=== PATIENT | female | born 1935 | race Caucasian/White ===

== ENCOUNTER 2017-03-25 10:44 | Inpatient (IN) | payer OTHER, MEDICARE ==
[2017-03-25] MEDS ORDERED: AZITHROMYCIN IVPB 500 MG in DEXTROSE 5%-WATER - 250 ML IVPB ONE (10:51)
--- NOTE | 2017-03-25 10:54 | PDOC ---
History of Present Illness - General Chief Complaint: Respiratory Stated Complaint: COUGH Time Seen by Provider: 03/25/17 10:49 History Source: Patient Exam Limitations: No Limitations - History of Present Illness Initial Comments: 03/25/17 10:53 89 y/o female with cough since Friday. Denies SOB or chest pain. No N/V/D/C. Cough is productive and getting worse. No traveling or sick contacts. No fever or chills. Feeling weak as well. Severity: reports: mild Past History - Past Medical History Allergies/Adverse Reactions: Allergies Allergy/AdvReac Type Severity Reaction Status Date / Time Sulfa (Sulfonamide Allergy Unknown Verified 07/18/15 15:40 Antibiotics) [Sulfa(Sulfonamide Antibiotics)] ciprofloxacin [From Cipro] Allergy Verified 07/18/15 15:40 ciprofloxacin HCl Allergy Verified 07/18/15 15:40 [From Cipro] levofloxacin [From Levaquin] AdvReac Unknown Verified 07/18/15 15:40 Home Medications: Ambulatory Orders Alpha Lipoic Acid 300 mg PO DAILY 02/16/12 Aspirin [Aspirin EC] 81 mg PO DAILY 02/16/12 Digoxin [Lanoxin -] 0.125 mg PO DAILY 02/16/12 Diltiazem Cd [Cardizem Cd -] 120 mg PO DAILY 02/16/12 Fluoxetine HCl [Prozac -] 20 mg PO DAILY 02/16/12 Furosemide [Lasix] 20 mg PO DAILY 02/16/12 Gzwcjrhx-[id number]-Ydrn 149-Hyal [Glucosamine Chondroitin Tablet] 1 each PO DAILY 02/16/12 Metformin HCl [Metformin HCl ER] 500 mg PO DAILY 02/16/12 Multivitamin with Minerals [Multiple Vitamin] 1 each PO DAILY 02/16/12 [place]-3/Dha/Epa/Fish Oil [Fish Oil 1,000 mg Softgel] 2 each PO DAILY 02/16/12 Warfarin Na [Coumadin -] 2.5 mg PO DAILY@1800 02/16/12 Doxazosin Mesylate 2 mg PO HS 03/25/17 Warfarin Sodium [Coumadin] 5 mg PO DAILY 03/25/17 Cardiac Disorders: Yes (A-FIB) Diabetes: Yes HTN: Yes Kidney Stones: Yes Psychiatric Problems: Yes (DEPRESSION) - Surgical History Cardiac Surgery: Yes (AVR) - Psycho/Social/Smoking Cessation Hx Anxiety: Yes Suicidal Ideation: No Smoking Status: Yes Smoking History: Never smoked Number of Cigarettes Smoked Daily: 0 Cigars Per Day: 0 Hx Alcohol Use: No Drug/Substance Use Hx: No Substance Use Type: None Review of Systems - Review of Systems Able to Perform ROS?: Yes Is the patient limited [place]uran proficient: No Constitutional: Yes: Malaise. No: Chills, Fever HEENTM: No: Eye Pain Respiratory: Yes: Cough, Productive cough. No: Shortness of Breath Cardiac (ROS): No: Chest Pain, Edema : No: Burning, Dysuria Integumentary: No: Bruising Neurological: No: Headache, Numbness, Paresthesia All Other Systems: Reviewed and Negative *Physical Exam - Physical Exam General Appearance: Yes: Nourished, Appropriately Dressed. No: Apparent Distress HEENT: positive: EOMI, EDMOND (mild discharge from the eyes), Normal ENT Inspection Neck: positive: Trachea midline, Normal Thyroid, Supple Respiratory/Chest: negative: Chest Tender, Lungs Clear (coarse breath sounds b/l , no wheezing b/l), Normal Breath Sounds, Respiratory Distress Cardiovascular: positive: Regular Rhythm, Regular Rate, S1, S2, Murmur (3/6 PEDRO) Gastrointestinal/Abdominal: positive: Normal Bowel Sounds, Flat, Soft. negative : Tender, Organomegaly, Pulsatile Mass Musculoskeletal: positive: Normal Inspection. negative: CVA Tenderness Extremity: positive: Normal Capillary Refill, Normal Inspection, Normal Range of Motion, Cyanosis. 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 Lorenzana covering for Dr. Aguirre, will admit to Dr. Parson's service Family in agreement with plan. *DC/Admit/Observation/Transfer Diagnosis at time of Disposition: Shortness of breath, Weakness - Discharge Dispostion Condition at time of disposition: Stable Admit: Yes
[2017-03-25] MEDS ORDERED: ALBUTEROL SO4 0.083% IH SOL 2.5 MG/3 ML VIAL.NEB. NEB ONE ×2 (10:56→11:18)
[2017-03-25 11:16] VITALS: BMI 21.7
[2017-03-25] MEDS ORDERED: AZITHROMYCIN 500 MG VIAL IVPB ONE (11:18)
[2017-03-25] MEDS ORDERED: cefTRIAXone SODIUM 1 GM VIAL ONE (11:18)
[2017-03-25 11:59] LABS: EOSINOPHIL 0.4 % (0-4.5); MCH 29.4 pg (25.7-33.7); MCHC 33.8 g/dl (32.0-36.0); MEAN PLT VOLUME 9.2 fl (7.5-11.1); NEUTROPHILS 73.8 % (42.8-82.8); PLATELET COUNT 256 K/MM3 (134-434); RDW 13.4 % (11.6-15.6); WHITE BLOOD COUNT 16.1 K/mm3 (4.0-10.8)
[2017-03-25 12:15] LABS: ALBUMIN 3.5 g/dl (3.5-5.0); ALK PHOS 69 U/L (32-92); ANION GAP 8 (8-16); BILIRUBIN,TOTAL 0.8 mg/dl (0.2-1.0); CALCIUM 9.2 mg/dl (8.4-10.2); CO2 28 mmol/L (22-28); CREATININE 0.9 mg/dl (0.6-1.3); GLUCOSE,RANDOM 103 mg/dl (74-106); SGOT/AST 16 U/L (10-42); SGPT/ALT 16 U/L (10-40); TOT PROT 7.3 g/dl (6.4-8.3)
[2017-03-25] MEDS: SODIUM CHLORIDE 1,000 ML IV SCH (12:25)
[2017-03-25 12:32] LABS: TROPONIN I (DFP) 0.03 ng/ml (0.03-0.50)
--- NOTE | 2017-03-25 15:18 | HP ---
Admitting History and Physical - Admission Chief Complaint: cough, congestion History of Present Illness: 81 yo female, h/o DM, heart valve replacement, presents to hospital with 4 days of increasing coughing and congestion. Notes prior to that was feeling OK. Began to get congested nasally and slight cough, so thought that it was just allergies, but then as the last few days went on became increasingly congested, coughing up phlegm occasionally. Received abx and albuterol breathing treatment in ED here and feels a little better, however still with cough. Eyes have been crusting as well. History Source: Patient, Family Member, Medical Record Limitations to Obtaining History: No Limitations - Past Medical History SOCK LINER: Yes: Peripheral Neuropathy Cardiovascular: Yes: AFIB, Aortic Stenosis, CAD, CHF, HTN, Hyperlipdemia, Other (peripheral vascular disease) Psych: Yes: Depression Musculoskeletal: Yes: Other (scoliosis) Rheumatology: Yes: Other (osteoporosis) Endocrine: Yes: Diabetes Mellitus, Other (vit d def) - Past Surgical History Past Surgical History: Yes: Appendectomy, CABG, Cataract Removal, Tonsillectomy , Valve Replacement (Aortic -Porcine) Additional Past Surgical History: bladder surgery - Smoking History Smoking history: Former smoker Have you smoked in the past 12 months: No Aproximately how many cigarettes per day: 0 - Alcohol/Substance Use Hx Alcohol Use: Yes (occasional beer) - Social History Usual Living Arrangement: Yes: With Spouse 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[employer]) Other Social History: , 1 dtr Home Medications - Allergies Allergies/Adverse Reactions: Allergies Allergy/AdvReac Type Severity Reaction Status Date / Time Sulfa (Sulfonamide Allergy Unknown Verified 07/18/15 15:40 Antibiotics) [Sulfa(Sulfonamide Antibiotics)] ciprofloxacin [From Cipro] Allergy Verified 07/18/15 15:40 ciprofloxacin HCl Allergy Verified 07/18/15 15:40 [From Cipro] levofloxacin [From Levaquin] AdvReac Unknown Verified 07/18/15 15:40 - Home Medications Home Medications: Ambulatory Orders Alpha Lipoic Acid 300 mg PO DAILY 02/16/12 Aspirin [Aspirin EC] 81 mg PO DAILY 02/16/12 Digoxin [Lanoxin -] 0.125 mg PO DAILY 02/16/12 Diltiazem Cd [Cardizem Cd -] 120 mg PO DAILY 02/16/12 Fluoxetine HCl [Prozac -] 20 mg PO DAILY 02/16/12 Furosemide [Lasix] 20 mg PO DAILY 02/16/12 [place]-Dceozjg-Nact 149-Hyal [Glucosamine Chondroitin Tablet] 1 each PO DAILY 02/16/12 Metformin HCl [Metformin HCl ER] 500 mg PO DAILY 02/16/12 Multivitamin with Minerals [Multiple Vitamin] 1 each PO DAILY 02/16/12 [place]-3/Dha/Epa/Fish Oil [Fish Oil 1,000 mg Softgel] 2 each PO DAILY 02/16/12 Warfarin Na [Coumadin -] 2.5 mg PO DAILY@1800 02/16/12 Doxazosin Mesylate 2 mg PO HS 03/25/17 Warfarin Sodium [Coumadin] 5 mg PO DAILY 03/25/17 Family Disease History - Family Disease History Family Disease History: CA: Mother (Lung CA), Other: Father (AAA, COPD) Review of Systems - Review of Systems Constitutional: denies: Chills, Fever, Loss of Appetite Eyes: reports: Other (bilateral eye crusting) HENT: reports: Nasal Congestion. denies: Ear Discharge, Ear Pain Neck: denies: Lumps, Pain on Movement, Tenderness Cardiovascular: denies: Chest Pain, Palpitations Respiratory: reports: Cough. denies: Hemoptysis, SOB Gastrointestinal: denies: Abdominal Pain, Diarrhea, Nausea, Rectal Bleeding, Vomiting Genitourinary: denies: Burning, Discharge, Dysuria Neurological: denies: Change in LOC, Confusion Physical Examination Vital Signs: Vital Signs Temperature 99.3 F 03/25/17 12:51 Pulse Rate 98 H 03/25/17 12:51 Respiratory Rate 20 03/25/17 12:51 Blood Pressure 128/59 03/25/17 14:02 O2 Sat by Pulse Oximetry (%) 96 03/25/17 12:51 Constitutional: Yes: No Distress, Calm Eyes: No: Conjunctiva Clear (erythematou with crusting in medil canthus of eyes) Cardiovascular: Yes: Regular Rate and Rhythm, Murmur, S1, S2 Respiratory: Yes: Regular, Rhonchi, Wheezes (bilaterally) Gastrointestinal: Yes: Normal Bowel Sounds, Soft. No: Distention, Tenderness Edema: No Neurological: Yes: Alert, Oriented Labs: CBC, BMP 03/25/17 11:43 03/25/17 11:43 Imaging - Results Chest X-ray: Report Reviewed (no acute pathology) Problem List - Problems (1) Bronchopneumonia Assessment/Plan: -start abx (Rocephin, zithromax), anti-tussive Code(s): J18.0 - BRONCHOPNEUMONIA, UNSPECIFIED ORGANISM (2) Reactive airway disease Assessment/Plan: -as h/o diabetes, will avoid systemic steroids for now -start albuterol neb, asmanex for inhaled corticosteroid Code(s): J45.909 - UNSPECIFIED ASTHMA, UNCOMPLICATED (3) Conjunctivitis Assessment/Plan: -start tobra eye drops Code(s): H10.9 - UNSPECIFIED CONJUNCTIVITIS (4) Diabetes mellitus Assessment/Plan: -with acute illness will start sliding scale insulin -cont metformin Code(s): E11.9 - TYPE 2 DIABETES MELLITUS WITHOUT COMPLICATIONS (5) Afib Assessment/Plan: -on coumadin (will need to follow INR on abx) Code(s): I48.91 - UNSPECIFIED ATRIAL FIBRILLATION (6) Aortic valve replaced Assessment/Plan: -porcine valve (on AC for afib) Code(s): Z95.2 - PRESENCE OF PROSTHETIC HEART VALVE (7) Depression Assessment/Plan: -on SSRI Code(s): F32.9 - MAJOR DEPRESSIVE DISORDER, SINGLE EPISODE, UNSPECIFIED
[2017-03-25] MEDS ORDERED: guaiFENesin/D-M SUGAR-FREE/ACLHOL-FREE 118 ML BOTTLE PO PRN (15:33)
[2017-03-25] MEDS: INSULIN SLIDING SCALE (NOVOLOG) 1 VIAL SQ SCH ×2 (16:30→21:55)
[2017-03-25] MEDS ORDERED: ALBUTEROL SO4 0.083% IH SOL 2.5 MG/3 ML VIAL.NEB. NEB SCH (18:00)
[2017-03-25] MEDS: WARFARIN NA 2.5 MG TABLET (FP) PO SCH (18:14)
[2017-03-25] MEDS: ALBUTEROL SO4 0.083% IH SOL 2.5 MG/3 ML VIAL.NEB. NEB SCH (18:27)
[2017-03-25] MEDS ORDERED: methylPREDNISolone NA SUCC 125 MG/2 ML VIAL ONE (18:51)
[2017-03-25 18:55] LABS: INR 2.16 (0.82-1.09); PROTHROMBIN TIME (PATIENT) 23.8 SEC (10.2-13.0)
[2017-03-25] MEDS ORDERED: methylPREDNISolone NA SUCC 125 MG/2 ML VIAL IVPB ONE (18:57)
[2017-03-25] MEDS ORDERED: ACETAMINOPHEN 1000 MG/100 ML VIAL (NON FORMULARY) IVPB ONE (19:03)
[2017-03-25] MEDS: methylPREDNISolone NA SUCC 40 MG/1 ML VIAL IVPB SCH (21:49)
[2017-03-25] MEDS: TOBRAMYCIN 0.3% OPHTH SOLN 5 ML BOTTLE OU SCH (21:49)
[2017-03-25] MEDS: DOXAZOSIN MESYLATE 2 MG TABLET (FP) PO SCH (21:49)
[2017-03-25] MEDS ORDERED: INSULIN (NOVOLOG) ASPART 100 UNITS/ML 10ML VIAL ONE (21:55)
[2017-03-25] MEDS: MOMETASONE FUROATE 220 MCG/IH INHALER IH SCH (21:56)
[2017-03-26] MEDS: ALBUTEROL SO4 0.083% IH SOL 2.5 MG/3 ML VIAL.NEB. NEB SCH ×5 (00:10→23:32)
[2017-03-26] MEDS: TOBRAMYCIN 0.3% OPHTH SOLN 5 ML BOTTLE OU SCH ×6 (02:10→21:41)
[2017-03-26] MEDS: INSULIN SLIDING SCALE (NOVOLOG) 1 VIAL SQ SCH ×4 (06:16→21:55)
[2017-03-26] MEDS ORDERED: PT OWN MED DRAWER 7, Y5N ONE ×5 (06:22→21:36)
[2017-03-26 08:37] LABS: BASOPHIL 0.6 % (0-2.0); MCH 28.9 pg (25.7-33.7); MCHC 32.7 g/dl (32.0-36.0); MEAN CELL VOLUME 88.4 fl (80-96); MEAN PLT VOLUME 9.4 fl (7.5-11.1); NEUTROPHILS 91.5 % (42.8-82.8); PLATELET COUNT 251 K/MM3 (134-434); RDW 13.3 % (11.6-15.6); WHITE BLOOD COUNT 15.2 K/mm3 (4.0-10.8)
[2017-03-26 08:52] LABS: INR 2.51 (0.82-1.09); PROTHROMBIN TIME (PATIENT) 27.6 SEC (10.2-13.0)
--- NOTE | 2017-03-26 09:47 | PN ---
Progress Note, Physician Chief Complaint: Ms Nevarez says she feels "like a new woman". Says her breathing and wheezing are much improved. No cp or n/v. - Current Medication List Current Medications: Active Medications Acetaminophen (Tylenol -) 650 mg PO Q4H PRN PRN Reason: FEVER OR PAIN Albuterol Sulfate (Ventolin 0.083% Nebulizer Soln -) 1 amp NEB Q6HPO [facility] Last Admin: 03/26/17 05:43 Dose: 1 amp Aspirin (Ecotrin -) 81 mg PO DAILY [facility] Digoxin (Lanoxin -) 0.125 mg PO DAILY [facility] Diltiazem HCl (Cardizem Cd -) 120 mg PO DAILY [facility] Doxazosin Mesylate (Cardura -) 2 mg PO HS [facility] Last Admin: 03/25/17 21:49 Dose: 2 mg Fluoxetine HCl (Prozac -) 20 mg PO DAILY [facility] Furosemide (Lasix -) 20 mg PO DAILY [facility] Guaifenesin (Diabetic Tussin Dm -) 5 ml PO Q6H PRN PRN Reason: COUGH Sodium Chloride (Normal Saline -) 1,000 mls @ 150 mls/hr IV ASDIR [facility] Last Admin: 03/25/17 12:25 Dose: 150 mls/hr Azithromycin (Zithromax 500mg Ivpb (Pre-Docked)) 250 mls @ 250 mls/hr IVPB DAILY [facility] Ceftriaxone Sodium (Rocephin 1gm Ivpb (Pre-Docked)) 50 mls @ 100 mls/hr IVPB DAILY [facility] Insulin Aspart (Novolog Vial Sliding Scale -) 0 vial SQ ACHS [facility] PRN Reason: Protocol Last Admin: 03/26/17 06:16 Dose: Not Given Metformin HCl (Glucophage Xr -) 500 mg PO DAILY [facility] Methylprednisolone Sodium Succinate (Solu-Medrol -) 80 mg IVPB BID [facility] Last Admin: 03/25/17 21:49 Dose: 80 mg Mometasone Furoate (Asmanex 220mcg -) 2 puff IH HS [facility] Last Admin: 03/25/17 21:56 Dose: 2 puff Multivitamins/Minerals (Theragran-M) 1 each PO DAILY [facility] Non-Formulary Medication ([place]-3/Dha/Epa/Fish Oil [Fish Oil 1,000 Mg Softgel]) 2 each PO DAILY [facility] Tobramycin Sulfate (Tobrex Ophthalmic Solution -) 1 drop OU Q4HPO [facility] Last Admin: 03/26/17 05:43 Dose: 1 drop Warfarin Sodium (Coumadin -) 2.5 mg PO DAILY@1800 [facility] Last Admin: 03/25/17 18:14 Dose: 2.5 mg - Objective Vital Signs: Vital Signs Temperature 98.6 F 03/26/17 06:00 Pulse Rate 67 03/26/17 06:00 Respiratory Rate 20 03/26/17 06:00 Blood Pressure 128/52 03/26/17 06:00 O2 Sat by Pulse Oximetry (%) 95 03/26/17 08:32 Constitutional: Yes: Well Nourished, No Distress, Calm Cardiovascular: Yes: Pulse Irregular. No: Tachycardia, Gallop, Murmur, Rub Respiratory: Yes: Regular, On Nasal O2, Wheezes. No: CTA Bilaterally, Rales, Rhonchi Gastrointestinal: Yes: Normal Bowel Sounds, Soft. No: Distention, Tenderness Extremities: Yes: WNL Edema: No Labs: CBC, BMP 03/26/17 08:00 INR, PTT INR 2.51 (0.82-1.09) H 03/26/17 08:00 Problem List - Problems (1) Bronchopneumonia Assessment/Plan: -admitted for pneumonia with sepsis -sepsis demonstrated by leukocytosis, fevers, tachycardia, and hypoxia -continue zithromax and rocephin day 2 -patient says she is feeling better -last fever 10 hours ago, still with leukocytosis Code(s): J18.0 - BRONCHOPNEUMONIA, UNSPECIFIED ORGANISM (2) Afib Assessment/Plan: -rate controlled -INR therapeutic -continue diltiazem, digoxin, and coumadin Code(s): I48.91 - UNSPECIFIED ATRIAL FIBRILLATION Qualifiers: Atrial fibrillation type: chronic Qualified Code(s): I48.2 - Chronic atrial fibrillation (3) Diabetes mellitus Assessment/Plan: -continue metformin -expect elevation since on steroids Code(s): E11.9 - TYPE 2 DIABETES MELLITUS WITHOUT COMPLICATIONS (4) Conjunctivitis Assessment/Plan: -continue tobramycin eye drops -improving Code(s): H10.9 - UNSPECIFIED CONJUNCTIVITIS Qualifiers: Conjunctivitis type: acute Acute conjunctivitis type: bacterial Laterality: bilateral Qualified Code(s): H10.33 - Unspecified acute conjunctivitis, bilateral (5) Reactive airway disease Assessment/Plan: -still with significant wheezing -continue bronchodilators and systemic steroids -monitor for improvement Code(s): J45.909 - UNSPECIFIED ASTHMA, UNCOMPLICATED (6) Aortic valve replaced Assessment/Plan: -porcine valve Code(s): Z95.2 - PRESENCE OF PROSTHETIC HEART VALVE
[2017-03-26] MEDS ORDERED: PATIENT'S OWN MEDICATION (NON-FORMULARY) (Omega-3/Dha/Epa/Fish Oil [Fish Oil 1,000 Mg Soft PO SCH (10:00)
[2017-03-26] MEDS ORDERED: FLUoxetine HCL 10 MG CAPSULE (FP) PO SCH (10:00)
[2017-03-26] MEDS: MULTIVITAMINS THER W-MINERALS COMBO TABLET (FP) PO SCH (10:12)
[2017-03-26] MEDS: FUROSEMIDE 20 MG TABLET (FP) PO SCH (10:12)
[2017-03-26] MEDS: DIGOXIN 0.125 MG TABLET (FP) PO SCH (10:13)
[2017-03-26] MEDS: ASPIRIN COATED 81 MG TABLET.EC PO SCH (10:13)
[2017-03-26] MEDS: methylPREDNISolone NA SUCC 40 MG/1 ML VIAL IVPB SCH ×2 (10:14→21:35)
[2017-03-26] MEDS: FLUoxetine HCL 20 MG CAPSULE (FP) PO SCH (10:14)
[2017-03-26] MEDS: CEFTRIAXONE 50 ML IVPB SCH (10:15)
[2017-03-26] MEDS: AZITHROMYCIN IVPB 250 ML IVPB SCH (10:16)
[2017-03-26] MEDS: SODIUM CHLORIDE 1,000 ML IV SCH (14:01)
[2017-03-26 14:09] LABS: ALBUMIN 3.2 g/dl (3.5-5.0); ALK PHOS 75 U/L (32-92); ANION GAP 10 (8-16); BILIRUBIN,TOTAL 0.3 mg/dl (0.2-1.0); CO2 24 mmol/L (22-28); CREATININE 0.9 mg/dl (0.6-1.3); GLUCOSE,RANDOM 199 mg/dl (74-106); SGOT/AST 32 U/L (10-42); SGPT/ALT 21 U/L (10-40)
--- NOTE | 2017-03-26 17:24 | EKG ---
Test Reason : Blood Pressure : / mmHG Vent. Rate : 078 BPM Atrial Rate : 214 BPM P-R Int : 000 ms QRS Dur : 110 ms QT Int : 372 ms P-R-T Axes : 000 -31 092 degrees QTc Int : 424 ms ATRIAL FIBRILLATION LEFT AXIS DEVIATION NONSPECIFIC ST AND T WAVE ABNORMALITY NO PREVIOUS ECGS AVAILABLE Confirmed by MD ALISA, SHINE ([id number]) on 03/26/2017 5:23:57 PM Referred By: SHARRON RUIZ Confirmed By:SHINE CUELLAR MD
[2017-03-26] MEDS: WARFARIN NA 2.5 MG TABLET (FP) PO SCH (17:47)
[2017-03-26] MEDS: MOMETASONE FUROATE 220 MCG/IH INHALER IH SCH (21:34)
[2017-03-26] MEDS: DOXAZOSIN MESYLATE 2 MG TABLET (FP) PO SCH (21:34)
[2017-03-26] MEDS ORDERED: INSULIN (NOVOLOG) ASPART 100 UNITS/ML 10ML VIAL ONE (21:43)
[2017-03-26] MEDS: ACETAMINOPHEN 325 MG TABLET (FP) PO PRN (23:32)
[2017-03-27] MEDS: TOBRAMYCIN 0.3% OPHTH SOLN 5 ML BOTTLE OU SCH ×5 (01:06→21:29)
[2017-03-27] MEDS: ALBUTEROL SO4 0.083% IH SOL 2.5 MG/3 ML VIAL.NEB. NEB SCH ×3 (06:22→21:27)
[2017-03-27] MEDS: INSULIN SLIDING SCALE (NOVOLOG) 1 VIAL SQ SCH ×4 (06:54→22:15)
[2017-03-27] MEDS ORDERED: INSULIN (NOVOLOG) ASPART 100 UNITS/ML 10ML VIAL ONE (06:54)
[2017-03-27 08:12] LABS: MCH 29.5 pg (25.7-33.7); MCHC 33.4 g/dl (32.0-36.0); MEAN CELL VOLUME 88.3 fl (80-96); MEAN PLT VOLUME 9.4 fl (7.5-11.1); PLATELET COUNT 253 K/MM3 (134-434); WHITE BLOOD COUNT 23.7 K/mm3 (4.0-10.8)
[2017-03-27 08:28] LABS: ANION GAP 9 (8-16); CO2 23 mmol/L (22-28); GLUCOSE,RANDOM 240 mg/dl (74-106); MAGNESIUM 2.1 mg/dL (1.8-2.4)
[2017-03-27] MEDS: ASPIRIN COATED 81 MG TABLET.EC PO SCH (09:02)
[2017-03-27] MEDS: DIGOXIN 0.125 MG TABLET (FP) PO SCH (09:02)
[2017-03-27] MEDS: FUROSEMIDE 20 MG TABLET (FP) PO SCH (09:02)
[2017-03-27] MEDS: methylPREDNISolone NA SUCC 40 MG/1 ML VIAL IVPB SCH (09:03)
[2017-03-27] MEDS: MULTIVITAMINS THER W-MINERALS COMBO TABLET (FP) PO SCH (09:03)
[2017-03-27] MEDS: FLUoxetine HCL 20 MG CAPSULE (FP) PO SCH (09:03)
[2017-03-27] MEDS: CEFTRIAXONE 50 ML IVPB SCH (09:03)
[2017-03-27] MEDS: AZITHROMYCIN IVPB 250 ML IVPB SCH (09:04)
[2017-03-27 09:25] LABS: INR 2.83 (0.82-1.09)
[2017-03-27] MEDS ORDERED: methylPREDNISolone NA SUCC 40 MG/1 ML VIAL IVPB SCH (09:56)
--- NOTE | 2017-03-27 09:57 | PN ---
Progress Note, Physician Chief Complaint: Ms Nevarez says she is feeling well. Says her breathing is much better. No cp or n /v. - Current Medication List Current Medications: Active Medications Acetaminophen (Tylenol -) 650 mg PO Q4H PRN PRN Reason: FEVER OR PAIN Last Admin: 03/26/17 23:32 Dose: 650 mg Albuterol Sulfate (Ventolin 0.083% Nebulizer Soln -) 1 amp NEB Q6HPO [facility] Last Admin: 03/27/17 06:22 Dose: 1 amp Aspirin (Ecotrin -) 81 mg PO DAILY [facility] Last Admin: 03/27/17 09:02 Dose: 81 mg Digoxin (Lanoxin -) 0.125 mg PO DAILY [facility] Last Admin: 03/27/17 09:02 Dose: 0.125 mg Diltiazem HCl (Cardizem Cd -) 120 mg PO DAILY [facility] Last Admin: 03/27/17 09:01 Dose: 120 mg Doxazosin Mesylate (Cardura -) 2 mg PO HS [facility] Last Admin: 03/26/17 21:34 Dose: 2 mg Fluoxetine HCl (Prozac -) 20 mg PO DAILY [facility] Last Admin: 03/27/17 09:03 Dose: 20 mg Furosemide (Lasix -) 20 mg PO DAILY [facility] Last Admin: 03/27/17 09:02 Dose: 20 mg Guaifenesin (Diabetic Tussin Dm -) 5 ml PO Q6H PRN PRN Reason: COUGH Last Admin: 03/26/17 23:33 Dose: 5 ml Sodium Chloride (Normal Saline -) 1,000 mls @ 150 mls/hr IV ASDIR [facility] Last Admin: 03/26/17 14:01 Dose: 150 mls/hr Azithromycin (Zithromax 500mg Ivpb (Pre-Docked)) 250 mls @ 250 mls/hr IVPB DAILY [facility] Last Admin: 03/27/17 09:04 Dose: 250 mls/hr Ceftriaxone Sodium (Rocephin 1gm Ivpb (Pre-Docked)) 50 mls @ 100 mls/hr IVPB DAILY [facility] Last Admin: 03/27/17 09:03 Dose: 100 mls/hr Insulin Aspart (Novolog Vial Sliding Scale -) 0 vial SQ ACHS [facility] PRN Reason: Protocol Last Admin: 03/27/17 06:54 Dose: 2 unit Metformin HCl (Glucophage Xr -) 500 mg PO DAILY [facility] Last Admin: 03/27/17 09:02 Dose: 500 mg Mometasone Furoate (Asmanex 220mcg -) 2 puff IH HS [facility] Last Admin: 03/26/17 21:34 Dose: 2 puff Multivitamins/Minerals (Theragran-M) 1 each PO DAILY [facility] Last Admin: 03/27/17 09:03 Dose: 1 each Potassium Chloride (K-Dur -) 40 meq PO ONCE ONE Stop: 03/27/17 09:56 Tobramycin Sulfate (Tobrex Ophthalmic Solution -) 1 drop OU Q4HPO [facility] Last Admin: 03/27/17 06:23 Dose: 1 drop Warfarin Sodium (Coumadin -) 2.5 mg PO DAILY@1800 [facility] Last Admin: 03/26/17 17:47 Dose: 2.5 mg - Objective Vital Signs: Vital Signs Temperature 97.7 F 03/27/17 05:00 Pulse Rate 101 H 03/27/17 09:02 Respiratory Rate 20 03/27/17 05:00 Blood Pressure 130/51 03/27/17 05:00 O2 Sat by Pulse Oximetry (%) 99 03/27/17 01:28 Constitutional: Yes: Well Nourished, No Distress, Calm Cardiovascular: Yes: Pulse Irregular. No: Tachycardia, Gallop, Murmur, Rub Respiratory: Yes: Regular, Rhonchi, Wheezes Gastrointestinal: Yes: Normal Bowel Sounds, Soft. No: Distention, Tenderness Extremities: Yes: WNL Edema: No Labs: CBC, BMP 03/27/17 07:31 03/27/17 07:31 INR, PTT INR 2.83 (0.82-1.09) H 03/27/17 07:31 Problem List - Problems (1) Bronchopneumonia Code(s): J18.0 - BRONCHOPNEUMONIA, UNSPECIFIED ORGANISM (2) Afib Code(s): I48.91 - UNSPECIFIED ATRIAL FIBRILLATION Qualifiers: Atrial fibrillation type: chronic Qualified Code(s): I48.2 - Chronic atrial fibrillation (3) Diabetes mellitus Code(s): E11.9 - TYPE 2 DIABETES MELLITUS WITHOUT COMPLICATIONS (4) Conjunctivitis Code(s): H10.9 - UNSPECIFIED CONJUNCTIVITIS Qualifiers: Conjunctivitis type: acute Acute conjunctivitis type: bacterial Laterality: bilateral Qualified Code(s): H10.33 - Unspecified acute conjunctivitis, bilateral (5) Reactive airway disease Code(s): J45.909 - UNSPECIFIED ASTHMA, UNCOMPLICATED (6) Aortic valve replaced Code(s): Z95.2 - PRESENCE OF PROSTHETIC HEART VALVE Assessment/Plan (1) Bronchopneumonia Assessment/Plan: -continue rocephin and zithromax day 3 -patient feels improved -with significant leukocytosis, but secondary to steroids Code(s): J18.0 - BRONCHOPNEUMONIA, UNSPECIFIED ORGANISM (2) Afib Assessment/Plan: -rate controlled -INR therapeutic -continue diltiazem, digoxin, and coumadin -however having episodes of tachycardia at night -stated ER physician was call to evaluate -consult cardiology Code(s): I48.91 - UNSPECIFIED ATRIAL FIBRILLATION Qualifiers: Atrial fibrillation type: chronic Qualified Code(s): I48.2 - Chronic atrial fibrillation (3) Diabetes mellitus Assessment/Plan: -continue metformin -expect elevation since on steroids Code(s): E11.9 - TYPE 2 DIABETES MELLITUS WITHOUT COMPLICATIONS (4) Conjunctivitis Assessment/Plan: -continue tobramycin eye drops -improving Code(s): H10.9 - UNSPECIFIED CONJUNCTIVITIS Qualifiers: Conjunctivitis type: acute Acute conjunctivitis type: bacterial Laterality: bilateral Qualified Code(s): H10.33 - Unspecified acute conjunctivitis, bilateral (5) Reactive airway disease Assessment/Plan: -still with significant wheezing, patient says she normally does not wheeze -since feeling better, will decrease solumedrol -continue to monitor for improvement of wheezing Code(s): J45.909 - UNSPECIFIED ASTHMA, UNCOMPLICATED (6) Aortic valve replaced Assessment/Plan: -porcine valve Code(s): Z95.2 - PRESENCE OF PROSTHETIC HEART VALVE
[2017-03-27] MEDS ORDERED: POTASSIUM CHLORIDE TABS 20 MEQ TABLET.ER (FP) PO ONE (10:30)
[2017-03-27 10:52] LABS: PLATELET ESTIMATE ADEQUATE (NORMAL)
[2017-03-27] MEDS ORDERED: PT OWN MED DRAWER 7, Y5N ONE ×2 (15:40→21:09)
--- NOTE | 2017-03-27 17:14 | CON.CARD ---
Cardiology Consult (text) - Consultation Consultation Note: CC: afib 81 yo female, h/o cad s/p cabg ? (pt denies), afib, bio AVR, diastolic HF on lasix, HTN, HL, DM, ureteral stents, recurrent uti's, possible early dementia p/ w bronchopneumonia. 4 days of increasing weakness, sob, coughing and congestion. Overnight had HR's in the 130's-140's, patient states she was asx. Per nursing notes, patient was having coughing episode at the time. Has been on stable rate control regimen as outpatient. no orthopnea, pnd, le edema, palps, cp, dizziness, bleeding, transient neurologic sx's. no f/c/s, n/v/d, headache, rashes, visual disturbances. Cards: Dr. 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[employer]) Family Disease History: CA: Mother (Lung CA), Other: Father (AAA, COPD) Ambulatory Orders Alpha Lipoic Acid 300 mg PO DAILY 02/16/12 Aspirin [Aspirin EC] 81 mg PO DAILY 02/16/12 Digoxin [Lanoxin -] 0.125 mg PO DAILY 02/16/12 Diltiazem Cd [Cardizem Cd -] 120 mg PO DAILY 02/16/12 Fluoxetine HCl [Prozac -] 20 mg PO DAILY 02/16/12 Furosemide [Lasix] 20 mg PO DAILY 02/16/12 Pjpmhino-Kahxvgs-Xspo 149-Hyal [Glucosamine Chondroitin Tablet] 1 each PO DAILY 02/16/12 Metformin HCl [Metformin HCl ER] 500 mg PO DAILY 02/16/12 Multivitamin with Minerals [Multiple Vitamin] 1 each PO DAILY 02/16/12 Elizabeth-3/Dha/Epa/Fish Oil [Fish Oil 1,000 mg Softgel] 2 each PO DAILY 02/16/12 Warfarin Na [Coumadin -] 2.5 mg PO DAILY@1800 02/16/12 Doxazosin Mesylate 2 mg PO HS 03/25/17 Warfarin Sodium [Coumadin] 5 mg PO DAILY 03/25/17 Current Medications Acetaminophen (Tylenol -) 650 mg PO Q4H PRN PRN Reason: FEVER OR PAIN Last Admin: 03/26/17 23:32 Dose: 650 mg Albuterol Sulfate (Ventolin 0.083% Nebulizer Soln -) 1 amp NEB Q6HPO [facility] Last Admin: 03/27/17 11:00 Dose: 1 amp Aspirin (Ecotrin -) 81 mg PO DAILY [facility] Last Admin: 03/27/17 09:02 Dose: 81 mg Digoxin (Lanoxin -) 0.125 mg PO DAILY [facility] Last Admin: 03/27/17 09:02 Dose: 0.125 mg Diltiazem HCl (Cardizem Cd -) 120 mg PO DAILY [facility] Last Admin: 03/27/17 09:01 Dose: 120 mg Doxazosin Mesylate (Cardura -) 2 mg PO HS [facility] Last Admin: 03/26/17 21:34 Dose: 2 mg Fluoxetine HCl (Prozac -) 20 mg PO DAILY [facility] Last Admin: 03/27/17 09:03 Dose: 20 mg Furosemide (Lasix -) 20 mg PO DAILY [facility] Last Admin: 03/27/17 09:02 Dose: 20 mg Guaifenesin (Diabetic Tussin Dm -) 5 ml PO Q6H PRN PRN Reason: COUGH Last Admin: 03/26/17 23:33 Dose: 5 ml Sodium Chloride (Normal Saline -) 1,000 mls @ 150 mls/hr IV ASDIR [facility] Last Admin: 03/26/17 14:01 Dose: 150 mls/hr Azithromycin (Zithromax 500mg Ivpb (Pre-Docked)) 250 mls @ 250 mls/hr IVPB DAILY [facility] Last Admin: 03/27/17 09:04 Dose: 250 mls/hr Ceftriaxone Sodium (Rocephin 1gm Ivpb (Pre-Docked)) 50 mls @ 100 mls/hr IVPB DAILY [facility] Last Admin: 03/27/17 09:03 Dose: 100 mls/hr Insulin Aspart (Novolog Vial Sliding Scale -) 0 vial SQ ACHS VIDA PRN Reason: Protocol Last Admin: 03/27/17 16:41 Dose: Not Given Metformin HCl (Glucophage Xr -) 500 mg PO DAILY [facility] Last Admin: 03/27/17 09:02 Dose: 500 mg Methylprednisolone Sodium Succinate (Solu-Medrol -) 60 mg IVPB BID [facility] Mometasone Furoate (Asmanex 220mcg -) 2 puff IH HS [facility] Last Admin: 03/26/17 21:34 Dose: 2 puff Multivitamins/Minerals (Theragran-M) 1 each PO DAILY [facility] Last Admin: 03/27/17 09:03 Dose: 1 each Tobramycin Sulfate (Tobrex Ophthalmic Solution -) 1 drop OU Q4HPO [facility] Last Admin: 03/27/17 14:44 Dose: 1 drop Warfarin Sodium (Coumadin -) 2.5 mg PO DAILY@1800 [facility] Last Admin: 03/26/17 17:47 Dose: 2.5 mg Vital Signs - 24 hr 03/26/17 03/26/17 03/27/17 21:01 22:29 01:28 Temperature 97.7 F 97.6 F Pulse Rate 86 75 105 H Respiratory 18 20 20 Rate Blood Pressure 146/52 148/58 164/52 O2 Sat by Pulse 96 99 Oximetry (%) 03/27/17 03/27/17 03/27/17 05:00 09:00 09:02 Temperature 97.7 F Pulse Rate 71 101 H Respiratory 20 Rate Blood Pressure 130/51 O2 Sat by Pulse 96 Oximetry (%) 03/27/17 14:39 Temperature 97.7 F Pulse Rate 77 Respiratory 20 Rate Blood Pressure 139/43 O2 Sat by Pulse 94 L Oximetry (%) Intake & Output 03/25/17 03/26/17 03/27/17 03/28/17 07:59 07:59 07:59 07:59 Intake Total 1050 4030 850 Balance 1050 4030 850 Weight 139 lb nad, calm jvd flat, neck supple wheezes at right base, nl effort irregular rate and rhythm. nl s1, s2 2/6 sys murmur at lsb + bs soft nt nd ext without e/c/c no carotid bruits no jaundice, diaphoresis aaox3 CBC, BMP 03/27/17 07:31 03/27/17 07:31 Laboratory Tests 03/25/17 03/25/17 03/26/17 11:43 11:43 08:00 Band Neutrophils INR Lactic Acid 1.2 Magnesium Total Bilirubin 0.3 D AST 32 D ALT 21 D Alkaline Phosphatase 75 Troponin I 0.03 Digoxin 03/26/17 03/27/17 03/27/17 08:00 07:31 07:31 Band Neutrophils 1.0 INR 2.83 H Lactic Acid Magnesium Total Bilirubin AST ALT Alkaline Phosphatase Troponin I Digoxin 0.6803 L 03/27/17 07:31 Band Neutrophils INR Lactic Acid Magnesium 2.1 Total Bilirubin AST ALT Alkaline Phosphatase Troponin I Digoxin EKG: afib, lad. ivcd. non-spec ST/twave ab. tele: overall rate controlled afib, VR 70's. brief intermittent rises up to 130' s. cards office echo 2011: mild lvh. EF 50-55%. nl rv. 1+ mr. bioAVR with nl gradients. mild-mod AR. cxr: no acute pathology 81 yo female, h/o cad s/p cabg ? (pt denies), afib, bio AVR, HTN, HL, diastolic HR on lasix, DM, ureteral stents, recurrent uti's, possible early dementia p/w bronchopneumonia. afib - patient with very brief asx episode of rvr during episode of coughing. Otherwise rate controlled. Has been on long-standing rate control regimen, so would not changed. Con't dilt, dig - lyte repletion - mgm't of underlying pulmonary issues per pmd - AC with coumadin. dosing per inr. - Echo CAD - patient denies cabg, but listed in hx on outpatient cardiology notes - denies anginal symptoms. - On fish oil, but not statin as outpatient. Will defer to her outpatient chief merchandising officer. - no need for ASA, on AC. bioAVR - repeat echo. no signs of valvular decompensation. routine follow up with outpatient chief merchandising officer - no need for ASA, on AC for afib htn - overall controlled on current regimen diastolic heart failure - appears euvolemic. con't outpatient lasix dose. - repeat echo
[2017-03-27] MEDS: MOMETASONE FUROATE 220 MCG/IH INHALER IH SCH (21:29)
[2017-03-27] MEDS: methylPREDNISolone NA SUCC 125 MG/2 ML VIAL IVPB SCH (21:30)
[2017-03-27] MEDS: DOXAZOSIN MESYLATE 2 MG TABLET (FP) PO SCH (21:30)
[2017-03-27] MEDS: ACETAMINOPHEN 325 MG TABLET (FP) PO PRN (21:33)
[2017-03-28] MEDS: ALBUTEROL SO4 0.083% IH SOL 2.5 MG/3 ML VIAL.NEB. NEB SCH ×4 (00:22→17:47)
[2017-03-28] MEDS: TOBRAMYCIN 0.3% OPHTH SOLN 5 ML BOTTLE OU SCH ×6 (03:08→22:16)
[2017-03-28] MEDS: INSULIN SLIDING SCALE (NOVOLOG) 1 VIAL SQ SCH ×4 (06:40→22:28)
[2017-03-28 08:43] LABS: BASOPHIL 0.2 % (0-2.0); MCH 29.3 pg (25.7-33.7); MCHC 33.5 g/dl (32.0-36.0); MEAN CELL VOLUME 87.3 fl (80-96); MEAN PLT VOLUME 9.1 fl (7.5-11.1); NEUTROPHILS 93.1 % (42.8-82.8); PLATELET COUNT 302 K/MM3 (134-434); RDW 13.4 % (11.6-15.6); WHITE BLOOD COUNT 23.1 K/mm3 (4.0-10.8)
[2017-03-28 08:51] LABS: ANION GAP 9 (8-16); CALCIUM 9.7 mg/dl (8.4-10.2); CO2 22 mmol/L (22-28); CREATININE 1.1 mg/dl (0.6-1.3); GLUCOSE,RANDOM 150 mg/dl (74-106); MAGNESIUM 2.2 mg/dL (1.8-2.4); PHOSPHOROUS 3.7 mg/dl (2.5-4.6)
[2017-03-28] MEDS ORDERED: PT OWN MED DRAWER 7, Y5N ONE ×5 (09:07→22:16)
[2017-03-28 09:22] LABS: INR 3.65 (0.82-1.09); PROTHROMBIN TIME (PATIENT) 39.9 SEC (10.2-13.0)
[2017-03-28] MEDS: CEFTRIAXONE 50 ML IVPB SCH (09:24)
[2017-03-28] MEDS: AZITHROMYCIN IVPB 250 ML IVPB SCH (09:24)
[2017-03-28] MEDS: methylPREDNISolone NA SUCC 125 MG/2 ML VIAL IVPB SCH ×2 (09:25→22:06)
[2017-03-28] MEDS: DIGOXIN 0.125 MG TABLET (FP) PO SCH (09:26)
[2017-03-28] MEDS: FUROSEMIDE 20 MG TABLET (FP) PO SCH (09:26)
[2017-03-28] MEDS: FLUoxetine HCL 20 MG CAPSULE (FP) PO SCH (09:26)
[2017-03-28] MEDS: ASPIRIN COATED 81 MG TABLET.EC PO SCH (09:26)
[2017-03-28] MEDS: MULTIVITAMINS THER W-MINERALS COMBO TABLET (FP) PO SCH (09:27)
--- NOTE | 2017-03-28 09:43 | PN ---
Progress Note, Physician Chief Complaint: Ms Nevarez says she is feeling well but can hear wheezing today. No cp, sob, n/v. - Current Medication List Current Medications: Active Medications Acetaminophen (Tylenol -) 650 mg PO Q4H PRN PRN Reason: FEVER OR PAIN Last Admin: 03/27/17 21:33 Dose: 650 mg Albuterol Sulfate (Ventolin 0.083% Nebulizer Soln -) 1 amp NEB Q6HPO [facility] Last Admin: 03/28/17 06:39 Dose: 1 amp Aspirin (Ecotrin -) 81 mg PO DAILY [facility] Last Admin: 03/28/17 09:26 Dose: 81 mg Digoxin (Lanoxin -) 0.125 mg PO DAILY [facility] Last Admin: 03/28/17 09:26 Dose: 0.125 mg Diltiazem HCl (Cardizem Cd -) 120 mg PO DAILY [facility] Last Admin: 03/28/17 09:25 Dose: 120 mg Doxazosin Mesylate (Cardura -) 2 mg PO HS [facility] Last Admin: 03/27/17 21:30 Dose: 2 mg Fluoxetine HCl (Prozac -) 20 mg PO DAILY [facility] Last Admin: 03/28/17 09:26 Dose: 20 mg Furosemide (Lasix -) 20 mg PO DAILY [facility] Last Admin: 03/28/17 09:26 Dose: 20 mg Guaifenesin (Diabetic Tussin Dm -) 5 ml PO Q6H PRN PRN Reason: COUGH Last Admin: 03/26/17 23:33 Dose: 5 ml Sodium Chloride (Normal Saline -) 1,000 mls @ 150 mls/hr IV ASDIR [facility] Last Admin: 03/26/17 14:01 Dose: 150 mls/hr Azithromycin (Zithromax 500mg Ivpb (Pre-Docked)) 250 mls @ 250 mls/hr IVPB DAILY [facility] Last Admin: 03/28/17 09:24 Dose: 250 mls/hr Ceftriaxone Sodium (Rocephin 1gm Ivpb (Pre-Docked)) 50 mls @ 100 mls/hr IVPB DAILY [facility] Last Admin: 03/28/17 09:24 Dose: 100 mls/hr Insulin Aspart (Novolog Vial Sliding Scale -) 0 vial SQ ACHS VIDA PRN Reason: Protocol Last Admin: 03/28/17 06:40 Dose: Not Given Metformin HCl (Glucophage Xr -) 500 mg PO DAILY [facility] Last Admin: 03/28/17 09:26 Dose: 500 mg Methylprednisolone Sodium Succinate (Solu-Medrol -) 60 mg IVPB BID [facility] Last Admin: 03/28/17 09:25 Dose: 60 mg Mometasone Furoate (Asmanex 220mcg -) 2 puff IH HS [facility] Last Admin: 03/27/17 21:29 Dose: 2 puff Multivitamins/Minerals (Theragran-M) 1 each PO DAILY [facility] Last Admin: 03/28/17 09:27 Dose: 1 each Tobramycin Sulfate (Tobrex Ophthalmic Solution -) 1 drop OU Q4HPO [facility] Last Admin: 03/28/17 09:23 Dose: 1 drop Warfarin Sodium (Coumadin -) 2.5 mg PO DAILY@1800 [facility] Last Admin: 03/26/17 17:47 Dose: 2.5 mg - Objective Vital Signs: Vital Signs Temperature 97.6 F 03/28/17 06:00 Pulse Rate 86 03/28/17 09:26 Respiratory Rate 20 03/28/17 09:22 Blood Pressure 159/49 03/28/17 09:22 O2 Sat by Pulse Oximetry (%) 96 03/28/17 08:11 Constitutional: Yes: Well Nourished, No Distress, Calm Cardiovascular: Yes: Pulse Irregular. No: Tachycardia, Gallop, Murmur, Rub Respiratory: Yes: Regular, On Nasal O2, Wheezes (significant, slightly improved) . No: CTA Bilaterally, Rales, Rhonchi Gastrointestinal: Yes: Normal Bowel Sounds, Soft. No: Distention, Tenderness Extremities: Yes: WNL Edema: No Labs: CBC, BMP 03/28/17 07:00 03/28/17 07:00 INR, PTT INR 3.65 (0.82-1.09) H 03/28/17 07:00 Problem List - Problems (1) Bronchopneumonia Code(s): J18.0 - BRONCHOPNEUMONIA, UNSPECIFIED ORGANISM (2) Afib Code(s): I48.91 - UNSPECIFIED ATRIAL FIBRILLATION Qualifiers: Atrial fibrillation type: chronic Qualified Code(s): I48.2 - Chronic atrial fibrillation (3) Diabetes mellitus Code(s): E11.9 - TYPE 2 DIABETES MELLITUS WITHOUT COMPLICATIONS (4) Conjunctivitis Code(s): H10.9 - UNSPECIFIED CONJUNCTIVITIS Qualifiers: Conjunctivitis type: acute Acute conjunctivitis type: bacterial Laterality: bilateral Qualified Code(s): H10.33 - Unspecified acute conjunctivitis, bilateral (5) Reactive airway disease Code(s): J45.909 - UNSPECIFIED ASTHMA, UNCOMPLICATED (6) Aortic valve replaced Code(s): Z95.2 - PRESENCE OF PROSTHETIC HEART VALVE Assessment/Plan (1) Bronchopneumonia Assessment/Plan: -continue rocephin and zithromax day 4 -patient feels improved -with significant leukocytosis, but secondary to steroids Code(s): J18.0 - BRONCHOPNEUMONIA, UNSPECIFIED ORGANISM (2) Afib Assessment/Plan: -rate controlled -INR supratherapeutic, hold coumadin today -continue diltiazem, digoxin -appreciate cardiology consult Code(s): I48.91 - UNSPECIFIED ATRIAL FIBRILLATION Qualifiers: Atrial fibrillation type: chronic Qualified Code(s): I48.2 - Chronic atrial fibrillation (3) Diabetes mellitus Assessment/Plan: -continue metformin -expect elevation since on steroids Code(s): E11.9 - TYPE 2 DIABETES MELLITUS WITHOUT COMPLICATIONS (4) Conjunctivitis Assessment/Plan: -continue tobramycin eye drops -improving Code(s): H10.9 - UNSPECIFIED CONJUNCTIVITIS Qualifiers: Conjunctivitis type: acute Acute conjunctivitis type: bacterial Laterality: bilateral Qualified Code(s): H10.33 - Unspecified acute conjunctivitis, bilateral (5) Reactive airway disease Assessment/Plan: -still with significant wheezing on exam -continue solumedrol, decreased dose yesterday -continue albuterol -add atrovent Code(s): J45.909 - UNSPECIFIED ASTHMA, UNCOMPLICATED (6) Aortic valve replaced Assessment/Plan: -porcine valve Code(s): Z95.2 - PRESENCE OF PROSTHETIC HEART VALVE
[2017-03-28] MEDS: IPRATROPIUM BR 0.02% 0.5 MG/2.5 ML VIAL.NEB. NEB SCH ×2 (11:35→17:47)
[2017-03-28] MEDS: SODIUM CHLORIDE 1,000 ML IV SCH (12:20)
[2017-03-28] MEDS: MOMETASONE FUROATE 220 MCG/IH INHALER IH SCH (22:05)
[2017-03-28] MEDS: DOXAZOSIN MESYLATE 2 MG TABLET (FP) PO SCH (22:05)
[2017-03-29] MEDS: ALBUTEROL SO4 0.083% IH SOL 2.5 MG/3 ML VIAL.NEB. NEB SCH ×5 (00:13→18:23)
[2017-03-29] MEDS: TOBRAMYCIN 0.3% OPHTH SOLN 5 ML BOTTLE OU SCH ×6 (04:36→21:43)
[2017-03-29] MEDS ORDERED: PT OWN MED DRAWER 7, Y5N ONE ×5 (06:22→21:39)
[2017-03-29] MEDS: IPRATROPIUM BR 0.02% 0.5 MG/2.5 ML VIAL.NEB. NEB SCH ×4 (06:25→18:21)
[2017-03-29] MEDS: INSULIN SLIDING SCALE (NOVOLOG) 1 VIAL SQ SCH ×4 (06:33→21:44)
[2017-03-29 08:01] LABS: MCH 28.2 pg (25.7-33.7); MCHC 32.4 g/dl (32.0-36.0); MEAN CELL VOLUME 86.8 fl (80-96); MEAN PLT VOLUME 9.4 fl (7.5-11.1); PLATELET COUNT 300 K/MM3 (134-434); RDW 13.4 % (11.6-15.6); WHITE BLOOD COUNT 19.2 K/mm3 (4.0-10.8)
[2017-03-29 08:24] LABS: INR 3.82 (0.82-1.09); PROTHROMBIN TIME (PATIENT) 41.7 SEC (10.2-13.0)
[2017-03-29 08:30] LABS: ANION GAP 8 (8-16); CALCIUM 9.5 mg/dl (8.4-10.2); CO2 23 mmol/L (22-28); CREATININE 0.9 mg/dl (0.6-1.3); GLUCOSE,RANDOM 156 mg/dl (74-106); MAGNESIUM 2.4 mg/dL (1.8-2.4); PHOSPHOROUS 4.2 mg/dl (2.5-4.6)
[2017-03-29 09:04] LABS: PLATELET ESTIMATE NORMAL (NORMAL)
[2017-03-29] MEDS: CEFTRIAXONE 50 ML IVPB SCH (09:22)
[2017-03-29] MEDS: AZITHROMYCIN IVPB 250 ML IVPB SCH (09:22)
[2017-03-29] MEDS: methylPREDNISolone NA SUCC 125 MG/2 ML VIAL IVPB SCH ×2 (09:22→21:44)
[2017-03-29] MEDS: DIGOXIN 0.125 MG TABLET (FP) PO SCH (09:23)
[2017-03-29] MEDS: ASPIRIN COATED 81 MG TABLET.EC PO SCH (09:24)
[2017-03-29] MEDS: FLUoxetine HCL 20 MG CAPSULE (FP) PO SCH (09:24)
[2017-03-29] MEDS: MULTIVITAMINS THER W-MINERALS COMBO TABLET (FP) PO SCH (09:24)
[2017-03-29] MEDS: FUROSEMIDE 40 MG TABLET (FP) PO SCH (09:24)
--- NOTE | 2017-03-29 11:05 | PN ---
Progress Note, Physician History of Present Illness: Patient notes feeling better, still with cough. - Current Medication List Current Medications: Active Medications Acetaminophen (Tylenol -) 650 mg PO Q4H PRN PRN Reason: FEVER OR PAIN Last Admin: 03/27/17 21:33 Dose: 650 mg Albuterol Sulfate (Ventolin 0.083% Nebulizer Soln -) 1 amp NEB Q6HPO [facility] Last Admin: 03/29/17 06:26 Dose: 1 amp Aspirin (Ecotrin -) 81 mg PO DAILY [facility] Last Admin: 03/29/17 09:24 Dose: 81 mg Digoxin (Lanoxin -) 0.125 mg PO DAILY [facility] Last Admin: 03/29/17 09:23 Dose: 0.125 mg Diltiazem HCl (Cardizem Cd -) 120 mg PO DAILY [facility] Last Admin: 03/29/17 09:24 Dose: 120 mg Doxazosin Mesylate (Cardura -) 2 mg PO HS [facility] Last Admin: 03/28/17 22:05 Dose: 2 mg Fluoxetine HCl (Prozac -) 20 mg PO DAILY [facility] Last Admin: 03/29/17 09:24 Dose: 20 mg Furosemide (Lasix -) 40 mg PO DAILY [facility] Last Admin: 03/29/17 09:24 Dose: 40 mg Guaifenesin (Diabetic Tussin Dm -) 5 ml PO Q6H PRN PRN Reason: COUGH Last Admin: 03/26/17 23:33 Dose: 5 ml Sodium Chloride (Normal Saline -) 1,000 mls @ 150 mls/hr IV ASDIR [facility] Last Admin: 03/28/17 12:20 Dose: Not Given Azithromycin (Zithromax 500mg Ivpb (Pre-Docked)) 250 mls @ 250 mls/hr IVPB DAILY [facility] Last Admin: 03/29/17 09:22 Dose: 250 mls/hr Ceftriaxone Sodium (Rocephin 1gm Ivpb (Pre-Docked)) 50 mls @ 100 mls/hr IVPB DAILY [facility] Last Admin: 03/29/17 09:22 Dose: 100 mls/hr Insulin Aspart (Novolog Vial Sliding Scale -) 0 vial SQ ACHS VIDA PRN Reason: Protocol Last Admin: 03/29/17 06:33 Dose: Not Given Ipratropium [place] (Atrovent 0.02% Nebulizer -) 1 amp NEB Q6HPO [facility] Last Admin: 03/29/17 06:25 Dose: 1 amp Metformin HCl (Glucophage Xr -) 500 mg PO DAILY [facility] Last Admin: 03/29/17 09:23 Dose: 500 mg Methylprednisolone Sodium Succinate (Solu-Medrol -) 60 mg IVPB BID [facility] Last Admin: 03/29/17 09:22 Dose: 60 mg Mometasone Furoate (Asmanex 220mcg -) 2 puff IH HS [facility] Last Admin: 03/28/17 22:05 Dose: 2 puff Multivitamins/Minerals (Theragran-M) 1 each PO DAILY [facility] Last Admin: 03/29/17 09:24 Dose: 1 each Tobramycin Sulfate (Tobrex Ophthalmic Solution -) 1 drop OU Q4HPO [facility] Last Admin: 03/29/17 09:26 Dose: 1 drop Warfarin Sodium (Coumadin -) 2.5 mg PO DAILY@1800 [facility] Last Admin: 03/26/17 17:47 Dose: 2.5 mg - Objective Vital Signs: Vital Signs Temperature 97.7 F 03/29/17 06:00 Pulse Rate 85 03/29/17 09:23 Respiratory Rate 16 03/29/17 06:00 Blood Pressure 153/73 03/29/17 06:00 O2 Sat by Pulse Oximetry (%) 99 03/29/17 08:08 Constitutional: Yes: No Distress, Calm Neck: Yes: Supple, Trachea Midline Cardiovascular: Yes: Regular Rate and Rhythm, Murmur, S1, S2 Respiratory: Yes: Regular, Rhonchi (bilaterally) Gastrointestinal: Yes: Normal Bowel Sounds, Soft. No: Distention, Tenderness Edema: No Neurological: Yes: Alert, Oriented Labs: CBC, BMP 03/29/17 07:48 03/29/17 07:48 INR, PTT INR 3.82 (0.82-1.09) H 03/29/17 07:48 Problem List - Problems (1) Bronchopneumonia Code(s): J18.0 - BRONCHOPNEUMONIA, UNSPECIFIED ORGANISM (2) Reactive airway disease Code(s): J45.909 - UNSPECIFIED ASTHMA, UNCOMPLICATED (3) Conjunctivitis Code(s): H10.9 - UNSPECIFIED CONJUNCTIVITIS Qualifiers: Conjunctivitis type: acute Acute conjunctivitis type: bacterial Laterality: bilateral Qualified Code(s): H10.33 - Unspecified acute conjunctivitis, bilateral (4) Diabetes mellitus Code(s): E11.9 - TYPE 2 DIABETES MELLITUS WITHOUT COMPLICATIONS (5) Afib Code(s): I48.91 - UNSPECIFIED ATRIAL FIBRILLATION Qualifiers: Atrial fibrillation type: chronic Qualified Code(s): I48.2 - Chronic atrial fibrillation (6) Aortic valve replaced Code(s): Z95.2 - PRESENCE OF PROSTHETIC HEART VALVE (7) Depression Code(s): F32.9 - MAJOR DEPRESSIVE DISORDER, SINGLE EPISODE, UNSPECIFIED Assessment/Plan Current Active Problems Afib (Acute) Aortic valve replaced (Acute) Bronchopneumonia (Acute) Conjunctivitis (Acute) Depression (Acute) Diabetes mellitus (Acute) Reactive airway disease (Acute) Shortness of breath (Acute) Weakness (Acute) -cont abx, breathing tx, solumedrol -increase lasix dosing
[2017-03-29] MEDS: SODIUM CHLORIDE 1,000 ML IV SCH (12:42)
[2017-03-29] MEDS: WARFARIN NA 2.5 MG TABLET (FP) PO SCH (18:20)
[2017-03-29] MEDS: MOMETASONE FUROATE 220 MCG/IH INHALER IH SCH (21:43)
[2017-03-29] MEDS: DOXAZOSIN MESYLATE 2 MG TABLET (FP) PO SCH (21:43)
[2017-03-30] MEDS: TOBRAMYCIN 0.3% OPHTH SOLN 5 ML BOTTLE OU SCH ×6 (02:00→21:59)
[2017-03-30] MEDS ORDERED: PT OWN MED DRAWER 7, Y5N ONE ×3 (06:34→21:54)
[2017-03-30] MEDS: ALBUTEROL SO4 0.083% IH SOL 2.5 MG/3 ML VIAL.NEB. NEB SCH ×5 (06:37→23:53)
[2017-03-30] MEDS: IPRATROPIUM BR 0.02% 0.5 MG/2.5 ML VIAL.NEB. NEB SCH ×5 (06:37→23:53)
[2017-03-30] MEDS: INSULIN SLIDING SCALE (NOVOLOG) 1 VIAL SQ SCH ×4 (07:12→23:52)
[2017-03-30 08:03] LABS: BASOPHIL 0.1 % (0-2.0); MCH 29.4 pg (25.7-33.7); MCHC 33.8 g/dl (32.0-36.0); MEAN CELL VOLUME 87.1 fl (80-96); MEAN PLT VOLUME 9.3 fl (7.5-11.1); NEUTROPHILS 90.5 % (42.8-82.8); PLATELET COUNT 302 K/MM3 (134-434); RDW 13.5 % (11.6-15.6); WHITE BLOOD COUNT 16.2 K/mm3 (4.0-10.8)
[2017-03-30 08:17] LABS: INR 3.4 (0.82-1.09); PROTHROMBIN TIME (PATIENT) 37.2 SEC (10.2-13.0)
[2017-03-30 08:21] LABS: ALBUMIN 3.2 g/dl (3.5-5.0); ALK PHOS 61 U/L (32-92); ANION GAP 6 (8-16); BILIRUBIN,TOTAL 0.9 mg/dl (0.2-1.0); CALCIUM 9.1 mg/dl (8.4-10.2); CO2 27 mmol/L (22-28); CREATININE 0.8 mg/dl (0.6-1.3); GLUCOSE,RANDOM 159 mg/dl (74-106); SGOT/AST 18 U/L (10-42); SGPT/ALT 38 U/L (10-40); TOT PROT 6.2 g/dl (6.4-8.3)
[2017-03-30] MEDS: methylPREDNISolone NA SUCC 125 MG/2 ML VIAL IVPB SCH (09:27)
[2017-03-30] MEDS: ASPIRIN COATED 81 MG TABLET.EC PO SCH (09:27)
[2017-03-30] MEDS: CEFTRIAXONE 50 ML IVPB SCH (09:27)
[2017-03-30] MEDS: MULTIVITAMINS THER W-MINERALS COMBO TABLET (FP) PO SCH (09:27)
[2017-03-30] MEDS: FUROSEMIDE 40 MG TABLET (FP) PO SCH (09:27)
[2017-03-30] MEDS: FLUoxetine HCL 20 MG CAPSULE (FP) PO SCH (09:28)
[2017-03-30] MEDS: DIGOXIN 0.125 MG TABLET (FP) PO SCH (09:28)
[2017-03-30] MEDS: methylPREDNISolone NA SUCC 40 MG/1 ML VIAL IVPB SCH ×2 (09:42→21:59)
[2017-03-30] MEDS: AZITHROMYCIN IVPB 250 ML IVPB SCH (10:17)
--- NOTE | 2017-03-30 11:17 | PN ---
Progress Note, Physician History of Present Illness: Feelign OK, states that "today is my best day yet". Still with coughing, but decreased. - Current Medication List Current Medications: Active Medications Acetaminophen (Tylenol -) 650 mg PO Q4H PRN PRN Reason: FEVER OR PAIN Last Admin: 03/27/17 21:33 Dose: 650 mg Albuterol Sulfate (Ventolin 0.083% Nebulizer Soln -) 1 amp NEB Q6HPO [facility] Last Admin: 03/30/17 06:37 Dose: 1 amp Aspirin (Ecotrin -) 81 mg PO DAILY [facility] Last Admin: 03/30/17 09:27 Dose: 81 mg Digoxin (Lanoxin -) 0.125 mg PO DAILY [facility] Last Admin: 03/30/17 09:28 Dose: 0.125 mg Diltiazem HCl (Cardizem Cd -) 120 mg PO DAILY [facility] Last Admin: 03/30/17 09:27 Dose: 120 mg Doxazosin Mesylate (Cardura -) 2 mg PO HS [facility] Last Admin: 03/29/17 21:43 Dose: 2 mg Fluoxetine HCl (Prozac -) 20 mg PO DAILY [facility] Last Admin: 03/30/17 09:28 Dose: 20 mg Furosemide (Lasix -) 40 mg PO DAILY [facility] Last Admin: 03/30/17 09:27 Dose: 40 mg Guaifenesin (Diabetic Tussin Dm -) 5 ml PO Q6H PRN PRN Reason: COUGH Last Admin: 03/26/17 23:33 Dose: 5 ml Azithromycin (Zithromax 500mg Ivpb (Pre-Docked)) 250 mls @ 250 mls/hr IVPB DAILY [facility] Last Admin: 03/30/17 10:17 Dose: 250 mls/hr Ceftriaxone Sodium (Rocephin 1gm Ivpb (Pre-Docked)) 50 mls @ 100 mls/hr IVPB DAILY [facility] Last Admin: 03/30/17 09:27 Dose: 100 mls/hr Insulin Aspart (Novolog Vial Sliding Scale -) 0 vial SQ ACHS V[facility] PRN Reason: Protocol Last Admin: 03/30/17 07:12 Dose: Not Given Ipratropium [place] (Atrovent 0.02% Nebulizer -) 1 amp NEB Q6HPO [facility] Last Admin: 03/30/17 06:37 Dose: 1 amp Metformin HCl (Glucophage Xr -) 500 mg PO DAILY [facility] Last Admin: 03/30/17 09:27 Dose: 500 mg Methylprednisolone Sodium Succinate (Solu-Medrol -) 40 mg IVPB BID [facility] Last Admin: 03/30/17 09:42 Dose: Not Given Mometasone Furoate (Asmanex 220mcg -) 2 puff IH HS [facility] Last Admin: 03/29/17 21:43 Dose: 2 puff Multivitamins/Minerals (Theragran-M) 1 each PO DAILY [facility] Last Admin: 03/30/17 09:27 Dose: 1 each Tobramycin Sulfate (Tobrex Ophthalmic Solution -) 1 drop OU Q4HPO [facility] Last Admin: 03/30/17 09:57 Dose: 1 drop Warfarin Sodium (Coumadin -) 2.5 mg PO DAILY@1800 [facility] Last Admin: 03/29/17 18:20 Dose: Not Given - Objective Vital Signs: Vital Signs Temperature 97.6 F 03/30/17 06:00 Pulse Rate 89 03/30/17 09:28 Respiratory Rate 20 03/30/17 09:56 Blood Pressure 179/76 03/30/17 06:00 O2 Sat by Pulse Oximetry (%) 98 03/30/17 09:56 Constitutional: Yes: No Distress, Calm Cardiovascular: Yes: Regular Rate and Rhythm, S1, S2. No: Murmur Respiratory: Yes: Regular, Rhonchi (bilaterally) Gastrointestinal: Yes: Normal Bowel Sounds, Soft. No: Distention, Tenderness Edema: No Labs: CBC, BMP 03/30/17 06:00 03/30/17 06:00 INR, PTT INR 3.40 (0.82-1.09) H 03/30/17 06:00 Problem List - Problems (1) Bronchopneumonia Code(s): J18.0 - BRONCHOPNEUMONIA, UNSPECIFIED ORGANISM (2) Reactive airway disease Code(s): J45.909 - UNSPECIFIED ASTHMA, UNCOMPLICATED (3) Conjunctivitis Code(s): H10.9 - UNSPECIFIED CONJUNCTIVITIS Qualifiers: Conjunctivitis type: acute Acute conjunctivitis type: bacterial Laterality: bilateral Qualified Code(s): H10.33 - Unspecified acute conjunctivitis, bilateral (4) Diabetes mellitus Code(s): E11.9 - TYPE 2 DIABETES MELLITUS WITHOUT COMPLICATIONS (5) Afib Code(s): I48.91 - UNSPECIFIED ATRIAL FIBRILLATION Qualifiers: Atrial fibrillation type: chronic Qualified Code(s): I48.2 - Chronic atrial fibrillation (6) Aortic valve replaced Code(s): Z95.2 - PRESENCE OF PROSTHETIC HEART VALVE (7) Depression Code(s): F32.9 - MAJOR DEPRESSIVE DISORDER, SINGLE EPISODE, UNSPECIFIED Assessment/Plan Current Active Problems Afib (Acute) Aortic valve replaced (Acute) Bronchopneumonia (Acute) Conjunctivitis (Acute) Depression (Acute) Diabetes mellitus (Acute) Reactive airway disease (Acute) Shortness of breath (Acute) Weakness (Acute) -cont abx, breathing tx, solumedrol taper -hold coumadin for elevated INR
--- NOTE | 2017-03-30 17:17 | PN ---
Progress Note (short form) - Note Progress Note: CC: afib S: breathing continues to improve. no cp, palps, dizziness. Cards: Dr. Alberto Current Medications Acetaminophen (Tylenol -) 650 mg PO Q4H PRN PRN Reason: FEVER OR PAIN Last Admin: 03/27/17 21:33 Dose: 650 mg Albuterol Sulfate (Ventolin 0.083% Nebulizer Soln -) 1 amp NEB Q6HPO COUNTS INCLUDE 234 BEDS AT THE [facility] Last Admin: 03/30/17 13:00 Dose: 1 amp Digoxin (Lanoxin -) 0.125 mg PO DAILY COUNTS INCLUDE 234 BEDS AT THE [facility] Last Admin: 03/30/17 09:28 Dose: 0.125 mg Diltiazem HCl (Cardizem Cd -) 120 mg PO DAILY COUNTS INCLUDE 234 BEDS AT THE [facility] Last Admin: 03/30/17 09:27 Dose: 120 mg Doxazosin Mesylate (Cardura -) 2 mg PO HS COUNTS INCLUDE 234 BEDS AT THE [facility] Last Admin: 03/29/17 21:43 Dose: 2 mg Fluoxetine HCl (Prozac -) 20 mg PO DAILY COUNTS INCLUDE 234 BEDS AT THE [facility] Last Admin: 03/30/17 09:28 Dose: 20 mg Furosemide (Lasix -) 40 mg PO DAILY COUNTS INCLUDE 234 BEDS AT THE [facility] Last Admin: 03/30/17 09:27 Dose: 40 mg Guaifenesin (Diabetic Tussin Dm -) 5 ml PO Q6H PRN PRN Reason: COUGH Last Admin: 03/26/17 23:33 Dose: 5 ml Azithromycin (Zithromax 500mg Ivpb (Pre-Docked)) 250 mls @ 250 mls/hr IVPB DAILY COUNTS INCLUDE 234 BEDS AT THE [facility] Last Admin: 03/30/17 10:17 Dose: 250 mls/hr Ceftriaxone Sodium (Rocephin 1gm Ivpb (Pre-Docked)) 50 mls @ 100 mls/hr IVPB DAILY COUNTS INCLUDE 234 BEDS AT THE [facility] Last Admin: 03/30/17 09:27 Dose: 100 mls/hr Insulin Aspart (Novolog Vial Sliding Scale -) 0 vial SQ ACHS VIDA PRN Reason: Protocol Last Admin: 03/30/17 16:24 Dose: Not Given Ipratropium [place] (Atrovent 0.02% Nebulizer -) 1 amp NEB Q6HPO VIDA Last Admin: 03/30/17 13:00 Dose: 1 amp Metformin HCl (Glucophage Xr -) 500 mg PO DAILY COUNTS INCLUDE 234 BEDS AT THE [facility] Last Admin: 03/30/17 09:27 Dose: 500 mg Methylprednisolone Sodium Succinate (Solu-Medrol -) 40 mg IVPB BID COUNTS INCLUDE 234 BEDS AT THE [facility] Last Admin: 03/30/17 09:42 Dose: Not Given Mometasone Furoate (Asmanex 220mcg -) 2 puff IH HS COUNTS INCLUDE 234 BEDS AT THE [facility] Last Admin: 03/29/17 21:43 Dose: 2 puff Multivitamins/Minerals (Theragran-M) 1 each PO DAILY COUNTS INCLUDE 234 BEDS AT THE [facility] Last Admin: 03/30/17 09:27 Dose: 1 each Tobramycin Sulfate (Tobrex Ophthalmic Solution -) 1 drop OU Q4HPO COUNTS INCLUDE 234 BEDS AT THE [facility] Last Admin: 03/30/17 13:28 Dose: 1 drop Warfarin Sodium (Coumadin -) 2.5 mg PO DAILY@1800 COUNTS INCLUDE 234 BEDS AT THE [facility] Last Admin: 03/29/17 18:20 Dose: Not Given Vital Signs - 24 hr 03/29/17 03/29/17 03/30/17 20:27 22:00 06:00 Temperature 97.5 F L 97.6 F Pulse Rate 78 79 Respiratory 19 20 Rate Blood Pressure 171/64 179/76 O2 Sat by Pulse 98 98 98 Oximetry (%) 03/30/17 03/30/17 03/30/17 09:28 09:56 14:00 Temperature 97.7 F Pulse Rate 89 79 Respiratory 20 19 Rate Blood Pressure 161/70 O2 Sat by Pulse 98 100 Oximetry (%) Intake & Output 03/28/17 03/29/17 03/30/17 03/31/17 07:59 07:59 07:59 07:59 Intake Total 2265 1325 300 350 Balance 2265 1325 300 350 Weight 143 lb 144 lb 7 oz nad, calm jvd flat, neck supple exp wheezes, nl effort irregular rate and rhythm. nl s1, s2 2/6 sys murmur at lsb + bs soft nt nd trace LE edema. no c/c no carotid bruits no jaundice, diaphoresis aaox3 CBC, BMP 03/30/17 06:00 03/30/17 06:00 Laboratory Tests 03/30/17 06:00 INR 3.40 H EKG: afib, lad. ivcd. non-spec ST/twave ab. tele: overall rate controlled afib, VR 70's. brief intermittent rises up to 130' s. Echo SJR 03/2017: nl lv/rv. mod boaz, mod mac, mild-mod mr (suboptimal assessment) , bioAVR (gradients 31/16). no AR. RVSP 64 cards office echo 2011: mild lvh. EF 50-55%. nl rv. 1+ mr. bioAVR with nl gradients. mild-mod AR. cxr: no acute pathology 81 yo female, h/o cad s/p cabg ? (pt denies), afib, bio AVR, HTN, HL, diastolic HR on lasix, DM, ureteral stents, recurrent uti's, possible early dementia p/w bronchopneumonia. afib - patient with very brief asx episode of rvr during episode of coughing. Otherwise rate controlled. Has been on long-standing rate control regimen, so would otherwise change but now ( 03/30) with suboptimal bp control on steroids. Increase dilt to 180 mg/day. Can resume prior outpatient dosing on discharge. Con't dig - prm yte repletion - mgm't of underlying pulmonary issues per pmd - AC with coumadin. dosing per inr. CAD - patient denies cabg, but listed in hx on outpatient cardiology notes - denies anginal symptoms. - On fish oil, but not statin as outpatient. Will defer to her outpatient authorization representative. - no need for ASA, on AC. bioAVR - repeat echo without significant increase in gradients. no signs of valvular decompensation. routine follow up with outpatient authorization representative - no need for ASA, on AC for afib htn - as above diastolic heart failure - appears euvolemic. con't po lasix dose. daily standing weights to monitor -- > now with trace LE edema. pna - per pmd - elevated rvsp, should be re-evaluated as outpatient once acute pulmonary issues resolve.
[2017-03-30] MEDS ORDERED: dilTIAZem HCL 60 MG TABLET (FP) PO ONE (17:31)
[2017-03-30] MEDS ORDERED: dilTIAZem HCL 60 MG TABLET (FP) ONE (17:42)
[2017-03-30] MEDS: MOMETASONE FUROATE 220 MCG/IH INHALER IH SCH (21:59)
[2017-03-30] MEDS: DOXAZOSIN MESYLATE 2 MG TABLET (FP) PO SCH (21:59)
[2017-03-31] MEDS: TOBRAMYCIN 0.3% OPHTH SOLN 5 ML BOTTLE OU SCH ×6 (01:31→21:42)
[2017-03-31] MEDS: IPRATROPIUM BR 0.02% 0.5 MG/2.5 ML VIAL.NEB. NEB SCH ×3 (06:40→17:32)
[2017-03-31] MEDS: ALBUTEROL SO4 0.083% IH SOL 2.5 MG/3 ML VIAL.NEB. NEB SCH ×3 (06:41→17:32)
[2017-03-31] MEDS: INSULIN SLIDING SCALE (NOVOLOG) 1 VIAL SQ SCH ×4 (06:58→21:42)
[2017-03-31 08:26] LABS: INR 2.66 (0.82-1.09); PROTHROMBIN TIME (PATIENT) 29.2 SEC (10.2-13.0)
[2017-03-31 08:41] LABS: BASOPHIL 0.1 % (0-2.0); MCH 29.5 pg (25.7-33.7); MEAN CELL VOLUME 86.7 fl (80-96); MEAN PLT VOLUME 9.2 fl (7.5-11.1); NEUTROPHILS 89.5 % (42.8-82.8); PLATELET COUNT 333 K/MM3 (134-434); RDW 13.5 % (11.6-15.6)
[2017-03-31 09:12] LABS: ANION GAP 7 (8-16); CALCIUM 9.1 mg/dl (8.4-10.2); CO2 28 mmol/L (22-28); CREATININE 0.8 mg/dl (0.6-1.3); GLUCOSE,RANDOM 170 mg/dl (74-106); MAGNESIUM 2.2 mg/dL (1.8-2.4)
[2017-03-31] MEDS ORDERED: PT OWN MED DRAWER 7, Y5N ONE ×2 (09:38→21:25)
[2017-03-31] MEDS: CEFTRIAXONE 50 ML IVPB SCH (09:49)
[2017-03-31] MEDS: FLUoxetine HCL 20 MG CAPSULE (FP) PO SCH (09:51)
[2017-03-31] MEDS: MULTIVITAMINS THER W-MINERALS COMBO TABLET (FP) PO SCH (09:51)
[2017-03-31] MEDS: FUROSEMIDE 40 MG TABLET (FP) PO SCH (09:51)
[2017-03-31] MEDS: DIGOXIN 0.125 MG TABLET (FP) PO SCH (09:51)
[2017-03-31] MEDS: AZITHROMYCIN IVPB 250 ML IVPB SCH (09:51)
[2017-03-31] MEDS: methylPREDNISolone NA SUCC 40 MG/1 ML VIAL IVPB SCH ×2 (09:52→21:42)
--- NOTE | 2017-03-31 11:08 | PN ---
Progress Note, Physician Chief Complaint: Ms Nevarez says she is feeling good, that she is close to baseline. Denies cp, sob , n/v. - Current Medication List Current Medications: Active Medications Acetaminophen (Tylenol -) 650 mg PO Q4H PRN PRN Reason: FEVER OR PAIN Last Admin: 03/27/17 21:33 Dose: 650 mg Albuterol Sulfate (Ventolin 0.083% Nebulizer Soln -) 1 amp NEB Q6HPO VIDA Last Admin: 03/31/17 06:41 Dose: 1 amp Digoxin (Lanoxin -) 0.125 mg PO DAILY PENDING SALE TO [facility] Last Admin: 03/31/17 09:51 Dose: 0.125 mg Diltiazem HCl (Cardizem Cd -) 180 mg PO DAILY PENDING SALE TO [facility] Last Admin: 03/31/17 09:51 Dose: 180 mg Doxazosin Mesylate (Cardura -) 2 mg PO HS PENDING SALE TO [facility] Last Admin: 03/30/17 21:59 Dose: 2 mg Fluoxetine HCl (Prozac -) 20 mg PO DAILY PENDING SALE TO [facility] Last Admin: 03/31/17 09:51 Dose: 20 mg Furosemide (Lasix -) 40 mg PO DAILY PENDING SALE TO [facility] Last Admin: 03/31/17 09:51 Dose: 40 mg Guaifenesin (Diabetic Tussin Dm -) 5 ml PO Q6H PRN PRN Reason: COUGH Last Admin: 03/26/17 23:33 Dose: 5 ml Ceftriaxone Sodium (Rocephin 1gm Ivpb (Pre-Docked)) 50 mls @ 100 mls/hr IVPB DAILY PENDING SALE TO [facility] Last Admin: 03/31/17 09:49 Dose: 100 mls/hr Insulin Aspart (Novolog Vial Sliding Scale -) 0 vial SQ ACHS VIDA PRN Reason: Protocol Last Admin: 03/31/17 06:58 Dose: Not Given Ipratropium [place] (Atrovent 0.02% Nebulizer -) 1 amp NEB Q6HPO VIDA Last Admin: 03/31/17 06:40 Dose: 1 amp Metformin HCl (Glucophage Xr -) 500 mg PO DAILY PENDING SALE TO [facility] Last Admin: 03/31/17 09:51 Dose: 500 mg Methylprednisolone Sodium Succinate (Solu-Medrol -) 40 mg IVPB BID PENDING SALE TO [facility] Stop: 03/31/17 23:59 Last Admin: 03/31/17 09:52 Dose: 40 mg Mometasone Furoate (Asmanex 220mcg -) 2 puff IH HS PENDING SALE TO [facility] Last Admin: 03/30/17 21:59 Dose: 2 puff Multivitamins/Minerals (Theragran-M) 1 each PO DAILY PENDING SALE TO [facility] Last Admin: 03/31/17 09:51 Dose: 1 each Prednisone (Deltasone -) 60 mg PO DAILY PENDING SALE TO [facility] Tobramycin Sulfate (Tobrex Ophthalmic Solution -) 1 drop OU Q4HPO PENDING SALE TO [facility] Last Admin: 03/31/17 09:52 Dose: 1 drop Warfarin Sodium (Coumadin -) 2.5 mg PO DAILY@1800 PENDING SALE TO [facility] Last Admin: 03/29/17 18:20 Dose: Not Given - Objective Vital Signs: Vital Signs Temperature 97.5 F L 03/31/17 08:33 Pulse Rate 80 03/31/17 09:51 Respiratory Rate 18 03/31/17 08:56 Blood Pressure 151/41 03/31/17 08:33 O2 Sat by Pulse Oximetry (%) 94 L 03/31/17 08:56 Constitutional: Yes: Well Nourished, No Distress, Calm Cardiovascular: Yes: Pulse Irregular. No: Tachycardia, Gallop, Murmur, Rub Respiratory: Yes: Regular, Wheezes (very minimal). No: On Nasal O2, Rales, Rhonchi Gastrointestinal: Yes: Normal Bowel Sounds, Soft. No: Distention, Tenderness Extremities: Yes: WNL Edema: No Labs: CBC, BMP 03/31/17 07:15 03/31/17 07:15 INR, PTT INR 2.66 (0.82-1.09) H 03/31/17 07:15 Problem List - Problems (1) Bronchopneumonia Code(s): J18.0 - BRONCHOPNEUMONIA, UNSPECIFIED ORGANISM (2) Afib Code(s): I48.91 - UNSPECIFIED ATRIAL FIBRILLATION Qualifiers: Atrial fibrillation type: chronic Qualified Code(s): I48.2 - Chronic atrial fibrillation (3) Diabetes mellitus Code(s): E11.9 - TYPE 2 DIABETES MELLITUS WITHOUT COMPLICATIONS (4) Conjunctivitis Code(s): H10.9 - UNSPECIFIED CONJUNCTIVITIS Qualifiers: Conjunctivitis type: acute Acute conjunctivitis type: bacterial Laterality: bilateral Qualified Code(s): H10.33 - Unspecified acute conjunctivitis, bilateral (5) Reactive airway disease Code(s): J45.909 - UNSPECIFIED ASTHMA, UNCOMPLICATED (6) Aortic valve replaced Code(s): Z95.2 - PRESENCE OF PROSTHETIC HEART VALVE Assessment/Plan (1) Bronchopneumonia Assessment/Plan: -continue rocephin and zithromax day 6 -patient feels improved -leukocytosis secondary to steroids and improving Code(s): J18.0 - BRONCHOPNEUMONIA, UNSPECIFIED ORGANISM (2) Afib Assessment/Plan: -rate controlled -INR therapeutic, but will hold one more day -continue diltiazem, digoxin -appreciate cardiology consult Code(s): I48.91 - UNSPECIFIED ATRIAL FIBRILLATION Qualifiers: Atrial fibrillation type: chronic Qualified Code(s): I48.2 - Chronic atrial fibrillation (3) Diabetes mellitus Assessment/Plan: -continue metformin -expect elevation since on steroids Code(s): E11.9 - TYPE 2 DIABETES MELLITUS WITHOUT COMPLICATIONS (4) Conjunctivitis Assessment/Plan: -continue tobramycin eye drops -resolved -can discontinue tomorrow Code(s): H10.9 - UNSPECIFIED CONJUNCTIVITIS Qualifiers: Conjunctivitis type: acute Acute conjunctivitis type: bacterial Laterality: bilateral Qualified Code(s): H10.33 - Unspecified acute conjunctivitis, bilateral (5) Reactive airway disease Assessment/Plan: -much improved -trial off of oxygen today -change to oral prednisone tomorrow Code(s): J45.909 - UNSPECIFIED ASTHMA, UNCOMPLICATED (6) Aortic valve replaced Assessment/Plan: -porcine valve Code(s): Z95.2 - PRESENCE OF PROSTHETIC HEART VALVE Dispo -plan for discharge tomorrow
[2017-03-31] MEDS ORDERED: INSULIN (NOVOLOG) ASPART 100 UNITS/ML 10ML VIAL ONE (11:39)
[2017-03-31] MEDS: WARFARIN NA 2.5 MG TABLET (FP) PO SCH (17:31)
[2017-03-31] MEDS: MOMETASONE FUROATE 220 MCG/IH INHALER IH SCH (21:42)
[2017-03-31] MEDS: DOXAZOSIN MESYLATE 2 MG TABLET (FP) PO SCH (21:42)
[2017-04-01] MEDS: ALBUTEROL SO4 0.083% IH SOL 2.5 MG/3 ML VIAL.NEB. NEB SCH ×2 (00:06→05:48)
[2017-04-01] MEDS: IPRATROPIUM BR 0.02% 0.5 MG/2.5 ML VIAL.NEB. NEB SCH ×2 (00:06→05:48)
[2017-04-01] MEDS: TOBRAMYCIN 0.3% OPHTH SOLN 5 ML BOTTLE OU SCH ×3 (02:20→10:26)
[2017-04-01 06:22] VITALS: BP 171/61; TEMP 97.7
[2017-04-01] MEDS: INSULIN SLIDING SCALE (NOVOLOG) 1 VIAL SQ SCH ×2 (06:51→11:46)
[2017-04-01] MEDS ORDERED: PT OWN MED DRAWER 7, Y5N ONE (06:54)
[2017-04-01 08:25] LABS: BASOPHIL 0.3 % (0-2.0); MCHC 32.9 g/dl (32.0-36.0); MEAN CELL VOLUME 88.1 fl (80-96); NEUTROPHILS 89.4 % (42.8-82.8); PLATELET COUNT 374 K/MM3 (134-434); RDW 13.6 % (11.6-15.6); WHITE BLOOD COUNT 14.9 K/mm3 (4.0-10.8)
[2017-04-01 08:35] LABS: ANION GAP 8 (8-16); CALCIUM 9.3 mg/dl (8.4-10.2); CO2 31 mmol/L (22-28); CREATININE 0.7 mg/dl (0.6-1.3); GLUCOSE,RANDOM 166 mg/dl (74-106); MAGNESIUM 2.3 mg/dL (1.8-2.4); PHOSPHOROUS 3.7 mg/dl (2.5-4.6)
[2017-04-01 08:44] LABS: INR 2.22 (0.82-1.09); PROTHROMBIN TIME (PATIENT) 24.5 SEC (10.2-13.0)
--- NOTE | 2017-04-01 09:51 | DS ---
Physical Examination Vital Signs: Vital Signs Temperature 97.7 F 04/01/17 06:00 Pulse Rate 91 H 04/01/17 06:00 Respiratory Rate 18 04/01/17 06:00 Blood Pressure 171/61 04/01/17 06:00 O2 Sat by Pulse Oximetry (%) 96 04/01/17 06:19 Constitutional: Yes: Well Nourished, No Distress, Calm Cardiovascular: Yes: Pulse Irregular. No: Tachycardia, Gallop, Murmur, Rub Respiratory: Yes: Regular, Wheezes (minimal). No: Rales, Rhonchi, SOB, Tachypnea Gastrointestinal: Yes: Normal Bowel Sounds, Soft. No: Distention, Tenderness Extremities: Yes: WNL Edema: No Labs: CBC, BMP 04/01/17 07:34 04/01/17 07:34 Discharge Summary Reason For Visit: SHORTNESS OF BREATH/ WEAKNESS Current Active Problems Afib (Acute) Aortic valve replaced (Acute) Bronchopneumonia (Acute) Conjunctivitis (Acute) Depression (Acute) Diabetes mellitus (Acute) Reactive airway disease (Acute) Shortness of breath (Acute) Weakness (Acute) Hospital Course: (1) Bronchopneumonia Code(s): J18.0 - BRONCHOPNEUMONIA, UNSPECIFIED ORGANISM (2) Afib Code(s): I48.91 - UNSPECIFIED ATRIAL FIBRILLATION Qualifiers: Atrial fibrillation type: chronic Qualified Code(s): I48.2 - Chronic atrial fibrillation (3) Diabetes mellitus Code(s): E11.9 - TYPE 2 DIABETES MELLITUS WITHOUT COMPLICATIONS (4) Conjunctivitis Code(s): H10.9 - UNSPECIFIED CONJUNCTIVITIS Qualifiers: Conjunctivitis type: acute Acute conjunctivitis type: bacterial Laterality: bilateral Qualified Code(s): H10.33 - Unspecified acute conjunctivitis, bilateral (5) Reactive airway disease Code(s): J45.909 - UNSPECIFIED ASTHMA, UNCOMPLICATED (6) Aortic valve replaced Code(s): Z95.2 - PRESENCE OF PROSTHETIC HEART VALVE Mrs Nevarez is a very pleasant 81 year old female who came in with bronchopneumonia causing acute asthma exacerbation. She was admitted to the hospital. She was treated with rocephin and zithromax. She finished a full course of both. She was started on IV solumedrol, her breathing improved and she was able to be tapered. She is now on oral prednisone that can be tapered as an outpatient. She is no longer requiring oxygen. She had conjunctivitis on admission and this was successfully treated with antibiotic eyedrops. She is safe for discharge with home PT/VNS. 37 minutes spent in preparation of this discharge Condition: Good - Instructions Diet, Activity, Other Instructions: resume previous diet and activity Referrals: Sal Guerra MD [Staff Physician] - Disposition: VNS/HOME HEALTH CARE - Home Medications Comprehensive Discharge Medication List: Ambulatory Orders Alpha Lipoic Acid 300 mg PO DAILY 02/16/12 Aspirin [Aspirin EC] 81 mg PO DAILY 02/16/12 Digoxin [Lanoxin -] 0.125 mg PO DAILY 02/16/12 Fluoxetine HCl [Prozac -] 20 mg PO DAILY 02/16/12 [id number] 149-Hyal [Glucosamine Chondroitin Tablet] 1 each PO DAILY 02/16/12 Metformin HCl [Metformin HCl ER] 500 mg PO DAILY 02/16/12 Multivitamin with Minerals [Multiple Vitamin] 1 each PO DAILY 02/16/12 [place]-3/Dha/Epa/Fish Oil [Fish Oil 1,000 mg Softgel] 2 each PO DAILY 02/16/12 Doxazosin Mesylate 2 mg PO HS 03/25/17 Warfarin Sodium [Coumadin] 5 mg PO DAILY 03/25/17 Diltiazem Cd [Cardizem Cd -] 180 mg PO DAILY #30 cap.sr 04/01/17 Furosemide [Lasix -] 40 mg PO DAILY #30 tablet 04/01/17 Guaifenesin/D-Methorphan Hb [Diabetic Tussin Dm -] 5 ml PO Q6H PRN #1 bottle 08/08 Ipratropium/Albuterol Sulfate [Combivent Respimat Inhal [place]] 4 gm IH QID #1 mist.inhal 04/01/17 Mometasone Furoate [Asmanex 220Mcg -] 2 puff IH HS #1 inhaler 04/01/17 Prednisone [Deltasone -] 5 mg PO ASDIR #78 tab 04/01/17
[2017-04-01] MEDS ORDERED: predniSONE 20 MG TABLET (UD) PO SCH (10:00)
[2017-04-01] MEDS: DIGOXIN 0.125 MG TABLET (FP) PO SCH (10:27)
[2017-04-01] MEDS: FLUoxetine HCL 20 MG CAPSULE (FP) PO SCH (10:27)
[2017-04-01] MEDS: CEFTRIAXONE 50 ML IVPB SCH (10:27)
[2017-04-01] MEDS: FUROSEMIDE 40 MG TABLET (FP) PO SCH (10:27)
[2017-04-01] MEDS: MULTIVITAMINS THER W-MINERALS COMBO TABLET (FP) PO SCH (10:27)
[2017-04-01 10:28] VITALS: PULSE 86
== END 2017-04-01 11:35 | disposition home health service (06) | DRG 194 ==
LOC: FER 10:44 → FM/S 15:18
PROVIDERS: ADMIT Internal Medicine; ATTEND Internal Medicine
DX: J18.0 Bronchopneumonia, unspecified organism (principal); J45.901 Unspecified asthma with (acute) exacerbation; I50.30 Unspecified diastolic (congestive) heart failure; E11.9 Type 2 diabetes mellitus without complications; H10.33 Unspecified acute conjunctivitis, bilateral; Z95.2 Presence of prosthetic heart valve; F32.9 Major depressive disorder, single episode, unspecified; R53.1 Weakness; I48.2 Chronic atrial fibrillation; I25.10 Atherosclerotic heart disease of native coronary artery without angina pectoris; I11.0 Hypertensive heart disease with heart failure
CPT/HCPCS: 36415; 71010-TC; 80048; 80053; 80162; 82550; 83605; 83735; 84100; 84484; 85025; 85610; 87040; 93005; 93306-TC; 94640; 97116-GP; 97161-GP; 99284-25

== ENCOUNTER 2017-04-14 14:24 | Observation (INO) | payer OTHER, MEDICARE ==
[2017-04-14 14:29] VITALS: BMI 21.6
--- NOTE | 2017-04-14 14:51 | PDOC ---
History of Present Illness - General Chief Complaint: Weakness Stated Complaint: WEAKNESS Time Seen by Provider: 04/14/17 14:49 History Source: Patient, Family, Primary Care Provider Exam Limitations: No Limitations - History of Present Illness Initial Comments: 04/14/17 14:50 patient is an 81 year old female with recent admission for PNA/pneumonitis and medical history significant for DM, CAD, AFib (on anticoagulant), CHF, atrial stenosis s/p valve replacement and PAD presenting with two days of progressive weakness, sob and upper abdominal pain. Patient states she was discharged from from the hospital two weeks ago and had a follow up exam with her PCP one week ago with normal lab and CXR. Over the last 2 days she has been feeling significantly weaker and for the last day has started to become short of breath and feel some epigastric pain. Per PCP, patient has a history of chronic, difficult to treat UTIs involving a history of urinary stents and stones. Denies fever, chills, chest pain, nausea, vomiting, diarrhea, dysurea and blood in urine or stool. Patient takes Coumadin for her atrial fibrillation and was found to be supra- therapeutic at her last checkup and has been skipping every Friday dose. Patient is also taking digoxin. PCP: Eulalio Guerra ([phone]) Past History - Past Medical History Allergies/Adverse Reactions: Allergies Allergy/AdvReac Type Severity Reaction Status Date / Time Sulfa (Sulfonamide Allergy Unknown Verified 04/14/17 14:34 Antibiotics) [Sulfa(Sulfonamide Antibiotics)] ciprofloxacin [From Cipro] Allergy Verified 04/14/17 14:34 ciprofloxacin HCl Allergy Verified 04/14/17 14:34 [From Cipro] levofloxacin [From Levaquin] AdvReac Unknown Verified 04/14/17 14:34 Home Medications: Ambulatory Orders Aspirin [Aspirin EC] 81 mg PO DAILY 02/16/12 Digoxin [Lanoxin -] 0.125 mg PO DAILY 02/16/12 Fluoxetine HCl [Prozac -] 20 mg PO DAILY 02/16/12 Fzggprrr-Vaabkzv-Vprr 149-Hyal [Glucosamine Chondroitin Tablet] 1 each PO DAILY 02/16/12 Metformin HCl [Metformin HCl ER] 500 mg PO DAILY 02/16/12 [place]-3/Dha/Epa/Fish Oil [Fish Oil 1,000 mg Softgel] 2 each PO DAILY 02/16/12 Doxazosin Mesylate 2 mg PO HS 03/25/17 Warfarin Sodium [Coumadin] 5 mg PO DAILY 03/25/17 Diltiazem Cd [Cardizem Cd -] 180 mg PO DAILY #30 cap.sr 04/01/17 Furosemide [Lasix -] 40 mg PO DAILY #30 tablet 04/01/17 Warfarin Sodium [Coumadin] 2.5 mg PO ASDIR 04/14/17 Asthma: Yes Cardiac Disorders: Yes (A-FIB) Diabetes: Yes HTN: Yes Kidney Stones: Yes Psychiatric Problems: Yes (DEPRESSION) - Surgical History Appendectomy: Yes Cardiac Surgery: Yes (AVR) - Psycho/Social/Smoking Cessation Hx Anxiety: Yes Suicidal Ideation: No Smoking Status: Yes Smoking History: Former smoker Have you smoked in the past 12 months: No Number of Cigarettes Smoked Daily: 0 Cigars Per Day: 0 Information on smoking cessation initiated: No Hx Alcohol Use: No Drug/Substance Use Hx: No Substance Use Type: None Review of Systems - Review of Systems Able to Perform ROS?: Yes Is the patient limited Maldivian proficient: No Constitutional: No: Chills, Fever Respiratory: Yes: Shortness of Breath Cardiac (ROS): No: Chest Pain ABD/GI: Yes: Constipated. No: Diarrhea, Nausea, Vomiting, Tarry Stools : No: Dysuria, Hematuria Musculoskeletal: Yes: Muscle Weakness. No: Muscle Pain Neurological: Yes: Weakness *Physical Exam - Vital Signs Last Vital Signs Temp Pulse Resp BP Pulse Ox 98.5 F 79 18 117/67 95 04/14/17 14:24 04/14/17 14:24 04/14/17 14:24 04/14/17 14:04/14/17 14:24 - Physical Exam General Appearance: Yes: Nourished, Appropriately Dressed. No: Apparent Distress HEENT: positive: EOMI, EDMOND, Normal Voice, Pharynx Normal, Hearing Grossly Normal. negative: Scleral Icterus (R), Scleral Icterus (L) Neck: positive: Trachea midline, Supple. negative: Tender, Lymphadenopathy (R) , Lymphadenopathy (L) Respiratory/Chest: positive: Lungs Clear, Normal Breath Sounds. negative: Chest Tender, Respiratory Distress Cardiovascular: positive: Regular Rate, S1, S2. negative: Regular Rhythm ( Regularly irregular), Edema, JVD, Murmur Vascular Pulses: Dorsalis-Pedis (R): 1+, Doralis-Pedis (L): 1+ Gastrointestinal/Abdominal: positive: Normal Bowel Sounds, Tender (Epigastric), Soft. negative: Pulsatile Mass (no bruits), Distended, Guarding, Rebound Extremity: positive: Coldness. negative: Cyanosis, Pedal Edema, Swelling, Calf Tenderness, Erythema Integumentary: positive: Normal Color, Dry, Warm, Pale Neurologic: positive: brass pourer II-XII NML intact, Fully Oriented, Alert, Motor Strength 5/5 (UE/LE) ED Treatment Course - LABORATORY CBC & Chemistry Diagram: 04/15/17 07:45 04/15/17 07:45 - RADIOLOGY Chest X-Ray Result: Other (Cardiomegaly, no acute pathology, no significant changes from 03/25/17) Medical Decision Making - Medical Decision Making 04/14/17 15:36 81 year old diabetic female with significant history of cardiac problems and recent admission for PNA c/o weakness and sob Ddx includes but is not limited to TN, arrhythmias, digoxin toxicity, metabolic abnormalities , hypoglycemia, PNA, UTI and anemia Blood glucose, EKG, CXR CBC, CMP, Mg, Phos Digoxin level Monitor and reevaluate 04/14/17 16:53 CBC WBC 15.3 K/mm3 (4.0-10.8) H 04/14/17 15:00 RBC 4.39 M/mm3 (3.60-5.2) 04/14/17 15:00 Hgb 12.9 GM/dl (10.7-15.3) 04/14/17 15:00 Hct 38.6 % (32.4-45.2) 04/14/17 15:00 MCV 87.9 fl (80-96) 04/14/17 15:00 MCH 29.3 pg (25.7-33.7) 04/14/17 15:00 MCHC 33.4 g/dl (32.0-36.0) 04/14/17 15:00 RDW 14.8 % (11.6-15.6) 04/14/17 15:00 Plt Count 248 K/MM3 (134-434) D 04/14/17 15:00 MPV 10.1 fl (7.5-11.1) D 04/14/17 15:00 Neutrophils % 79.9 % (42.8-82.8) 04/14/17 15:00 Lymphocytes % 11.5 % (8-40) D 04/14/17 15:00 Monocytes % 6.1 % (3.8-10.2) 04/14/17 15:00 Eosinophils % 0.8 % (0-4.5) D 04/14/17 15:00 Basophils % 1.7 % (0-2.0) D 04/14/17 15:00 Significant for a mild leukocytosis CMP Sodium 135 mmol/L (136-145) L 04/14/17 15:00 Potassium 3.6 mmol/L (3.5-5.1) 04/14/17 15:00 Chloride 100 mmol/L (98-107) 04/14/17 15:00 Carbon Dioxide 27 mmol/L (22-28) 04/14/17 15:00 Anion Gap 8 (8-16) 04/14/17 15:00 BUN 18 mg/dl (7-18) D 04/14/17 15:00 Creatinine 1.0 mg/dl (0.6-1.3) D 04/14/17 15:00 Creat Clearance w eGFR 53.08 (>60) 04/14/17 15:00 Random Glucose 113 mg/dl (74-106) H D 04/14/17 15:00 Calcium 8.7 mg/dl (8.4-10.2) 04/14/17 15:00 Phosphorus 3.4 mg/dl (2.5-4.6) 04/14/17 15:00 Magnesium 2.1 mg/dL (1.8-2.4) 04/14/17 15:00 Total Bilirubin 0.8 mg/dl (0.2-1.0) 04/14/17 15:00 AST 17 U/L (10-42) 04/14/17 15:00 ALT 18 U/L (10-40) D 04/14/17 15:00 Alkaline Phosphatase 65 U/L (32-92) 04/14/17 15:00 Creatine Kinase 20 IU/L (26-140) L 04/14/17 15:00 Troponin I 0.03 ng/ml (0.03-0.50) 04/14/17 15:00 Total Protein 6.0 g/dl (6.4-8.3) L 04/14/17 15:00 Albumin 2.8 g/dl (3.5-5.0) L 04/14/17 15:00 Lipase 28 U/L (22-51) 04/14/17 15:33 Troponin and Lipase within normal limits, Mild Hyponatremia, should resolve with fluids. 04/14/17 16:55 Urine Test Results Urine Color Yellow 04/14/17 15:51 Urine Appearance Hazy 04/14/17 15:51 Urine pH 6.0 (4.5-8) 04/14/17 15:51 Ur Specific [place] 1.020 (1.005-1.025) 04/14/17 15:51 Urine Protein 1+ (NEGATIVE) H 04/14/17 15:51 Urine Glucose (UA) Negative (NEGATIVE) 04/14/17 15:51 Urine Ketones Negative (NEGATIVE) 04/14/17 15:51 Urine Blood 2+ (NEGATIVE) 04/14/17 15:51 Urine Nitrite Negative (NEGATIVE) 04/14/17 15:51 Urine Bilirubin Negative (NEGATIVE) 04/14/17 15:51 Ur Leukocyte Esterase 1+ (NEGATIVE) H 04/14/17 15:51 Evidence of a UTI with mildly elevated LE but negative nitrites, hematuria 04/14/17 17:09 Patient seems to have a UTI with mild dehydration, possible candidate for outpatient antibiotics. is opposed to discharging patient to home due to her weakened state. He felt she was prematurely discharged from her previous admission and thinks she should be observed overnight to see how her weakness responds to antibiotics. 04/14/17 17:[address] Guerra. He felt that, given her recent admission and history of difficult to treat UTIs, overnight admission was appropriate to see how she would respond. 04/14/17 18:[address] Parson regarding admitting the patient for Dr. Guerra. He is unable to make it to tomorrow and asked she be admitted to [facility]. Dr. Lim spoke with [facility] physician and they accepted admission to med/ surg for Dr. Hong *DC/Admit/Observation/Transfer Diagnosis at time of Disposition: Weakness UTI (urinary tract infection) Qualifiers: Urinary tract infection type: site unspecified Hematuria presence: without hematuria Qualified Code(s): N39.0 - Urinary tract infection, site not specified - Discharge Dispostion Condition at time of disposition: Stable Admit: Yes - Attestations Physician Attestion: 04/14/17 18:52 I, Dr. Humberto Clifton, attest that this document has been prepared under my direction and personally reviewed by me in its entirety. I further attest, that it accurately reflects all work, treatment, procedures and medical decision -making performed by me.
[2017-04-14 15:50] LABS: BASOPHIL 1.7 % (0-2.0); EOSINOPHIL 0.8 % (0-4.5); MCH 29.3 pg (25.7-33.7); MCHC 33.4 g/dl (32.0-36.0); MEAN CELL VOLUME 87.9 fl (80-96); MEAN PLT VOLUME 10.1 fl (7.5-11.1); NEUTROPHILS 79.9 % (42.8-82.8); PLATELET COUNT 248 K/MM3 (134-434); RDW 14.8 % (11.6-15.6); WHITE BLOOD COUNT 15.3 K/mm3 (4.0-10.8)
[2017-04-14 16:02] LABS: URINE BILIRUBIN Negative (NEGATIVE); URINE BLOOD 2+ (NEGATIVE); URINE GLUCOSE (UA) Negative (NEGATIVE); URINE KETONE Negative (NEGATIVE); URINE NITRITE Negative (NEGATIVE); URINE UROBILINOGEN 0.2 (0.2-1.0)
[2017-04-14 16:12] LABS: URINE COLOR YELLOW; URINE LEUK ESTERASE 1+ (NEGATIVE); URINE PROTEIN 1+ (NEGATIVE)
[2017-04-14 16:13] LABS: URINE APPEARANCE HAZY
[2017-04-14 16:17] LABS: ALBUMIN 2.8 g/dl (3.5-5.0); ALK PHOS 65 U/L (32-92); ANION GAP 8 (8-16); BILIRUBIN,TOTAL 0.8 mg/dl (0.2-1.0); CALCIUM 8.7 mg/dl (8.4-10.2); CO2 27 mmol/L (22-28); GLUCOSE,RANDOM 113 mg/dl (74-106); MAGNESIUM 2.1 mg/dL (1.8-2.4); PHOSPHOROUS 3.4 mg/dl (2.5-4.6); SGOT/AST 17 U/L (10-42); SGPT/ALT 18 U/L (10-40)
[2017-04-14 16:27] LABS: ACTIVATED PTT 35.4 SECONDS (24.0-38.9)
[2017-04-14 16:31] LABS: INR 1.86 (0.82-1.09); PROTHROMBIN TIME (PATIENT) 20.6 SEC (10.2-13.0)
[2017-04-14 16:37] LABS: TROPONIN I (DFP) 0.03 ng/ml (0.03-0.50)
--- NOTE | 2017-04-14 17:05 | PDOC ---
Attending Attestation - Resident Resident Name: [place],Jon - ED Attending Attestation I have performed the following: I have examined & evaluated the patient, The case was reviewed & discussed with the resident, I agree w/resident's findings & plan, Exceptions are as noted - HPI HPI: 04/14/17 17:03 Agree with the resident's HPI as documented in the electronic medical record. - Physicial Exam PE: 04/14/17 17:03 Agree with the resident's physical examination as documented in the electronic medical record. - Medical Decision Making 04/14/17 17:03 81-year-old female with history of hypertension, atrial fibrillationon Coumadin and digoxin, aortic valve replacement secondary to aortic stenosis and recent hospital admission for pneumonia presents to the emergency Department with complaints of generalized weakness for the past 3 days. The patient is afebrile in the ED and normotensive. Differential diagnosis includes but is not limited to: Recurrent pneumonia, UTI, ACS, electrolyte abnormality, dehydration , toxic/metabolic derangement, digoxin toxicity. Plan: 1. EKGshows atrial fibrillation at a rate of 72 bpm with a stat left axis deviation and no acute ST segment changes. 2. Chest x-ray 3. Labs 4. Urine analysis 5. Observe and reevaluate
[2017-04-14] MEDS ORDERED: CEFAZOLIN 1 GM in DEXTROSE 5%-WATER - 50 ML IVPB ONE (17:19)
[2017-04-14] MEDS ORDERED: ceFAZolin SODIUM 1 GM VIAL ONE (17:36)
[2017-04-14 18:56] LABS: URINE BACTERIA MODERATE /hpf (NEGATIVE); URINE WBC 20-40 (3-5)
--- NOTE | 2017-04-14 19:31 | HP ---
CHIEF COMPLAINT: Weakness, SOB, Abdominal Pain PCP: Dr. Eulalio Guerra HISTORY OF PRESENT ILLNESS: This is a 81 y/o woman who was admitted for Pneumonia 2 weeks ago. Presents to the ED with generalized weakness, SOB, abdominal pain x 2 days. Patient reports having little energy to get around. She reports increased SOB on exertion. Patient reports having intermittent epigastric pain- now resolved. Patient denies fever, chills, cough, dizziness, CP, N/V/D, dysuria. 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[employer]) Family History: Allergies Sulfa (Sulfonamide Antibiotics) [Sulfa(Sulfonamide Antibiotics)] Allergy ( Unknown, Verified 04/14/17 14:34) ciprofloxacin [From Cipro] Allergy (Verified 04/14/17 14:34) ciprofloxacin HCl [From Cipro] Allergy (Verified 04/14/17 14:34) levofloxacin [From Levaquin] Adverse Reaction (Unknown, Verified 04/14/17 14:34) HOME MEDICATIONS: Home Medications Medication Instructions Recorded Aspirin [Aspirin EC] 81 mg PO DAILY 02/16/12 Digoxin [Lanoxin -] 0.125 mg PO DAILY 02/16/12 Fluoxetine HCl [Prozac -] 20 mg PO DAILY 02/16/12 Jrmmygje-Xedcmnc-Ggef 149-Hyal 1 each PO DAILY 02/16/12 [Glucosamine Chondroitin Tablet] Metformin HCl [Metformin HCl ER] 500 mg PO DAILY 02/16/12 [place]-3/Dha/Epa/Fish Oil [Fish Oil 2 each PO DAILY 02/16/12 1,000 mg Softgel] Doxazosin Mesylate 2 mg PO HS 03/25/17 Warfarin Sodium [Coumadin] 5 mg PO DAILY 03/25/17 Diltiazem Cd [Cardizem Cd -] 180 mg PO DAILY #30 cap.sr 04/01/17 Furosemide [Lasix -] 40 mg PO DAILY #30 tablet 04/01/17 Warfarin Sodium [Coumadin] 2.5 mg PO ASDIR 04/14/17 REVIEW OF SYSTEMS CONSTITUTIONAL: generalized weakness Absent: fever, chills, diaphoresis, malaise, loss of appetite, weight change HEENT: Absent: rhinorrhea, nasal congestion, throat pain, throat swelling, difficulty swallowing, mouth swelling, ear pain, eye pain, visual changes CARDIOVASCULAR: Absent: chest pain, syncope, palpitations, irregular heart rate, lightheadedness , peripheral edema RESPIRATORY: shortness of breath Absent: cough, dyspnea with exertion, orthopnea, wheezing, stridor, hemoptysis GASTROINTESTINAL:abdominal pain Absent: abdominal distension, nausea, vomiting, diarrhea, constipation, melena, hematochezia GENITOURINARY: Absent: dysuria, frequency, urgency, hesitancy, hematuria, flank pain, genital pain MUSCULOSKELETAL: Absent: myalgia, arthralgia, joint swelling, back pain, neck pain SKIN: Absent: rash, itching, pallor HEMATOLOGIC/IMMUNOLOGIC: Absent: easy bleeding, easy bruising, lymphadenopathy, frequent infections ENDOCRINE: Absent: unexplained weight gain, unexplained weight loss, heat intolerance, cold intolerance NEUROLOGIC: Absent: headache, focal weakness or paresthesias, dizziness, unsteady gait, seizure, mental status changes, bladder or bowel incontinence PSYCHIATRIC: Absent: anxiety, depression, suicidal or homicidal ideation, hallucinations. PHYSICAL EXAMINATION GENERAL: Awake, alert, and oriented x2, in no acute distress. HEAD: Normal with no signs of trauma. EYES: Pupils equal, round and reactive to light, extraocular movements intact, sclera anicteric, conjunctiva clear. No lid lag. EARS, NOSE, THROAT: Ears normal, nares patent, oropharynx clear without exudates. Dry mucous membranes. NECK: Normal range of motion, supple without lymphadenopathy, JVD, or masses. LUNGS: Breath sounds equal, clear to auscultation bilaterally. No wheezes, and no crackles. No accessory muscle use. HEART: Irregular rate and rhythm, normal S1 and S2 without murmur, rub or gallop. ABDOMEN: Soft, nontender, not distended, normoactive bowel sounds, no guarding, no rebound, no masses. No hepatomegaly or splenomegaly. MUSCULOSKELETAL: Normal range of motion at all joints. No bony deformities or tenderness. No CVA tenderness. UPPER EXTREMITIES: 2+ pulses, warm, well-perfused. No cyanosis. No clubbing. No peripheral edema. LOWER EXTREMITIES: 1+ pulses, cool. No calf tenderness. No peripheral edema. NEUROLOGICAL: Cranial nerves II-XII intact. Normal speech. Gait not observed. PSYCHIATRIC: Cooperative. Good eye contact. Appropriate mood and affect. SKIN: Warm, dry, normal turgor, no rashes or lesions noted, normal capillary refill. Laboratory Results - last 24 hr 04/14/17 04/14/17 04/14/17 15:00 15:00 15:00 WBC 15.3 H RBC 4.39 Hgb 12.9 Hct 38.6 MCV 87.9 MCH 29.3 MCHC 33.4 RDW 14.8 Plt Count 248 D MPV 10.1 D Neutrophils % 79.9 Lymphocytes % 11.5 D Monocytes % 6.1 Eosinophils % 0.8 D Basophils % 1.7 D INR PTT (Actin FS) Sodium 135 L Potassium 3.6 Chloride 100 Carbon Dioxide 27 Anion Gap 8 BUN 18 D Creatinine 1.0 D Creat Clearance w eGFR 53.08 Random Glucose 113 H D Calcium 8.7 Phosphorus 3.4 Magnesium 2.1 Total Bilirubin 0.8 AST 17 ALT 18 D Alkaline Phosphatase 65 Creatine Kinase 20 L Troponin I 0.03 Total Protein 6.0 L Albumin 2.8 L Lipase Urine Color Urine Appearance Urine pH Ur Specific [place] Urine Protein Urine Glucose (UA) Urine Ketones Urine Blood Urine Nitrite Urine Bilirubin Urine Urobilinogen Ur Leukocyte Esterase Urine RBC Urine WBC Ur Epithelial Cells Urine Bacteria Digoxin 04/14/17 04/14/17 04/14/17 15:33 15:33 15:51 WBC RBC Hgb Hct MCV MCH MCHC RDW Plt Count MPV Neutrophils % Lymphocytes % Monocytes % Eosinophils % Basophils % INR PTT (Actin FS) Sodium Potassium Chloride Carbon Dioxide Anion Gap BUN Creatinine Creat Clearance w eGFR Random Glucose Calcium Phosphorus Magnesium Total Bilirubin AST ALT Alkaline Phosphatase Creatine Kinase Troponin I Total Protein Albumin Lipase 28 Urine Color Yellow Urine Appearance Hazy Urine pH 6.0 Ur Specific [place] 1.020 Urine Protein 1+ H Urine Glucose (UA) Negative Urine Ketones Negative Urine Blood 2+ Urine Nitrite Negative Urine Bilirubin Negative Urine Urobilinogen 0.2 Ur Leukocyte Esterase 1+ H Urine RBC 5-10 Urine WBC 20-40 Ur Epithelial Cells Few Urine Bacteria Moderate Digoxin 0.6746 L 04/14/17 15:51 WBC RBC Hgb Hct MCV MCH MCHC RDW Plt Count MPV Neutrophils % Lymphocytes % Monocytes % Eosinophils % Basophils % INR 1.86 H PTT (Actin FS) 35.4 Sodium Potassium Chloride Carbon Dioxide Anion Gap BUN Creatinine Creat Clearance w eGFR Random Glucose Calcium Phosphorus Magnesium Total Bilirubin AST ALT Alkaline Phosphatase Creatine Kinase Troponin I Total Protein Albumin Lipase Urine Color Urine Appearance Urine pH Ur Specific [place] Urine Protein Urine Glucose (UA) Urine Ketones Urine Blood Urine Nitrite Urine Bilirubin Urine Urobilinogen Ur Leukocyte Esterase Urine RBC Urine WBC Ur Epithelial Cells Urine Bacteria Digoxin ASSESSMENT/PLAN: This is a 81 y/o female with a PMHx of: DM, CAD, Afib (on Coumadin, Digoxin), CHF, Aortic Stenosis, PAD, Depression. Placed on Observation, Uncomplicated UTI for further evaluation of their emergent condition. Problem List - Problem (1) UTI (urinary tract infection) Assessment/Plan: - Uncomplicated - UA- +leukocyte esterase, 20-40 WBC, moderate Bacteria - Urine Culture-pending - Cefazolin given in ED, will continue - Monitor vitals Code(s): N39.0 - URINARY TRACT INFECTION, SITE NOT SPECIFIED Qualifiers: Urinary tract infection type: site unspecified Hematuria presence: without hematuria Qualified Code(s): N39.0 - Urinary tract infection, site not specified (2) Weakness Assessment/Plan: - Likely secondary to UTI - Continue gentle IVF - PT for conditioning - Monitor CBC, BMP - Monitor vitals - Fall Precautions Code(s): R53.1 - WEAKNESS (3) Subtherapeutic international normalized ratio (INR) Assessment/Plan: - Coumadin 5mg tonight - Series INR - Continue home meds Code(s): R79.1 - ABNORMAL COAGULATION PROFILE (4) Afib Assessment/Plan: - Rate controlled - EKG reviewed - Continue home meds Code(s): I48.91 - UNSPECIFIED ATRIAL FIBRILLATION Qualifiers: (5) Aortic valve replaced Assessment/Plan: - s/p Porcine Valve - Patient denies CP or Palpitations at present Code(s): Z95.2 - PRESENCE OF PROSTHETIC HEART VALVE (6) Depression Assessment/Plan: - Continue home med Code(s): F32.9 - MAJOR DEPRESSIVE DISORDER, SINGLE EPISODE, UNSPECIFIED (7) Diabetes mellitus Assessment/Plan: - Controlled - BGMs - Continue home med Code(s): E11.9 - TYPE 2 DIABETES MELLITUS WITHOUT COMPLICATIONS (8) PAD (peripheral artery disease) Assessment/Plan: - Continue to monitor and treat with interventions accordingly Code(s): I73.9 - PERIPHERAL VASCULAR DISEASE, UNSPECIFIED (9) DVT prophylaxis Assessment/Plan: - OOB - SCDs Code(s): [id number] - Visit type - Emergency Visit Emergency Visit: Yes ED Registration Date: 04/14/17 Care time: The patient presented to the Emergency Department on the above date and was hospitalized for further evaluation of their emergent condition. - New Patient This patient is new to me today: Yes Date on this admission: 04/14/17 - Critical Care Critical Care patient: No
[2017-04-14] MEDS ORDERED: WARFARIN NA 5 MG TABLET (UD) PO ONE (21:17)
[2017-04-15 08:34] LABS: ANION GAP 9 (8-16); CALCIUM 8.7 mg/dl (8.4-10.2); CO2 27 mmol/L (22-28); GLUCOSE,RANDOM 99 mg/dl (74-106); MAGNESIUM 2.1 mg/dL (1.8-2.4)
[2017-04-15 08:40] LABS: BASOPHIL 2.6 % (0-2.0); EOSINOPHIL 1.2 % (0-4.5); MCHC 33.1 g/dl (32.0-36.0); MEAN CELL VOLUME 87.6 fl (80-96); MEAN PLT VOLUME 9.5 fl (7.5-11.1); NEUTROPHILS 77.1 % (42.8-82.8); PLATELET COUNT 200 K/MM3 (134-434); RDW 14.6 % (11.6-15.6); WHITE BLOOD COUNT 13.3 K/mm3 (4.0-10.8)
[2017-04-15 09:05] LABS: INR 1.76 (0.82-1.09); PROTHROMBIN TIME (PATIENT) 19.5 SEC (10.2-13.0)
[2017-04-15] MEDS ORDERED: FLUoxetine HCL 10 MG CAPSULE (FP) PO SCH (10:00)
[2017-04-15] MEDS: CEFAZOLIN 1 GM/D5W 50 ML IVPB SCH ×2 (10:06→21:37)
[2017-04-15] MEDS: FLUoxetine HCL 20 MG CAPSULE (FP) PO SCH (10:06)
[2017-04-15] MEDS: DIGOXIN 0.125 MG TABLET (FP) PO SCH (10:06)
[2017-04-15] MEDS: FUROSEMIDE 40 MG TABLET (FP) PO SCH (10:06)
[2017-04-15] MEDS: ASPIRIN COATED 81 MG TABLET.EC PO SCH (10:07)
--- NOTE | 2017-04-15 10:07 | PN ---
Physical Exam: SUBJECTIVE: Patient seen and examined, patient reports feeling pain below to the right chest. OBJECTIVE: patient is a 81 y/o female with a past medical history of a DM, CAD , Afib (on coumadin), AVR, CHF, aortic stenosis, PAD, Depression, PNA. patient was admitted from the emergency department for urinary tract infection and subthereputic inr. Vital Signs Period Temp Pulse Resp BP Sys/Srivastava Pulse Ox Last 24 Hr 97.8 F-99.4 F 62-74 16-18 125-149/48-51 95-97 GENERAL: The patient is awake, alert, and fully oriented, in no acute distress. HEAD: Normal with no signs of trauma. EYES: PERRL, extraocular movements intact, sclera anicteric, conjunctiva clear. No ptosis. ENT: Ears normal, nares patent, oropharynx clear without exudates, moist mucous membranes. NECK: Trachea midline, full range of motion, supple. LUNGS: Breath sounds equal, clear to auscultation bilaterally, no wheezes, no crackles, no accessory muscle use. HEART: irregular rate and rhythm, S1, S2, 2/6 systolic murmur, rub or gallop. ABDOMEN: Soft, nontender, nondistended, normoactive bowel sounds, no guarding, no rebound, no hepatosplenomegaly, no masses. EXTREMITIES: 2+ pulses, warm, well-perfused, no edema. NEUROLOGICAL: Cranial nerves II through XII grossly intact. Normal speech, gait not observed. PSYCH: Normal mood, normal affect. SKIN: Warm, dry, normal turgor, no rashes or lesions noted Laboratory Results - last 24 hr 04/15/17 04/15/17 04/15/17 06:13 07:45 07:45 WBC 13.3 H RBC 4.14 Hgb 12.0 Hct 36.2 MCV 87.6 MCH 29.0 MCHC 33.1 RDW 14.6 Plt Count 200 MPV 9.5 Neutrophils % 77.1 Lymphocytes % 11.8 Monocytes % 7.3 Eosinophils % 1.2 Basophils % 2.6 H INR Sodium 135 L Potassium 4.1 Chloride 99 Carbon Dioxide 27 Anion Gap 9 BUN 18 Creatinine 1.0 POC Glucometer 99 Random Glucose 99 Calcium 8.7 Phosphorus 3.0 Magnesium 2.1 04/15/17 07:45 WBC RBC Hgb Hct MCV MCH MCHC RDW Plt Count MPV Neutrophils % Lymphocytes % Monocytes % Eosinophils % Basophils % INR 1.76 H Sodium Potassium Chloride Carbon Dioxide Anion Gap BUN Creatinine POC Glucometer Random Glucose Calcium Phosphorus Magnesium Active Medications Generic Name Dose Route Start Last Admin Trade Name Freq PRN Reason Stop Dose Admin Aspirin 81 mg 04/15/17 10:00 Ecotrin - PO DAILY [facility] Digoxin 0.125 mg 04/15/17 10:00 Lanoxin - PO DAILY [facility] Diltiazem HCl 180 mg 04/15/17 10:00 Cardizem Cd - PO DAILY [facility] Doxazosin Mesylate 2 mg 04/15/17 22:00 Cardura - PO HS [facility] Fluoxetine HCl 20 mg 04/15/17 10:00 Prozac - PO DAILY [facility] Furosemide 40 mg 04/15/17 10:00 Lasix - PO DAILY [facility] Cefazolin Sodium 50 mls @ 100 mls/hr 04/15/17 10:00 Ancef 1 Gm Premixed Ivpb - IVPB BID [facility] Metformin HCl 500 mg 04/15/17 07:00 04/15/17 06:14 Glucophage Xr - PO 500 mg DAILY@0700 [facility] Administration Warfarin Sodium 2.5 mg 04/16/17 18:00 Coumadin - PO SUMOWETHSA [facility] Warfarin Sodium 5 mg 04/15/17 18:00 Coumadin - PO TUFR [facility] ASSESSMENT/PLAN: 1) urinary tract infection - continue cefazolin, pending urine culture - wbc trending downward, pt afebrile 2) card afib - rate controlled continue digoxin and cardizem - pt reports pain to right lower chest upon inspiration, benign abdominal exam, in the setting of subthereputic inr, will order cta of chest - inr 1.7 continue coumadin 5mg 3) endo DM - hold metformin for 48 hours s/p iv contrast - continue fingersticks achs f/e/n - low sodium/diabetic diet - replete electrolytes prn ppx - pt - coumadin - scd - oob ppx: requires obsv admission Visit type - Emergency Visit Emergency Visit: Yes ED Registration Date: 04/14/17 Care time: The patient presented to the Emergency Department on the above date and was hospitalized for further evaluation of their emergent condition. - New Patient This patient is new to me today: Yes Date on this admission: 04/15/17 - Critical Care Critical Care patient: No - Discharge Referral Referred to [facility] No
[2017-04-15] MEDS ORDERED: SODIUM CHLORIDE 1,000 ML IV SCH (14:45)
[2017-04-15] MEDS: POLYETHYLENE GLYCOL 3350 119 GM BTL PO SCH (16:08)
[2017-04-15] MEDS ORDERED: WARFARIN NA 5 MG TABLET (UD) PO SCH (18:00)
--- NOTE | 2017-04-15 21:30 | EKG ---
Test Reason : Blood Pressure : / mmHG Vent. Rate : 072 BPM Atrial Rate : 088 BPM P-R Int : 000 ms QRS Dur : 110 ms QT Int : 374 ms P-R-T Axes : 000 -41 080 degrees QTc Int : 409 ms ATRIAL FIBRILLATION LEFT AXIS DEVIATION ABNORMAL ECG WHEN COMPARED WITH ECG OF 25-MAR-2017 11:22, NO SIGNIFICANT CHANGE WAS FOUND REPEAT EKG IF CLINICALLY INDICATED Confirmed by KAMILLE BOND MD ([id number]) on 04/15/2017 9:30:18 PM Referred By: JANNA Confirmed By:KAMILLE BOND MD
[2017-04-15] MEDS ORDERED: DOXAZOSIN MESYLATE 2 MG TABLET (FP) PO SCH (22:00)
[2017-04-16 06:41] VITALS: BP 124/43; PULSE 64; TEMP 98.2
[2017-04-16 08:34] LABS: ANION GAP 7 (8-16); CALCIUM 8.7 mg/dl (8.4-10.2); CO2 26 mmol/L (22-28); CREATININE 1.1 mg/dl (0.6-1.3); GLUCOSE,RANDOM 99 mg/dl (74-106)
[2017-04-16 08:39] LABS: INR 2.44 (0.82-1.09); PROTHROMBIN TIME (PATIENT) 26.9 SEC (10.2-13.0)
[2017-04-16 09:09] LABS: BASOPHIL 0.4 % (0-2.0); EOSINOPHIL 1.6 % (0-4.5); MCH 29.6 pg (25.7-33.7); MCHC 33.9 g/dl (32.0-36.0); MEAN CELL VOLUME 87.2 fl (80-96); MEAN PLT VOLUME 9.8 fl (7.5-11.1); PLATELET COUNT 176 K/MM3 (134-434); RDW 14.5 % (11.6-15.6); WHITE BLOOD COUNT 11.2 K/mm3 (4.0-10.8)
[2017-04-16] MEDS: FLUoxetine HCL 20 MG CAPSULE (FP) PO SCH (10:16)
[2017-04-16] MEDS: ASPIRIN COATED 81 MG TABLET.EC PO SCH (10:16)
[2017-04-16] MEDS: DIGOXIN 0.125 MG TABLET (FP) PO SCH (10:16)
[2017-04-16] MEDS: FUROSEMIDE 40 MG TABLET (FP) PO SCH (10:16)
[2017-04-16] MEDS: POLYETHYLENE GLYCOL 3350 119 GM BTL PO SCH (10:17)
[2017-04-16] MEDS: CEFAZOLIN 1 GM/D5W 50 ML IVPB SCH (10:18)
--- NOTE | 2017-04-16 12:46 | DS ---
Physical Exam: SUBJECTIVE: Patient seen and examined, patient reports feeling well OBJECTIVE: Vital Signs Period Temp Pulse Resp BP Sys/Srivastava Pulse Ox Last 24 Hr 97.5 F-98.7 F 61-64 16-18 116-124/42-52 95-99 PHYSICAL EXAM GENERAL: The patient is awake, alert, and fully oriented, in no acute distress. HEAD: Normal with no signs of trauma. EYES: PERRL, extraocular movements intact, sclera anicteric, conjunctiva clear. ENT: Ears normal, nares patent, oropharynx clear without exudates, moist mucous membranes. NECK: Trachea midline, full range of motion, supple. LUNGS: Breath sounds equal, clear to auscultation bilaterally, no wheezes, no crackles, no accessory muscle use. HEART: Regular rate and rhythm, S1, S2 without murmur, rub or gallop. ABDOMEN: Soft, nontender, nondistended, normoactive bowel sounds, no guarding, no rebound, no hepatosplenomegaly, no masses. EXTREMITIES: 2+ pulses, warm, well-perfused, no edema. NEUROLOGICAL: Cranial nerves II through XII grossly intact. Normal speech, gait not observed. PSYCH: Normal mood, normal affect. SKIN: Warm, dry, normal turgor, no rashes or lesions noted. LABS Laboratory Results - last 24 hr 04/15/17 04/16/17 04/16/17 21:40 05:58 07:30 WBC RBC Hgb Hct MCV MCH MCHC RDW Plt Count MPV Neutrophils % Lymphocytes % Monocytes % Eosinophils % Basophils % INR 2.44 H D Sodium Potassium Chloride Carbon Dioxide Anion Gap BUN Creatinine POC Glucometer 139 101 Random Glucose Calcium 04/16/17 04/16/17 04/16/17 07:30 07:30 11:50 WBC 11.2 H RBC 3.71 Hgb 11.0 Hct 32.3 L MCV 87.2 MCH 29.6 MCHC 33.9 RDW 14.5 Plt Count 176 MPV 9.8 Neutrophils % 77.0 Lymphocytes % 12.9 Monocytes % 8.1 Eosinophils % 1.6 Basophils % 0.4 INR Sodium 134 L Potassium 4.8 Chloride 101 Carbon Dioxide 26 Anion Gap 7 L BUN 18 Creatinine 1.1 POC Glucometer 88 Random Glucose 99 Calcium 8.7 HOSPITAL COURSE: Date of Admission:04/14/17 Date of Discharge: 04/16/17 Minutes to complete discharge: 45 Discharge Summary Reason For Visit: UTI Current Active Problems DVT prophylaxis (Acute) PAD (peripheral artery disease) (Acute) Subtherapeutic international normalized ratio (INR) (Acute) UTI (urinary tract infection) (Acute) Weakness (Acute) Condition: Stable - Home Medications Comprehensive Discharge Medication List: Ambulatory Orders RX: Aspirin [Aspirin EC] 81 mg PO DAILY 02/16/12 RX: Digoxin [Lanoxin -] 0.125 mg PO DAILY 02/16/12 RX: Fluoxetine HCl [Prozac -] 20 mg PO DAILY 02/16/12 RX: Criiqgle-Dkefphl-Xboe 149-Hyal [Glucosamine Chondroitin Tablet] 1 each PO DAILY 02/16/12 RX: Metformin HCl [Metformin HCl ER] 500 mg PO DAILY 02/16/12 RX: [place]-3/Dha/Epa/Fish Oil [Fish Oil 1,000 mg Softgel] 2 each PO DAILY RX: Doxazosin Mesylate 2 mg PO HS 03/25/17 RX: Warfarin Sodium [Coumadin] 5 mg PO DAILY 03/25/17 RX: Diltiazem Cd [Cardizem Cd -] 180 mg PO DAILY #30 cap.sr 04/01/17 RX: Furosemide [Lasix -] 40 mg PO DAILY #30 tablet 04/01/17 Warfarin Sodium [Coumadin] 2.5 mg PO ASDIR 04/14/17 - Discharge Referral Referred to [facility] No
[2017-04-16] MEDS ORDERED: WARFARIN NA 2.5 MG TABLET (FP) PO SCH (18:00)
== END 2017-04-16 14:00 | disposition home health service (06) ==
LOC: FER 14:24 → FM/S 19:21
PROVIDERS: ADMIT Internal Medicine; ATTEND Nurse Practitioner Family
PROC: 3E03329 Introduction of Other Anti-infective into Peripheral Vein, Percutaneous Approach (ICD-10-PCS; principal; 2017-04-14)
PROC: 3E0337Z Introduction of Electrolytic and Water Balance Substance into Peripheral Vein, Percutaneous Approach (ICD-10-PCS; 2017-04-14)
DX: N39.0 Urinary tract infection, site not specified (principal); R53.1 Weakness; R79.1 Abnormal coagulation profile; I10 Essential (primary) hypertension; I48.91 Unspecified atrial fibrillation; I50.9 Heart failure, unspecified; I25.10 Atherosclerotic heart disease of native coronary artery without angina pectoris; I73.9 Peripheral vascular disease, unspecified; F32.9 Major depressive disorder, single episode, unspecified; F41.9 Anxiety disorder, unspecified; E11.9 Type 2 diabetes mellitus without complications; J45.909 Unspecified asthma, uncomplicated; Z95.2 Presence of prosthetic heart valve; Z87.891 Personal history of nicotine dependence; Z88.1 Allergy status to other antibiotic agents; Z79.01 Long term (current) use of anticoagulants; Z79.82 Long term (current) use of aspirin; Z79.84 Long term (current) use of oral hypoglycemic drugs; Z87.42 Personal history of other diseases of the female genital tract
CPT/HCPCS: 36415; 71010-TC; 71275-TC; 74177-TC; 76775-TC; 76856-TC; 80048; 80053; 80162; 81003; 81015; 82550; 83690; 83735; 84100; 84484; 85025; 85610; 85730; 87086; 87186; 93005; 97116-GP; 97162-GP; 99283-25; G0378

== ENCOUNTER 2018-04-26 12:42 | Inpatient (IN) | payer OTHER, MEDICARE ==
[2018-04-26] MEDS ORDERED: ACETAMINOPHEN 500 MG TABLET (FP) PO ONE (13:20)
--- NOTE | 2018-04-26 13:21 | PDOC ---
History of Present Illness <Krish Smith - Last Filed: 04/26/18 15:13> - History of Present Illness Initial Comments: 04/26/18 13:21 Patient is an 82 year old female with a PMH of NIDDM, Aortic Stenosis (s/p bovine valve replacement), AFib (on [place]) peripheral neuropathy and mild cognitive impairment presents to the ED follow a fall two days previous. Patient states she was standing in the bathub washing her legs when she fell backward hitting her head on a nearby radiator and landing on her lower back. Denies any pre-fall lightheadness, visual changes, chest pain,shortness of breath. Is now c/o lower back pain. At baseline patient ambulates with a walker, however has not ambulated since the fall 2/2 to pain. Allergies: as per EMR Surgical: valve replacement, uteral stricture, appendectomy Social: denies toxic habits PMD: Dr. Eulalio Guerra <Fani Starkey - Last Filed: 04/26/18 16:32> - General Chief Complaint: Injury Stated Complaint: BACK PAIN, DIFF WALKING S/P FALL Time Seen by Provider: 04/26/18 12:46 Past History <Krish Smith - Last Filed: 04/26/18 15:13> - Past Medical History Anemia: No Asthma: Yes Cancer: No Cardiac Disorders: Yes (A-FIB) COPD: No CHF: No Diabetes: Yes GI Disorders: No Disorders: Yes (chronic uti) HTN: Yes Hypercholesterolemia: Yes Kidney Stones: Yes Liver Disease: No Psychiatric Problems: Yes (DEPRESSION) Thyroid Disease: No - Surgical History Appendectomy: Yes Cardiac Surgery: Yes (AVR) - Suicide/Smoking/Psychosocial Hx Smoking Status: Yes Smoking History: Former smoker Have you smoked in the past 12 months: No Number of Cigarettes Smoked Daily: 0 Cigars Per Day: 0 Information on smoking cessation initiated: No Hx Alcohol Use: No Drug/Substance Use Hx: No Substance Use Type: None <Fani Starkey - Last Filed: 04/26/18 16:32> - Past Medical History Allergies/Adverse Reactions: Allergies Allergy/AdvReac Type Severity Reaction Status Date / Time Sulfa (Sulfonamide Allergy Unknown Verified 04/26/18 12:43 Antibiotics) [Sulfa(Sulfonamide Antibiotics)] ciprofloxacin [From Cipro] Allergy Verified 04/26/18 12:43 ciprofloxacin HCl Allergy Verified 04/26/18 12:43 [From Cipro] levofloxacin [From Levaquin] AdvReac Unknown Verified 04/26/18 12:43 Home Medications: Ambulatory Orders Digoxin [Lanoxin -] 0.125 mg PO DAILY 04/26/18 Diltiazem HCl [Cartia Xt] 180 mg PO DAILY 04/26/18 Doxazosin Mesylate 2 mg PO HS 04/26/18 Duloxetine HCl 30 mg PO DAILY 04/26/18 Furosemide 20 mg PO BID 04/26/18 Glucosamine/D3/Boswellia Amanda [Glucosamine Complex Tablet] 1 each PO DAILY 02/06 Metformin HCl [Glucophage] 500 mg PO DAILY 04/26/18 Multivitamin [Multiple Vitamins] 1 each PO DAILY 04/26/18 [place]-3/Dha/Epa/Fish Oil [Fish Oil 1,000 mg Softgel] 1 each PO DAILY 04/26/18 Pitavastatin Calcium [Livalo] 1 mg PO DAILY 04/26/18 Warfarin Sodium [Coumadin] 2.5 mg PO ASDIR 04/26/18 Review of Systems - Review of Systems Constitutional: No: Chills, Fever HEENTM: No: Blurred Vision, Double Vision Respiratory: No: Shortness of Breath, Stridor, Wheezing Cardiac (ROS): No: Chest Pain, Lightheadedness, Palpitations, Syncope ABD/GI: No: Constipated, Diarrhea, Nausea, Vomiting Neurological: Yes: Pre-Existing Deficit. No: Headache, Numbness, Paresthesia, Tingling, Dizziness <Fani Starkey - Last Filed: 04/26/18 16:32> *Physical Exam - Vital Signs Last Vital Signs Temp Pulse Resp BP Pulse Ox 98.1 F 70 18 142/60 96 04/26/18 12:42 04/26/18 12:42 04/26/18 12:42 04/26/18 12:42 04/26/18 12:42 <Krish Smith - Last Filed: 04/26/18 15:13> - Vital Signs Last Vital Signs Temp Pulse Resp BP Pulse Ox 98.1 F 70 18 142/60 96 04/26/18 12:42 04/26/18 12:42 04/26/18 12:42 04/26/18 12:42 04/26/18 12:42 - Physical Exam General Appearance: Yes: Nourished HEENT: positive: EOMI, EDMOND, Normal Voice, Hearing Grossly Normal, Other (no lacerations/hematoma, (-) De La Cruz sign, no mastoid tenderness). negative: TM Bulging, TM Dull, TM Erythema Respiratory/Chest: positive: Lungs Clear, Normal Breath Sounds Cardiovascular: positive: S1, S2, Edema Vascular Pulses: Dorsalis-Pedis (R): 2+, Doralis-Pedis (L): 2+ Gastrointestinal/Abdominal: positive: Normal Bowel Sounds, Soft Extremity: positive: Normal Capillary Refill, Normal Inspection, Pelvis Stable Integumentary: positive: Normal Color, Dry, Warm Neurologic: positive: life skills educator II-XII NML intact, Fully Oriented, Alert Deep Tendon Reflexes: Knee (L): 2+, Knee (R): 2+ <Fani Starkey - Last Filed: 04/26/18 16:32> Heart Score/ECG Review #1 ECG reviewed & interpreted by me at: 15:15 04/26/18 15:13 atrial fibrillation 66, left axis deviation, no std/rei, left axis, QTC 392 msec <Krish Smith - Last Filed: 04/26/18 15:13> #1 Compared to previous ECG there are: No significant change - ECG Intrepretation Rhythm: Irregularly Irregular - [place]: Normal - ECG Impressions Comment:: 04/26/18 15:17 AFib, HR 72; consistent w/previous ECG dated 04/14/18 <Fani Starkey - Last Filed: 04/26/18 16:32> ED Treatment Course - LABORATORY CBC & Chemistry Diagram: 04/26/18 13:30 04/26/18 13:44 - ADDITIONAL ORDERS Additional order review: Laboratory Results 04/26/18 04/26/18 13:44 13:30 PT with INR 36.9 H INR 3.37 H Sodium 138 Potassium 4.3 Chloride 101 Carbon Dioxide 29 H Anion Gap 8 BUN 16 Creatinine 1.0 Creat Clearance w eGFR 52.95 Random Glucose 134 H D Calcium 9.4 Total Bilirubin 0.3 AST 23 D ALT 13 D Alkaline Phosphatase 69 Total Protein 6.9 Albumin 3.5 04/26/18 13:30 RBC 4.52 MCV 87.5 MCHC 32.8 RDW 13.4 MPV 8.4 Neutrophils % 72.5 Lymphocytes % 16.9 Monocytes % 6.9 Eosinophils % 2.4 Basophils % 1.3 - Medications Given in the ED: ED Medications Discontinued Medications Generic Name Dose Route Start Last Admin Trade Name Leonardo PRN Reason Stop Dose Admin Acetaminophen 1,000 mg 04/26/18 13:20 04/26/18 13:40 Tylenol - PO 04/26/18 13:21 1,000 mg ONCE ONE Administration <Krish Smith - Last Filed: 04/26/18 15:13> - LABORATORY CBC & Chemistry Diagram: 04/26/18 13:30 04/26/18 13:44 <Fani Starkey - Last Filed: 04/26/18 16:32> Medical Decision Making - Medical Decision Making 04/26/18 14:02 82 year old female presents following a likely mechanical fall. Neurologically intact, 2+ DP reflexes, mild lumbar sacral tenderness on PE. Will CT Head ( patient on Warfarin) C-spine as well as lumbar and pelvis. Tylenol for pain control. Reassess. 04/26/18 14:33 Patient resting comfortably, pain improved. Wet read of Head CT shows no bleed, enlarged ventricles. Supratherapeutic INR (3.37) - family @ bedside notes patient has INR checked weekly, scheduled for this coming Friday (04/28) 04/26/18 14:34 Lumbar XR shows acute/subacute L5 compression fracture. Head CT negative. Will page patient's PMD for admission. 04/26/18 15:07 Case d/w Dr. Mykel Paredes (covers for patient's PMD Dr. Guerra) will admit to OBS. Patients and patient's family counseled on POC, amenable to admission. <Fani Starkey - Last Filed: 04/26/18 16:32> *DC/Admit/Observation/Transfer <Krish Smith - Last Filed: 04/26/18 15:13> - Discharge Dispostion Decision to Admit order: Yes <Fani Starkey - Last Filed: 04/26/18 16:32> Diagnosis at time of Disposition: Lumbar compression fracture - Discharge Dispostion Condition at time of disposition: Stable - Referrals Referrals: Sal Guerra MD [Primary Care Provider] - - Patient Instructions - Post Discharge Activity
--- NOTE | 2018-04-26 13:35 | PDOC ---
Attending Attestation - Resident Resident Name: Fani Starkey - ED Attending Attestation I have performed the following: I have examined & evaluated the patient, The case was reviewed & discussed with the resident, I agree w/resident's findings & plan, Exceptions are as noted - HPI HPI: 04/26/18 13:30 82 year old female c/ hx of afib on coumadin, aortic valve replacement (pig), DM BIBEMS mechanical fall 2 days ago. At baseline, patient ambulates with a walker. Had a mechanical fall 2 days ago. landed on her buttocks and back and hit her head. No LOC. Has been unable to ambulate 2/2 fall. Denies numbness, weakness. Denies recent illnesses, fevers, chills, cough, vomiting. - Physicial Exam PE: 04/26/18 13:35 GENERAL: Awake, alert, and fully oriented, in no acute distress HEAD: No signs of trauma EYES: PERRLA, EOMI, sclera anicteric, conjunctiva clear ENT: Auricles normal inspection, hearing grossly normal, nares patent NECK: Normal ROM, supple. mild c-7 TTP to palpation. But full range of motion of neck without difficulty LUNGS: Breath sounds equal, clear to auscultation bilaterally. No wheezes, and no crackles HEART: Regular rate and rhythm, normal S1 and S2, no murmurs, rubs or gallops BACK: TTP ~L1, no stepoffs appreciate. PELVIS: Stable with no tenderness. FROM of bilateral hips. ABDOMEN: Soft, nontender, No guarding, no rebound. No masses EXTREMITIES: Normal range of motion, no edema. No clubbing or cyanosis. No cords, erythema, or tenderness NEUROLOGICAL: Cranial nerves II through XII grossly intact. Normal speec SKIN: Warm, Dry, normal turgor, no rashes or lesions noted. - Medical Decision Making 04/26/18 13:35 Vital Signs Temp Pulse Resp BP Pulse Ox 98.1 F 70 18 142/60 96 04/26/18 12:42 04/26/18 12:42 04/26/18 12:42 04/26/18 12:42 04/26/18 12:42 Impression: mechanical fall. Given on coumadin, check INR, obtain head and C-spine CT Lumbar spine and pelvic CT for lower back pain. Pain control and reassess. 04/26/18 14:49 Acute L5 compression fracture. Head CT and c-spine negative. Will admit to the hospital for further management.
[2018-04-26] MEDS ORDERED: ACETAMINOPHEN 500 MG TABLET (FP) ONE (13:41)
[2018-04-26 13:53] LABS: BASO % 1.3 % (0-2.0); EOS % 2.4 % (0-4.5); HEMATOCRIT 39.5 % (32.4-45.2); LYMPH % 16.9 % (8-40); MCH 28.7 pg (25.7-33.7); MCHC 32.8 g/dl (32.0-36.0); MEAN CELL VOLUME 87.5 fl (80-96); MEAN PLT VOLUME 8.4 fl (7.5-11.1); MONO % 6.9 % (3.8-10.2); NEUT % 72.5 % (42.8-82.8); PLATELET COUNT 351 K/MM3 (134-434); RBC 4.52 M/mm3 (3.60-5.2); RDW 13.4 % (11.6-15.6); WHITE BLOOD COUNT 12.2 K/mm3 (4.0-10.8)
[2018-04-26 13:56] LABS: INR 3.37 (0.82-1.09); PROTHROMBIN TIME (PATIENT) 36.9 SEC (10.2-13.0)
[2018-04-26 14:15] LABS: ALBUMIN 3.5 g/dl (3.5-5.0); ALK PHOS 69 U/L (32-92); ANION GAP 8 (8-16); BILIRUBIN,TOTAL 0.3 mg/dl (0.2-1.0); BLOOD UREA NITROGEN 16 mg/dl (7-18); CALCIUM 9.4 mg/dl (8.4-10.2); CHLORIDE 101 mmol/L (98-107); CO2 29 mmol/L (22-28); GLUCOSE,RANDOM 134 mg/dl (74-106); POTASSIUM 4.3 mmol/L (3.5-5.1); SGOT/AST 23 U/L (10-42); SGPT/ALT 13 U/L (10-40); SODIUM 138 mmol/L (136-145); TOT PROT 6.9 g/dl (6.4-8.3)
[2018-04-26] MEDS: FUROSEMIDE 20 MG TABLET (FP) PO SCH (19:04)
[2018-04-26] MEDS: ACETAMINOPHEN 325 MG TABLET (FP) PO PRN (21:41)
[2018-04-26] MEDS: DOXAZOSIN MESYLATE 2 MG TABLET (FP) PO SCH (21:41)
[2018-04-27] MEDS: FUROSEMIDE 20 MG TABLET (FP) PO SCH ×2 (06:42→14:17)
[2018-04-27] MEDS: INSULIN SLIDING SCALE (NOVOLOG) 1 VIAL SQ SCH ×3 (06:43→14:50)
--- NOTE | 2018-04-27 07:23 | HP ---
patient transferred to hospitalist service on 04/27/18 at 0700 CHIEF COMPLAINT: back pain PCP: Dr Guerra Music Critic: Dr Torres HISTORY OF PRESENT ILLNESS: patient is a 82-year-old female, with a past medical history of coronary artery disease, atrial fibrillation, bio AVR, diastolic congestive heart failure, hypertension, hyperlipidemia, TM, recurrent urinary tract infections,(urethral stents). patient reports last week ER course was notable for: (1) (2) (3) Recent Travel: PAST MEDICAL HISTORY: PAST SURGICAL HISTORY: Social History: Smoking: Alcohol: Drugs: Family History: Allergies Sulfa (Sulfonamide Antibiotics) [Sulfa(Sulfonamide Antibiotics)] Allergy ( Unknown, Verified 04/26/18 12:43) ciprofloxacin [From Cipro] Allergy (Verified 04/26/18 12:43) ciprofloxacin HCl [From Cipro] Allergy (Verified 04/26/18 12:43) levofloxacin [From Levaquin] Adverse Reaction (Unknown, Verified 04/26/18 12:43) HOME MEDICATIONS: Home Medications Medication Instructions Recorded Digoxin [Lanoxin -] 0.125 mg PO DAILY 04/26/18 Diltiazem HCl [Cartia Xt] 180 mg PO DAILY 04/26/18 Doxazosin Mesylate 2 mg PO HS 04/26/18 Duloxetine HCl 30 mg PO DAILY 04/26/18 Furosemide 20 mg PO BID 04/26/18 Glucosamine/D3/Boswellia Amanda 1 each PO DAILY 04/26/18 [Glucosamine Complex Tablet] Metformin HCl [Glucophage] 500 mg PO DAILY 04/26/18 Multivitamin [Multiple Vitamins] 1 each PO DAILY 04/26/18 [place]-3/Dha/Epa/Fish Oil [Fish Oil 1 each PO DAILY 04/26/18 1,000 mg Softgel] Pitavastatin Calcium [Livalo] 1 mg PO DAILY 04/26/18 Warfarin Sodium [Coumadin] 2.5 mg PO ASDIR 04/26/18 REVIEW OF SYSTEMS CONSTITUTIONAL: Absent: fever, chills, diaphoresis, generalized weakness, malaise, loss of appetite, weight change HEENT: Absent: rhinorrhea, nasal congestion, throat pain, throat swelling, difficulty swallowing, mouth swelling, ear pain, eye pain, visual changes CARDIOVASCULAR: Absent: chest pain, syncope, palpitations, irregular heart rate, lightheadedness , peripheral edema RESPIRATORY: Absent: cough, shortness of breath, dyspnea with exertion, orthopnea, wheezing, stridor, hemoptysis GASTROINTESTINAL: Absent: abdominal pain, abdominal distension, nausea, vomiting, diarrhea, constipation, melena, hematochezia GENITOURINARY: Absent: dysuria, frequency, urgency, hesitancy, hematuria, flank pain, genital pain MUSCULOSKELETAL: Absent: myalgia, arthralgia, joint swelling, back pain, neck pain SKIN: Absent: rash, itching, pallor HEMATOLOGIC/IMMUNOLOGIC: Absent: easy bleeding, easy bruising, lymphadenopathy, frequent infections ENDOCRINE: Absent: unexplained weight gain, unexplained weight loss, heat intolerance, cold intolerance NEUROLOGIC: Absent: headache, focal weakness or paresthesias, dizziness, unsteady gait, seizure, mental status changes, bladder or bowel incontinence PSYCHIATRIC: Absent: anxiety, depression, suicidal or homicidal ideation, hallucinations. PHYSICAL EXAMINATION Vital Signs - 24 hr 04/26/18 04/26/18 04/26/18 12:42 16:21 17:28 Temperature 98.1 F 98.3 F 97.9 F Pulse Rate 70 63 Pulse Rate [ 68 Left] Respiratory 18 17 Rate Blood Pressure 142/60 135/46 Blood Pressure 156/70 [Right Arm] O2 Sat by Pulse 96 95 Oximetry (%) 04/27/18 06:33 Temperature 98.6 F Pulse Rate 62 Pulse Rate [ Left] Respiratory 18 Rate Blood Pressure 130/45 Blood Pressure [Right Arm] O2 Sat by Pulse Oximetry (%) GENERAL: Awake, alert, and fully oriented, in no acute distress. HEAD: Normal with no signs of trauma. EYES: Pupils equal, round and reactive to light, extraocular movements intact, sclera anicteric, conjunctiva clear. No lid lag. EARS, NOSE, THROAT: Ears normal, nares patent, oropharynx clear without exudates. Moist mucous membranes. NECK: Normal range of motion, supple without lymphadenopathy, JVD, or masses. LUNGS: Breath sounds equal, clear to auscultation bilaterally. No wheezes, and no crackles. No accessory muscle use. HEART: Regular rate and rhythm, normal S1 and S2 without murmur, rub or gallop. ABDOMEN: Soft, nontender, not distended, normoactive bowel sounds, no guarding, no rebound, no masses. No hepatomegaly or splenomegaly. MUSCULOSKELETAL: Normal range of motion at all joints. No bony deformities or tenderness. No CVA tenderness. UPPER EXTREMITIES: 2+ pulses, warm, well-perfused. No cyanosis. No clubbing. No peripheral edema. LOWER EXTREMITIES: 2+ pulses, warm, well-perfused. No calf tenderness. No peripheral edema. NEUROLOGICAL: Cranial nerves II-XII intact. Normal speech. Normal gait. PSYCHIATRIC: Cooperative. Good eye contact. Appropriate mood and affect. SKIN: Warm, dry, normal turgor, no rashes or lesions noted, normal capillary refill. Laboratory Results - last 24 hr 04/26/18 04/26/18 04/26/18 13:30 13:30 13:44 WBC 12.2 H RBC 4.52 Hgb 13.0 Hct 39.5 D MCV 87.5 MCH 28.7 MCHC 32.8 RDW 13.4 Plt Count 351 MPV 8.4 Absolute Neuts (auto) 8.8 Neutrophils % 72.5 Lymphocytes % 16.9 Monocytes % 6.9 Eosinophils % 2.4 Basophils % 1.3 PT with INR 36.9 H INR 3.37 H Sodium 138 Potassium 4.3 Chloride 101 Carbon Dioxide 29 H Anion Gap 8 BUN 16 Creatinine 1.0 Creat Clearance w eGFR 52.95 POC Glucometer Random Glucose 134 H D Calcium 9.4 Total Bilirubin 0.3 AST 23 D ALT 13 D Alkaline Phosphatase 69 Total Protein 6.9 Albumin 3.5 Triglycerides Cholesterol Total LDL Cholesterol HDL Cholesterol Digoxin 04/26/18 04/27/18 19:30 06:24 WBC RBC Hgb Hct MCV MCH MCHC RDW Plt Count MPV Absolute Neuts (auto) Neutrophils % Lymphocytes % Monocytes % Eosinophils % Basophils % PT with INR INR Sodium Potassium Chloride Carbon Dioxide Anion Gap BUN Creatinine Creat Clearance w eGFR POC Glucometer 118 Random Glucose Calcium Total Bilirubin AST ALT Alkaline Phosphatase Total Protein Albumin Triglycerides 172 H Cholesterol 157 Total LDL Cholesterol 90 HDL Cholesterol 56 Digoxin 1.21 ASSESSMENT/PLAN: Hospitalist Screening - Colonoscopy Questionnaire Colonoscopy Questionnaire: Colonoscopy Questionnaire
[2018-04-27 08:44] LABS: BASO % 0.4 % (0-2.0); HEMATOCRIT 36.5 % (32.4-45.2); HEMOGLOBIN 12.2 GM/dl (10.7-15.3); LYMPH % 16.4 % (8-40); MCHC 33.5 g/dl (32.0-36.0); MEAN CELL VOLUME 86.5 fl (80-96); MEAN PLT VOLUME 8.6 fl (7.5-11.1); MONO % 8.6 % (3.8-10.2); NEUT % 71.6 % (42.8-82.8); PLATELET COUNT 316 K/MM3 (134-434); RBC 4.22 M/mm3 (3.60-5.2); RDW 13.5 % (11.6-15.6); WHITE BLOOD COUNT 11.4 K/mm3 (4.0-10.8)
[2018-04-27 09:05] LABS: INR 2.98 (0.82-1.09); PROTHROMBIN TIME (PATIENT) 32.7 SEC (10.2-13.0)
--- NOTE | 2018-04-27 09:12 | PN ---
Progress Note (short form) - Note Progress Note: discussed with Dr Scott he will be covering the patient (Mrs Bessy Nevarez) during her hospitalization. Visit type - Emergency Visit Emergency Visit: Yes ED Registration Date: 04/26/18 Care time: The patient presented to the Emergency Department on the above date and was hospitalized for further evaluation of their emergent condition. - New Patient This patient is new to me today: No - Critical Care Critical Care patient: No - Discharge Referral Referred to [facility] Med [facility] No
[2018-04-27] MEDS: DULoxetine HCL 30 MG CAPSULE.DR (FP) PO SCH (09:16)
[2018-04-27] MEDS: DIGOXIN 0.125 MG TABLET (FP) PO SCH (09:16)
[2018-04-27] MEDS: ACETAMINOPHEN 325 MG TABLET (FP) PO PRN ×2 (09:17→19:46)
[2018-04-27] MEDS: MULTIVITAMINS (DAILY MVI) TABLET (FP) PO SCH (09:17)
--- NOTE | 2018-04-27 09:21 | HP ---
Admitting History and Physical - Primary Care Physician PCP: Sal Guerra - Admission Chief Complaint: Mechanical fall and Back pain History of Present Illness: patient is a 82 yrs old F independent ambulates with a walker early Dementia H/ O T2DM, Permanent Afib on AC rate controlled, s/p Biprosthetic AVR, Neuropathy, HTN, present to Ed with c/o lower back pain foar past 2 days after sustaining a fall as per patient 2 days ago she was washing her feet in the bath tub lost balancefell backward hitting her hear head on a radiator and landed on lower back, patient stayed at home and rested couldn't get up, pain persisted so came to Ed for evaluation, no c/o LE weakness, sensory loss in saddle area or any bowel bladder incontinence, patient denies any LOC, syncope or presyncope symptoms denies any focal neurological complaint. in the Ed w/u shows supratherpeutic INR and compression fracture of L5 - Past Medical History SOCIAL WORKER: Yes: Peripheral Neuropathy Cardiovascular: Yes: AFIB, Aortic Stenosis, CAD, CHF, HTN, Hyperlipdemia, Other (peripheral vascular disease) Psych: Yes: Depression Musculoskeletal: Yes: Other (scoliosis) Rheumatology: Yes: Other (osteoporosis) Endocrine: Yes: Diabetes Mellitus, Other (vit d def) - Past Surgical History Past Surgical History: Yes: Appendectomy, CABG, Cataract Removal, Tonsillectomy , Valve Replacement (Aortic -Porcine) - Advance Directives Advance Directives: Yes: Living Will, Health Care Proxy - Smoking History Smoking history: Former smoker Have you smoked in the past 12 months: No Aproximately how many cigarettes per day: 0 If you are a former smoker, when did you quit?: 40 years ago - Alcohol/Substance Use Hx Alcohol Use: Yes (social) - Social History 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[employer]) Home Medications - Allergies Allergies/Adverse Reactions: Allergies Allergy/AdvReac Type Severity Reaction Status Date / Time Sulfa (Sulfonamide Allergy Unknown Verified 04/26/18 12:43 Antibiotics) [Sulfa(Sulfonamide Antibiotics)] ciprofloxacin [From Cipro] Allergy Verified 04/26/18 12:43 ciprofloxacin HCl Allergy Verified 04/26/18 12:43 [From Cipro] levofloxacin [From Levaquin] AdvReac Unknown Verified 04/26/18 12:43 - Home Medications Home Medications: Ambulatory Orders Digoxin [Lanoxin -] 0.125 mg PO DAILY 04/26/18 Diltiazem HCl [Cartia Xt] 180 mg PO DAILY 04/26/18 Doxazosin Mesylate 2 mg PO HS 04/26/18 Duloxetine HCl 30 mg PO DAILY 04/26/18 Furosemide 20 mg PO BID 04/26/18 Glucosamine/D3/Boswellia Amanda [Glucosamine Complex Tablet] 1 each PO DAILY 02/06 Metformin HCl [Glucophage] 500 mg PO DAILY 04/26/18 Multivitamin [Multiple Vitamins] 1 each PO DAILY 04/26/18 [place]-3/Dha/Epa/Fish Oil [Fish Oil 1,000 mg Softgel] 1 each PO DAILY 04/26/18 Pitavastatin Calcium [Livalo] 1 mg PO DAILY 04/26/18 Warfarin Sodium [Coumadin] 2.5 mg PO ASDIR 04/26/18 Family Disease History - Family Disease History Family Disease History: CA: Mother (Lung CA), Other: Father (AAA, COPD) Review of Systems - Review of Systems Constitutional: denies: Chills, Diaphoresis, Fever Eyes: denies: Blind Spots, Blurred Vision, Double Vision HENT: denies: Difficult Swallowing, Ear Discharge, Gingival Bleeding Neck: denies: Decreased ROM, Lumps, Pain on Movement, Stiffness, Swollen Glands Cardiovascular: denies: Chest Pain, Edema, Palpitations, Shortness of Breath Respiratory: denies: Cough, Exercise Intolerance, Hemoptysis Gastrointestinal: denies: Abdominal Pain, Bloating, Constipation Genitourinary: denies: Burning, Discharge, Dysuria Musculoskeletal: reports: Back Pain. denies: Crepitus, Decreased ROM Neurological: denies: Change in LOC, Change in Speech, Confusion Endocrine: denies: Excessive Sweating, Flushing, Increased Hunger Psychiatric: denies: Altered Sleep Pattern Pain Intensity: 5 Physical Examination Vital Signs: Vital Signs Temperature 98.6 F 04/27/18 06:33 Pulse Rate 62 04/27/18 06:33 Respiratory Rate 18 04/27/18 06:33 Blood Pressure 130/45 04/27/18 06:33 O2 Sat by Pulse Oximetry (%) 95 04/26/18 16:21 Elderly F not in distress c/o mild back pain HEENT: Mm moist, no anemia, PERRLA EOMI NECK; No JVD No Bruit CHEST: CTA B/L CVS; S1S2 irr ABD: No distention, non tender Bs + EXT and Back; Tenderness in lower Lumbar area SOCIAL WORKER: AOx[employer] non focal Labs: CBC, BMP 04/27/18 07:15 Imaging - Results Chest X-ray: Report Reviewed (No acute changes) X-ray: Report Reviewed Cat Scan: Report Reviewed (pelvis; No fracture L spine; Chronic L3 compression fracture Sub acute to acute L5 compression fracture) Problem List - Problems (1) Lumbar compression fracture Assessment/Plan: S/P fall Ct shows compression fracture L5 no significant compression c/o back pain , bed rest, pain control, no Wt bearing till evaluates by an orthopedics/ Neuro Spine, PT evaluation once cleared by orthopedics. Code(s): S32.000A - WEDGE COMPRESSION FRACTURE OF UNSP LUMBAR VERTEBRA, INIT Qualifiers: Encounter type: initial encounter Lumbar vertebra fracture level: L5 Fracture type: closed Qualified Code(s): S32.050A - Wedge compression fracture of fifth lumbar vertebra, initial encounter for closed fracture (2) Fall Assessment/Plan: Mechanical fall need Pt evaluation and educate for Walker use Code(s): W19.XXXA - UNSPECIFIED FALL, INITIAL ENCOUNTER Qualifiers: Encounter type: initial encounter Qualified Code(s): W19.XXXA - Unspecified fall, initial encounter (3) Aortic valve replaced Assessment/Plan: no active issue Code(s): Z95.2 - PRESENCE OF PROSTHETIC HEART VALVE (4) T2DM (type 2 diabetes mellitus) Assessment/Plan: Hold Po meds, diabetic Diet, FS Ac and Bed time with correction dose insulin F/ U HBa!c Code(s): E11.9 - TYPE 2 DIABETES MELLITUS WITHOUT COMPLICATIONS (5) Chronic a-fib Assessment/Plan: Rate controlled on Ac hold coumadin F/U INr in am Code(s): I48.2 - CHRONIC ATRIAL FIBRILLATION (6) Depression Assessment/Plan: cont home medications. Code(s): F32.9 - MAJOR DEPRESSIVE DISORDER, SINGLE EPISODE, UNSPECIFIED
[2018-04-27 09:53] LABS: ALBUMIN 3.2 g/dl (3.5-5.0); ALK PHOS 63 U/L (32-92); ANION GAP 10 (8-16); BILIRUBIN,TOTAL 0.6 mg/dl (0.2-1.0); BLOOD UREA NITROGEN 16 mg/dl (7-18); CALCIUM 8.9 mg/dl (8.4-10.2); CHLORIDE 101 mmol/L (98-107); CO2 27 mmol/L (22-28); CREATININE 0.9 mg/dl (0.6-1.3); GLUCOSE,RANDOM 104 mg/dl (74-106); POTASSIUM 4.1 mmol/L (3.5-5.1); SGOT/AST 14 U/L (10-42); SODIUM 138 mmol/L (136-145); TOT PROT 6.5 g/dl (6.4-8.3)
[2018-04-27] MEDS ORDERED: D3 PO SCH (10:00)
[2018-04-27] MEDS: OMEGA-3 ACID ETHYL ESTERS (FATTY-ACIDS) 1 GM CAPSULE (FP) PO SCH (10:00)
[2018-04-27] MEDS ORDERED: BOSWELLIA SERRA PO SCH (10:00)
[2018-04-27] MEDS ORDERED: [UNRECOGNIZED DRUG - OTHER] PO SCH (10:00)
[2018-04-27] MEDS ORDERED: GLUCOSAMINE PO SCH (10:00)
[2018-04-27 10:51] LABS: SGPT/ALT 18 U/L (10-40)
--- NOTE | 2018-04-27 11:54 | EKG ---
Test Reason : Blood Pressure : / mmHG Vent. Rate : 066 BPM Atrial Rate : 014 BPM P-R Int : 000 ms QRS Dur : 112 ms QT Int : 374 ms P-R-T Axes : 000 -34 121 degrees QTc Int : 392 ms ATRIAL FIBRILLATION LEFT AXIS DEVIATION NONSPECIFIC ST AND T WAVE ABNORMALITY ABNORMAL ECG WHEN COMPARED WITH ECG OF 14-APR-2017 15:19, NO SIGNIFICANT CHANGE WAS FOUND Confirmed by CATERINA HARO MD ([id number]) on 04/27/2018 11:53:29 AM Referred By: GEOVANNA REYNOSO Confirmed By:CATERINA HARO MD
[2018-04-27] MEDS: DOXAZOSIN MESYLATE 2 MG TABLET (FP) PO SCH (21:45)
[2018-04-27] MEDS: ATORVASTATIN CA 10 MG TABLET (FP) PO SCH (21:45)
[2018-04-28] MEDS: ACETAMINOPHEN 325 MG TABLET (FP) PO PRN ×2 (05:05→20:07)
[2018-04-28] MEDS: INSULIN SLIDING SCALE (NOVOLOG) 1 VIAL SQ SCH ×3 (06:12→17:10)
[2018-04-28] MEDS: FUROSEMIDE 20 MG TABLET (FP) PO SCH ×2 (06:13→14:00)
[2018-04-28 08:42] LABS: HEMATOCRIT 36.9 % (32.4-45.2); HEMOGLOBIN 12.1 GM/dl (10.7-15.3); MCH 28.5 pg (25.7-33.7); MCHC 32.8 g/dl (32.0-36.0); MEAN CELL VOLUME 86.9 fl (80-96); MEAN PLT VOLUME 8.5 fl (7.5-11.1); PLATELET COUNT 344 K/MM3 (134-434); RBC 4.24 M/mm3 (3.60-5.2); RDW 13.7 % (11.6-15.6); WHITE BLOOD COUNT 12.2 K/mm3 (4.0-10.8)
[2018-04-28] MEDS ORDERED: PT OWN MED DRAWER 7, Y5N ONE (08:54)
[2018-04-28 09:01] LABS: ANION GAP 7 (8-16); BLOOD UREA NITROGEN 14 mg/dl (7-18); CALCIUM 8.7 mg/dl (8.4-10.2); CHLORIDE 101 mmol/L (98-107); CO2 28 mmol/L (22-28); CREATININE 0.9 mg/dl (0.6-1.3); GLUCOSE,RANDOM 146 mg/dl (74-106); POTASSIUM 4.2 mmol/L (3.5-5.1); SODIUM 136 mmol/L (136-145)
[2018-04-28] MEDS: DIGOXIN 0.125 MG TABLET (FP) PO SCH (09:20)
[2018-04-28] MEDS: DULoxetine HCL 30 MG CAPSULE.DR (FP) PO SCH (09:25)
[2018-04-28] MEDS: OMEGA-3 ACID ETHYL ESTERS (FATTY-ACIDS) 1 GM CAPSULE (FP) PO SCH (09:40)
[2018-04-28] MEDS: MULTIVITAMINS (DAILY MVI) TABLET (FP) PO SCH (10:00)
--- NOTE | 2018-04-28 13:02 | PN ---
Progress Note, Physician Chief Complaint: Back pain is improving awaiting Ortho/spine evaluation, no neurological complaints. - Current Medication List Current Medications: Active Medications Acetaminophen (Tylenol -) 650 mg PO Q6H PRN PRN Reason: PAIN LEVEL 1 - 3 Last Admin: 04/28/18 05:05 Dose: 650 mg Atorvastatin Calcium (Lipitor -) 10 mg PO HS [facility] Last Admin: 04/27/18 21:45 Dose: 10 mg Digoxin (Lanoxin -) 0.125 mg PO DAILY [facility] Last Admin: 04/28/18 09:20 Dose: 0.125 mg Diltiazem HCl (Cardizem Cd -) 180 mg PO DAILY [facility] Last Admin: 04/28/18 09:17 Dose: 180 mg Doxazosin Mesylate (Cardura -) 2 mg PO [facility] Last Admin: 04/27/18 21:45 Dose: 2 mg Duloxetine HCl (Cymbalta -) 30 mg PO DAILY [facility] Last Admin: 04/28/18 09:25 Dose: 30 mg Furosemide (Lasix -) 20 mg PO BIDLASIX [facility] Last Admin: 04/28/18 06:13 Dose: 20 mg Insulin Aspart (Novolog Vial Sliding Scale -) 1 vial SQ TIDAC [facility]; Protocol Last Admin: 04/28/18 06:12 Dose: Not Given Multivitamins/Minerals/Vitamin C (Tab-A-Vit -) 1 tab PO DAILY [facility] Last Admin: 04/28/18 10:00 Dose: 1 tab [id number] Ethyl Esters (Lovaza -) 1 gm PO DAILY [facility] Last Admin: 04/28/18 09:40 Dose: 1 gm Oxycodone/Acetaminophen (Percocet 5/325 -) 1 combo PO Q8H PRN PRN Reason: PAIN LEVEL 6-10 Warfarin Sodium (Coumadin -) 2.5 mg PO DAILY@1800 [facility] - Objective Vital Signs: Vital Signs Temperature 98.3 F 04/28/18 06:45 Pulse Rate 84 04/28/18 09:20 Respiratory Rate 18 04/28/18 06:45 Blood Pressure 177/59 04/28/18 06:45 O2 Sat by Pulse Oximetry (%) 100 04/28/18 06:45 Elderly F not in distress c/o mild back pain HEENT: Mm moist, no anemia, PERRLA EOMI NECK; No JVD No Bruit CHEST: CTA B/L CVS; S1S2 irr ABD: No distention, non tender Bs + EXT and Back; Tenderness in lower Lumbar area RECEPTION INTERVIEWER: AOx3 non focal Labs: CBC, BMP 04/28/18 08:20 04/28/18 08:20 INR, PTT INR 2.98 (0.82-1.09) H 04/27/18 07:15 Problem List - Problems (1) Lumbar compression fracture Assessment/Plan: S/P fall Ct shows compression fracture L5 no significant compression c/o back pain , bed rest, pain control, no Wt bearing till evaluates by an orthopedics/ Neuro Spine, PT evaluation once cleared by orthopedics. Code(s): S32.000A - WEDGE COMPRESSION FRACTURE OF UNSP LUMBAR VERTEBRA, INIT Qualifiers: Encounter type: initial encounter Lumbar vertebra fracture level: L5 Fracture type: closed Qualified Code(s): S32.050A - Wedge compression fracture of fifth lumbar vertebra, initial encounter for closed fracture (2) Fall Assessment/Plan: Mechanical fall need Pt evaluation and educate for Walker use Code(s): W19.XXXA - UNSPECIFIED FALL, INITIAL ENCOUNTER Qualifiers: Encounter type: initial encounter Qualified Code(s): W19.XXXA - Unspecified fall, initial encounter (3) Aortic valve replaced Assessment/Plan: no active issue Code(s): Z95.2 - PRESENCE OF PROSTHETIC HEART VALVE (4) T2DM (type 2 diabetes mellitus) Assessment/Plan: Hold Po meds, diabetic Diet, FS Ac and Bed time with correction dose insulin F/ U HBa!c Code(s): E11.9 - TYPE 2 DIABETES MELLITUS WITHOUT COMPLICATIONS (5) Chronic a-fib Assessment/Plan: Rate controlled on Ac hold coumadin F/U INr in am Code(s): I48.2 - CHRONIC ATRIAL FIBRILLATION (6) Depression Assessment/Plan: cont home medications. Code(s): F32.9 - MAJOR DEPRESSIVE DISORDER, SINGLE EPISODE, UNSPECIFIED (7) UTI (urinary tract infection) Assessment/Plan: today UA result shows for WBC , LE and Bacteria , IV Ceftrixone 1gm IVSS F/U U culture Code(s): N39.0 - URINARY TRACT INFECTION, SITE NOT SPECIFIED Qualifiers: Urinary tract infection type: site unspecified Hematuria presence: without hematuria Qualified Code(s): N39.0 - Urinary tract infection, site not specified
[2018-04-28 16:40] LABS: URINE APPEARANCE Cloudy; URINE BILIRUBIN Negative (NEGATIVE); URINE COLOR Yellow; URINE GLUCOSE (UA) Negative (NEGATIVE); URINE KETONE Negative (NEGATIVE); URINE NITRITE Positive (NEGATIVE); URINE UROBILINOGEN 0.2 (0.2-1.0)
[2018-04-28 16:41] LABS: URINE LEUK ESTERASE 3+ (NEGATIVE); URINE PROTEIN 1+ (NEGATIVE)
[2018-04-28] MEDS: WARFARIN NA 2.5 MG TABLET (FP) PO SCH (17:07)
[2018-04-28 17:10] LABS: EPI CELLS FEW /HPF; URINE BACTERIA MANY /hpf (NEGATIVE); URINE WBC >100 (0-5)
--- NOTE | 2018-04-28 20:08 | CONSULT ---
Consult Consult Specialty:: pain medicine Referred by:: dr telles Reason for Consultation:: back pain - History of Present Illness Chief Complaint: back pain History of Present Illness: 82 year old history of afib and avr on coumadin found to have an acute l5 fracture pain score 10/10 patient reports she cannot move due to pain. currently taking percocet 3 times daily for the pain. patient denies radiating pain in her legs. 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: Yes: Peripheral Neuropathy Cardio/Vascular: Yes: AFIB, Aortic Stenosis, CAD, CHF, HTN, Hyperlipdemia, Other (peripheral vascular disease) Psych: Yes: Depression Musculoskeletal: Yes: Other (scoliosis) Rheumatology: Yes: Other (osteoporosis) Endocrine: Yes: Diabetes Mellitus, Other (vit d def) - Past Surgical History Past Surgical History: Yes: Appendectomy, CABG, Cataract Removal, Tonsillectomy , Valve Replacement (Aortic -Porcine) - Alcohol/Substance Use Hx Alcohol Use: Yes (social) - Smoking History Smoking history: Former smoker Have you smoked in the past 12 months: No Aproximately how many cigarettes per day: 0 If you are a former smoker, when did you quit?: 40 years ago - Social 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 Medications - Allergies Allergies/Adverse Reactions: Allergies Allergy/AdvReac Type Severity Reaction Status Date / Time Sulfa (Sulfonamide Allergy Unknown Verified 04/26/18 12:43 Antibiotics) [Sulfa(Sulfonamide Antibiotics)] ciprofloxacin [From Cipro] Allergy Verified 04/26/18 12:43 ciprofloxacin HCl Allergy Verified 04/26/18 12:43 [From Cipro] levofloxacin [From Levaquin] AdvReac Unknown Verified 04/26/18 12:43 - Home Medications Home Medications: Ambulatory Orders Digoxin [Lanoxin -] 0.125 mg PO DAILY 04/26/18 Diltiazem HCl [Cartia Xt] 180 mg PO DAILY 04/26/18 Doxazosin Mesylate 2 mg PO HS 04/26/18 Duloxetine HCl 30 mg PO DAILY 04/26/18 Furosemide 20 mg PO BID 04/26/18 Glucosamine/D3/Boswellia Amanda [Glucosamine Complex Tablet] 1 each PO DAILY 02/06 Metformin HCl [Glucophage] 500 mg PO DAILY 04/26/18 Multivitamin [Multiple Vitamins] 1 each PO DAILY 04/26/18 [place]-3/Dha/Epa/Fish Oil [Fish Oil 1,000 mg Softgel] 1 each PO DAILY 04/26/18 Pitavastatin Calcium [Livalo] 1 mg PO DAILY 04/26/18 Warfarin Sodium [Coumadin] 2.5 mg PO ASDIR 04/26/18 Family Disease History - Family Disease History Family Disease History: CA: Mother (Lung CA), Other: Father (AAA, COPD) Physical Exam Vital Signs: Vital Signs Temperature 98.5 F 04/28/18 14:29 Pulse Rate 66 04/28/18 14:29 Respiratory Rate 18 04/28/18 14:29 Blood Pressure 150/43 04/28/18 14:29 O2 Sat by Pulse Oximetry (%) 96 04/28/18 14:29 Musculoskeletal: Yes: Back Pain Labs: CBC, BMP 04/28/18 08:20 04/28/18 08:20 Assessment/Plan Acute l5 compression fracture anti-coagulated 1. The patient may benefit from a l5 kyphoplasty. the patient would need clearance to hold coumadin for 5 days prior to procedure and INR less than 1.4 the day of the procedure. If the patient will need to be bridged lovenox would need to be held for 24hrs prior to procedure 2. The patient may need short term rehab as patient cannot walk due to severe pain 3. Percocet prn pain q4h prn pain call with any questions off [phone] cell [phone]
[2018-04-28] MEDS ORDERED: ACETAMINOPHEN 325 MG TABLET (FP) PO PRN (20:40)
[2018-04-28] MEDS ORDERED: ONDANSETRON 4 MG/2 ML VIAL IVPUSH PRN (21:40)
[2018-04-28] MEDS: CEFTRIAXONE 1 GM/50 ML BAG IVPB SCH (22:28)
[2018-04-28] MEDS: ATORVASTATIN CA 10 MG TABLET (FP) PO SCH (22:32)
[2018-04-28 22:53] LABS: HEMATOCRIT 36.4 % (32.4-45.2); MCH 28.6 pg (25.7-33.7); MEAN CELL VOLUME 86.8 fl (80-96); MEAN PLT VOLUME 9.1 fl (7.5-11.1); PLATELET COUNT 367 K/MM3 (134-434); RBC 4.19 M/mm3 (3.60-5.2); RDW 13.4 % (11.6-15.6); WHITE BLOOD COUNT 20.6 K/mm3 (4.0-10.8)
[2018-04-28] MEDS ORDERED: morphine SULFATE 4 MG/ML VIAL IVPUSH PRN ×2 (22:59→23:04)
[2018-04-28] MEDS ORDERED: SODIUM PHOSPHATE/NA BIPHOS 133 ML ENEMA RC ONE (23:00)
[2018-04-29] MEDS: INSULIN SLIDING SCALE (NOVOLOG) 1 VIAL SQ SCH (07:27)
[2018-04-29] MEDS: FUROSEMIDE 20 MG TABLET (FP) PO SCH (07:28)
[2018-04-29 08:26] LABS: HEMATOCRIT 30.8 % (32.4-45.2); HEMOGLOBIN 10.6 GM/dl (10.7-15.3); MCH 30.1 pg (25.7-33.7); MCHC 34.5 g/dl (32.0-36.0); MEAN CELL VOLUME 87.3 fl (80-96); MEAN PLT VOLUME 9.4 fl (7.5-11.1); PLATELET COUNT 361 K/MM3 (134-434); RBC 3.53 M/mm3 (3.60-5.2); RDW 13.3 % (11.6-15.6); WHITE BLOOD COUNT 22.4 K/mm3 (4.0-10.8)
[2018-04-29 08:29] LABS: INR 2.7 (0.82-1.09); PROTHROMBIN TIME (PATIENT) 29.7 SEC (10.2-13.0)
[2018-04-29 08:39] LABS: ALBUMIN 3.3 g/dl (3.5-5.0); ALK PHOS 58 U/L (32-92); ANION GAP 12 (8-16); BILIRUBIN,TOTAL 0.6 mg/dl (0.2-1.0); BLOOD UREA NITROGEN 24 mg/dl (7-18); CALCIUM 9.1 mg/dl (8.4-10.2); CHLORIDE 98 mmol/L (98-107); CO2 26 mmol/L (22-28); CREATININE 1.6 mg/dl (0.6-1.3); GLUCOSE,RANDOM 198 mg/dl (74-106); SGOT/AST 19 U/L (10-42); SGPT/ALT 13 U/L (10-40); SODIUM 136 mmol/L (136-145); TOT PROT 6.8 g/dl (6.4-8.3)
[2018-04-29 09:28] LABS: PLATELET ESTIMATE ADEQUATE
[2018-04-29] MEDS ORDERED: PT OWN MED DRAWER 7, Y5N ONE (10:17)
[2018-04-29] MEDS: MULTIVITAMINS (DAILY MVI) TABLET (FP) PO SCH (10:21)
[2018-04-29] MEDS: DIGOXIN 0.125 MG TABLET (FP) PO SCH (10:21)
[2018-04-29] MEDS: OMEGA-3 ACID ETHYL ESTERS (FATTY-ACIDS) 1 GM CAPSULE (FP) PO SCH (10:21)
[2018-04-29] MEDS: DULoxetine HCL 30 MG CAPSULE.DR (FP) PO SCH (10:21)
[2018-04-29] MEDS: CEFTRIAXONE 1 GM/50 ML BAG IVPB SCH (10:22)
--- NOTE | 2018-04-29 10:43 | PN ---
Physical Exam: discussed with Dr Velázquez, patient endorsed to symphomi service SUBJECTIVE: Patient seen and examined, reports denies abdominal pain and nausea , as per primary RN patient had a witnessed syncopal episode at 0545 on this date, darshana down to 40's on cardiac monitoring OBJECTIVE: Patient is a 82-year-old female with a past medical history of A. fib (coumadin),bioprosthetic valve, coronary artery disease, diastolic congestive heart failure, hypertension, hyperlipidemia, diabetes mellitus, depression,peripheral vascular disease and osteoporosis. she was admitted from the emergency department for emergent condition Vital Signs Period Temp Pulse Resp BP Sys/Srivastava Pulse Ox Last 24 Hr 96.2 F-98.7 F 48-86 16-76 111-159/39-58 96-100 GENERAL: The patient is awake, alert, and fully oriented, in no acute distress. HEAD: Normal with no signs of trauma. EYES: PERRL, extraocular movements intact, sclera anicteric, conjunctiva clear. No ptosis. ENT: Ears normal, nares patent, oropharynx clear without exudates, dry mucous membranes. NECK: Trachea midline, full range of motion, supple. LUNGS: Breath sounds equal, clear to auscultation bilaterally, no wheezes, no crackles, no accessory muscle use. HEART:irregular rate and rhythm, S1, S2 without murmur, rub or gallop. ABDOMEN: Soft,diffuse abdominal tenderness, positive bowel sounds. nondistended , no guarding, no rebound, no hepatosplenomegaly, no masses. musculoskeletal: paraspinal tenderness noted to L3 and L4 EXTREMITIES: 2+ pulses, warm, well-perfused, no edema. NEUROLOGICAL: Cranial nerves II through XII grossly intact. Normal speech, gait not observed. PSYCH: Normal mood, normal affect. SKIN: Warm, dry, normal turgor, no rashes or lesions noted Laboratory Results - last 24 hr 04/28/18 04/28/18 04/28/18 16:00 22:00 22:41 WBC 20.6 H RBC 4.19 Hgb 12.0 Hct 36.4 MCV 86.8 MCH 28.6 MCHC 33.0 RDW 13.4 Plt Count 367 MPV 9.1 Absolute Neuts (auto) Neutrophils % Neutrophils % (Manual) Lymphocytes % Lymphocytes % (Manual) Monocytes % (Manual) Manual Slide Review Y Platelet Estimate Platelet Comment Adequate PT with INR INR Sodium Potassium Chloride Carbon Dioxide Anion Gap BUN Creatinine Creat Clearance w eGFR POC Glucometer 215 Random Glucose Calcium Total Bilirubin AST ALT Alkaline Phosphatase Total Protein Albumin Urine Color Yellow Urine Appearance Cloudy Urine pH 6.0 Ur Specific [place] 1.020 Urine Protein 1+ H Urine Glucose (UA) Negative Urine Ketones Negative Urine Blood 1+ H Urine Nitrite Positive Urine Bilirubin Negative Urine Urobilinogen 0.2 Ur Leukocyte Esterase 3+ H D Urine RBC 5-10 Urine WBC >100 Ur Epithelial Cells Few Urine Bacteria Many Digoxin 04/29/18 04/29/18 04/29/18 07:24 07:30 07:30 WBC 22.4 H RBC 3.53 L Hgb 10.6 L Hct 30.8 L D MCV 87.3 MCH 30.1 MCHC 34.5 RDW 13.3 Plt Count 361 MPV 9.4 Absolute Neuts (auto) 20.2 Neutrophils % No Result Required. Neutrophils % (Manual) 89.0 H Lymphocytes % No Result Required. Lymphocytes % (Manual) 7.0 L Monocytes % (Manual) 4 Manual Slide Review Platelet Estimate Adequate Platelet Comment PT with INR INR Sodium 136 Potassium 5.0 Chloride 98 Carbon Dioxide 26 Anion Gap 12 BUN 24 H Creatinine 1.6 H Creat Clearance w eGFR 30.78 POC Glucometer 199 Random Glucose 198 H D Calcium 9.1 Total Bilirubin 0.6 AST 19 D ALT 13 D Alkaline Phosphatase 58 Total Protein 6.8 Albumin 3.3 L Urine Color Urine Appearance Urine pH Ur Specific [place] Urine Protein Urine Glucose (UA) Urine Ketones Urine Blood Urine Nitrite Urine Bilirubin Urine Urobilinogen Ur Leukocyte Esterase Urine RBC Urine WBC Ur Epithelial Cells Urine Bacteria Digoxin 1.45 04/29/18 07:30 WBC RBC Hgb Hct MCV MCH MCHC RDW Plt Count MPV Absolute Neuts (auto) Neutrophils % Neutrophils % (Manual) Lymphocytes % Lymphocytes % (Manual) Monocytes % (Manual) Manual Slide Review Platelet Estimate Platelet Comment PT with INR 29.7 H INR 2.70 H Sodium Potassium Chloride Carbon Dioxide Anion Gap BUN Creatinine Creat Clearance w eGFR POC Glucometer Random Glucose Calcium Total Bilirubin AST ALT Alkaline Phosphatase Total Protein Albumin Urine Color Urine Appearance Urine pH Ur Specific [place] Urine Protein Urine Glucose (UA) Urine Ketones Urine Blood Urine Nitrite Urine Bilirubin Urine Urobilinogen Ur Leukocyte Esterase Urine RBC Urine WBC Ur Epithelial Cells Urine Bacteria Digoxin Active Medications Generic Name Dose Route Start Last Admin Trade Name Freq PRN Reason Stop Dose Admin Acetaminophen 650 mg 04/26/18 18:15 04/28/18 05:05 Tylenol - PO 650 mg Q6H PRN Administration PAIN LEVEL 1 - 3 Acetaminophen 325 mg 04/28/18 20:40 Tylenol - PO Q4H PRN PAIN 7-10 Atorvastatin Calcium 10 mg 04/27/18 22:00 04/28/18 22:32 Lipitor - PO Not Given HS [facility] Digoxin 0.125 mg 04/27/18 10:00 04/29/18 10:21 Lanoxin - PO 0.125 mg DAILY [facility] Administration Diltiazem HCl 180 mg 04/27/18 10:00 04/29/18 10:21 Cardizem Cd - PO Not Given DAILY [facility] Doxazosin Mesylate 2 mg 04/26/18 22:00 04/27/18 21:45 Cardura - PO 2 mg HS [facility] Administration Duloxetine HCl 30 mg 04/27/18 10:00 04/29/18 10:21 Cymbalta - PO 30 mg DAILY [facility] Administration Furosemide 20 mg 04/26/18 18:15 04/29/18 07:28 Lasix - PO Not Given BIDLASIX [facility] Ceftriaxone Sodium 1 gm in 50 mls @ 100 mls/hr 04/28/18 21:45 04/29/18 10:22 Rocephin 1gm Ivpb (Pre-Docked) IVPB 100 mls/hr DAILY [facility] Administration Insulin Aspart 1 vial 04/27/18 07:00 04/29/18 07:27 Novolog Vial Sliding Scale - SQ 2 units TIDAC [facility] Administration Protocol Morphine Sulfate 2 mg 04/28/18 23:04 04/28/18 23:25 Morphine Sulfate IVPUSH 2 mg Q6H PRN Administration PAIN 4-6 Multivitamins/Minerals/Vitamin C 1 tab 04/27/18 10:00 04/29/18 10:21 Tab-A-Vit - PO 1 tab DAILY [facility] Administration Krty[place]-3-Eyjb Ethyl Esters 1 gm 04/27/18 10:00 04/29/18 10:21 Lovaza - PO 1 gm DAILY [facility] Administration Ondansetron HCl 4 mg 04/28/18 21:40 04/29/18 02:14 Zofran Injection IVPUSH 4 mg Q6H PRN Administration NAUSEA AND/OR VOMITING Oxycodone HCl 5 mg 04/28/18 20:40 Roxicodone - PO Q4H PRN PAIN 7-10 Warfarin Sodium 2.5 mg 04/28/18 18:00 04/28/18 17:07 Coumadin - PO 2.5 mg DAILY@1800 [facility] Administration IMAGING head ct: no acute pathology ct of lumbar spine/pelvis: mild compression L3 superior end plates mild to moderate acute/subacute compression of L5 superior endplate with mild retropulsion of his posterior/superior margin without any significant compromise of the spinal canal, mild disc bulge of L3-L4 level impinging both L3 nerve root, sacroloitis, no acute fracture chest xray: no acute intrathoracic abnormality ASSESSMENT/PLAN: 1)ID sepsis - secondary to UTI, nitrate positive urine, pending urinary culture, follow-up blood cultures, diffuse abdominal pain noted on exam will order a CT scan of abdomen and pelvis with oral contrast unable to give contrast secondary to KARTHIK. - leukocytosis noted, continue to trend and monitor fever curve - continue rocephin 1gm IV daily 2) MS L5 compression fracture - continue prn pain medication - will require outpatient follow up with Dr Kang for kyphoplasty 3) cardiovascular afib bradycardia syncopal episode - echo reviewed 2016 LV WNL EF 55-60%moderate MR, mild TR severe pulmonary hypertension - pending echo ordered - digoxin, dig level noted - continous cardiac monitoring - inr therepeutic continue coumadin home dose - appreciate the input of cardiology, Dr Larry diastolic congestive heart failure - patient appears hypovolemic, hold lasix in setting of sepsis - strict i/o and daily weight hypertension - continue cardura, blood pressure at goal, strict b/p monitoring 4)endo dm - fingersticks achs with regular insulin 5) nephrology KARTHIK - creatine 1.6, baseline 1.0, likely secondary to hypovolemia, gentle iv hydration, recheck in AM - pending ct scan of abd/pelvis f/e/n - Low sodium diabetic diet - Replete elecolytes when necessary PPX -coumadin - scd/peggy - pepcid dispo: requires inpatient admission Visit type - Emergency Visit Emergency Visit: Yes ED Registration Date: 04/29/18 Care time: The patient presented to the Emergency Department on the above date and was hospitalized for further evaluation of their emergent condition. - New Patient This patient is new to me today: No - Critical Care Critical Care patient: No - Discharge Referral Referred to [facility] Med P.C.: No
[2018-04-29] MEDS: ACETAMINOPHEN 325 MG TABLET (FP) PO PRN (10:52)
[2018-04-29] MEDS: oxyCODONE HCL 5 MG TABLET PO PRN (10:53)
--- NOTE | 2018-04-29 11:23 | CON.CARD ---
Consult Consult Specialty:: cardiology Referred by:: Luisa Guzman Reason for Consultation:: syncope, h/o afib - History of Present Illness Chief Complaint: syncope History of Present Illness: 81 yo female, h/o cad, afib, bio AVR, HTN, HL, chronic diastolic HF on lasix, DM , ureteral stents, recurrent uti's, dementia with fall, L5 fx, now with KARTHIK and syncope. Has been in hospital for workup of fall (mechanical, slipped in bathtub), fracture and overnight had an episode of syncope with bradycardia to 30s-40s bpm noted per nursing staff, tele reviewed and event not noted, tele appears to have been disconnected. episode was while attempting to go to commode. Patient is poor historian and does not remember event. Currently has a UTI and is being treated with IV abx. of note warfarin had been held initially after fall INR was supratherapeutic but has been restarted yesterday. Also noted to have KARTHIK since yesterday, Cr 0.9 -> 1.6. - Past Medical History SCALP SPECIALIST: Yes: Peripheral Neuropathy Cardio/Vascular: Yes: AFIB, Aortic Stenosis, CAD, CHF, HTN, Hyperlipdemia, Other (peripheral vascular disease) Psych: Yes: Depression Musculoskeletal: Yes: Other (scoliosis) Rheumatology: Yes: Other (osteoporosis) Endocrine: Yes: Diabetes Mellitus, Other (vit d def) - Past Surgical History Past Surgical History: Yes: Appendectomy, CABG, Cataract Removal, Tonsillectomy , Valve Replacement (Aortic -Porcine) - Alcohol/Substance Use Hx Alcohol Use: Yes (social) - Smoking History Smoking history: Former smoker Have you smoked in the past 12 months: No Aproximately how many cigarettes per day: 0 If you are a former smoker, when did you quit?: 40 years ago - Social History 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[employer]) Home Medications - Allergies Allergies/Adverse Reactions: Allergies Allergy/AdvReac Type Severity Reaction Status Date / Time Sulfa (Sulfonamide Allergy Unknown Verified 04/26/18 12:43 Antibiotics) [Sulfa(Sulfonamide Antibiotics)] ciprofloxacin [From Cipro] Allergy Verified 04/26/18 12:43 ciprofloxacin HCl Allergy Verified 04/26/18 12:43 [From Cipro] levofloxacin [From Levaquin] AdvReac Unknown Verified 04/26/18 12:43 - Home Medications Home Medications: Ambulatory Orders Digoxin [Lanoxin -] 0.125 mg PO DAILY 04/26/18 Diltiazem HCl [Cartia Xt] 180 mg PO DAILY 04/26/18 Doxazosin Mesylate 2 mg PO HS 04/26/18 Duloxetine HCl 30 mg PO DAILY 04/26/18 Furosemide 20 mg PO BID 04/26/18 Glucosamine/D3/Boswellia Amanda [Glucosamine Complex Tablet] 1 each PO DAILY 02/06 Metformin HCl [Glucophage] 500 mg PO DAILY 04/26/18 Multivitamin [Multiple Vitamins] 1 each PO DAILY 04/26/18 [place]-3/Dha/Epa/Fish Oil [Fish Oil 1,000 mg Softgel] 1 each PO DAILY 04/26/18 Pitavastatin Calcium [Livalo] 1 mg PO DAILY 04/26/18 Warfarin Sodium [Coumadin] 2.5 mg PO ASDIR 04/26/18 Family Disease History - Family Disease History Family Disease History: CA: Mother (Lung CA), Other: Father (AAA, COPD) Review of Systems - Review of Systems Constitutional: reports: No Symptoms Eyes: reports: No Symptoms HENT: reports: No Symptoms Neck: reports: No Symptoms Cardiovascular: reports: No Symptoms Respiratory: reports: No Symptoms Gastrointestinal: reports: No Symptoms Genitourinary: reports: No Symptoms Musculoskeletal: reports: Back Pain Integumentary: reports: No Symptoms Neurological: reports: Syncope Endocrine: reports: No Symptoms Hematology/Lymphatic: reports: No Symptoms Psychiatric: reports: No Symptoms Vital Signs: Vital Signs Temperature 98.6 F 04/29/18 10:03 Pulse Rate 68 04/29/18 10:21 Respiratory Rate 18 04/29/18 10:03 Blood Pressure 117/58 04/29/18 10:03 O2 Sat by Pulse Oximetry (%) 100 04/29/18 10:03 Constitutional: Yes: Well Nourished, No Distress, Calm Eyes: Yes: Conjunctiva Clear, EOM Intact HENT: Yes: Atraumatic, Normocephalic Neck: Yes: Supple Respiratory: Yes: Regular, CTA Bilaterally Gastrointestinal: Yes: Normal Bowel Sounds, Soft, Tenderness (mild to palpation) Cardiovascular: Yes: Regular Rate and Rhythm Edema: No Neurological: Yes: Alert, Oriented Psychiatric: Yes: Alert, Oriented - Other Data Labs, Other Data: CBC, BMP 04/29/18 07:30 04/29/18 07:30 INR, PTT INR 2.70 (0.82-1.09) H 04/29/18 07:30 Assessment/Plan EKG 04/26/18 afib, LAD, nonspecific T wave changes echo 03/28/17 nl lv/rv function, bio avr without sig stenosis, mild to mod MR, mod to sev pHTN, tele: 81 yo female, h/o cad, afib, bio AVR, HTN, HL, chronic diastolic HF on lasix, DM , ureteral stents, recurrent uti's, dementia with fall, L5 fx, now with KARTHIK and syncope syncope - patient not able to give history regarding event, poor historian - echo ordered - monitoring on tele - may have been vasovagal in setting of using commode, Cr inc may be dehydration component as well, also being treated for UTI bradycardia - HR 50s in afib on tele, may have been in setting of increased vagal tone, patient was using commode - HR now 120s-140s in afib - would restart diltiazem afib - rate generally controlled, brief episode of bradycardia may be vagal mediated , now high rates - restart diltiazem as above - continue warfarin, goal INR 2.0-3.0 CAD - patient denies cabg, but listed in hx on outpatient cardiology notes - continue statin bioAVR - last echo 03/2017, repeat echo ordered today - no need for ASA, on AC for afib htn - as above diastolic heart failure - appears euvolemic, holding lasix in setting of KARTHIK UTI - on IV abx per primary team abd pain - abd CT is pending per primary team
[2018-04-29] MEDS ORDERED: SODIUM CHLORIDE 1,000 ML IV SCH (11:30)
[2018-04-29] MEDS: FAMOTIDINE 20 MG/50 ML IVPB 20 MG/50 ML MG IVPB SCH (12:00)
--- NOTE | 2018-04-29 15:04 | ECHO ---
Name: MELY ALTAMIRANO Exam:Adult Echocardiogram Study Date: 04/29/2018 12:49 PM Age: 82 yrs Reason For Study: visceral vasovagal Height: 67 in Weight: 132 lb BSA: 1.7 m2 MMode/2D Measurements & Calculations LA dimension: 4.1 cm Doppler Measurements & Calculations MV E max latricia: 84.6 cm/sec Ao V2 max: 217.8 cm/sec MV A max latricia: 47.4 cm/sec Ao max P.3 mmHg MV E/A: 1.8 Ao V2 mean: 157.2 cm/sec Ao mean P.1 mmHg Ao V2 VTI: 28.5 cm LV V1 max P.5 mmHg MR max latricia: 444.5 cm/sec LV V1 mean P.4 mmHg MR max P.6 mmHg LV V1 max: 78.6 cm/sec LV V1 mean: 56.1 cm/sec LV V1 VTI: 11.9 cm TR max latricia: 244.7 cm/sec TR max P.9 mmHg Procedure The study was technically difficult with many images being suboptimal in quality. The study was non-d iagnostic in quality. No definitive statements could be made about this echo due to extremely poor acoustic win dows. Left Ventricle The left ventricle is not well visualized. Due to the poor quality of the echocardiogram, an assessme nt of left ventricular ejection fraction cannot be made. Right Ventricle The right ventricle is not well visualized. Atria The left atrium is mildly dilated. Right atrium not well visualized. Mitral Valve The mitral valve is not well visualized. Tricuspid Valve The tricuspid valve is not well visualized. Aortic Valve The aortic valve is not well visualized. There is mild to moderate aortic valve thickening. There is mild to moderate aortic sclerosis.;. Pulmonic Valve The pulmonic valve is not well visualized. Great Vessels The aortic root is not well visualized. Interpretation Summary The right ventricle is not well visualized. The study was technically difficult with many images being suboptimal in quality. The study was non-diagnostic in quality. No definitive statements could be made about this echo due t o extremely poor acoustic windows. Due to the poor quality of the echocardiogram, an assessment of left ventricular ejection fraction ca nnot be made. The mitral valve is not well visualized. The tricuspid valve is not well visualized. The aortic valve is not well visualized. There is mild to moderate aortic valve thickening. There is mild to moderate aortic sclerosis.; The pulmonic valve is not well visualized. MD Massimo Jain 04/29/2018 03:04 PM
[2018-04-29] MEDS: WARFARIN NA 2.5 MG TABLET (FP) PO SCH (18:00)
--- NOTE | 2018-04-29 21:24 | HOSP ---
Physical Examination Vital Signs: Vital Signs Temperature 97.8 F 04/29/18 14:26 Pulse Rate 92 H 04/29/18 14:26 Respiratory Rate 17 04/29/18 14:26 Blood Pressure 138/68 04/29/18 14:26 O2 Sat by Pulse Oximetry (%) 100 04/29/18 14:26 Findings/Remarks: Called by RN and spoke to Megan (supervisor communications and signals) regarding the followin) Patient's daughter noted the patient was not in usual mental state. She reports she appeared confused. This started a few hours ago. Megan states she knows the patient well and the patient is usually alert and oriented and is now confused as to where she is. Stat Head CT ordered. Patient may be sundowning, however Megan reports the patient does not usually have confusion at night. 2) Patient complained of abdominal pain today and CTAP was performed. Read on CT shows interval development of large pelvic mass, suspicious for a hematoma. The patient has a history of a.fib and is on Coumadin with a therapeutic INR. Coumadin 2.5 mg given tonight. CBC from yesterday to today shows Hgb 12->10.6. Stat CBC ordered, if Hgb continues to downtrend, consider PRBC transfusion. Will order stat ultrasound to evaluate if mass is solid vs. hematoma. Consider surgery consult 3) RN states on tele monitor she noticed ST elevation. 12 lead EKG was performed and evaluated by ED provider. RN states ED provider reported ST changes. Stat call placed to cardiology for review of EKG. Stat cardiac profile ordered. Repeat EKG ordered. Per nursing supervisor communications and signals, patient is not reporting any chest pain at this time. Continue cardiac monitoring. Consider transfer to [facility] telemetry given change in mental status Discussed case with Sue Fink NP who will evaluate the patient now. Discussed with Dr. Jaime Alan. Vital signs at 6pm. Awaiting repeat vitals now Temp: 98.4 HR: 115 BP: 140/49 SpO2: 100% Labs: CBC, BMP 04/29/18 07:30 04/29/18 07:30
[2018-04-29 21:44] LABS: HEMATOCRIT 28.9 % (32.4-45.2); HEMOGLOBIN 9.6 GM/dl (10.7-15.3); MCH 28.9 pg (25.7-33.7); MCHC 33.4 g/dl (32.0-36.0); MEAN CELL VOLUME 86.5 fl (80-96); PLATELET COUNT 378 K/MM3 (134-434); RBC 3.34 M/mm3 (3.60-5.2); RDW 13.8 % (11.6-15.6)
[2018-04-29 21:46] LABS: WHITE BLOOD COUNT 21.1 K/mm3 (4.0-10.8)
[2018-04-29] MEDS: ATORVASTATIN CA 10 MG TABLET (FP) PO SCH (22:00)
[2018-04-29] MEDS: DOXAZOSIN MESYLATE 2 MG TABLET (FP) PO SCH (22:00)
--- NOTE | 2018-04-29 23:28 | HOSP ---
Subjective - Review of Symptoms Events since last encounter: Hospitalist Encounter Notified by CASH APPLICATIONS SPECIALIST Solange, that the RN reported a change in mental status of the patient- Head CT done report-pending. Also that a CTAP showed a pelvic mass possibly a hematoma. Arrived to bedside, patient is asleep but arousable, oriented to name and partial birthdate only. Patient examined, TN noted to deep palpation to RML, LLQ. Patient denies chest pain, palpitations or SOB. Assessment: Patient is a 82-year-old female with a past medical history of A. fib (coumadin) ,bioprosthetic valve, coronary artery disease, diastolic congestive heart failure, hypertension, hyperlipidemia, diabetes mellitus, depression,peripheral vascular disease and osteoporosis. Plan: Pelvic Ultrasound stat Repeat EKG reviewed ST elevations noted in precordial leads, Trop < 0.03, patient denies CP, palp, SOB, Cardiology aware, likely secondary to demand ischemia Will continue Tele monitoring Straight Cath- bladder distention 300ml per RN Will place Service Crew Supervisor Consult Consider Surgical consult if condition worsens Will order PRBC and give if Hgb < 8 Neurological: Yes: Confusion Physical Examination Vital Signs: Vital Signs Temperature 98.4 F 04/29/18 19:00 Pulse Rate 105 H 04/29/18 21:30 Respiratory Rate 17 04/29/18 21:30 Blood Pressure 153/54 04/29/18 21:30 O2 Sat by Pulse Oximetry (%) 100 04/29/18 19:00 Constitutional: Yes: No Distress, Calm, Thin Eyes: Yes: WNL, Conjunctiva Clear, EOM Intact, PERRL HENT: Yes: WNL, Atraumatic, Normocephalic Neck: Yes: WNL, Supple, Trachea Midline Cardiovascular: Yes: WNL, Regular Rate and Rhythm, Murmur, S1, S2 Respiratory: Yes: WNL, Regular, CTA Bilaterally, On Nasal O2 Gastrointestinal: Yes: Normal Bowel Sounds, Distention, Tenderness (RMQ, LLQ) ...Rectal Exam: Yes: Other (eccyhmotic bruising from perineum to rectum) Breast(s): Yes: WNL Musculoskeletal: Yes: WNL Extremities: Yes: WNL Peripheral Pulses WNL: Yes Neurological: Yes: Alert, Confusion ...Motor Strength: WNL Psychiatric: Yes: Alert Labs: CBC, BMP 04/29/18 21:20 04/29/18 07:30 Laboratory Results - last 24 hr 04/29/18 04/29/18 04/29/18 07:30 07:30 07:30 WBC 22.4 H RBC 3.53 L Hgb 10.6 L Hct 30.8 L D MCV 87.3 MCH 30.1 MCHC 34.5 RDW 13.3 Plt Count 361 MPV 9.4 Absolute Neuts (auto) 20.2 Neutrophils % No Result Required. Neutrophils % (Manual) 89.0 H Lymphocytes % No Result Required. Lymphocytes % (Manual) 7.0 L Monocytes % (Manual) 4 Platelet Estimate Adequate PT with INR 29.7 H INR 2.70 H Sodium 136 Potassium 5.0 Chloride 98 Carbon Dioxide 26 Anion Gap 12 BUN 24 H Creatinine 1.6 H Creat Clearance w eGFR 30.78 POC Glucometer Random Glucose 198 H D Calcium 9.1 Total Bilirubin 0.6 AST 19 D ALT 13 D Alkaline Phosphatase 58 Creatine Kinase Troponin I Total Protein 6.8 Albumin 3.3 L Digoxin 1.45 04/29/18 04/29/18 04/29/18 21:20 21:20 21:20 WBC 21.1 H RBC 3.34 L Hgb 9.6 L Hct 28.9 L MCV 86.5 MCH 28.9 MCHC 33.4 RDW 13.8 Plt Count 378 MPV 9.0 Absolute Neuts (auto) Neutrophils % Neutrophils % (Manual) Lymphocytes % Lymphocytes % (Manual) Monocytes % (Manual) Platelet Estimate PT with INR INR Sodium Potassium Chloride Carbon Dioxide Anion Gap BUN Creatinine Creat Clearance w eGFR POC Glucometer Random Glucose Calcium Total Bilirubin AST ALT Alkaline Phosphatase Creatine Kinase 16 L Troponin I 0.03 Total Protein Albumin Digoxin 04/30/18 06:49 WBC RBC Hgb Hct MCV MCH MCHC RDW Plt Count MPV Absolute Neuts (auto) Neutrophils % Neutrophils % (Manual) Lymphocytes % Lymphocytes % (Manual) Monocytes % (Manual) Platelet Estimate PT with INR INR Sodium Potassium Chloride Carbon Dioxide Anion Gap BUN Creatinine Creat Clearance w eGFR POC Glucometer 145 Random Glucose Calcium Total Bilirubin AST ALT Alkaline Phosphatase Creatine Kinase Troponin I Total Protein Albumin Digoxin Current Medications Generic Name Dose Route Start Last Admin Trade Name Freq PRN Reason Stop Dose Admin Acetaminophen 650 mg 04/26/18 18:15 04/29/18 10:52 Tylenol - PO 650 mg Q6H PRN Administration PAIN LEVEL 1 - 3 Acetaminophen 325 mg 04/28/18 20:40 Tylenol - PO Q4H PRN PAIN 7-10 Atorvastatin Calcium 10 mg 04/27/18 22:00 04/29/18 22:00 Lipitor - PO 10 mg HS VIDA Administration Digoxin 0.125 mg 04/27/18 10:00 04/29/18 10:21 Lanoxin - PO 0.125 mg DAILY VIDA Administration Diltiazem HCl 180 mg 04/27/18 10:00 04/29/18 10:21 Cardizem Cd - PO Not Given DAILY VIDA Doxazosin Mesylate 2 mg 04/26/18 22:00 04/29/18 22:00 Cardura - PO Not Given HS VIDA Duloxetine HCl 30 mg 04/27/18 10:00 04/29/18 10:21 Cymbalta - PO 30 mg DAILY VIDA Administration Ceftriaxone Sodium 1 gm in 50 mls @ 100 mls/hr 04/28/18 21:45 04/29/18 10:22 Rocephin 1gm Ivpb (Pre-Docked) IVPB 100 mls/hr DAILY VIDA Administration Sodium Chloride 1,000 mls @ 75 mls/hr 04/29/18 11:30 Normal Saline - IV ASDIR VIDA Famotidine/Sodium Chloride 20 mg in 50 mls @ 100 mls/hr 04/29/18 11:30 00:48 Pepcid 20 Mg Premixed Ivpb - IVPB 100 mls/hr BID VIDA Administration Insulin Aspart 1 vial 04/27/18 07:00 04/29/18 07:27 Novolog Vial Sliding Scale - SQ 2 units TIDAC VIDA Administration Protocol Lactobacillus Acidophilus 1 tab 04/30/18 10:00 Bacid - PO DAILY VIDA Morphine Sulfate 2 mg 04/28/18 23:04 04/28/18 23:25 Morphine Sulfate IVPUSH 2 mg Q6H PRN Administration PAIN 4-6 Multivitamins/Minerals/Vitamin C 1 tab 04/27/18 10:00 04/29/18 10:21 Tab-A-Vit - PO 1 tab DAILY VIDA Administration [id number] Ethyl Esters 1 gm 04/27/18 10:00 04/29/18 10:21 Lovaza - PO 1 gm DAILY VIDA Administration Ondansetron HCl 4 mg 04/28/18 21:40 04/29/18 02:14 Zofran Injection IVPUSH 4 mg Q6H PRN Administration NAUSEA AND/OR VOMITING Oxycodone HCl 5 mg 04/28/18 20:40 04/29/18 10:53 Roxicodone - PO 5 mg Q4H PRN Administration PAIN 7-10 Warfarin Sodium 2.5 mg 04/28/18 18:00 04/29/18 18:00 Coumadin - PO 2.5 mg DAILY@1800 VIDA Administration Intake & Output 04/27/18 04/28/18 04/29/18 04/30/18 23:59 23:59 23:59 23:59 Intake Total 715 042 5899 830 Output Total 1 501 Balance 639 220 553 830 Critical Care Total Critical Care Time (in minutes): 60 Critical Care Statement: The care of this patient involved high complexity decision making to prevent further life threatening deterioration of the patient 's condition and/or to evaluate & treat vital organ system(s) failure or risk of failure.
[2018-04-30] MEDS: FAMOTIDINE 20 MG/50 ML IVPB 20 MG/50 ML MG IVPB SCH ×3 (00:48→22:26)
--- NOTE | 2018-04-30 07:25 | PN ---
Physical Exam: SUBJECTIVE: Patient seen and examined, resting in bed, reports abdominal pain and decreased appetite OBJECTIVE:Patient is a 82-year-old female with a past medical history of A. fib (coumadin),bioprosthetic valve, coronary artery disease, diastolic congestive heart failure, hypertension, hyperlipidemia, diabetes mellitus, depression, peripheral vascular disease and osteoporosis. she was admitted, patient is S/P mechanical fall admitted or acute compression fracture found to have acute UTI and pelvic hematoma Vital Signs Period Temp Pulse Resp BP Sys/Srivastava Pulse Ox Last 24 Hr 97.8 F-98.6 F 68-115 16-19 117-153/47-68 93-100 GENERAL: The patient is awake, alert, and fully oriented, in no acute distress. HEAD: Normal with no signs of trauma. EYES: PERRL, extraocular movements intact, sclera anicteric, conjunctiva clear. No ptosis. ENT: Ears normal, nares patent, oropharynx clear without exudates, moist mucous membranes. NECK: Trachea midline, full range of motion, supple. LUNGS: Breath sounds equal, clear to auscultation bilaterally, no wheezes, no crackles, no accessory muscle use. HEART: Regular rate and rhythm, S1, S2 without murmur, rub or gallop. ABDOMEN: Soft, point tenderness to the right lower quadrant of abdomen, nondistended, normoactive bowel sounds, no guarding, no rebound, no hepatosplenomegaly, no masses. EXTREMITIES: 2+ pulses, warm, well-perfused, no edema. NEUROLOGICAL: Cranial nerves II through XII grossly intact. Normal speech, gait not observed. PSYCH: Normal mood, normal affect. SKIN: Warm, dry, normal turgor, no rashes or lesions noted Laboratory Results - last 24 hr CBC WBC 20.2 K/mm3 (4.0-10.8) H 04/30/18 07:30 RBC 2.88 M/mm3 (3.60-5.2) L 04/30/18 07:30 Hgb 8.3 GM/dl (10.7-15.3) L 04/30/18 07:30 Hct 25.0 % (32.4-45.2) L 04/30/18 07:30 MCV 86.7 fl (80-96) 04/30/18 07:30 MCH 28.6 pg (25.7-33.7) 04/30/18 07:30 MCHC 33.0 g/dl (32.0-36.0) 04/30/18 07:30 RDW 13.8 % (11.6-15.6) 04/30/18 07:30 Plt Count 342 K/MM3 (134-434) 04/30/18 07:30 MPV 8.9 fl (7.5-11.1) 04/30/18 07:30 Absolute Neuts (auto) 15.9 # 04/30/18 07:30 Neutrophils % 79.2 % (42.8-82.8) 04/30/18 07:30 Neutrophils % (Manual) 89.0 % (42.8-82.8) H 04/29/18 07:30 Lymphocytes % 10.3 % (8-40) 04/30/18 07:30 Lymphocytes % (Manual) 7.0 % (8-40) L 04/29/18 07:30 Monocytes % 9.8 % (3.8-10.2) 04/30/18 07:30 Monocytes % (Manual) 4 % (3.8-10.2) 04/29/18 07:30 Eosinophils % 0.3 % (0-4.5) 04/30/18 07:30 Basophils % 0.4 % (0-2.0) 04/30/18 07:30 Manual Slide Review Y 04/28/18 22:00 Platelet Estimate Adequate 04/29/18 07:30 Platelet Comment Adequate 04/28/18 22:00 CMP Sodium 134 mmol/L (136-145) L 04/30/18 07:30 Potassium 3.8 mmol/L (3.5-5.1) D 04/30/18 07:30 Chloride 100 mmol/L (98-107) 04/30/18 07:30 Carbon Dioxide 24 mmol/L (22-28) 04/30/18 07:30 Anion Gap 10 (8-16) 04/30/18 07:30 BUN 39 mg/dl (7-18) H 04/30/18 07:30 Creatinine 2.1 mg/dl (0.6-1.3) H 04/30/18 07:30 Creat Clearance w eGFR 22.49 (>60) 04/30/18 07:30 POC Glucometer 145 UNITS (80-120) 04/30/18 06:49 Random Glucose 135 mg/dl (74-106) H D 04/30/18 07:30 Hemoglobin A1c % 6.2 % (4.8-6.0) H 04/27/18 07:15 Calcium 8.3 mg/dl (8.4-10.2) L 04/30/18 07:30 Phosphorus 5.0 mg/dl (2.5-4.6) H D 04/30/18 07:30 Magnesium 2.2 mg/dL (1.8-2.4) 04/30/18 07:30 Total Bilirubin 0.6 mg/dl (0.2-1.0) 04/30/18 07:30 AST 12 U/L (10-42) D 04/30/18 07:30 ALT 11 U/L (10-40) 04/30/18 07:30 Alkaline Phosphatase 52 U/L (32-92) 04/30/18 07:30 Creatine Kinase 16 IU/L (26-192) L 04/29/18 21:20 Troponin I 0.03 ng/ml (0.00-0.06) 04/29/18 21:20 Total Protein 5.8 g/dl (6.4-8.3) L 04/30/18 07:30 Albumin 2.7 g/dl (3.5-5.0) L 04/30/18 07:30 Triglycerides 172 mg/dL (35-160) H 04/26/18 19:30 Cholesterol 157 mg/dL (50-200) 04/26/18 19:30 Total LDL Cholesterol 90 mg/dL (5-100) 04/26/18 19:30 HDL Cholesterol 56 mg/dL (40-60) 04/26/18 19:30 TSH 0.85 uIU/ml (0.358-3.74) 04/27/18 07:15 Active Medications Generic Name Dose Route Start Last Admin Trade Name Freq PRN Reason Stop Dose Admin Acetaminophen 650 mg 04/26/18 18:15 04/29/18 10:52 Tylenol - PO 650 mg Q6H PRN Administration PAIN LEVEL 1 - 3 Acetaminophen 325 mg 04/28/18 20:40 Tylenol - PO Q4H PRN PAIN 7-10 Atorvastatin Calcium 10 mg 04/27/18 22:00 04/29/18 22:00 Lipitor - PO 10 mg HS VIDA Administration Digoxin 0.125 mg 04/27/18 10:00 04/29/18 10:21 Lanoxin - PO 0.125 mg DAILY VIDA Administration Diltiazem HCl 180 mg 04/27/18 10:00 04/29/18 10:21 Cardizem Cd - PO Not Given DAILY VIDA Doxazosin Mesylate 2 mg 04/26/18 22:00 04/29/18 22:00 Cardura - PO Not Given HS VIDA Duloxetine HCl 30 mg 04/27/18 10:00 04/29/18 10:21 Cymbalta - PO 30 mg DAILY VIDA Administration Ceftriaxone Sodium 1 gm in 50 mls @ 100 mls/hr 04/28/18 21:45 04/29/18 10:22 Rocephin 1gm Ivpb (Pre-Docked) IVPB 100 mls/hr DAILY VIDA Administration Sodium Chloride 1,000 mls @ 75 mls/hr 04/29/18 11:30 Normal Saline - IV ASDIR VIDA Famotidine/Sodium Chloride 20 mg in 50 mls @ 100 mls/hr 04/29/18 11:30 00:48 Pepcid 20 Mg Premixed Ivpb - IVPB 100 mls/hr BID VIDA Administration Insulin Aspart 1 vial 04/27/18 07:00 04/29/18 07:27 Novolog Vial Sliding Scale - SQ 2 units TIDAC VIDA Administration Protocol Lactobacillus Acidophilus 1 tab 04/30/18 10:00 Bacid - PO DAILY VIDA Morphine Sulfate 2 mg 04/28/18 23:04 04/28/18 23:25 Morphine Sulfate IVPUSH 2 mg Q6H PRN Administration PAIN 4-6 Multivitamins/Minerals/Vitamin C 1 tab 04/27/18 10:00 04/29/18 10:21 Tab-A-Vit - PO 1 tab DAILY VIDA Administration Tlxpo-7-Wqmw Ethyl Esters 1 gm 04/27/18 10:00 04/29/18 10:21 Lovaza - PO 1 gm DAILY VIDA Administration Ondansetron HCl 4 mg 04/28/18 21:40 04/29/18 02:14 Zofran Injection IVPUSH 4 mg Q6H PRN Administration NAUSEA AND/OR VOMITING Oxycodone HCl 5 mg 04/28/18 20:40 04/29/18 10:53 Roxicodone - PO 5 mg Q4H PRN Administration PAIN 7-10 Warfarin Sodium 2.5 mg 04/28/18 18:00 04/29/18 18:00 Coumadin - PO 2.5 mg DAILY@1800 VIDA Administration Microbiology 04/28/18 16:00 Urine - Urine Clean Catch Urine Culture - Preliminary Non Lactose Fermenting Gnb 04/28/18 22:00 Blood - Peripheral Venous Blood Culture - Preliminary NO GROWTH OBTAINED AFTER 24 HOURS, INCUBATION TO CONTINUE FOR 4 DAYS. 04/28/18 22:00 Blood - Peripheral Venous Blood Culture - Preliminary NO GROWTH OBTAINED AFTER 24 HOURS, INCUBATION TO CONTINUE FOR [address]: no acute pathology ct of lumbar spine/pelvis: mild compression L3 superior end plates mild to moderate acute/subacute compression of L5 superior endplate with mild retropulsion of his posterior/superior margin without any significant compromise of the spinal canal, mild disc bulge of L3-L4 level impinging both L3 nerve root, sacroloitis, no acute fracture chest xray: no acute intrathoracic abnormality CT/abdomen pelvis without contrast: Trace ascitesatrophic kidneys were bilateral nephrolithiasis, cholelithiasis, development of large pelvic mass within the cul-de-sac, suspicious for hematoma ultrasound of pelvis: complex mass like density, in the lower pelvis, suspicious for hematoma ASSESSMENT/PLAN: 1)ID sepsis - secondary to UTI,preliminary urine culture, non-lactose fermenting GNB will continue Rocephin until final culture is obtained. 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 - digoxin, dig level noted - continous cardiac monitoring - hold coumadin - cardiology, Dr Larry, consulted and following diastolic congestive heart failure - hold lasix in setting of sepsis - strict i/o and daily weight hypertension - hold cardura secondary to KARTHIK, continue cardizem, blood pressure at goal, strict b/p monitoring 4)endo dm - fingersticks achs with regular insulin 5) nephrology KARTHIK - creatine 2.1, secondary to hematoma of pelvis, garner ordered, close following - repeat creatine in AM 6)hem pelvic hematoma s/p fall - secondary to coumadin induced coagulapathy, vitamin K, FFP and PRBC ordered, will repeat ct scan of abdomen tommorow morning - appreciate surgery input f/e/n - Low sodium diabetic diet - Replete elecolytes when necessary PPX -coumadin - scd/peggy - pepcid dispo: requires inpatient admission Visit type - Emergency Visit Emergency Visit: Yes ED Registration Date: 04/29/18 Care time: The patient presented to the Emergency Department on the above date and was hospitalized for further evaluation of their emergent condition. - New Patient This patient is new to me today: No - Critical Care Critical Care patient: No - Discharge Referral Referred to [facility] No
[2018-04-30 07:56] LABS: BASO % 0.4 % (0-2.0); EOS % 0.3 % (0-4.5); HEMOGLOBIN 8.3 GM/dl (10.7-15.3); LYMPH % 10.3 % (8-40); MCH 28.6 pg (25.7-33.7); MEAN CELL VOLUME 86.7 fl (80-96); MEAN PLT VOLUME 8.9 fl (7.5-11.1); MONO % 9.8 % (3.8-10.2); NEUT % 79.2 % (42.8-82.8); PLATELET COUNT 342 K/MM3 (134-434); RBC 2.88 M/mm3 (3.60-5.2); RDW 13.8 % (11.6-15.6); WHITE BLOOD COUNT 20.2 K/mm3 (4.0-10.8)
[2018-04-30 08:05] LABS: INR 3.5 (0.82-1.09); PROTHROMBIN TIME (PATIENT) 38.2 SEC (10.2-13.0)
[2018-04-30 08:12] LABS: ALBUMIN 2.7 g/dl (3.5-5.0); ALK PHOS 52 U/L (32-92); ANION GAP 10 (8-16); BILIRUBIN,TOTAL 0.6 mg/dl (0.2-1.0); BLOOD UREA NITROGEN 39 mg/dl (7-18); CALCIUM 8.3 mg/dl (8.4-10.2); CHLORIDE 100 mmol/L (98-107); CO2 24 mmol/L (22-28); CREATININE 2.1 mg/dl (0.6-1.3); GLUCOSE,RANDOM 135 mg/dl (74-106); MAGNESIUM 2.2 mg/dL (1.8-2.4); POTASSIUM 3.8 mmol/L (3.5-5.1); SGOT/AST 12 U/L (10-42); SGPT/ALT 11 U/L (10-40); SODIUM 134 mmol/L (136-145); TOT PROT 5.8 g/dl (6.4-8.3)
[2018-04-30] MEDS ORDERED: PHYTONADIONE 5 MG TABLET PO ONE (09:00)
[2018-04-30] MEDS: LACTOBACILLUS ACIDOPHILUS 1 TABLET PO SCH (10:04)
[2018-04-30] MEDS: DULoxetine HCL 30 MG CAPSULE.DR (FP) PO SCH (10:05)
[2018-04-30] MEDS: DIGOXIN 0.125 MG TABLET (FP) PO SCH (10:05)
[2018-04-30] MEDS: CEFTRIAXONE 1 GM/50 ML BAG IVPB SCH (10:08)
[2018-04-30] MEDS: OMEGA-3 ACID ETHYL ESTERS (FATTY-ACIDS) 1 GM CAPSULE (FP) PO SCH (10:08)
[2018-04-30] MEDS: MULTIVITAMINS (DAILY MVI) TABLET (FP) PO SCH (10:09)
--- NOTE | 2018-04-30 13:01 | CONSULT ---
- Consultation REQUESTING PROVIDER: Luisa Guzman PIG HANDLER CONSULT REQUEST: We have been asked to surgically evaluate this patient for ( specify). PCP:Luisa Guzman HISTORY OF PRESENT ILLNESS: Fall at home w/subsequent abdominal pain and supertherapeutic INR and pelvic hematoma. PMHx: NIDDM ; valvular heart disease AF PSHx: # abdominal surgeries Home Medications Medication Instructions Recorded Digoxin [Lanoxin -] 0.125 mg PO DAILY 04/26/18 Diltiazem HCl [Cartia Xt] 180 mg PO DAILY 04/26/18 Doxazosin Mesylate 2 mg PO HS 04/26/18 Duloxetine HCl 30 mg PO DAILY 04/26/18 Furosemide 20 mg PO BID 04/26/18 Glucosamine/D3/Boswellia Amanda 1 each PO DAILY 04/26/18 [Glucosamine Complex Tablet] Metformin HCl [Glucophage] 500 mg PO DAILY 04/26/18 Multivitamin [Multiple Vitamins] 1 each PO DAILY 04/26/18 [place]-3/Dha/Epa/Fish Oil [Fish Oil 1 each PO DAILY 04/26/18 1,000 mg Softgel] Pitavastatin Calcium [Livalo] 1 mg PO DAILY 04/26/18 Warfarin Sodium [Coumadin] 2.5 mg PO ASDIR 04/26/18 Allergies Allergy/AdvReac Type Severity Reaction Status Date / Time Sulfa (Sulfonamide Allergy Unknown Verified 04/26/18 12:43 Antibiotics) [Sulfa(Sulfonamide Antibiotics)] ciprofloxacin [From Cipro] Allergy Verified 04/26/18 12:43 ciprofloxacin HCl Allergy Verified 04/26/18 12:43 [From Cipro] levofloxacin [From Levaquin] AdvReac Unknown Verified 04/26/18 12:43 PHYSICAL EXAM: GENERAL: Awake, alert, and fully oriented, in no acute distress. HEAD: Normal with no signs of trauma. EYES: PERRL, sclera anicteric, conjunctiva clear. NECK: Normal ROM, supple without lymphadenopathy, JVD, or masses. ABDOMEN: Soft, slightly tender, distended and tympanitic, absent bowel sounds, voluntary guarding, no rebound, palpable pelvic mass . No organomegaly. Healed surgical scars; no hernias. MUSCULOSKELETAL: Normal ROM at all joints. No bony deformities or tenderness. No CVA tenderness. UPPER EXTREMITIES: 2+ pulses, warm, well-perfused. No cyanosis. Cap refill <2 seconds. No peripheral edema. LOWER EXTREMITIES: 2+ pulses, warm, well-perfused. No calf tenderness. No peripheral edema. NEUROLOGICAL: Normal speech, gait not observed. PSYCH: Cooperative. Good eye contact. Appropriate mood and affect. SKIN: Warm, dry, normal turgor, no rashes or lesions noted. Vital Signs Temperature 99.0 F 04/30/18 11:00 Pulse Rate 89 04/30/18 11:00 Respiratory Rate 17 04/30/18 11:00 Blood Pressure 133/45 04/30/18 11:00 O2 Sat by Pulse Oximetry (%) 93 L 04/30/18 05:08 Lab Results WBC 20.2 K/mm3 (4.0-10.8) H 04/30/18 07:30 RBC 2.88 M/mm3 (3.60-5.2) L 04/30/18 07:30 Hgb 8.3 GM/dl (10.7-15.3) L 04/30/18 07:30 Hct 25.0 % (32.4-45.2) L 04/30/18 07:30 MCV 86.7 fl (80-96) 04/30/18 07:30 MCHC 33.0 g/dl (32.0-36.0) 04/30/18 07:30 RDW 13.8 % (11.6-15.6) 04/30/18 07:30 Plt Count 342 K/MM3 (134-434) 04/30/18 07:30 Sodium 134 mmol/L (136-145) L 04/30/18 07:30 Potassium 3.8 mmol/L (3.5-5.1) D 04/30/18 07:30 Chloride 100 mmol/L (98-107) 04/30/18 07:30 Carbon Dioxide 24 mmol/L (22-28) 04/30/18 07:30 Anion Gap 10 (8-16) 04/30/18 07:30 BUN 39 mg/dl (7-18) H 04/30/18 07:30 Creatinine 2.1 mg/dl (0.6-1.3) H 04/30/18 07:30 Random Glucose 135 mg/dl (74-106) H D 04/30/18 07:30 Calcium 8.3 mg/dl (8.4-10.2) L 04/30/18 07:30 INR 3.50 (0.82-1.09) H 04/30/18 07:30 CT scan a/p reviewed IMP: pelvic hematoma s/p fall PLAN: Suggest NPO/IVF/reverse anticoagulation/serial h/h; f/u CT scan a/p tomorrow; if surgery is needed she will need to be xferred to atertiary care facility in my opinion. Pedro Thomas MD FACS
--- NOTE | 2018-04-30 14:23 | PN ---
Progress Note (short form) - Note Progress Note: s: overnight patient noted to be altered. CT abd/pelvis showed pelvic hematoma. EKG overnight showed lateral ST depressions, trop negative. received IV fluids overnight and vitamin K this morning. tele: no history of smoking o: Current Medications Acetaminophen (Tylenol -) 650 mg PO Q6H PRN PRN Reason: PAIN LEVEL 1 - 3 Last Admin: 04/29/18 10:52 Dose: 650 mg Acetaminophen (Tylenol -) 325 mg PO Q4H PRN PRN Reason: PAIN 7-10 Atorvastatin Calcium (Lipitor -) 10 mg PO HS [facility] [place] Last Admin: 04/29/18 22:00 Dose: 10 mg Digoxin (Lanoxin -) 0.125 mg PO DAILY [facility] [place] Last Admin: 04/30/18 10:05 Dose: 0.125 mg Diltiazem HCl (Cardizem Cd -) 180 mg PO DAILY [facility] [place] Last Admin: 04/30/18 10:05 Dose: 180 mg Doxazosin Mesylate (Cardura -) 2 mg PO HS [facility] [place] Last Admin: 04/29/18 22:00 Dose: Not Given Duloxetine HCl (Cymbalta -) 30 mg PO DAILY [facility] [place] Last Admin: 04/30/18 10:05 Dose: 30 mg Furosemide (Lasix Injection -) 20 mg IVPUSH DAILY ONE Stop: 04/30/18 11:51 Furosemide (Lasix Injection -) 20 mg IVPUSH ONCE ONE Stop: 04/30/18 11:53 Ceftriaxone Sodium (Rocephin 1gm Ivpb (Pre-Docked)) 1 gm in 50 mls @ 100 mls/ hr IVPB DAILY [facility] [place] Last Admin: 04/30/18 10:08 Dose: 100 mls/hr Sodium Chloride (Normal Saline -) 1,000 mls @ 75 mls/hr IV ASDIR [facility] [place] Famotidine/Sodium Chloride (Pepcid 20 Mg Premixed Ivpb -) 20 mg in 50 mls @ 100 mls/hr IVPB BID [facility] [place] Last Admin: 04/30/18 10:08 Dose: 100 mls/hr Insulin Aspart (Novolog Vial Sliding Scale -) 1 vial SQ TIDAC [facility] [place]; Protocol Last Admin: 04/29/18 07:27 Dose: 2 units Lactobacillus Acidophilus (Bacid -) 1 tab PO DAILY [facility] [place] Last Admin: 04/30/18 10:04 Dose: 1 tab Morphine Sulfate (Morphine Sulfate) 2 mg IVPUSH Q6H PRN PRN Reason: PAIN 4-6 Last Admin: 04/28/18 23:25 Dose: 2 mg Multivitamins/Minerals/Vitamin C (Tab-A-Vit -) 1 tab PO DAILY [facility] [place] Last Admin: 04/30/18 10:09 Dose: 1 tab Fklqk-3-Icmh Ethyl Esters (Lovaza -) 1 gm PO DAILY [facility] [place] Last Admin: 04/30/18 10:08 Dose: 1 gm Ondansetron HCl (Zofran Injection) 4 mg IVPUSH Q6H PRN PRN Reason: NAUSEA AND/OR VOMITING Last Admin: 04/29/18 02:14 Dose: 4 mg Oxycodone HCl (Roxicodone -) 5 mg PO Q4H PRN PRN Reason: PAIN 7-10 Last Admin: 04/29/18 10:53 Dose: 5 mg Warfarin Sodium (Coumadin -) 2.5 mg PO DAILY@1800 [facility] [place] Last Admin: 04/29/18 18:00 Dose: 2.5 mg Vital Signs Period Temp Pulse Resp BP Sys/Srivastava Pulse Ox Last 24 Hr 97.8 F-99.0 F 70-115 17-19 127-153/34-68 93-100 Constitutional: Yes: Well Nourished, No Distress, Calm Eyes: Yes: Conjunctiva Clear, EOM Intact HENT: Yes: Atraumatic, Normocephalic Neck: Yes: Supple Respiratory: Yes: Regular, CTA Bilaterally Gastrointestinal: Yes: Normal Bowel Sounds, Soft, Tenderness (mild to palpation) : garner in place Cardiovascular: Yes: Regular Rate and Rhythm Edema: No Neurological: Yes: Alert, Oriented Psychiatric: Yes: Alert, Oriented Assessment/Plan EKG 04/26/18 afib, LAD, nonspecific T wave changes echo 03/28/17 nl lv/rv function, bio avr without sig stenosis, mild to mod MR, mod to sev pHTN, echo 04/2018 techically difficult, uninterpetable EKG 04/29/18 afib, lat TWI and STD compared to prior 81 yo female, h/o cad, afib, bio AVR, HTN, HL, chronic diastolic HF on lasix, DM , ureteral stents, recurrent uti's, dementia with fall, L5 fx, now with KARTHIK and syncope Anemia, hematoma, abd pain - CT abdomen shows pelvic mass, likely hematoma - EKG changes noted likely in setting of demand ischemia - surgery consulted, Hgb 12->8 during admission - vitamin K given - hold coumadin - IV fluids per primary team, 1 unit PRBC and 1 unit FFP ordered as well, with plan for IV lasix after giving blood products - holding cardura syncope - patient not able to give history regarding event, poor historian - echo uninterpretable, recent echo with nl LV/RV function - monitoring on tele - may have been vasovagal in setting of using commode or orthostatic in setting of bleed as above, no fall in setting of syncopal episode bradycardia - resolved, rates 70s-100s on tele - continue diltiazem, digoxin afib - rate generally controlled, brief episode of bradycardia may be vagal mediated , now high rates - continue diltiazem - holding warfarin in setting of acute bleed CAD - patient denies cabg, but listed in hx on outpatient cardiology notes - continue statin bioAVR - last echo 03/2017, repeat echo ordered today - no need for ASA, on AC for afib htn - as above diastolic heart failure - appears euvolemic, holding lasix in setting of KARTHIK UTI - on IV abx per primary team
[2018-04-30] MEDS: INSULIN SLIDING SCALE (NOVOLOG) 1 VIAL SQ SCH ×2 (14:57→16:32)
[2018-04-30 16:33] LABS: URINE APPEARANCE Cloudy; URINE BILIRUBIN Negative (NEGATIVE); URINE COLOR Yellow; URINE GLUCOSE (UA) Negative (NEGATIVE); URINE KETONE Negative (NEGATIVE); URINE LEUK ESTERASE 1+ (NEGATIVE); URINE NITRITE Negative (NEGATIVE); URINE PROTEIN 1+ (NEGATIVE); URINE UROBILINOGEN 0.2 (0.2-1.0)
--- NOTE | 2018-04-30 16:49 | EKG ---
Test Reason : Blood Pressure : / mmHG Vent. Rate : 091 BPM Atrial Rate : 072 BPM P-R Int : 000 ms QRS Dur : 108 ms QT Int : 370 ms P-R-T Axes : 000 -11 139 degrees QTc Int : 455 ms ATRIAL FIBRILLATION POSSIBLE ANTERIOR INFARCT (CITED ON OR BEFORE 29-APR-2018) ABNORMAL ECG WHEN COMPARED WITH ECG OF 29-APR-2018 19:51, NO SIGNIFICANT CHANGE WAS FOUND Confirmed by BELLE LOPEZ, HILARIA ([id number]) on 04/30/2018 3:49:59 PM Referred By: JANIS MCCURDY Confirmed By:HILARIA ODONNELL MD
[2018-04-30] MEDS ORDERED: FUROSEMIDE 40 MG/4 ML INJECTABLE VIAL IVPUSH ONE ×3 (17:00→22:00)
[2018-04-30 20:42] LABS: EPI CELLS FEW /HPF; URINE BACTERIA FEW /hpf (NEGATIVE)
[2018-04-30] MEDS: ATORVASTATIN CA 10 MG TABLET (FP) PO SCH (22:26)
[2018-05-01] MEDS ORDERED: FUROSEMIDE 40 MG/4 ML INJECTABLE VIAL IVPUSH ONE ×2 (02:00→21:00)
[2018-05-01 08:01] LABS: BASO % 0.4 % (0-2.0); EOS % 0.9 % (0-4.5); HEMATOCRIT 26.7 % (32.4-45.2); HEMOGLOBIN 8.5 GM/dl (10.7-15.3); LYMPH % 13.1 % (8-40); MCHC 31.7 g/dl (32.0-36.0); MEAN CELL VOLUME 88.3 fl (80-96); MEAN PLT VOLUME 8.6 fl (7.5-11.1); MONO % 9.1 % (3.8-10.2); NEUT % 76.5 % (42.8-82.8); PLATELET COUNT 369 K/MM3 (134-434); RBC 3.03 M/mm3 (3.60-5.2); RDW 13.3 % (11.6-15.6); WHITE BLOOD COUNT 16.2 K/mm3 (4.0-10.8)
[2018-05-01 08:17] LABS: INR 2.07 (0.82-1.09); PROTHROMBIN TIME (PATIENT) 22.9 SEC (10.2-13.0)
[2018-05-01 08:21] LABS: ALBUMIN 2.9 g/dl (3.5-5.0); ALK PHOS 61 U/L (32-92); ANION GAP 8 (8-16); BILIRUBIN,TOTAL 1.1 mg/dl (0.2-1.0); BLOOD UREA NITROGEN 32 mg/dl (7-18); CALCIUM 8.4 mg/dl (8.4-10.2); CHLORIDE 104 mmol/L (98-107); CO2 27 mmol/L (22-28); CREATININE 1.3 mg/dl (0.6-1.3); GLUCOSE,RANDOM 106 mg/dl (74-106); MAGNESIUM 2.1 mg/dL (1.8-2.4); POTASSIUM 3.5 mmol/L (3.5-5.1); SGOT/AST 19 U/L (10-42); SGPT/ALT 14 U/L (10-40); SODIUM 139 mmol/L (136-145); TOT PROT 6.1 g/dl (6.4-8.3)
--- NOTE | 2018-05-01 09:10 | PN ---
Physical Exam: SUBJECTIVE: Patient seen and examined, patient reports less abdominal pain OBJECTIVE:Patient is a 82-year-old female with a past medical history of A. fib (coumadin),bioprosthetic valve, coronary artery disease, diastolic congestive heart failure, hypertension, hyperlipidemia, diabetes mellitus, depression, peripheral vascular disease and osteoporosis. she was admitted, patient is S/P mechanical fall admitted or acute compression fracture found to have acute UTI and pelvic hematoma Vital Signs Period Temp Pulse Resp BP Sys/Srivastava Pulse Ox Last 24 Hr 98.4 F-99.0 F 65-89 17-19 119-133/34-47 92-98 GENERAL: The patient is awake, alert, and fully oriented, in no acute distress. HEAD: Normal with no signs of trauma. EYES: PERRL, extraocular movements intact, sclera anicteric, conjunctiva clear. No ptosis. ENT: Ears normal, nares patent, oropharynx clear without exudates, moist mucous membranes. NECK: Trachea midline, full range of motion, supple. LUNGS: Breath sounds equal, clear to auscultation bilaterally, no wheezes, no crackles, no accessory muscle use. HEART: Regular rate and rhythm, S1, S2 without murmur, rub or gallop. ABDOMEN: Soft, generalized abdominal tenderness, nondistended, normoactive bowel sounds, no guarding, no rebound, no hepatosplenomegaly, no masses. EXTREMITIES: 2+ pulses, warm, well-perfused, no edema. : garner, clear yellow urine, echymosis noted to perineum NEUROLOGICAL: Cranial nerves II through XII grossly intact. Normal speech, gait not observed. PSYCH: Normal mood, normal affect. SKIN: Warm, dry, normal turgor, no rashes or lesions noted Laboratory Results - last 24 hr 04/30/18 04/30/18 04/30/18 10:40 12:49 15:22 WBC RBC Hgb Hct MCV MCH MCHC RDW Plt Count MPV Absolute Neuts (auto) Neutrophils % Lymphocytes % Monocytes % Eosinophils % Basophils % PT with INR INR Sodium Potassium Chloride Carbon Dioxide Anion Gap BUN Creatinine Creat Clearance w eGFR POC Glucometer 111 Random Glucose Calcium Phosphorus Magnesium Total Bilirubin AST ALT Alkaline Phosphatase Total Protein Albumin Urine Color Urine Appearance Urine pH Ur Specific [place] Urine Protein Urine Glucose (UA) Urine Ketones Urine Blood Urine Nitrite Urine Bilirubin Urine Urobilinogen Ur Leukocyte Esterase Urine RBC Urine WBC Ur Epithelial Cells Urine Bacteria Blood Type B NEGATIVE B NEGATIVE Antibody Screen Negative Crossmatch See Detail 04/30/18 04/30/18 05/01/18 16:01 23:05 06:56 WBC RBC Hgb Hct MCV MCH MCHC RDW Plt Count MPV Absolute Neuts (auto) Neutrophils % Lymphocytes % Monocytes % Eosinophils % Basophils % PT with INR INR Sodium Potassium Chloride Carbon Dioxide Anion Gap BUN Creatinine Creat Clearance w eGFR POC Glucometer 117 117 Random Glucose Calcium Phosphorus Magnesium Total Bilirubin AST ALT Alkaline Phosphatase Total Protein Albumin Urine Color Yellow Urine Appearance Cloudy Urine pH 5.0 Ur Specific [place] 1.025 Urine Protein 1+ H Urine Glucose (UA) Negative Urine Ketones Negative Urine Blood 2+ H Urine Nitrite Negative Urine Bilirubin Negative Urine Urobilinogen 0.2 Ur Leukocyte Esterase 1+ H Urine RBC 5-10 Urine WBC 10-20 Ur Epithelial Cells Few Urine Bacteria Few Blood Type Antibody Screen Crossmatch 05/01/18 05/01/18 05/01/18 07:30 07:30 07:30 WBC 16.2 H RBC 3.03 L Hgb 8.5 L Hct 26.7 L MCV 88.3 MCH 28.0 MCHC 31.7 L RDW 13.3 Plt Count 369 MPV 8.6 Absolute Neuts (auto) 12.4 Neutrophils % 76.5 Lymphocytes % 13.1 Monocytes % 9.1 Eosinophils % 0.9 Basophils % 0.4 PT with INR 22.9 H INR 2.07 H Sodium 139 Potassium 3.5 Chloride 104 Carbon Dioxide 27 Anion Gap 8 BUN 32 H Creatinine 1.3 Creat Clearance w eGFR 39.12 POC Glucometer Random Glucose 106 D Calcium 8.4 Phosphorus 3.0 D Magnesium 2.1 Total Bilirubin 1.1 H AST 19 D ALT 14 D Alkaline Phosphatase 61 Total Protein 6.1 L Albumin 2.9 L Urine Color Urine Appearance Urine pH Ur Specific [place] Urine Protein Urine Glucose (UA) Urine Ketones Urine Blood Urine Nitrite Urine Bilirubin Urine Urobilinogen Ur Leukocyte Esterase Urine RBC Urine WBC Ur Epithelial Cells Urine Bacteria Blood Type Antibody Screen Crossmatch Active Medications Generic Name Dose Route Start Last Admin Trade Name Freq PRN Reason Stop Dose Admin Acetaminophen 650 mg 04/26/18 18:15 04/29/18 10:52 Tylenol - PO 650 mg Q6H PRN Administration PAIN LEVEL 1 - 3 Acetaminophen 325 mg 04/28/18 20:40 Tylenol - PO Q4H PRN PAIN 7-10 Atorvastatin Calcium 10 mg 04/27/18 22:00 04/30/18 22:26 Lipitor - PO 10 mg HS [facility] Administration Digoxin 0.125 mg 04/27/18 10:00 04/30/18 10:05 Lanoxin - PO 0.125 mg DAILY [facility] Administration Diltiazem HCl 180 mg 04/27/18 10:00 04/30/18 10:05 Cardizem Cd - PO 180 mg DAILY [facility] Administration Doxazosin Mesylate 2 mg 04/26/18 22:00 04/29/18 22:00 Cardura - PO Not Given HS [facility] Duloxetine HCl 30 mg 04/27/18 10:00 04/30/18 10:05 Cymbalta - PO 30 mg DAILY [facility] Administration Ceftriaxone Sodium 1 gm in 50 mls @ 100 mls/hr 04/28/18 21:45 04/30/18 10:08 Rocephin 1gm Ivpb (Pre-Docked) IVPB 100 mls/hr DAILY [facility] Administration Sodium Chloride 1,000 mls @ 75 mls/hr 04/29/18 11:30 Normal Saline - IV ASDIR [facility] Famotidine/Sodium Chloride 20 mg in 50 mls @ 100 mls/hr 04/29/18 11:30 22:26 Pepcid 20 Mg Premixed Ivpb - IVPB 100 mls/hr BID [facility] Administration Insulin Aspart 1 vial 04/27/18 07:00 04/30/18 16:32 Novolog Vial Sliding Scale - SQ Not Given TIDAC [facility] Protocol Lactobacillus Acidophilus 1 tab 04/30/18 10:00 04/30/18 10:04 Bacid - PO 1 tab DAILY [facility] Administration Morphine Sulfate 2 mg 04/28/18 23:04 04/28/18 23:25 Morphine Sulfate IVPUSH 2 mg Q6H PRN Administration PAIN 4-6 Multivitamins/Minerals/Vitamin C 1 tab 04/27/18 10:00 04/30/18 10:09 Tab-A-Vit - PO 1 tab DAILY [facility] Administration Hcass-9-Tmem Ethyl Esters 1 gm 04/27/18 10:00 04/30/18 10:08 Lovaza - PO 1 gm DAILY [facility] Administration Ondansetron HCl 4 mg 04/28/18 21:40 04/29/18 02:14 Zofran Injection IVPUSH 4 mg Q6H PRN Administration NAUSEA AND/OR VOMITING Oxycodone HCl 5 mg 04/28/18 20:40 04/29/18 10:53 Roxicodone - PO 5 mg Q4H PRN Administration PAIN 7-10 Microbiology 04/28/18 16:00 Urine - Urine Clean Catch Urine Culture - Final Serratia Marcescens 04/28/18 22:00 Blood - Peripheral Venous Blood Culture - Preliminary NO GROWTH OBTAINED AFTER 48 HOURS, INCUBATION TO CONTINUE FOR 3 DAYS. 04/28/18 22:00 Blood - Peripheral Venous Blood Culture - Preliminary NO GROWTH OBTAINED AFTER 48 HOURS, INCUBATION TO CONTINUE FOR [address] abdomen and pelvis without contrast, essentially stable large slightly heterogeneous mass in the midline of the lower pelvis likely representing a hematoma with again presacral edema head ct: no acute pathology ct of lumbar spine/pelvis: mild compression L3 superior end plates mild to moderate acute/subacute compression of L5 superior endplate with mild retropulsion of his posterior/superior margin without any significant compromise of the spinal canal, mild disc bulge of L3-L4 level impinging both L3 nerve root, sacroloitis, no acute fracture chest xray: no acute intrathoracic abnormality CT/abdomen pelvis without contrast: Trace ascitesatrophic kidneys were bilateral nephrolithiasis, cholelithiasis, development of large pelvic mass within the cul-de-sac, suspicious for hematoma ultrasound of pelvis: complex mass like density, in the lower pelvis, suspicious for hematoma ASSESSMENT/PLAN: 1)ID sepsis - secondary to UTI, serratia marcans, intermediate to rocephin, will start invanz, Blood cultures negative to date - leukocytosis downtrending, continue to trend and monitor fever curve 2) MS L5 compression fracture - continue prn pain medication - will require outpatient follow up with Dr Kang for kyphoplasty 3) cardiovascular afib bradycardia syncopal episode - echo reviewed 2016 LV WNL EF 55-60%moderate MR, mild TR severe pulmonary hypertension, repeat echo on 04/29/2018, nondiagnostic as per clinical trial manager - digoxin, dig level noted - continous cardiac monitoring - holding Coumadin secondary to hematoma of pelvis - cardiology, Dr Larry, consulted and following diastolic congestive heart failure - restart po lasix - strict i/o and daily weight hypertension - hold cardura secondary to KARTHIK, continue cardizem, blood pressure at goal, strict b/p monitoring 4)endo dm - fingersticks achs with regular insulin 5) nephrology KARTHIK - likely secondary to expanding hematoma, creatine 1.3 - repeat creatine in AM 6)hem pelvic hematoma s/p fall - secondary to coumadin induced coagulapathy, vitamin K, FFP and PRBC, 04/30, repeat CT scan of abdomen and pelvis reviewed today,stable hematoma noted - surgery consulted and following f/e/n - Low sodium diabetic diet - Replete elecolytes when necessary PPX -coumadin - scd/peggy - pepcid dispo: requires inpatient admission Visit type - Emergency Visit Emergency Visit: Yes ED Registration Date: 04/29/18 Care time: The patient presented to the Emergency Department on the above date and was hospitalized for further evaluation of their emergent condition. - New Patient This patient is new to me today: No - Critical Care Critical Care patient: No - Discharge Referral Referred to [facility] No
[2018-05-01] MEDS: LACTOBACILLUS ACIDOPHILUS 1 TABLET PO SCH (10:45)
[2018-05-01] MEDS: DULoxetine HCL 30 MG CAPSULE.DR (FP) PO SCH (10:45)
[2018-05-01] MEDS: OMEGA-3 ACID ETHYL ESTERS (FATTY-ACIDS) 1 GM CAPSULE (FP) PO SCH (10:45)
[2018-05-01] MEDS: FAMOTIDINE 20 MG/50 ML IVPB 20 MG/50 ML MG IVPB SCH ×2 (10:46→21:05)
[2018-05-01] MEDS: CEFTRIAXONE 1 GM/50 ML BAG IVPB SCH (10:46)
[2018-05-01] MEDS: DIGOXIN 0.125 MG TABLET (FP) PO SCH (10:46)
[2018-05-01] MEDS: oxyCODONE HCL 5 MG TABLET PO PRN (10:47)
[2018-05-01] MEDS: MULTIVITAMINS (DAILY MVI) TABLET (FP) PO SCH (10:47)
[2018-05-01] MEDS: INSULIN SLIDING SCALE (NOVOLOG) 1 VIAL SQ SCH ×2 (11:30→18:45)
--- NOTE | 2018-05-01 15:29 | PN ---
Progress Note (short form) - Note Progress Note: s: CTA abd showed stable hematoma. denies complaints. no cp, palps, dizzy tele: afib 70s. two brief episodes of bradycardia to 30s one around 10:45 AM and one around 2:30 PM lasting a few seconds no history of smoking o: Current Medications Acetaminophen (Tylenol -) 650 mg PO Q6H PRN PRN Reason: PAIN LEVEL 1 - 3 Last Admin: 04/29/18 10:52 Dose: 650 mg Acetaminophen (Tylenol -) 325 mg PO Q4H PRN PRN Reason: PAIN 7-10 Atorvastatin Calcium (Lipitor -) 10 mg PO HS [facility] Last Admin: 04/30/18 22:26 Dose: 10 mg Digoxin (Lanoxin -) 0.125 mg PO DAILY [facility] Last Admin: 05/01/18 10:46 Dose: 0.125 mg Diltiazem HCl (Cardizem Cd -) 180 mg PO DAILY [facility] Last Admin: 05/01/18 10:46 Dose: 180 mg Doxazosin Mesylate (Cardura -) 2 mg PO [facility] Last Admin: 04/29/18 22:00 Dose: Not Given Duloxetine HCl (Cymbalta -) 30 mg PO DAILY [facility] Last Admin: 05/01/18 10:45 Dose: 30 mg Sodium Chloride (Normal Saline -) 1,000 mls @ 75 mls/hr IV ASDIR [facility] Last Admin: 05/01/18 11:30 Dose: 75 mls/hr Famotidine/Sodium Chloride (Pepcid 20 Mg Premixed Ivpb -) 20 mg in 50 mls @ 100 mls/hr IVPB BID [facility] Last Admin: 05/01/18 10:46 Dose: 100 mls/hr Ertapenem 1 gm/ Sodium (Chloride) 50 mls @ 100 mls/hr IVPB DAILY [facility]; Protocol Insulin Aspart (Novolog Vial Sliding Scale -) 1 vial SQ TIDAC [facility]; Protocol Last Admin: 05/01/18 11:30 Dose: Not Given Lactobacillus Acidophilus (Bacid -) 1 tab PO DAILY [facility] Last Admin: 05/01/18 10:45 Dose: 1 tab Morphine Sulfate (Morphine Sulfate) 2 mg IVPUSH Q6H PRN PRN Reason: PAIN 4-6 Last Admin: 04/28/18 23:25 Dose: 2 mg Multivitamins/Minerals/Vitamin C (Tab-A-Vit -) 1 tab PO DAILY [facility] Last Admin: 05/01/18 10:47 Dose: 1 tab Mfaxy-2-Smsz Ethyl Esters (Lovaza -) 1 gm PO DAILY [facility] Last Admin: 05/01/18 10:45 Dose: 1 gm Ondansetron HCl (Zofran Injection) 4 mg IVPUSH Q6H PRN PRN Reason: NAUSEA AND/OR VOMITING Last Admin: 04/29/18 02:14 Dose: 4 mg Oxycodone HCl (Roxicodone -) 5 mg PO Q4H PRN PRN Reason: PAIN 7-10 Last Admin: 05/01/18 10:47 Dose: 5 mg Vital Signs Period Temp Pulse Resp BP Sys/Srivastava Pulse Ox Last 24 Hr 98.4 F-99.1 F 65-85 17-19 110-127/36-47 90-98 Constitutional: Yes: Well Nourished, No Distress, Calm Eyes: Yes: Conjunctiva Clear, EOM Intact HENT: Yes: Atraumatic, Normocephalic Neck: Yes: Supple Respiratory: Yes: Regular, CTA Bilaterally Gastrointestinal: Yes: Normal Bowel Sounds, Soft, Tenderness (mild to palpation) : garner in place Cardiovascular: Yes: Regular Rate and Rhythm Edema: No Neurological: Yes: Alert, Oriented Psychiatric: Yes: Alert, Oriented Assessment/Plan EKG 04/26/18 afib, LAD, nonspecific T wave changes echo 03/28/17 nl lv/rv function, bio avr without sig stenosis, mild to mod MR, mod to sev pHTN, echo 04/2018 techically difficult, uninterpetable EKG 04/29/18 afib, lat TWI and STD compared to prior 81 yo female, h/o cad, afib, bio AVR, HTN, HL, chronic diastolic HF on lasix, DM , ureteral stents, recurrent uti's, dementia with fall, L5 fx, now with KARTHIK and syncope Anemia, hematoma, abd pain - CT abdomen shows pelvic mass, likely hematoma, stable on CT 05/01 - EKG changes noted likely in setting of demand ischemia on day of acute bleed, resolved - surgery consulted, Hgb 12->8 during admission, stable 05/01 at 8 - vitamin K given - hold coumadin - IV fluids per primary team, BP stable and not tachycardic - holding cardura syncope - patient not able to give history regarding event, poor historian - echo uninterpretable, recent echo with nl LV/RV function - monitoring on tele - may have been vasovagal in setting of using commode or orthostatic in setting of bleed as above, no fall in setting of syncopal episode bradycardia - two brief episodes of HR 30s, patient was sleeping during afternoon episode, likely increased vagal tone - continue monitoring, if episodes continue would decrease diltiazem dose - continue diltiazem, digoxin afib - rate generally controlled, brief episodes of bradycardia may be vagal mediated , now rate controlled - continue diltiazem - holding warfarin in setting of acute bleed CAD - patient denies cabg, but listed in hx on outpatient cardiology notes - continue statin bioAVR - last echo 03/2017, repeat echo ordered today - no need for ASA, on AC for afib htn - as above diastolic heart failure - appears euvolemic, holding lasix in setting of KARTHIK UTI - on IV abx per primary team, leukocytosis noted
[2018-05-01] MEDS: ERTAPENEM SODIUM 1 GM in SODIUM CHLORIDE 50 ML IVPB SCH (16:11)
[2018-05-01] MEDS: ATORVASTATIN CA 10 MG TABLET (FP) PO SCH (21:05)
[2018-05-02] MEDS: FUROSEMIDE 20 MG TABLET (FP) PO SCH ×2 (06:09→14:00)
[2018-05-02 08:48] LABS: HEMATOCRIT 24.9 % (32.4-45.2); HEMOGLOBIN 8.2 GM/dl (10.7-15.3); MCH 29.1 pg (25.7-33.7); MEAN CELL VOLUME 88.3 fl (80-96); MEAN PLT VOLUME 9.1 fl (7.5-11.1); PLATELET COUNT 405 K/MM3 (134-434); RBC 2.82 M/mm3 (3.60-5.2); RDW 13.6 % (11.6-15.6)
[2018-05-02 08:56] LABS: ALBUMIN 2.6 g/dl (3.5-5.0); ALK PHOS 58 U/L (32-92); ANION GAP 9 (8-16); BILIRUBIN,TOTAL 0.9 mg/dl (0.2-1.0); BLOOD UREA NITROGEN 34 mg/dl (7-18); CALCIUM 8.4 mg/dl (8.4-10.2); CHLORIDE 104 mmol/L (98-107); CO2 25 mmol/L (22-28); CREATININE 1.1 mg/dl (0.6-1.3); GLUCOSE,RANDOM 76 mg/dl (74-106); MAGNESIUM 2.2 mg/dL (1.8-2.4); PHOSPHOROUS 3.1 mg/dl (2.5-4.6); POTASSIUM 3.9 mmol/L (3.5-5.1); SGOT/AST 23 U/L (10-42); SGPT/ALT 14 U/L (10-40); SODIUM 138 mmol/L (136-145); TOT PROT 5.9 g/dl (6.4-8.3)
[2018-05-02 09:03] LABS: INR 1.77 (0.82-1.09); PROTHROMBIN TIME (PATIENT) 19.6 SEC (10.2-13.0)
[2018-05-02] MEDS: INSULIN SLIDING SCALE (NOVOLOG) 1 VIAL SQ SCH ×2 (10:02→19:10)
[2018-05-02] MEDS: MULTIVITAMINS (DAILY MVI) TABLET (FP) PO SCH (10:11)
[2018-05-02] MEDS: OMEGA-3 ACID ETHYL ESTERS (FATTY-ACIDS) 1 GM CAPSULE (FP) PO SCH (10:11)
[2018-05-02] MEDS: ERTAPENEM SODIUM 1 GM in SODIUM CHLORIDE 50 ML IVPB SCH (10:11)
[2018-05-02] MEDS: FAMOTIDINE 20 MG/50 ML IVPB 20 MG/50 ML MG IVPB SCH ×2 (10:11→21:10)
[2018-05-02] MEDS: DIGOXIN 0.125 MG TABLET (FP) PO SCH (10:11)
[2018-05-02] MEDS: ACETAMINOPHEN 325 MG TABLET (FP) PO PRN (10:12)
[2018-05-02] MEDS: LACTOBACILLUS ACIDOPHILUS 1 TABLET PO SCH (10:12)
[2018-05-02] MEDS: DULoxetine HCL 30 MG CAPSULE.DR (FP) PO SCH (10:12)
[2018-05-02 10:29] LABS: PLATELET ESTIMATE ADEQUATE
--- NOTE | 2018-05-02 20:57 | PN ---
Physical Exam: SUBJECTIVE: Patient seen and examined at the bedside. In no acute distress. OBJECTIVE: Vital Signs Period Temp Pulse Resp BP Sys/Srivastava Pulse Ox Last 24 Hr 97.9 F-98.7 F 71-76 17-18 115-128/36-40 91-94 GENERAL: The patient is awake, alert, and fully oriented, in no acute distress. HEAD: Normal with no signs of trauma. EYES: PERRL, extraocular movements intact, sclera anicteric, conjunctiva clear. No ptosis. ENT: Ears normal, nares patent, oropharynx clear without exudates, moist mucous membranes. NECK: Trachea midline, full range of motion, supple. LUNGS: Breath sounds equal, clear to auscultation bilaterally, no wheezes, no crackles, no accessory muscle use. HEART: Regular rate and rhythm, S1, S2 without murmur, rub or gallop. ABDOMEN: Soft, generalized abdominal tenderness, nondistended, normoactive bowel sounds, no guarding, no rebound, no hepatosplenomegaly, no masses. EXTREMITIES: 2+ pulses, warm, well-perfused, no edema. : garner, clear yellow urine, echymosis noted to perineum NEUROLOGICAL: Cranial nerves II through XII grossly intact. Normal speech, gait not observed. PSYCH: Normal mood, normal affect. SKIN: Warm, dry, normal turgor, no rashes or lesions noted Laboratory Results - last 24 hr 05/02/18 05/02/18 05/02/18 07:45 07:45 07:45 WBC 15.0 H RBC 2.82 L Hgb 8.2 L Hct 24.9 L MCV 88.3 MCH 29.1 MCHC 33.0 RDW 13.6 Plt Count 405 MPV 9.1 Absolute Neuts (auto) 11.7 Neutrophils % No Result Required. Neutrophils % (Manual) 83.0 H Lymphocytes % No Result Required. Lymphocytes % (Manual) 7.0 L Monocytes % (Manual) 8 Basophils % (Manual) 2.0 Platelet Estimate Adequate PT with INR 19.6 H INR 1.77 H Sodium 138 Potassium 3.9 Chloride 104 Carbon Dioxide 25 Anion Gap 9 BUN 34 H Creatinine 1.1 Creat Clearance w eGFR 47.43 POC Glucometer Random Glucose 76 D Calcium 8.4 Phosphorus 3.1 Magnesium 2.2 Total Bilirubin 0.9 AST 23 D ALT 14 Alkaline Phosphatase 58 Total Protein 5.9 L Albumin 2.6 L 05/02/18 16:05 WBC RBC Hgb Hct MCV MCH MCHC RDW Plt Count MPV Absolute Neuts (auto) Neutrophils % Neutrophils % (Manual) Lymphocytes % Lymphocytes % (Manual) Monocytes % (Manual) Basophils % (Manual) Platelet Estimate PT with INR INR Sodium Potassium Chloride Carbon Dioxide Anion Gap BUN Creatinine Creat Clearance w eGFR POC Glucometer 97 Random Glucose Calcium Phosphorus Magnesium Total Bilirubin AST ALT Alkaline Phosphatase Total Protein Albumin Active Medications Generic Name Dose Route Start Last Admin Trade Name Freq PRN Reason Stop Dose Admin Acetaminophen 650 mg 04/26/18 18:15 05/02/18 10:12 Tylenol - PO 650 mg Q6H PRN Administration PAIN LEVEL 1 - 3 Acetaminophen 325 mg 04/28/18 20:40 Tylenol - PO Q4H PRN PAIN 7-10 Atorvastatin Calcium 10 mg 04/27/18 22:00 05/01/18 21:05 Lipitor - PO 10 mg HS VIDA Administration Digoxin 0.125 mg 04/27/18 10:00 05/02/18 10:11 Lanoxin - PO 0.125 mg DAILY VIDA Administration Diltiazem HCl 180 mg 04/27/18 10:00 05/02/18 10:11 Cardizem Cd - PO 180 mg DAILY VIDA Administration Doxazosin Mesylate 2 mg 04/26/18 22:00 04/29/18 22:00 Cardura - PO Not Given HS VIDA Duloxetine HCl 30 mg 04/27/18 10:00 05/02/18 10:12 Cymbalta - PO 30 mg DAILY VIDA Administration Furosemide 20 mg 05/02/18 06:00 05/02/18 14:00 Lasix - PO 20 mg BID@0600,1400 VIDA Administration Famotidine/Sodium Chloride 20 mg in 50 mls @ 100 mls/hr 04/29/18 11:30 10:11 Pepcid 20 Mg Premixed Ivpb - IVPB 100 mls/hr BID VIDA Administration Ertapenem 1 gm/ Sodium 50 mls @ 100 mls/hr 05/01/18 15:15 05/02/18 10:11 Chloride IVPB 100 mls/hr DAILY VIDA Administration Protocol Insulin Aspart 1 vial 04/27/18 07:00 05/02/18 19:10 Novolog Vial Sliding Scale - SQ Not Given [facility] Protocol Lactobacillus Acidophilus 1 tab 04/30/18 10:00 05/02/18 10:12 Bacid - PO 1 tab DAILY VIDA Administration Morphine Sulfate 2 mg 04/28/18 23:04 04/28/18 23:25 Morphine Sulfate IVPUSH 2 mg Q6H PRN Administration PAIN 4-6 Multivitamins/Minerals/Vitamin C 1 tab 04/27/18 10:00 05/02/18 10:11 Tab-A-Vit - PO 1 tab DAILY VIDA Administration Exdof-9-Kcer Ethyl Esters 1 gm 04/27/18 10:00 05/02/18 10:11 Lovaza - PO 1 gm DAILY VIDA Administration Ondansetron HCl 4 mg 04/28/18 21:40 04/29/18 02:14 Zofran Injection IVPUSH 4 mg Q6H PRN Administration NAUSEA AND/OR VOMITING Oxycodone HCl 5 mg 04/28/18 20:40 05/01/18 10:47 Roxicodone - PO 5 mg Q4H PRN Administration PAIN 7-10 ASSESSMENT/PLAN: Patient is a 82-year-old female with a past medical history of A. fib (on coumadin), bioprosthetic valve, coronary artery disease, diastolic congestive heart failure, hypertension, hyperlipidemia, diabetes mellitus, depression, peripheral vascular disease and osteoporosis. She presents to the ED after sustaining a mechanical fall and found to have an acute compression fracture and found to have acute UTI and pelvic hematoma IMAGING - CT abdomen and pelvis without contrast, essentially stable large slightly hyperdense heater Dinorah mass in the midline of the lower pelvis likely representing a hematoma with presacral edema - Head ct: no acute pathology - ct of lumbar spine/pelvis: mild compression L3 superior end plates mild to moderate acute/subacute compression of L5 superior endplate with mild retropulsion of his posterior/superior margin without any significant compromise of the spinal canal, mild disc bulge of L3-L4 level impinging both L3 nerve root, sacroloitis, no acute fracture - CT/abdomen pelvis without contrast: development of large pelvic mass within the cul-de-sac, suspicious for hematoma a/p ID found to have UTI on admission. On ertapenem (day 2). Blood cultures ngtd. Monitor labs, vitals. Ortho: L5 compression fracture: Pain managed, outpatient follow with Dr. Perez for possible kyphoplasty Large pelvic hematoma s/p fall: given vt k, ffp, and prbc. Restart coumadin per cardiology Card Afib/bradycardia: On electronic device monitor, coumadin on hold secondary to hematoma. INR 1.7>restart coumadin per cardiology. Diastolic congestive heart failure: on Lasix, monitor intake and output, daily weights Hypertension: On Cardizem. BP at goal. Cardura on hold 2/2 to KARTHIK Endocrine: Diabetes: bgms, novolog, diabetic diet Renal KARTHIK: creat 1.1. monitor creat daily. fen monitor electrolytes oral intake adequate diabetic diet prophy coumadin on hold, monitor inr pepcid full code Visit type - Emergency Visit Emergency Visit: Yes ED Registration Date: 04/29/18 Care time: The patient presented to the Emergency Department on the above date and was hospitalized for further evaluation of their emergent condition. - New Patient This patient is new to me today: Yes Date on this admission: 05/02/18 - Critical Care Critical Care patient: No - Discharge Referral Referred to [facility] No
[2018-05-02] MEDS: ATORVASTATIN CA 10 MG TABLET (FP) PO SCH (21:10)
[2018-05-03] MEDS: FUROSEMIDE 20 MG TABLET (FP) PO SCH ×2 (05:54→14:00)
[2018-05-03] MEDS: INSULIN SLIDING SCALE (NOVOLOG) 1 VIAL SQ SCH (07:17)
[2018-05-03 09:21] LABS: BASO % 0.5 % (0-2.0); EOS % 1.8 % (0-4.5); HEMATOCRIT 24.3 % (32.4-45.2); HEMOGLOBIN 7.9 GM/dl (10.7-15.3); LYMPH % 13.7 % (8-40); MCH 28.9 pg (25.7-33.7); MCHC 32.4 g/dl (32.0-36.0); MEAN CELL VOLUME 89.3 fl (80-96); MEAN PLT VOLUME 8.6 fl (7.5-11.1); MONO % 10.1 % (3.8-10.2); NEUT % 73.9 % (42.8-82.8); PLATELET COUNT 420 K/MM3 (134-434); RBC 2.72 M/mm3 (3.60-5.2); RDW 13.7 % (11.6-15.6); WHITE BLOOD COUNT 14.6 K/mm3 (4.0-10.8)
[2018-05-03 09:32] LABS: ALBUMIN 2.5 g/dl (3.5-5.0); ALK PHOS 67 U/L (32-92); ANION GAP 9 (8-16); BILIRUBIN,TOTAL 0.7 mg/dl (0.2-1.0); BLOOD UREA NITROGEN 32 mg/dl (7-18); CALCIUM 8.2 mg/dl (8.4-10.2); CHLORIDE 103 mmol/L (98-107); CO2 24 mmol/L (22-28); GLUCOSE,RANDOM 74 mg/dl (74-106); POTASSIUM 3.8 mmol/L (3.5-5.1); SGOT/AST 23 U/L (10-42); SGPT/ALT 11 U/L (10-40); SODIUM 136 mmol/L (136-145); TOT PROT 5.8 g/dl (6.4-8.3)
[2018-05-03] MEDS: ERTAPENEM SODIUM 1 GM in SODIUM CHLORIDE 50 ML IVPB SCH (09:38)
[2018-05-03] MEDS: OMEGA-3 ACID ETHYL ESTERS (FATTY-ACIDS) 1 GM CAPSULE (FP) PO SCH (09:39)
[2018-05-03] MEDS: DIGOXIN 0.125 MG TABLET (FP) PO SCH (09:39)
[2018-05-03] MEDS: DULoxetine HCL 30 MG CAPSULE.DR (FP) PO SCH (09:39)
[2018-05-03] MEDS: MULTIVITAMINS (DAILY MVI) TABLET (FP) PO SCH (09:40)
[2018-05-03] MEDS: LACTOBACILLUS ACIDOPHILUS 1 TABLET PO SCH (09:40)
[2018-05-03] MEDS: FAMOTIDINE 20 MG/50 ML IVPB 20 MG/50 ML MG IVPB SCH ×2 (09:40→21:53)
[2018-05-03 10:06] LABS: INR 1.61 (0.82-1.09); PROTHROMBIN TIME (PATIENT) 17.9 SEC (10.2-13.0)
--- NOTE | 2018-05-03 11:12 | PN ---
Physical Exam: SUBJECTIVE: Patient seen and examined at the bedside. Feels well, in no distress. no pain. OBJECTIVE: Vital Signs Period Temp Pulse Resp BP Sys/Srivastava Pulse Ox Last 24 Hr 97.9 F-98.7 F 68-74 17-20 115-132/32-41 91 GENERAL: The patient is awake, alert, and fully oriented, in no acute distress. HEAD: Normal with no signs of trauma. EYES: PERRL, extraocular movements intact, sclera anicteric, conjunctiva clear. No ptosis. ENT: Ears normal, nares patent, oropharynx clear without exudates, moist mucous membranes. NECK: Trachea midline, full range of motion, supple. LUNGS: Breath sounds equal, clear to auscultation bilaterally, no wheezes, no crackles, no accessory muscle use. HEART: Regular rate and rhythm, S1, S2 without murmur, rub or gallop. ABDOMEN: Soft, generalized abdominal tenderness, nondistended, normoactive bowel sounds, no guarding, no rebound, no hepatosplenomegaly, no masses. EXTREMITIES: 2+ pulses, warm, well-perfused, no edema. : garner, clear yellow urine, echymosis noted to perineum NEUROLOGICAL: Cranial nerves II through XII grossly intact. Normal speech, gait not observed. PSYCH: Normal mood, normal affect. SKIN: Warm, dry, normal turgor, no rashes or lesions noted Laboratory Results - last 24 hr 05/02/18 05/03/18 05/03/18 16:05 05:30 05:30 WBC 14.6 H RBC 2.72 L Hgb 7.9 L Hct 24.3 L MCV 89.3 MCH 28.9 MCHC 32.4 RDW 13.7 Plt Count 420 MPV 8.6 Absolute Neuts (auto) 10.7 Neutrophils % 73.9 Lymphocytes % 13.7 Monocytes % 10.1 Eosinophils % 1.8 Basophils % 0.5 PT with INR 17.9 H INR 1.61 H Sodium Potassium Chloride Carbon Dioxide Anion Gap BUN Creatinine Creat Clearance w eGFR POC Glucometer 97 Random Glucose Calcium Total Bilirubin AST ALT Alkaline Phosphatase Total Protein Albumin 05/03/18 05/03/18 05:30 05:49 WBC RBC Hgb Hct MCV MCH MCHC RDW Plt Count MPV Absolute Neuts (auto) Neutrophils % Lymphocytes % Monocytes % Eosinophils % Basophils % PT with INR INR Sodium 136 Potassium 3.8 Chloride 103 Carbon Dioxide 24 Anion Gap 9 BUN 32 H Creatinine 1.0 Creat Clearance w eGFR 52.95 POC Glucometer 112 Random Glucose 74 Calcium 8.2 L Total Bilirubin 0.7 AST 23 ALT 11 D Alkaline Phosphatase 67 Total Protein 5.8 L Albumin 2.5 L Active Medications Generic Name Dose Route Start Last Admin Trade Name Freq PRN Reason Stop Dose Admin Acetaminophen 650 mg 04/26/18 18:15 05/02/18 10:12 Tylenol - PO 650 mg Q6H PRN Administration PAIN LEVEL 1 - 3 Acetaminophen 325 mg 04/28/18 20:40 Tylenol - PO Q4H PRN PAIN 7-10 Atorvastatin Calcium 10 mg 04/27/18 22:00 05/02/18 21:10 Lipitor - PO 10 mg HS VIDA Administration Digoxin 0.125 mg 04/27/18 10:00 05/03/18 09:39 Lanoxin - PO 0.125 mg DAILY VIDA Administration Diltiazem HCl 180 mg 04/27/18 10:00 05/03/18 09:39 Cardizem Cd - PO 180 mg DAILY VIDA Administration Doxazosin Mesylate 2 mg 04/26/18 22:00 04/29/18 22:00 Cardura - PO Not Given HS VIDA Duloxetine HCl 30 mg 04/27/18 10:00 05/03/18 09:39 Cymbalta - PO 30 mg DAILY VIDA Administration Furosemide 20 mg 05/02/18 06:00 05/03/18 05:54 Lasix - PO 20 mg BID@0600,1400 VIDA Administration Famotidine/Sodium Chloride 20 mg in 50 mls @ 100 mls/hr 04/29/18 11:30 09:40 Pepcid 20 Mg Premixed Ivpb - IVPB 100 mls/hr BID VIDA Administration Ertapenem 1 gm/ Sodium 50 mls @ 100 mls/hr 05/01/18 15:15 05/03/18 09:38 Chloride IVPB 100 mls/hr DAILY VIDA Administration Protocol Insulin Aspart 1 vial 04/27/18 07:00 05/03/18 07:17 Novolog Vial Sliding Scale - SQ Not Given TIDAC [facility] Protocol Lactobacillus Acidophilus 1 tab 04/30/18 10:00 05/03/18 09:40 Bacid - PO 1 tab DAILY VIDA Administration Multivitamins/Minerals/Vitamin C 1 tab 04/27/18 10:00 05/03/18 09:40 Tab-A-Vit - PO 1 tab DAILY VIDA Administration Xtcoh-4-Eymw Ethyl Esters 1 gm 04/27/18 10:00 05/03/18 09:39 Lovaza - PO 1 gm DAILY VIDA Administration Ondansetron HCl 4 mg 04/28/18 21:40 04/29/18 02:14 Zofran Injection IVPUSH 4 mg Q6H PRN Administration NAUSEA AND/OR VOMITING ASSESSMENT/PLAN: Patient is a 82-year-old female with a past medical history of A. fib (on coumadin), bioprosthetic valve, coronary artery disease, diastolic congestive heart failure, hypertension, hyperlipidemia, diabetes mellitus, depression, peripheral vascular disease and osteoporosis. She presents to the ED after sustaining a mechanical fall and found to have an acute compression fracture and found to have acute UTI and pelvic hematoma IMAGING - CT abdomen and pelvis without contrast, essentially stable large slightly hyperdense heater Dinorah mass in the midline of the lower pelvis likely representing a hematoma with presacral edema - Head ct: no acute pathology - ct of lumbar spine/pelvis: mild compression L3 superior end plates mild to moderate acute/subacute compression of L5 superior endplate with mild retropulsion of his posterior/superior margin without any significant compromise of the spinal canal, mild disc bulge of L3-L4 level impinging both L3 nerve root, sacroloitis, no acute fracture - CT/abdomen pelvis without contrast: development of large pelvic mass within the cul-de-sac, suspicious for hematoma a/p ID found to have UTI on admission. On ertapenem (day 3). Blood cultures ngtd. Monitor labs, vitals. Ortho: L5 compression fracture: Pain managed, outpatient follow with Dr. Perez for possible kyphoplasty Large pelvic hematoma s/p fall: given vt k, ffp, and prbc. Restart coumadin per cardiology Card Afib/bradycardia: On case monitor, coumadin on hold secondary to hematoma. INR 1.7>restart coumadin per cardiology. Diastolic congestive heart failure: on Lasix, monitor intake and output, daily weights Hypertension: On Cardizem. BP at goal. Cardura on hold 2/2 to KARTHIK Endocrine: Diabetes: bgms, novolog, diabetic diet Renal KARTHIK: creat 1.0. monitor creat daily. fen monitor electrolytes oral intake adequate diabetic diet prophy coumadin on hold, monitor inr pepcid full code Visit type - Emergency Visit Emergency Visit: Yes ED Registration Date: 04/29/18 Care time: The patient presented to the Emergency Department on the above date and was hospitalized for further evaluation of their emergent condition. - New Patient This patient is new to me today: No - Critical Care Critical Care patient: No - Discharge Referral Referred to [facility] Med [facility].C.: No
[2018-05-03] MEDS: ATORVASTATIN CA 10 MG TABLET (FP) PO SCH (21:53)
[2018-05-04] MEDS: FUROSEMIDE 20 MG TABLET (FP) PO SCH ×2 (05:35→14:50)
[2018-05-04 08:30] LABS: BASO % 0.6 % (0-2.0); EOS % 1.8 % (0-4.5); HEMATOCRIT 25.8 % (32.4-45.2); HEMOGLOBIN 8.6 GM/dl (10.7-15.3); LYMPH % 14.4 % (8-40); MCH 29.3 pg (25.7-33.7); MCHC 33.1 g/dl (32.0-36.0); MEAN CELL VOLUME 88.5 fl (80-96); MEAN PLT VOLUME 8.6 fl (7.5-11.1); MONO % 10.5 % (3.8-10.2); NEUT % 72.7 % (42.8-82.8); PLATELET COUNT 493 K/MM3 (134-434); RBC 2.92 M/mm3 (3.60-5.2); RDW 13.9 % (11.6-15.6); WHITE BLOOD COUNT 14.8 K/mm3 (4.0-10.8)
[2018-05-04 08:51] LABS: ALBUMIN 2.5 g/dl (3.5-5.0); ALK PHOS 71 U/L (32-92); ANION GAP 9 (8-16); BILIRUBIN,TOTAL 0.9 mg/dl (0.2-1.0); BLOOD UREA NITROGEN 23 mg/dl (7-18); CALCIUM 8.4 mg/dl (8.4-10.2); CHLORIDE 101 mmol/L (98-107); CO2 26 mmol/L (22-28); CREATININE 0.8 mg/dl (0.6-1.3); GLUCOSE,RANDOM 93 mg/dl (74-106); MAGNESIUM 1.9 mg/dL (1.8-2.4); POTASSIUM 3.8 mmol/L (3.5-5.1); SGOT/AST 19 U/L (10-42); SGPT/ALT 17 U/L (10-40); SODIUM 136 mmol/L (136-145); TOT PROT 5.9 g/dl (6.4-8.3)
[2018-05-04] MEDS ORDERED: PT OWN MED DRAWER 7, Y5N ONE (09:33)
[2018-05-04 09:55] LABS: INR 1.54 (0.82-1.09); PROTHROMBIN TIME (PATIENT) 17.1 SEC (10.2-13.0)
[2018-05-04] MEDS: INSULIN SLIDING SCALE (NOVOLOG) 1 VIAL SQ SCH ×3 (10:30→17:00)
[2018-05-04] MEDS: DIGOXIN 0.125 MG TABLET (FP) PO SCH (10:31)
[2018-05-04] MEDS: LACTOBACILLUS ACIDOPHILUS 1 TABLET PO SCH (10:31)
[2018-05-04] MEDS: MULTIVITAMINS (DAILY MVI) TABLET (FP) PO SCH (10:31)
[2018-05-04] MEDS: DULoxetine HCL 30 MG CAPSULE.DR (FP) PO SCH (10:31)
[2018-05-04] MEDS: OMEGA-3 ACID ETHYL ESTERS (FATTY-ACIDS) 1 GM CAPSULE (FP) PO SCH (10:31)
[2018-05-04] MEDS: FAMOTIDINE 20 MG/50 ML IVPB 20 MG/50 ML MG IVPB SCH ×2 (10:32→21:21)
--- NOTE | 2018-05-04 10:52 | PN ---
Progress Note, Physician Chief Complaint: fall History of Present Illness: denies dizzy, cp, sob, palpitations - Current Medication List Current Medications: Active Medications Acetaminophen (Tylenol -) 650 mg PO Q6H PRN PRN Reason: PAIN LEVEL 1 - 3 Last Admin: 05/02/18 10:12 Dose: 650 mg Acetaminophen (Tylenol -) 325 mg PO Q4H PRN PRN Reason: PAIN 7-10 Atorvastatin Calcium (Lipitor -) 10 mg PO [facility] Last Admin: 05/03/18 21:53 Dose: 10 mg Digoxin (Lanoxin -) 0.125 mg PO DAILY [facility] Last Admin: 05/04/18 10:31 Dose: 0.125 mg Diltiazem HCl (Cardizem Cd -) 180 mg PO DAILY [facility] Last Admin: 05/04/18 10:31 Dose: 180 mg Doxazosin Mesylate (Cardura -) 2 mg PO [facility] Last Admin: 04/29/18 22:00 Dose: Not Given Duloxetine HCl (Cymbalta -) 30 mg PO DAILY [facility] Last Admin: 05/04/18 10:31 Dose: 30 mg Furosemide (Lasix -) 20 mg PO BID@0600,1400 [facility] Last Admin: 05/04/18 05:35 Dose: 20 mg Famotidine/Sodium Chloride (Pepcid 20 Mg Premixed Ivpb -) 20 mg in 50 mls @ 100 mls/hr IVPB BID [facility] Last Admin: 05/04/18 10:32 Dose: 100 mls/hr Ertapenem 1 gm/ Sodium (Chloride) 50 mls @ 100 mls/hr IVPB DAILY [facility]; Protocol Last Admin: 05/03/18 09:38 Dose: 100 mls/hr Insulin Aspart (Novolog Vial Sliding Scale -) 1 vial SQ TIDAC [facility]; Protocol Last Admin: 05/04/18 10:30 Dose: Not Given Lactobacillus Acidophilus (Bacid -) 1 tab PO DAILY [facility] Last Admin: 05/04/18 10:31 Dose: 1 tab Multivitamins/Minerals/Vitamin C (Tab-A-Vit -) 1 tab PO DAILY [facility] Last Admin: 05/04/18 10:31 Dose: 1 tab Kxssk-6-Ccwm Ethyl Esters (Lovaza -) 1 gm PO DAILY [facility] Last Admin: 05/04/18 10:31 Dose: 1 gm Ondansetron HCl (Zofran Injection) 4 mg IVPUSH Q6H PRN PRN Reason: NAUSEA AND/OR VOMITING Last Admin: 04/29/18 02:14 Dose: 4 mg - Objective Vital Signs: Vital Signs Temperature 97.6 F 05/04/18 09:27 Pulse Rate 74 05/04/18 10:31 Respiratory Rate 18 05/04/18 09:27 Blood Pressure 127/41 05/04/18 09:27 O2 Sat by Pulse Oximetry (%) 100 05/04/18 09:00 Constitutional: Yes: Well Nourished, No Distress, Calm Cardiovascular: Yes: Pulse Irregular. No: JVD, Gallop, Murmur Respiratory: Yes: Regular, CTA Bilaterally. No: Accessory Muscle Use Extremities: No: Cold Edema: No Neurological: Yes: Alert. No: Seizure Psychiatric: No: Agitated Labs: CBC, BMP 05/04/18 07:30 05/04/18 07:30 INR, PTT INR 1.54 (0.82-1.09) H 05/04/18 09:30 Assessment/Plan EKG 04/26/18 afib, LAD, nonspecific T wave changes EKG 04/29/18 afib, lat TWI and STD compared to prior echo 03/28/17 nl lv/rv function, bio avr without sig stenosis, mild to mod MR, mod to sev pHTN, echo 04/2018 techically difficult, uninterpetable tele: afib, normal HRs 81 yo female, h/o cad, afib, bio AVR, HTN, HL, chronic diastolic HF on lasix, DM , ureteral stents, recurrent uti's, dementia with fall, L5 fx, now with KARTHIK and syncope Anemia, hematoma, abd pain - CT abdomen shows pelvic mass, likely hematoma, stable on CT 05/01 - EKG changes noted likely in setting of demand ischemia on day of acute bleed, resolved - surgery consulted, managing conservatively at present - vitamin K given, coumadin held - need input from surgery when safe to resume AC, if imaging and H/H continue to demonstrate stability of hematoma - once cleared by surgery as low risk for hematoma expansion, can resume AC if pt remains non-ambulatory. if/when she is ambulating/transferring on her own again, rec P.T. eval first to assess gait and falls risk--risk/benefit of AC discussion at that time will have to be held with pt (+/- family) if she is deemed high risk. - holding cardura syncope - patient not able to give history regarding event, poor historian - echo uninterpretable, recent echo with nl LV/RV function - tele remains benign - may have been vasovagal in setting of using commode or orthostatic in setting of bleed as above, no fall in setting of syncopal episode bradycardia - two brief episodes of HR 30s, patient was sleeping during afternoon episode, likely increased vagal tone - tele benign since. - continue diltiazem, digoxin afib - rate generally controlled, brief episodes of bradycardia may be vagal mediated , now rate controlled - continue diltiazem - holding warfarin in setting of acute bleed--AC decisions as above CAD - patient denies cabg, but listed in hx on outpatient cardiology notes - continue statin bioAVR - last echo 03/2017, repeat echo ordered today - no need for ASA, on AC for afib htn - well controlled - same plan diastolic heart failure - appears euvolemic, holding lasix in setting of KARTHIK UTI - on IV abx per primary team, leukocytosis noted
--- NOTE | 2018-05-04 11:44 | PN ---
Physical Exam: SUBJECTIVE: Patient seen and examined, patient reports feeling much improved, denies abdominal pain, nausea or vomiting. OBJECTIVE: Vital Signs Period Temp Pulse Resp BP Sys/Srivastava Pulse Ox Last 24 Hr 97.6 F-99.1 F 68-74 17-19 122-138/33-49 96-100 GENERAL: The patient is awake, alert, and fully oriented, in no acute distress. HEAD: Normal with no signs of trauma. EYES: PERRL, extraocular movements intact, sclera anicteric, conjunctiva clear. No ptosis. ENT: Ears normal, nares patent, oropharynx clear without exudates, moist mucous membranes. NECK: Trachea midline, full range of motion, supple. LUNGS: Breath sounds equal, clear to auscultation bilaterally, no wheezes, no crackles, no accessory muscle use. HEART: irregular rate and rhythm, S1, S2 without murmur, rub or gallop. ABDOMEN: Soft, nontender, nondistended, normoactive bowel sounds, no guarding, no rebound, no hepatosplenomegaly, no masses. EXTREMITIES: 2+ pulses, warm, well-perfused, no edema. NEUROLOGICAL: Cranial nerves II through XII grossly intact. Normal speech, gait not observed. PSYCH: Normal mood, normal affect. SKIN: Warm, dry, normal turgor, no rashes or lesions noted Laboratory Results - last 24 hr 04/30/18 05/03/18 05/04/18 10:40 17:28 05:42 WBC RBC Hgb Hct MCV MCH MCHC RDW Plt Count MPV Absolute Neuts (auto) Neutrophils % Lymphocytes % Monocytes % Eosinophils % Basophils % PT with INR INR Sodium Potassium Chloride Carbon Dioxide Anion Gap BUN Creatinine Creat Clearance w eGFR POC Glucometer 425 113 Random Glucose Calcium Magnesium Total Bilirubin AST ALT Alkaline Phosphatase Total Protein Albumin Blood Type B NEGATIVE Antibody Screen Negative Crossmatch See Detail 05/04/18 05/04/18 05/04/18 07:30 07:30 09:30 WBC 14.8 H RBC 2.92 L Hgb 8.6 L Hct 25.8 L MCV 88.5 MCH 29.3 MCHC 33.1 RDW 13.9 Plt Count 493 H MPV 8.6 Absolute Neuts (auto) 10.7 Neutrophils % 72.7 Lymphocytes % 14.4 Monocytes % 10.5 H Eosinophils % 1.8 Basophils % 0.6 PT with INR 17.1 H INR 1.54 H Sodium 136 Potassium 3.8 Chloride 101 Carbon Dioxide 26 Anion Gap 9 BUN 23 H Creatinine 0.8 Creat Clearance w eGFR > 60 POC Glucometer Random Glucose 93 D Calcium 8.4 Magnesium 1.9 Total Bilirubin 0.9 AST 19 ALT 17 D Alkaline Phosphatase 71 Total Protein 5.9 L Albumin 2.5 L Blood Type Antibody Screen Crossmatch Active Medications Generic Name Dose Route Start Last Admin Trade Name Freq PRN Reason Stop Dose Admin Acetaminophen 650 mg 04/26/18 18:15 05/02/18 10:12 Tylenol - PO 650 mg Q6H PRN Administration PAIN LEVEL 1 - 3 Acetaminophen 325 mg 04/28/18 20:40 Tylenol - PO Q4H PRN PAIN 7-10 Atorvastatin Calcium 10 mg 04/27/18 22:00 05/03/18 21:53 Lipitor - PO 10 mg HS [facility] Administration Digoxin 0.125 mg 04/27/18 10:00 05/04/18 10:31 Lanoxin - PO 0.125 mg DAILY [facility] Administration Diltiazem HCl 180 mg 04/27/18 10:00 05/04/18 10:31 Cardizem Cd - PO 180 mg DAILY [facility] Administration Doxazosin Mesylate 2 mg 04/26/18 22:00 04/29/18 22:00 Cardura - PO Not Given HS [facility]IDA Duloxetine HCl 30 mg 04/27/18 10:00 05/04/18 10:31 Cymbalta - PO 30 mg DAILY [facility] Administration Furosemide 20 mg 05/02/18 06:00 05/04/18 05:35 Lasix - PO 20 mg BID@0600,1400 [facility] Administration Famotidine/Sodium Chloride 20 mg in 50 mls @ 100 mls/hr 04/29/18 11:30 10:32 Pepcid 20 Mg Premixed Ivpb - IVPB 100 mls/hr BID [facility] Administration Ertapenem 1 gm/ Sodium 50 mls @ 100 mls/hr 05/01/18 15:15 05/03/18 09:38 Chloride IVPB 100 mls/hr DAILY [facility] Administration Protocol Insulin Aspart 1 vial 04/27/18 07:00 05/04/18 10:30 Novolog Vial Sliding Scale - SQ Not Given TIDAC [facility] Protocol Lactobacillus Acidophilus 1 tab 04/30/18 10:00 08/13/18 10:31 Bacid - PO 1 tab DAILY [facility] Administration Multivitamins/Minerals/Vitamin C 1 tab 04/27/18 10:00 05/04/18 10:31 Tab-A-Vit - PO 1 tab DAILY [facility] Administration Cqoma-9-[id number] Ethyl Esters 1 gm 04/27/18 10:00 05/04/18 10:31 Lovaza - PO 1 gm DAILY [facility] Administration Ondansetron HCl 4 mg 04/28/18 21:40 04/29/18 02:14 Zofran Injection IVPUSH 4 mg Q6H PRN Administration NAUSEA AND/OR VOMITING Microbiology 04/28/18 22:00 Blood - Peripheral Venous Blood Culture - Final NO GROWTH AFTER 5 DAYS INCUBATION 04/28/18 22:00 Blood - Peripheral Venous Blood Culture - Final NO GROWTH AFTER 5 DAYS INCUBATION 04/30/18 16:00 Urine - Urine - Catheterized Urine Culture - Final NO GROWTH OBTAINED 04/28/18 16:00 Urine - Urine Clean Catch Urine Culture - Final Serratia Marcescens Patient is a 82-year-old female with a past medical history of A. fib (on coumadin), bioprosthetic valve, coronary artery disease, diastolic congestive heart failure, hypertension, hyperlipidemia, diabetes mellitus, depression, peripheral vascular disease and osteoporosis. She presents to the ED after sustaining a mechanical fall and found to have an acute compression fracture and found to have acute UTI and pelvic hematoma IMAGING - CT abdomen and pelvis without contrast, essentially stable large slightly hyperdense heater Dinorah mass in the midline of the lower pelvis likely representing a hematoma with presacral edema - Head ct: no acute pathology - ct of lumbar spine/pelvis: mild compression L3 superior end plates mild to moderate acute/subacute compression of L5 superior endplate with mild retropulsion of his posterior/superior margin without any significant compromise of the spinal canal, mild disc bulge of L3-L4 level impinging both L3 nerve root, sacroloitis, no acute fracture - CT/abdomen pelvis without contrast: development of large pelvic mass within the cul-de-sac, suspicious for hematoma a/p ID found to have UTI on admission. On ertapenem (day 4.) repeat urine culture negative, leukocytosis improving Ortho: L5 compression fracture: Pain managed, outpatient follow with Dr. Perez for possible kyphoplasty Large pelvic hematoma s/p fall: given vt k, ffp, and prbc. continue to hold coumadin as per Dr becerra surgery Card Afib/bradycardia: On campus monitor, coumadin on hold secondary to hematoma. Diastolic congestive heart failure: on Lasix, monitor intake and output, daily weights Hypertension: On Cardizem. BP at goal. Cardura on hold 2/2 to KARTHIK Endocrine: Diabetes: bgms, novolog, diabetic diet Renal KARTHIK: creat 1.0. monitor creat daily. fen monitor electrolytes oral intake adequate diabetic diet prophy coumadin on hold, monitor inr pepcid full code Visit type - Emergency Visit Emergency Visit: Yes ED Registration Date: 04/29/18 Care time: The patient presented to the Emergency Department on the above date and was hospitalized for further evaluation of their emergent condition. - New Patient This patient is new to me today: No - Critical Care Critical Care patient: No - Discharge Referral Referred to [facility] Med P.C.: No
[2018-05-04] MEDS: ERTAPENEM SODIUM 1 GM in SODIUM CHLORIDE 50 ML IVPB SCH (11:49)
[2018-05-04 16:03] VITALS: BMI 20.8
[2018-05-04] MEDS: ATORVASTATIN CA 10 MG TABLET (FP) PO SCH (21:21)
[2018-05-05] MEDS: FUROSEMIDE 20 MG TABLET (FP) PO SCH ×2 (06:31→14:00)
[2018-05-05] MEDS ORDERED: ERTAPENEM SODIUM - 1 GRAM 1 GM/50 ML BAG IVPB SCH (07:54)
[2018-05-05 08:16] LABS: BASO % 0.8 % (0-2.0); EOS % 1.9 % (0-4.5); HEMATOCRIT 26.8 % (32.4-45.2); HEMOGLOBIN 8.4 GM/dl (10.7-15.3); LYMPH % 11.1 % (8-40); MCH 27.9 pg (25.7-33.7); MCHC 31.5 g/dl (32.0-36.0); MEAN CELL VOLUME 88.7 fl (80-96); MEAN PLT VOLUME 8.6 fl (7.5-11.1); MONO % 9.3 % (3.8-10.2); NEUT % 76.9 % (42.8-82.8); PLATELET COUNT 521 K/MM3 (134-434); RBC 3.02 M/mm3 (3.60-5.2); RDW 13.6 % (11.6-15.6); WHITE BLOOD COUNT 15.6 K/mm3 (4.0-10.8)
[2018-05-05 08:40] LABS: INR 1.49 (0.82-1.09); PROTHROMBIN TIME (PATIENT) 16.6 SEC (10.2-13.0)
--- NOTE | 2018-05-05 09:10 | PN ---
Progress Note (short form) - Note Progress Note: s: denies dizzy, cp, sob, palpitations tele: afib 70s Current Medications Acetaminophen (Tylenol -) 650 mg PO Q6H PRN PRN Reason: PAIN LEVEL 1 - 3 Last Admin: 05/02/18 10:12 Dose: 650 mg Acetaminophen (Tylenol -) 325 mg PO Q4H PRN PRN Reason: PAIN 7-10 Atorvastatin Calcium (Lipitor -) 10 mg PO HS [facility] Last Admin: 05/04/18 21:21 Dose: 10 mg Digoxin (Lanoxin -) 0.125 mg PO DAILY [facility] Last Admin: 05/04/18 10:31 Dose: 0.125 mg Diltiazem HCl (Cardizem Cd -) 180 mg PO DAILY [facility] Last Admin: 05/04/18 10:31 Dose: 180 mg Doxazosin Mesylate (Cardura -) 2 mg PO HS [facility] Last Admin: 04/29/18 22:00 Dose: Not Given Duloxetine HCl (Cymbalta -) 30 mg PO DAILY [facility] Last Admin: 05/04/18 10:31 Dose: 30 mg Furosemide (Lasix -) 20 mg PO BID@0600,1400 [facility] Last Admin: 18 06:31 Dose: 20 mg Famotidine/Sodium Chloride (Pepcid 20 Mg Premixed Ivpb -) 20 mg in 50 mls @ 100 mls/hr IVPB BID [facility] Last Admin: 05/04/18 21:21 Dose: 100 mls/hr Ertapenem (Invanz (Pre-Docked)) 1 gm in 50 mls @ 100 mls/hr IVPB DAILY [facility]; Protocol Insulin Aspart (Novolog Vial Sliding Scale -) 1 vial SQ TIDAC [facility]; Protocol Last Admin: 05/04/18 17:00 Dose: Not Given Lactobacillus Acidophilus (Bacid -) 1 tab PO DAILY [facility] Last Admin: 05/04/18 10:31 Dose: 1 tab Multivitamins/Minerals/Vitamin C (Tab-A-Vit -) 1 tab PO DAILY [facility] Last Admin: 05/04/18 10:31 Dose: 1 tab Mrhto-2-Yhkp Ethyl Esters (Lovaza -) 1 gm PO DAILY [facility] Last Admin: 05/04/18 10:31 Dose: 1 gm Ondansetron HCl (Zofran Injection) 4 mg IVPUSH Q6H PRN PRN Reason: NAUSEA AND/OR VOMITING Last Admin: 04/29/18 02:14 Dose: 4 mg Warfarin Sodium (Coumadin -) 2.5 mg PO DAILY@1800 VIDA - Objective Vital Signs Period Temp Pulse Resp BP Sys/Srivastava Pulse Ox Last 24 Hr 97.6 F-98.7 F 71-75 18-19 125-140/36-43 93-95 Constitutional: Yes: Well Nourished, No Distress, Calm Cardiovascular: Yes: Pulse Irregular. No: JVD, Gallop, Murmur Respiratory: Yes: Regular, CTA Bilaterally. No: Accessory Muscle Use Extremities: No: Cold Edema: No Neurological: Yes: Alert. No: Seizure Psychiatric: No: Agitated Assessment/Plan EKG 04/26/18 afib, LAD, nonspecific T wave changes EKG 04/29/18 afib, lat TWI and STD compared to prior echo 03/28/17 nl lv/rv function, bio avr without sig stenosis, mild to mod MR, mod to sev pHTN, echo 04/2018 techically difficult, uninterpetable 81 yo female, h/o cad, afib, bio AVR, HTN, HL, chronic diastolic HF on lasix, DM , ureteral stents, recurrent uti's, dementia with fall, L5 fx, now with KARTHIK and syncope Anemia, hematoma, abd pain - CT abdomen shows pelvic mass, likely hematoma, stable on CT 05/01 - EKG changes noted likely in setting of demand ischemia on day of acute bleed, resolved - surgery consulted, managing conservatively, vit K was given, coumadin was held initially - restart coumadin when cleared by surgery - will reassess risk/benefit of anticoagulation if/when she is ambulating/ transferring on her own again, rec P.T. eval first to assess gait and falls risk --risk/benefit of AC discussion at that time will have to be held with pt (+/- family) if she is deemed high risk. - holding cardura syncope - patient not able to give history regarding event, poor historian - echo uninterpretable, recent echo with nl LV/RV function - tele remains benign - may have been vasovagal in setting of using commode or orthostatic in setting of bleed as above, no fall in setting of syncopal episode bradycardia - two brief episodes of HR 30s, patient was sleeping during afternoon episode, likely increased vagal tone - tele benign since. - continue diltiazem, digoxin afib - rate generally controlled, brief episodes of bradycardia may be vagal mediated , now rate controlled - continue diltiazem - restarting AC when cleared by surgery CAD - patient denies cabg, but listed in hx on outpatient cardiology notes - continue statin bioAVR - last echo 03/2017, repeat echo ordered today - no need for ASA, on AC for afib htn - well controlled - same plan diastolic heart failure - Cr stable, home lasix restarted UTI - on IV abx per primary team, leukocytosis noted
[2018-05-05 09:36] LABS: ANION GAP 8 (8-16); BLOOD UREA NITROGEN 19 mg/dl (7-18); CALCIUM 8.4 mg/dl (8.4-10.2); CHLORIDE 103 mmol/L (98-107); CO2 25 mmol/L (22-28); CREATININE 0.8 mg/dl (0.6-1.3); GLUCOSE,RANDOM 92 mg/dl (74-106); PHOSPHOROUS 3.4 mg/dl (2.5-4.6); POTASSIUM 3.9 mmol/L (3.5-5.1); SODIUM 136 mmol/L (136-145)
--- NOTE | 2018-05-05 09:44 | PN ---
Progress Note (short form) - Note Progress Note: Attending Surgeon No c/o; tolerating diet; has not been ambulatory ?? VSS AF abdo-soft; flat and non tender; lower midline mass persists; o/w negative labs/f/u CT noted IMP: pelvic hematoma; stable PLAN: At this time the benefit of restarting anticoagulation to prevent risk of stroke outweighs the potential risk of an enlarging pelvic hematoma; would get f /u imaging prior to d/c or transfer to rehab/alternate level of care. Pedro Thomas MD FACS
[2018-05-05] MEDS: LACTOBACILLUS ACIDOPHILUS 1 TABLET PO SCH (09:58)
[2018-05-05] MEDS: DULoxetine HCL 30 MG CAPSULE.DR (FP) PO SCH (09:59)
[2018-05-05] MEDS: DIGOXIN 0.125 MG TABLET (FP) PO SCH (09:59)
[2018-05-05] MEDS: MULTIVITAMINS (DAILY MVI) TABLET (FP) PO SCH (10:00)
[2018-05-05] MEDS: OMEGA-3 ACID ETHYL ESTERS (FATTY-ACIDS) 1 GM CAPSULE (FP) PO SCH (10:00)
[2018-05-05] MEDS: FAMOTIDINE 20 MG/50 ML IVPB 20 MG/50 ML MG IVPB SCH ×2 (10:00→21:50)
--- NOTE | 2018-05-05 10:15 | PN ---
Physical Exam: SUBJECTIVE: Patient seen and examined, patient resting comfortably in bed, daugher and at bedside OBJECTIVE:Patient is a 82-year-old female with a past medical history of A. fib (on coumadin), bioprosthetic valve, coronary artery disease, diastolic congestive heart failure, hypertension, hyperlipidemia, diabetes mellitus, depression, peripheral vascular disease and osteoporosis. She presents to the ED after sustaining a mechanical fall and found to have an acute compression fracture and found to have acute UTI and pelvic hematoma Vital Signs Period Temp Pulse Resp BP Sys/Srivastava Pulse Ox Last 24 Hr 98.2 F-98.7 F 71-82 18-19 125-140/36-43 93-95 GENERAL: The patient is awake, alert, and fully oriented, in no acute distress. HEAD: Normal with no signs of trauma. EYES: PERRL, extraocular movements intact, sclera anicteric, conjunctiva clear. No ptosis. ENT: Ears normal, nares patent, oropharynx clear without exudates, moist mucous membranes. NECK: Trachea midline, full range of motion, supple. LUNGS: Breath sounds equal, clear to auscultation bilaterally, no wheezes, no crackles, no accessory muscle use. HEART: irregular rate and rhythm, S1, S2 without murmur, rub or gallop. ABDOMEN: Soft, nontender, nondistended, normoactive bowel sounds, no guarding, no rebound, no hepatosplenomegaly, no masses. EXTREMITIES: 2+ pulses, warm, well-perfused, no edema. NEUROLOGICAL: Cranial nerves II through XII grossly intact. Normal speech, gait not observed. PSYCH: Normal mood, normal affect. SKIN: Warm, dry, normal turgor, no rashes or lesions noted Laboratory Results - last 24 hr 05/04/18 05/05/18 05/05/18 11:53 06:33 07:30 WBC 15.6 H RBC 3.02 L Hgb 8.4 L Hct 26.8 L MCV 88.7 MCH 27.9 MCHC 31.5 L RDW 13.6 Plt Count 521 H MPV 8.6 Absolute Neuts (auto) 12.1 Neutrophils % 76.9 Lymphocytes % 11.1 Monocytes % 9.3 Eosinophils % 1.9 Basophils % 0.8 PT with INR INR Sodium Potassium Chloride Carbon Dioxide Anion Gap BUN Creatinine Creat Clearance w eGFR POC Glucometer 124 107 Random Glucose Calcium Phosphorus Magnesium 05/05/18 05/05/18 07:30 07:30 WBC RBC Hgb Hct MCV MCH MCHC RDW Plt Count MPV Absolute Neuts (auto) Neutrophils % Lymphocytes % Monocytes % Eosinophils % Basophils % PT with INR 16.6 H INR 1.49 H Sodium 136 Potassium 3.9 Chloride 103 Carbon Dioxide 25 Anion Gap 8 BUN 19 H Creatinine 0.8 Creat Clearance w eGFR > 60 POC Glucometer Random Glucose 92 Calcium 8.4 Phosphorus 3.4 Magnesium 2.0 Active Medications Generic Name Dose Route Start Last Admin Trade Name Freq PRN Reason Stop Dose Admin Acetaminophen 650 mg 04/26/18 18:15 05/02/18 10:12 Tylenol - PO 650 mg Q6H PRN Administration PAIN LEVEL 1 - 3 Acetaminophen 325 mg 04/28/18 20:40 Tylenol - PO Q4H PRN PAIN 7-10 Atorvastatin Calcium 10 mg 04/27/18 22:00 05/04/18 21:21 Lipitor - PO 10 mg HS [facility] Administration Digoxin 0.125 mg 04/27/18 10:00 05/05/18 09:59 Lanoxin - PO 0.125 mg DAILY [facility] Administration Diltiazem HCl 180 mg 04/27/18 10:00 05/05/18 09:59 Cardizem Cd - PO 180 mg DAILY [facility] Administration Doxazosin Mesylate 2 mg 04/26/18 22:00 04/29/18 22:00 Cardura - PO Not Given HS [facility]IDA Duloxetine HCl 30 mg 04/27/18 10:00 05/05/18 09:59 Cymbalta - PO 30 mg DAILY [facility] Administration Furosemide 20 mg 05/02/18 06:00 05/05/18 06:31 Lasix - PO 20 mg BID@0600,1400 [facility] Administration Famotidine/Sodium Chloride 20 mg in 50 mls @ 100 mls/hr 04/29/18 11:30 10:00 Pepcid 20 Mg Premixed Ivpb - IVPB 100 mls/hr BID [facility] Administration Ertapenem 1 gm in 50 mls @ 100 mls/hr 05/05/18 07:54 05/05/18 09:59 Invanz (Pre-Docked) IVPB 100 mls/hr DAILY [facility] Administration Protocol Insulin Aspart 1 vial 04/27/18 07:00 05/04/18 17:00 Novolog Vial Sliding Scale - SQ Not Given TIDAC [facility] Protocol Lactobacillus Acidophilus 1 tab 04/30/18 10:00 05/05/18 09:58 Bacid - PO 1 tab DAILY [facility] Administration Multivitamins/Minerals/Vitamin C 1 tab 04/27/18 10:00 05/05/18 10:00 Tab-A-Vit - PO 1 tab DAILY [facility] Administration Idwzc-4-Kkmm Ethyl Esters 1 gm 04/27/18 10:00 05/05/18 10:00 Lovaza - PO 1 gm DAILY [facility] Administration Ondansetron HCl 4 mg 04/28/18 21:40 04/29/18 02:14 Zofran Injection IVPUSH 4 mg Q6H PRN Administration NAUSEA AND/OR VOMITING Warfarin Sodium 2.5 mg 05/05/18 18:00 Coumadin - PO DAILY@1800 [facility] IMAGING - CT abdomen and pelvis without contrast, essentially stable large slightly hyperdense heterogenous mass in the midline of the lower pelvis likely representing a hematoma with presacral edema - Head ct: no acute pathology - ct of lumbar spine/pelvis: mild compression L3 superior end plates mild to moderate acute/subacute compression of L5 superior endplate with mild retropulsion of his posterior/superior margin without any significant compromise of the spinal canal, mild disc bulge of L3-L4 level impinging both L3 nerve root, sacroloitis, no acute fracture - CT/abdomen pelvis without contrast: development of large pelvic mass within the cul-de-sac, suspicious for hematoma - head ct: no acute pathology ASSESSMENT/PLAN: ID found to have UTI on admission. On ertapenem (day 5.) repeat urine culture negative, leukocytosis improving Ortho: L5 compression fracture: Pain managed, outpatient follow with Dr. Perez for possible kyphoplasty Large pelvic hematoma s/p fall: given vt k, ffp, and prbc. restart coumadin as per Dr becerra surgery Card Afib/bradycardia: On alarm security or surveillance monitor, coumadin on hold secondary to hematoma. Diastolic congestive heart failure: on Lasix, monitor intake and output, daily weights Hypertension: On Cardizem. BP at goal. Cardura on hold 2/2 to KARTHIK Endocrine: Diabetes: bgms, novolog, diabetic diet Renal KARTHIK: creat 1.0. monitor creat daily. fen monitor electrolytes oral intake adequate diabetic diet prophy restart coumadin, monitor inr pepcid *lengthy discussion today with daughter, recommendation for short-term rehabilitation, daughter and both agree, social media developer was present, family requests [facility] for short-term rehabilitation awaiting for bed placement * full code Visit type - Emergency Visit Emergency Visit: Yes ED Registration Date: 04/29/18 Care time: The patient presented to the Emergency Department on the above date and was hospitalized for further evaluation of their emergent condition. - New Patient This patient is new to me today: No - Critical Care Critical Care patient: No - Discharge Referral Referred to [facility] Med P.C.: No
[2018-05-05] MEDS: INSULIN SLIDING SCALE (NOVOLOG) 1 VIAL SQ SCH ×3 (15:10→18:15)
[2018-05-05] MEDS ORDERED: WARFARIN NA 2.5 MG TABLET (FP) PO SCH (18:00)
[2018-05-05] MEDS: ATORVASTATIN CA 10 MG TABLET (FP) PO SCH (21:50)
[2018-05-06] MEDS: FUROSEMIDE 20 MG TABLET (FP) PO SCH ×2 (06:34→14:17)
[2018-05-06 06:35] VITALS: BP 129/49; TEMP 98.6
[2018-05-06 08:10] LABS: HEMOGLOBIN 7.9 GM/dl (10.7-15.3); MCH 28.1 pg (25.7-33.7); MCHC 31.7 g/dl (32.0-36.0); MEAN CELL VOLUME 88.6 fl (80-96); MEAN PLT VOLUME 8.3 fl (7.5-11.1); PLATELET COUNT 567 K/MM3 (134-434); RBC 2.82 M/mm3 (3.60-5.2); RDW 13.6 % (11.6-15.6)
[2018-05-06 08:11] LABS: INR 1.48 (0.82-1.09); PROTHROMBIN TIME (PATIENT) 16.4 SEC (10.2-13.0)
[2018-05-06 08:16] LABS: ANION GAP 3 (8-16); BLOOD UREA NITROGEN 18 mg/dl (7-18); CALCIUM 8.2 mg/dl (8.4-10.2); CHLORIDE 100 mmol/L (98-107); CO2 28 mmol/L (22-28); CREATININE 0.8 mg/dl (0.6-1.3); GLUCOSE,RANDOM 97 mg/dl (74-106); PHOSPHOROUS 3.2 mg/dl (2.5-4.6); SODIUM 131 mmol/L (136-145)
--- NOTE | 2018-05-06 09:16 | PN ---
Progress Note (short form) - Note Progress Note: s: denies dizzy, cp, sob, palpitations. CT head done yesterday for alt mental status, no acute change tele: afib 60s. Current Medications Acetaminophen (Tylenol -) 650 mg PO Q6H PRN PRN Reason: PAIN LEVEL 1 - 3 Last Admin: 05/02/18 10:12 Dose: 650 mg Acetaminophen (Tylenol -) 325 mg PO Q4H PRN PRN Reason: PAIN 7-10 Atorvastatin Calcium (Lipitor -) 10 mg PO HS [facility] Last Admin: 05/04/18 21:21 Dose: 10 mg Digoxin (Lanoxin -) 0.125 mg PO DAILY [facility] Last Admin: 05/04/18 10:31 Dose: 0.125 mg Diltiazem HCl (Cardizem Cd -) 180 mg PO DAILY [facility] Last Admin: 05/04/18 10:31 Dose: 180 mg Doxazosin Mesylate (Cardura -) 2 mg PO HS [facility] Last Admin: 04/29/18 22:00 Dose: Not Given Duloxetine HCl (Cymbalta -) 30 mg PO DAILY [facility] Last Admin: 05/04/18 10:31 Dose: 30 mg Furosemide (Lasix -) 20 mg PO BID@0600,1400 [facility] Last Admin: 18 06:31 Dose: 20 mg Famotidine/Sodium Chloride (Pepcid 20 Mg Premixed Ivpb -) 20 mg in 50 mls @ 100 mls/hr IVPB BID [facility] Last Admin: 05/04/18 21:21 Dose: 100 mls/hr Ertapenem (Invanz (Pre-Docked)) 1 gm in 50 mls @ 100 mls/hr IVPB DAILY [facility]; Protocol Insulin Aspart (Novolog Vial Sliding Scale -) 1 vial SQ TIDAC [facility]; Protocol Last Admin: 05/04/18 17:00 Dose: Not Given Lactobacillus Acidophilus (Bacid -) 1 tab PO DAILY [facility] Last Admin: 05/04/18 10:31 Dose: 1 tab Multivitamins/Minerals/Vitamin C (Tab-A-Vit -) 1 tab PO DAILY [facility] Last Admin: 05/04/18 10:31 Dose: 1 tab Djqgo-1-Mglh Ethyl Esters (Lovaza -) 1 gm PO DAILY [facility] Last Admin: 05/04/18 10:31 Dose: 1 gm Ondansetron HCl (Zofran Injection) 4 mg IVPUSH Q6H PRN PRN Reason: NAUSEA AND/OR VOMITING Last Admin: 04/29/18 02:14 Dose: 4 mg Warfarin Sodium (Coumadin -) 2.5 mg PO DAILY@1800 [facility] - Objective Vital Signs Period Temp Pulse Resp BP Sys/Srivastava Pulse Ox Last 24 Hr 97.6 F-98.6 F 68-82 18-18 118-140/38-52 95-100 Constitutional: Yes: Well Nourished, No Distress, Calm Cardiovascular: Yes: Pulse Irregular. No: JVD, Gallop, Murmur Respiratory: Yes: Regular, CTA Bilaterally. No: Accessory Muscle Use Extremities: No: Cold Edema: No Neurological: Yes: Alert. No: Seizure Psychiatric: No: Agitated Assessment/Plan EKG 04/26/18 afib, LAD, nonspecific T wave changes EKG 04/29/18 afib, lat TWI and STD compared to prior echo 03/28/17 nl lv/rv function, bio avr without sig stenosis, mild to mod MR, mod to sev pHTN, echo 04/2018 techically difficult, uninterpetable 81 yo female, h/o cad, afib, bio AVR, HTN, HL, chronic diastolic HF on lasix, DM , ureteral stents, recurrent uti's, dementia with fall, L5 fx, now with KARTHIK and syncope Anemia, hematoma, abd pain - CT abdomen shows pelvic mass, likely hematoma, stable on CT 05/01 - EKG changes noted likely in setting of demand ischemia on day of acute bleed, resolved - surgery consulted, managed conservatively, stable - will reassess risk/benefit of anticoagulation if/when she is ambulating/ transferring on her own again, rec P.T. eval first to assess gait and falls risk --risk/benefit of AC discussion at that time will have to be held with pt (+/- family) if she is deemed high risk. syncope - patient not able to give history regarding event, poor historian - echo uninterpretable, recent echo with nl LV/RV function - tele remains benign - may have been vasovagal in setting of using commode or orthostatic in setting of bleed as above, no fall in setting of syncopal episode bradycardia - tele unremarkable, no longer having episodes - continue diltiazem, digoxin afib - rate generally controlled, brief episodes of bradycardia may be vagal mediated , now rate controlled - continue diltiazem - restarting AC when cleared by surgery CAD - patient denies cabg, but listed in hx on outpatient cardiology notes - continue statin bioAVR - last echo 03/2017, repeat echo ordered today - no need for ASA, on AC for afib htn - well controlled - stop cardura, has had stable BP off it during admission diastolic heart failure - Cr stable, continue home lasix UTI - on IV abx per primary team, leukocytosis noted
[2018-05-06] MEDS ORDERED: MAGNESIUM HYDROX 2400MG/30ML ORAL SUSPENSION 30 ML CUP PO PRN (09:23)
[2018-05-06] MEDS: LACTOBACILLUS ACIDOPHILUS 1 TABLET PO SCH (10:00)
[2018-05-06] MEDS: DIGOXIN 0.125 MG TABLET (FP) PO SCH (11:05)
[2018-05-06] MEDS: DULoxetine HCL 30 MG CAPSULE.DR (FP) PO SCH (11:05)
[2018-05-06] MEDS: OMEGA-3 ACID ETHYL ESTERS (FATTY-ACIDS) 1 GM CAPSULE (FP) PO SCH (11:06)
[2018-05-06] MEDS: FAMOTIDINE 20 MG/50 ML IVPB 20 MG/50 ML MG IVPB SCH (11:06)
[2018-05-06] MEDS: MULTIVITAMINS (DAILY MVI) TABLET (FP) PO SCH (11:06)
[2018-05-06 11:07] VITALS: PULSE 72
--- NOTE | 2018-05-06 13:06 | DS ---
Physical Exam: SUBJECTIVE: Patient seen and examined, patient is a sitting up in bed, awake and alert reports minimal pain to lower back, denies any chest pain or shortness of breath, tolerating diet, daughter at bedside OBJECTIVE: patient is a 82 yrs old F independent ambulates with a walker early Dementia H/ O T2DM, Permanent Afib on AC rate controlled, s/p Biprosthetic AVR, Neuropathy, HTN, present to Ed with c/o lower back pain foar past 2 days after sustaining a fall as per patient 2 days ago she was washing her feet in the bath tub lost balancefell backward hitting her hear head on a radiator and landed on lower back, patient stayed at home and rested couldn't get up, pain persisted so came to Ed for evaluation, no c/o LE weakness, sensory loss in saddle area or any bowel bladder incontinence, patient denies any LOC, syncope or presyncope symptoms denies any focal neurological complaint. in the Ed w/u shows supratherpeutic INR and compression fracture of L5, Vital Signs Period Temp Pulse Resp BP Sys/Srivastava Pulse Ox Last 24 Hr 97.6 F-98.6 F 68-72 18-18 118-137/38-49 95-100 PHYSICAL EXAM GENERAL: The patient is awake, alert, and fully oriented, in no acute distress. HEAD: Normal with no signs of trauma. EYES: PERRL, extraocular movements intact, sclera anicteric, conjunctiva clear. No ptosis. ENT: Ears normal, nares patent, oropharynx clear without exudates, moist mucous membranes. NECK: Trachea midline, full range of motion, supple. LUNGS: Breath sounds equal, clear to auscultation bilaterally, no wheezes, no crackles, no accessory muscle use. HEART: irregular rate and rhythm, S1, S2 without murmur, rub or gallop. ABDOMEN: Soft, nontender, nondistended, normoactive bowel sounds, no guarding, no rebound, no hepatosplenomegaly, no masses. : echymosis noted to perienum EXTREMITIES: 2+ pulses, warm, well-perfused, no edema. NEUROLOGICAL: Cranial nerves II through XII grossly intact. Normal speech, gait not observed. PSYCH: Normal mood, normal affect. SKIN: Warm, dry, normal turgor, no rashes or lesions noted LABS Laboratory Results - last 24 hr 08/15/18 08/15/18 08/15/18 07:26 07:26 07:26 WBC 19.0 H RBC 2.82 L Hgb 7.9 L Hct 25.0 L MCV 88.6 MCH 28.1 MCHC 31.7 L RDW 13.6 Plt Count 567 H MPV 8.3 Absolute Neuts (auto) 14.7 Neutrophils % No Result Required. Neutrophils % (Manual) 83.0 H Lymphocytes % No Result Required. Lymphocytes % (Manual) 7.0 L Monocytes % (Manual) 8 Eosinophils % (Manual) 2.0 PT with INR 16.4 H INR 1.48 H Sodium 131 L Potassium 4.0 Chloride 100 Carbon Dioxide 28 Anion Gap 3 L BUN 18 Creatinine 0.8 Creat Clearance w eGFR > 60 Random Glucose 97 Calcium 8.2 L Phosphorus 3.2 Magnesium 2.0 Microbiology 04/28/18 22:00 Blood - Peripheral Venous Blood Culture - Final NO GROWTH AFTER 5 DAYS INCUBATION 04/28/18 22:00 Blood - Peripheral Venous Blood Culture - Final NO GROWTH AFTER 5 DAYS INCUBATION 04/30/18 16:00 Urine - Urine - Catheterized Urine Culture - Final NO GROWTH OBTAINED 04/28/18 16:00 Urine - Urine Clean Catch Urine Culture - Final Serrat[facility] Marcescens IMAGING - CT abdomen and pelvis without contrast, essentially stable large slightly hyperdense heterogenous mass in the midline of the lower pelvis likely representing a hematoma with presacral edema - Head ct: no acute pathology - ct of lumbar spine/pelvis: mild compression L3 superior end plates mild to moderate acute/subacute compression of L5 superior endplate with mild retropulsion of his posterior/superior margin without any significant compromise of the spinal canal, mild disc bulge of L3-L4 level impinging both L3 nerve root, sacroloitis, no acute fracture - CT/abdomen pelvis without contrast: development of large pelvic mass within the cul-de-sac, suspicious for hematoma - head ct: no acute pathology HOSPITAL COURSE: ID found to have UTI on admission. treated with rocephin 04/28 -05/01 On ertapenem ( day 5.) repeat urine culture negative, leukocytosis improving Ortho: L5 compression fracture: Pain managed, outpatient follow with Dr. Perez for possible kyphoplasty Large pelvic hematoma s/p fall: given vt k, ffp, and prbc. restarted coumadin on 05/[address] Thomas surgery Card Afib/bradycardia: On radiation monitor, coumadin on hold secondary to hematoma. Diastolic congestive heart failure: on Lasix, monitor intake and output, daily weights category analyst, Dr Larry consulted and followed Hypertension: On Cardizem. BP at goal. Cardura on hold 2/2 to KARTHIK and discontinued by cardiology Endocrine: Diabetes: bgms, novolog, diabetic diet Renal KARTHIK secondary to hematoma: creat 1.0. monitor creat daily. PLAN - discharge to SNF for short term rehab - continue couamdin 2.5mg daily Date of Admission:04/29/18 Date of Discharge: 05/06/18 Minutes to complete discharge: 45 Discharge Summary Reason For Visit: COMPRESSION FRACTURE OF LUMBAR VERTEBRA Current Active Problems Chronic a-fib (Acute) Fall (Acute) Lumbar compression fracture (Acute) T2DM (type 2 diabetes mellitus) (Acute) Condition: Stable - Instructions Diet, Activity, Other Instructions: continue Coumadin 2.5 mg daily please repeat INR on 05/08/2018 Continue all medications as prescribed please follow up with your category analyst within 2 weeks If any new or persistent symptoms develop please return to emergency department Referrals: Tejinder Kang MD [Staff Physician] - 3 Weeks Juliet Larry MD [Staff Physician] - Sal Guerra MD [Primary Care Provider] - [facility] - Home Medications Comprehensive Discharge Medication List: Ambulatory Orders Digoxin [Lanoxin -] 0.125 mg PO DAILY 04/26/18 Diltiazem HCl [Cartia Xt] 180 mg PO DAILY 04/26/18 Doxazosin Mesylate 2 mg PO HS 04/26/18 Duloxetine HCl 30 mg PO DAILY 04/26/18 Furosemide 20 mg PO BID 04/26/18 Glucosamine/D3/Boswellia Amanda [Glucosamine Complex Tablet] 1 each PO DAILY 02/06 Metformin HCl [Glucophage] 500 mg PO DAILY 04/26/18 Multivitamin [Multiple Vitamins] 1 each PO DAILY 04/26/18 [place]-3/Dha/Epa/Fish Oil [Fish Oil 1,000 mg Softgel] 1 each PO DAILY 04/26/18 Pitavastatin Calcium [Livalo] 1 mg PO DAILY 04/26/18 Warfarin Sodium [Coumadin] 2.5 mg PO ASDIR 04/26/18 This patient is new to me today: No Emergency Visit: Yes ED Registration Date: 04/29/18 Care time: The patient presented to the Emergency Department on the above date and was hospitalized for further evaluation of their emergent condition. Critical Care patient: No - Discharge Referral Referred to [facility] No
[2018-05-06] MEDS: INSULIN SLIDING SCALE (NOVOLOG) 1 VIAL SQ SCH (14:16)
== END 2018-05-06 14:25 | DRG 872 ==
LOC: FER 12:42 → FM/S 15:02 → OBSVTOIN 04-29 13:46 → FM/S 04-30 11:43
PROVIDERS: ADMIT Internal Medicine; ATTEND Nurse Practitioner Family
PROC: 30233L1 Transfusion of Nonautologous Fresh Plasma into Peripheral Vein, Percutaneous Approach (ICD-10-PCS; principal; 2018-04-30)
PROC: 30233K1 Transfusion of Nonautologous Frozen Plasma into Peripheral Vein, Percutaneous Approach (ICD-10-PCS; 2018-04-30)
PROC: 30233N1 Transfusion of Nonautologous Red Blood Cells into Peripheral Vein, Percutaneous Approach (ICD-10-PCS; 2018-04-30)
DX: A41.9 Sepsis, unspecified organism (principal); S32.050A Wedge compression fracture of fifth lumbar vertebra, initial encounter for closed fracture; N17.9 Acute kidney failure, unspecified; N39.0 Urinary tract infection, site not specified; I50.32 Chronic diastolic (congestive) heart failure; D68.32 Hemorrhagic disorder due to extrinsic circulating anticoagulants; S36.90XA Unspecified injury of unspecified intra-abdominal organ, initial encounter; W19.XXXA Unspecified fall, initial encounter; Y93.9 Activity, unspecified; Y92.89 Other specified places as the place of occurrence of the external cause; Y99.9 Unspecified external cause status; Z95.2 Presence of prosthetic heart valve; E11.9 Type 2 diabetes mellitus without complications; I48.2 Chronic atrial fibrillation; T45.515A Adverse effect of anticoagulants, initial encounter; F03.90 Unspecified dementia, unspecified severity, without behavioral disturbance, psychotic disturbance, mood disturbance, and anxiety; R00.1 Bradycardia, unspecified; D64.9 Anemia, unspecified; R55 Syncope and collapse; I25.10 Atherosclerotic heart disease of native coronary artery without angina pectoris; I11.0 Hypertensive heart disease with heart failure; D72.829 Elevated white blood cell count, unspecified; E78.5 Hyperlipidemia, unspecified
CPT/HCPCS: 36415; 36430; 70450-TC; 71045-TC-FY; 72125-TC; 72131-TC; 72192-TC; 74018-TC-FY; 74176-TC; 76700-TC; 76856-TC; 80048; 80053; 80061; 80162; 81003; 81015; 82550; 82962; 83036; 83721; 83735; 84100; 84443; 84484; 85025; 85027; 85610; 86850; 86900; 86901; 86922; 87040; 87086; 87186; 93005; 93306-TC; 97116-GP; 97162-GP; 99284-25; G0378; J7030; P9017; P9038; P9058

== ENCOUNTER 2020-03-28 13:52 | Inpatient (IN) | payer OTHER, MEDICARE ==
--- NOTE | 2020-03-28 14:09 | PDOC ---
History of Present Illness - General Chief Complaint: Vomiting/Diarrhea Stated Complaint: N/V/D Time Seen by Provider: 03/28/20 14:08 History Source: Patient Exam Limitations: No Limitations - History of Present Illness Initial Comments: Patient is an 84 year old female with history of DM, abdominal surgery, peripheral neuropathy, and digoxin use presents to the ED with a few days of nausea, vomiting, and generalized malaise. She states that she has nausea and vomiting predominantly in the morning that improves throughout the day. She has multiple episodes of vomiting each morning without blood. She is able to tolerate fluids later in the day. Last bowel movement yesterday. She also reports difficulty walking but unable to further specify what that is attributed to. Denies fevers, chest pain, SOB, urinary symptoms, or hematochezia. Reports a few episodes of diarrhea yesterday. Past History - Medical History Allergies/Adverse Reactions: Allergies Allergy/AdvReac Type Severity Reaction Status Date / Time Sulfa (Sulfonamide Allergy Unknown Verified 03/28/20 18:13 Antibiotics) [Sulfa(Sulfonamide Antibiotics)] ciprofloxacin [From Cipro] Allergy Verified 03/28/20 18:13 ciprofloxacin HCl Allergy Verified 03/28/20 18:13 [From Cipro] levofloxacin [From Levaquin] AdvReac Unknown Verified 03/28/20 18:13 Home Medications: Ambulatory Orders Digoxin [Lanoxin -] 0.125 mg PO DAILY 04/26/18 Diltiazem HCl [Cartia Xt] 180 mg PO DAILY 04/26/18 Doxazosin Mesylate 2 mg PO HS 04/26/18 Duloxetine HCl 30 mg PO DAILY 04/26/18 Furosemide 20 mg PO BID 04/26/18 Glucosamine/D3/Boswellia Amanda [Glucosamine Complex Tablet] 1 each PO DAILY 04/26/18 Metformin HCl [Glucophage] 500 mg PO DAILY 04/26/18 Multivitamin [Multiple Vitamins] 1 each PO DAILY 04/26/18 [place]-3/Dha/Epa/Fish Oil [Fish Oil 1,000 mg Softgel] 1 each PO DAILY 04/26/18 Pitavastatin Calcium [Livalo] 1 mg PO DAILY 04/26/18 Warfarin Sodium [Coumadin] 0 mg PO ASDIR 04/26/18 Atorvastatin Ca [Lipitor] 20 mg PO HS 03/28/20 Anemia: No Asthma: Yes Cancer: No Cardiac Disorders: Yes (A-FIB) COPD: No CHF: No Diabetes: Yes GI Disorders: No Disorders: Yes (chronic uti) HTN: Yes Hypercholesterolemia: Yes Kidney Stones: Yes Liver Disease: No Psychiatric Problems: Yes (DEPRESSION) Thyroid Disease: No - Surgical History Appendectomy: Yes Cardiac Surgery: Yes (AVR) - Psycho-Social/Smoking History Smoking Status: Yes Smoking History: Former smoker Have you smoked in the past 12 months: No Number of Cigarettes Smoked Daily: 0 If you are a former smoker, when did you quit?: 40 years ago Cigars Per Day: 0 Information on smoking cessation initiated: No - Substance Abuse Hx (Audit-C & DAST Scrn) How often the patient has a drink containing alcohol: Never Score: In Men: 4 or > Positive; In Women: 3 or > Positive: 0 Screen Result (Pos requires Nsg. Audit-10AR): Negative In the last yr the pt used illegal drug/Rx for NonMed reason: No Score: Yes response is considered Positive: 0 Screen Result (Positive result requires Nsg. DAST-10): Negative Review of Systems - Review of Systems Able to Perform ROS?: Yes Is the patient limited Israeli proficient: No Constitutional: No: Chills, Fever Respiratory: No: Cough, Shortness of Breath Cardiac (ROS): No: Chest Pain, Edema ABD/GI: Yes: Diarrhea, Nausea, Poor Fluid Intake, Vomiting. No: Constipated : No: Burning, Dysuria, Frequency, Hematuria Neurological: No: Numbness, Tingling, Weakness *Physical Exam - Vital Signs Last Vital Signs Temp Pulse Resp BP Pulse Ox 97.8 F 91 H 20 159/89 98 03/28/20 13:53 03/28/20 13:53 03/28/20 13:53 03/28/20 13:53 03/28/20 13:53 - Physical Exam General Appearance: Yes: Nourished, Appropriately Dressed. No: Apparent Distress HEENT: positive: EOMI Respiratory/Chest: positive: Lungs Clear, Normal Breath Sounds. negative: Chest Tender Cardiovascular: positive: Regular Rhythm, Regular Rate, S1, S2. negative: Edema Gastrointestinal/Abdominal: positive: Tender (epigastric tenderness), Soft. negative: Distended, Guarding, Rebound, Hepatomegaly Musculoskeletal: negative: CVA Tenderness Integumentary: positive: Normal Color, Dry, Warm Neurologic: positive: Fully Oriented, Alert, Normal Mood/Affect ED Treatment Course - LABORATORY CBC & Chemistry Diagram: 03/28/20 14:17 03/28/20 14:17 Medical Decision Making - Medical Decision Making 84 year old female with history of DM, abdominal surgery, peripheral neuropathy, and digoxin use presents to the ED with a few days of nausea, vomiting, and generalized malaise. She has multiple episodes of vomiting predominantly in the morning and is able to tolerate fluids later in the day. Last bowel movement was yesterday. Denied abdominal pain but had tenderness to palpation at the epigastric region on exam. Abdomen/pelvis CT demonstrated bilateral renal stones with moderate to marked hydronephrosis and a dilated right ureter. UA demonstrated +nitrite, +leukocyte esterase, bacteria and WBCs. Patient's presentation may be due to UTI and will be admitted for IV antibiotics. Discharge - Discharge Information Problems reviewed: Yes Clinical Impression/Diagnosis: UTI (urinary tract infection) Condition: Stable - Admission Yes - Follow up/Referral Referrals: Sal Guerra MD [Primary Care Provider] - - Patient Discharge Instructions - Post Discharge Activity
--- NOTE | 2020-03-28 14:11 | PDOC ---
Attending Attestation - Resident Resident Name: Jaime Garcia - HPI HPI: 03/28/20 15:23 Pt presents to the ED complaining of a one week history of nausea and non bloody, non billious vomiting. Pt reports that she tolerates ensure, but no solids. Denies fever, chest or abdominal pain or shortness of breath. Also reports lightheadness and generalized weakness. presents today because she was having difficulty standing and walking secondary to weakness. 03/28/20 16:05 03/28/20 16:07 - Physicial Exam PE: 03/28/20 16:05 Agree with resident exam. Patient is alert and oriented x 3 and in no acute distress. Abdomen is soft and non distended, with pronounced tenderness in the RUQ. Lungs are clear. CV: rrr no m/r/g - Medical Decision Making 03/28/20 16:06 Pt presents to the ED complaining of nausea and vomiting and generalized weakness. Initial differential included ACS, infection, dehydration, renal failure, severe anemia. Labs show normal renal function and normal cardiac enzymes. Will check CT to rule out intraabdominal pathology. UA shows evidence of infection--will start antibiotics for UTI and likely admit to medicine for continued treatment. 03/28/20 16:07 Discharge - Discharge Information Problems reviewed: Yes Clinical Impression/Diagnosis: UTI (urinary tract infection) Condition: Stable - Follow up/Referral - Patient Discharge Instructions - Post Discharge Activity
[2020-03-28 15:02] LABS: ALBUMIN 3.8 g/dl (3.4-5.0); BILIRUBIN,TOTAL 0.5 mg/dl (0.2-1); CALCIUM 9.7 mg/dl (8.5-10); POTASSIUM 3.7 mmol/L (3.5-5.1); TOT PROT 6.8 g/dl (6.4-8.2)
[2020-03-28 15:05] LABS: BASO % 0.4 % (0-2.0); EOS % 0.1 % (0-4.5); HEMATOCRIT 41.7 % (32.4-45.2); HEMOGLOBIN 14.5 GM/dl (10.7-15.3); LYMPH % 14.8 % (8-40); MCH 29.4 pg (25.7-33.7); MCHC 34.8 g/dl (32.0-36.0); MEAN CELL VOLUME 84.6 fl (80-96); MEAN PLT VOLUME 8.9 fl (7.5-11.1); MONO % 3.9 % (3.8-10.2); NEUT % 80.8 % (42.8-82.8); PLATELET COUNT 282 K/MM3 (134-434); RBC 4.93 M/mm3 (3.60-5.2); RDW 14.1 % (11.6-15.6); WHITE BLOOD COUNT 9.6 K/mm3 (4.0-10.8)
[2020-03-28 15:08] LABS: ACTIVATED PTT 31.9 SECONDS (25.2-36.5)
[2020-03-28 15:13] LABS: INR 1.7 (0.82-1.09); PROTHROMBIN TIME (PATIENT) 18.8 SEC (10.2-13.0)
[2020-03-28 15:51] LABS: EPITHELIAL CELLS MANY /hpf; URINE MUCUS 2+
[2020-03-28] MEDS ORDERED: cefTRIAXone SODIUM 1 GM VIAL ONE (18:26)
[2020-03-28] MEDS ORDERED: CEFTRIAXONE 1,000 MG in DEXTROSE 5%-WATER - 50 ML IVPB ONE (18:27)
--- NOTE | 2020-03-28 21:59 | HP ---
Admitting History and Physical - Primary Care Physician PCP: Sal Guerra - Admission Chief Complaint: Abdominal Pain, Nausea and Vomiting, Generalized Weakness History of Present Illness: 84 y/o female with a PMHx of Afib, HTN, HLD, Diabetes Mellitus, Asthma, Depression. Who presents to the ED with NBNB vomiting, abdominal pain with generalized weakness x 1 week. Patient reports having multiple episodes of vomiting. She reports having a BM yesterday. Patient reports having difficulty ambulating eith weakness. Patient denies fever, chills, cough, SOB, CP, palpitations, hematochezia, melena. 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: Yes: Peripheral Neuropathy Cardiovascular: Yes: AFIB, Aortic Stenosis, CAD, CHF, HTN, Hyperlipdemia, Other (peripheral vascular disease) ...LMP Comment: 84 YEARS OLD ...: No Psych: Yes: Depression Musculoskeletal: Yes: Other (scoliosis) Rheumatology: Yes: Other (osteoporosis) Endocrine: Yes: Diabetes Mellitus, Other (vit d def) - Past Surgical History Past Surgical History: Yes: Appendectomy, CABG, Cataract Removal, Tonsillectomy, Valve Replacement (Aortic -Porcine) - Advance Directives Advance Directives: Yes: Health Care Proxy, DNR - Smoking History Smoking history: Former smoker Have you smoked in the past 12 months: No Aproximately how many cigarettes per day: 0 If you are a former smoker, when did you quit?: 40 years ago - Alcohol/Substance Use Hx Alcohol Use: Yes (social) - Social History 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[employer]) Home Medications - Allergies Allergies/Adverse Reactions: Allergies Allergy/AdvReac Type Severity Reaction Status Date / Time Sulfa (Sulfonamide Allergy Unknown Verified 03/28/20 18:13 Antibiotics) [Sulfa(Sulfonamide Antibiotics)] ciprofloxacin [From Cipro] Allergy Verified 03/28/20 18:13 ciprofloxacin HCl Allergy Verified 03/28/20 18:13 [From Cipro] levofloxacin [From Levaquin] AdvReac Unknown Verified 03/28/20 18:13 - Home Medications Home Medications: Ambulatory Orders Digoxin [Lanoxin -] 0.125 mg PO DAILY 04/26/18 Diltiazem HCl [Cartia Xt] 180 mg PO DAILY 04/26/18 Doxazosin Mesylate 2 mg PO HS 04/26/18 Duloxetine HCl 30 mg PO DAILY 04/26/18 Furosemide 20 mg PO BID 04/26/18 Glucosamine/D3/Boswellia Amanda [Glucosamine Complex Tablet] 1 each PO DAILY 04/26/18 Metformin HCl [Glucophage] 500 mg PO DAILY 04/26/18 Multivitamin [Multiple Vitamins] 1 each PO DAILY 04/26/18 [place]-3/Dha/Epa/Fish Oil [Fish Oil 1,000 mg Softgel] 1 each PO DAILY 04/26/18 Pitavastatin Calcium [Livalo] 1 mg PO DAILY 04/26/18 Warfarin Sodium [Coumadin] 2.5 mg PO ASDIR 04/26/18 Atorvastatin Ca [Lipitor] 20 mg PO HS 03/28/20 Review of Systems - Review of Systems Constitutional: reports: Weakness Eyes: reports: No Symptoms HENT: reports: No Symptoms Neck: reports: No Symptoms Cardiovascular: reports: No Symptoms Respiratory: reports: No Symptoms Gastrointestinal: reports: Abdominal Pain, Nausea, Vomiting Genitourinary: reports: No Symptoms Breasts: reports: No Symptoms Reported Musculoskeletal: reports: No Symptoms Integumentary: reports: No Symptoms Neurological: reports: Unsteady Gait, Weakness Endocrine: reports: No Symptoms Hematology/Lymphatic: reports: No Symptoms Psychiatric: reports: No Symptoms Pain Intensity: 6 Physical Examination Vital Signs: Vital Signs Temperature 98.5 F 03/28/20 19:15 Pulse Rate 68 03/28/20 19:15 Respiratory Rate 16 03/28/20 19:15 Blood Pressure 178/66 H 03/28/20 19:15 O2 Sat by Pulse Oximetry (%) 96 03/28/20 19:15 Constitutional: Yes: No Distress, Calm, Thin Eyes: Yes: WNL, Conjunctiva Clear, EOM Intact, PERRL HENT: Yes: WNL, Atraumatic, Normocephalic Neck: Yes: WNL, Supple, Trachea Midline Cardiovascular: Yes: Pulse Irregular, S1, S2 Respiratory: Yes: WNL, Regular, CTA Bilaterally Gastrointestinal: Yes: Normal Bowel Sounds, Soft, Tenderness (RUQ) ...Rectal Exam: Yes: Sphincter Tone Normal Renal/: Yes: WNL Breast(s): Yes: WNL Musculoskeletal: Yes: WNL Extremities: Yes: WNL Edema: No Peripheral Pulses WNL: Yes Neurological: Yes: WNL, Alert, Oriented, Cran Nerves II-XII Intact ...Motor Strength: WNL Psychiatric: Yes: WNL, Alert, Oriented Labs: CBC, BMP 03/28/20 14:17 03/28/20 14:17 Laboratory Results - last 24 hr 03/28/20 03/28/20 03/28/20 14:10 14:17 14:17 WBC 9.6 RBC 4.93 Hgb 14.5 Hct 41.7 D MCV 84.6 MCH 29.4 MCHC 34.8 RDW 14.1 Plt Count 282 MPV 8.9 Absolute Neuts (auto) 7.8 Neutrophils % 80.8 Lymphocytes % 14.8 Monocytes % 3.9 Eosinophils % 0.1 Basophils % 0.4 PT with INR 18.8 H INR 1.70 H PTT (Actin FS) 31.9 Sodium Potassium Chloride Carbon Dioxide Anion Gap BUN Creatinine Est GFR (CKD-EPI)AfAm Est GFR (CKD-EPI)NonAf Random Glucose Calcium Total Bilirubin AST ALT Alkaline Phosphatase Creatine Kinase Troponin I Total Protein Albumin Urine Color Yellow Urine Appearance Clear Urine pH 6.0 Urine Protein 2+ H Urine Glucose (UA) Negative Urine Ketones 1+ H Urine Blood Trace-intact Urine Nitrite Positive H Urine Bilirubin Negative Urine Urobilinogen 0.2 Ur Leukocyte Esterase 1+ Urine RBC 5-10 Urine WBC 40-60 Ur Transition Epith Cell Many Urine Bacteria Many Urine Mucus 2+ Digoxin 03/28/20 03/28/20 03/28/20 14:17 14:17 14:17 WBC RBC Hgb Hct MCV MCH MCHC RDW Plt Count MPV Absolute Neuts (auto) Neutrophils % Lymphocytes % Monocytes % Eosinophils % Basophils % PT with INR INR PTT (Actin FS) Sodium 140 Potassium 3.7 Chloride 101 Carbon Dioxide 26 Anion Gap 13 BUN 18.0 Creatinine 1.0 Est GFR (CKD-EPI)AfAm 59.49 Est GFR (CKD-EPI)NonAf 51.33 Random Glucose 104 Calcium 9.7 Total Bilirubin 0.5 AST 16 ALT 16 Alkaline Phosphatase 75 Creatine Kinase 25 L Troponin I < 0.03 Total Protein 6.8 Albumin 3.8 Urine Color Urine Appearance Urine pH Urine Protein Urine Glucose (UA) Urine Ketones Urine Blood Urine Nitrite Urine Bilirubin Urine Urobilinogen Ur Leukocyte Esterase Urine RBC Urine WBC Ur Transition Epith Cell Urine Bacteria Urine Mucus Digoxin 0.80 Intake & Output 03/25/20 03/26/20 03/27/20 03/28/20 23:59 23:59 23:59 23:59 Weight 48.081 kg Imaging - Results Chest X-ray: Pending Cat Scan: Report Reviewed, Image Reviewed EKG: Image Reviewed Problem List - Problems (1) Complicated UTI (urinary tract infection) Assessment/Plan: Hx recurrent UTIs UA- +2 protein, +1 ketone, +nitrate 40-60 WBC, many bacteria Urine culture-pending Ceftriaxone given in ED, will continue empirically until culture resulted Appreciate ID consult Monitor CBC Monitor vitals Code(s): N39.0 - URINARY TRACT INFECTION, SITE NOT SPECIFIED (2) Hydrops of gallbladder Assessment/Plan: CTAP image, report reviewed- hydrops gallbladder with multiple stones, no evidence of acute cholecystitis Will keep NPO Continue IVF Consider Surgical Consult Monitor CBC, CMP Monitor vitals Code(s): K82.1 - HYDROPS OF GALLBLADDER (3) Cholelithiasis Assessment/Plan: see above Code(s): K80.20 - CALCULUS OF GALLBLADDER W/O CHOLECYSTITIS W/O OBSTRUCTION Qualifiers: Cholecystitis presence: without cholecystitis (4) Hydronephrosis Assessment/Plan: s/p ureteral stents ([facility]) CTAP report- moderate to marked hydronephrosis, seen previously in 2018; possible right ureteropelvic junction stenosis Monitor urine output Code(s): N13.30 - UNSPECIFIED HYDRONEPHROSIS (5) Afib Assessment/Plan: stable EKG- afib rate control, RBBB [id number] Continue Coumadin, Cardizem, Digoxin INR is subtherapuetic 1.93 Digoxin level in am Code(s): I48.91 - UNSPECIFIED ATRIAL FIBRILLATION Qualifiers: (6) Subtherapeutic international normalized ratio (INR) Assessment/Plan: Series INRs Continue Coumadin INR range 2.5-3.5 (s/p Valve Replacement) Code(s): R79.1 - ABNORMAL COAGULATION PROFILE (7) Depression Assessment/Plan: stable Continue Cymbalta Code(s): F32.9 - MAJOR DEPRESSIVE DISORDER, SINGLE EPISODE, UNSPECIFIED (8) Diabetes mellitus Assessment/Plan: stable BGMs ISS, when diet resumed Code(s): E11.9 - TYPE 2 DIABETES MELLITUS WITHOUT COMPLICATIONS Assessment/Plan 84 y/o female with a PMHx of Afib, HTN, HLD, Diabetes Mellitus, Asthma, Depression. Admitted to [facility] for Complicated UTI with Hydronephrosis, Abdominal Pain, Subtherapeutic INR for further evaluation of their emergent condition. Plan: See Problem List FEN IVF Replete lytes prn NPO DVT ppx OOB SCDs Continue Coumadin Code Status: DNR Dispo: Requires Inpatient Care Visit type - Medication Review Med list reviewed for High Risk Meds patients 65 and older: Yes - Emergency Visit Emergency Visit: Yes ED Registration Date: 03/28/20 Care time: The patient presented to the Emergency Department on the above date and was hospitalized for further evaluation of their emergent condition. - New Patient This patient is new to me today: Yes Date on this admission: 03/28/20 - Critical Care Critical Care patient: No
[2020-03-28] MEDS ORDERED: SODIUM CHLORIDE 1,000 ML IV SCH (22:15)
[2020-03-28] MEDS ORDERED: WARFARIN NA 2.5 MG TABLET PO ONE (23:15)
--- NOTE | 2020-03-29 07:02 | PN ---
Physical Exam: SUBJECTIVE: Patient seen and examined at bedside. Has had no appetite for a week, nauseous, no vomiting. Tolerating only soup and fruit. No fever, sweats, chills. Two days of diarrhea several days ago, cannot be more specific. Last BM yesterday, normal color and consistency. OBJECTIVE: Vital Signs Period Temp Pulse Resp BP Sys/Srivastava Pulse Ox Last 24 Hr 97.7 F-98.5 F 61-91 16-20 152-178/62-89 94-100 GENERAL: The patient is awake, alert, and fully oriented, in no acute distress. LUNGS: Breath sounds equal, clear to auscultation bilaterally, no wheezes, no crackles, no accessory muscle use. HEART: Irregular, S1, S2 ABDOMEN: +RUQ tenderness, soft, not distended EXTREMITIES: 2+ pulses, warm, well-perfused, no edema. NEUROLOGICAL: Cranial nerves II through XII grossly intact. Normal speech SKIN: Warm, dry, normal turgor Laboratory Results - last 24 hr 03/28/20 03/28/20 03/28/20 14:10 14:17 14:17 WBC 9.6 RBC 4.93 Hgb 14.5 Hct 41.7 D MCV 84.6 MCH 29.4 MCHC 34.8 RDW 14.1 Plt Count 282 MPV 8.9 Absolute Neuts (auto) 7.8 Neutrophils % 80.8 Lymphocytes % 14.8 Monocytes % 3.9 Eosinophils % 0.1 Basophils % 0.4 PT with INR 18.8 H INR 1.70 H PTT (Actin FS) 31.9 Sodium Potassium Chloride Carbon Dioxide Anion Gap BUN Creatinine Est GFR (CKD-EPI)AfAm Est GFR (CKD-EPI)NonAf POC Glucometer Random Glucose Calcium Total Bilirubin AST ALT Alkaline Phosphatase Creatine Kinase Troponin I Total Protein Albumin Urine Color Yellow Urine Appearance Clear Urine pH 6.0 Urine Protein 2+ H Urine Glucose (UA) Negative Urine Ketones 1+ H Urine Blood Trace-intact Urine Nitrite Positive H Urine Bilirubin Negative Urine Urobilinogen 0.2 Ur Leukocyte Esterase 1+ Urine RBC 5-10 Urine WBC 40-60 Ur Transition Epith Cell Many Urine Bacteria Many Urine Mucus 2+ Digoxin 03/28/20 03/28/20 03/28/20 14:17 14:17 14:17 WBC RBC Hgb Hct MCV MCH MCHC RDW Plt Count MPV Absolute Neuts (auto) Neutrophils % Lymphocytes % Monocytes % Eosinophils % Basophils % PT with INR INR PTT (Actin FS) Sodium 140 Potassium 3.7 Chloride 101 Carbon Dioxide 26 Anion Gap 13 BUN 18.0 Creatinine 1.0 Est GFR (CKD-EPI)AfAm 59.49 Est GFR (CKD-EPI)NonAf 51.33 POC Glucometer Random Glucose 104 Calcium 9.7 Total Bilirubin 0.5 AST 16 ALT 16 Alkaline Phosphatase 75 Creatine Kinase 25 L Troponin I < 0.03 Total Protein 6.8 Albumin 3.8 Urine Color Urine Appearance Urine pH Urine Protein Urine Glucose (UA) Urine Ketones Urine Blood Urine Nitrite Urine Bilirubin Urine Urobilinogen Ur Leukocyte Esterase Urine RBC Urine WBC Ur Transition Epith Cell Urine Bacteria Urine Mucus Digoxin 0.80 03/29/20 06:41 WBC RBC Hgb Hct MCV MCH MCHC RDW Plt Count MPV Absolute Neuts (auto) Neutrophils % Lymphocytes % Monocytes % Eosinophils % Basophils % PT with INR INR PTT (Actin FS) Sodium Potassium Chloride Carbon Dioxide Anion Gap BUN Creatinine Est GFR (CKD-EPI)AfAm Est GFR (CKD-EPI)NonAf POC Glucometer 77 Random Glucose Calcium Total Bilirubin AST ALT Alkaline Phosphatase Creatine Kinase Troponin I Total Protein Albumin Urine Color Urine Appearance Urine pH Urine Protein Urine Glucose (UA) Urine Ketones Urine Blood Urine Nitrite Urine Bilirubin Urine Urobilinogen Ur Leukocyte Esterase Urine RBC Urine WBC Ur Transition Epith Cell Urine Bacteria Urine Mucus Digoxin Active Medications Generic Name Dose Route Start Last Admin Trade Name Freq PRN Reason Stop Dose Admin Atorvastatin Calcium 20 mg 03/29/20 22:00 Lipitor - PO HS [facility] Digoxin 0.125 mg 03/29/20 10:00 Lanoxin - PO DAILY [facility] Diltiazem HCl 180 mg 03/29/20 10:00 Cardizem Cd - PO DAILY [facility] Doxazosin Mesylate 2 mg 03/29/20 22:00 Cardura - PO HS [facility] Duloxetine HCl 30 mg 03/29/20 10:00 Cymbalta - PO DAILY [facility] Ceftriaxone Sodium 1 gm/ 50 mls @ 100 mls/hr 03/29/20 10:00 Dextrose IVPB DAILY [facility] Protocol Sodium Chloride 1,000 mls @ 42 mls/hr 03/28/20 22:15 03/28/20 23:39 Normal Saline - IV 42 mls/hr ASDIR VIDA Administration Multivitamins/Minerals/Vitamin C 1 tab 03/29/20 10:00 Tab-A-Vit - PO DAILY [facility] Warfarin Sodium 2.5 mg 03/30/20 18:00 Coumadin - PO [email or web address]@1800 [facility] Warfarin Sodium 3.75 mg 03/29/20 18:00 Coumadin - PO [email or web address]@1800 [facility] PCP: Dr. Guerra Cardiology: Dr. Farmer ASSESSMENT/PLAN: 84 year-old female with a PMH significant for HTN, HLD, CAD, diastolic HF, afib on coumadin, aortic stenosis s/p tissue AVR 2004, Type II NIDDM, pelvic hematoma s/p fall 2018, right-sided hydronephrosis s/p ureteral stents x 6, recurrent UTIs, and chronic compression fractures. Admitted for hydrops of the gallbladder. Hydrops of the gallbladder Cholelithiasis --CT: hydrops gallbladder with multiple stones, no CT evidence of acute cholecystitis --+RUQ tenderness on exam --HIDA scan ordered --keep NPO, IV fluids --surgery consult Dr. 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 Atrial fibrillation --INR 1.93 today, continue current dosing of coumadin --rate is controlled, continue diltiazem, digoxin (dig level therapeutic) Coronary artery disease --continue statin; not on beta jarad or ASA therapy Aortic stenosis s/p tAVR --stable Type II NIDDM --Novolog sliding scale coverage --fingersticks q6h while NPO Hypertension --continue diltiazem Hyperlipidemia --continue statin Right hydronephrosis, chronic s/p ureteral stents --CT shows moderate to marked hydronephrosis, seen previously in 2018; possible right ureteropelvic junction stenosis --stents placed at [facility], patient cannot recall name of urologist, will obtain --renal function is stable, voiding freely Recurrent UTIs Pyuria --asymptomatic, no fever, no leukocytosis; observe off antibiotics for now Chronic compression fractures --uses walker at home Pelvic hematoma 2018 --fluid collection seen on CT, smaller than previously seen --h/h stable FEN Fluids: NS@75mL/hr Electrolytes: replete as indicated Nutrition: NPO DVT prophylaxis: on coumadin Physical therapy Dispo: continues to require inpatient care. C Visit type - Emergency Visit Emergency Visit: Yes ED Registration Date: 03/28/20 Care time: The patient presented to the Emergency Department on the above date and was hospitalized for further evaluation of their emergent condition. - New Patient This patient is new to me today: Yes Date on this admission: 03/29/20 - Critical Care Critical Care patient: No
[2020-03-29 08:51] LABS: INR 1.93 (0.82-1.09); PROTHROMBIN TIME (PATIENT) 21.3 SEC (10.2-13.0)
[2020-03-29 08:55] LABS: BASO % 0.5 % (0-2.0); EOS % 1.5 % (0-4.5); HEMATOCRIT 41.8 % (32.4-45.2); HEMOGLOBIN 14.3 GM/dl (10.7-15.3); LYMPH % 27.8 % (8-40); MCH 28.8 pg (25.7-33.7); MCHC 34.2 g/dl (32.0-36.0); MEAN PLT VOLUME 9.5 fl (7.5-11.1); MONO % 6.3 % (3.8-10.2); NEUT % 63.9 % (42.8-82.8); PLATELET COUNT 293 K/MM3 (134-434); RBC 4.98 M/mm3 (3.60-5.2); RDW 13.8 % (11.6-15.6); WHITE BLOOD COUNT 9.1 K/mm3 (4.0-10.8)
[2020-03-29 08:58] LABS: CALCIUM 9.6 mg/dl (8.5-10); CREATININE 0.9 mg/dl (0.55-1.3); POTASSIUM 3.8 mmol/L (3.5-5.1)
[2020-03-29] MEDS ORDERED: DEXTROSE 5%-WATER - 50 ML IVPB ONE (09:47)
[2020-03-29] MEDS ORDERED: cefTRIAXone SODIUM 1 GM VIAL ONE (09:47)
[2020-03-29] MEDS: DULoxetine HCL 30 MG CAPSULE.DR PO SCH (09:51)
[2020-03-29] MEDS: DIGOXIN 0.125 MG TABLET (FP) PO SCH (09:51)
[2020-03-29] MEDS: MULTIVITAMINS (DAILY MVI) TABLET (FP) PO SCH (09:52)
[2020-03-29] MEDS: CEFTRIAXONE 1 GM in DEXTROSE 5%-WATER - 50 ML IVPB SCH (09:52)
--- NOTE | 2020-03-29 10:44 | EKG ---
Test Reason : Blood Pressure : / mmHG Vent. Rate : 071 BPM Atrial Rate : 070 BPM P-R Int : 000 ms QRS Dur : 134 ms QT Int : 420 ms P-R-T Axes : 027 -75 066 degrees QTc Int : 456 ms UNDETERMINED RHYTHM LEFT AXIS DEVIATION NON-SPECIFIC INTRA-VENTRICULAR CONDUCTION BLOCK POSSIBLE LATERAL INFARCT (CITED ON OR BEFORE 29-APR-2018) ABNORMAL ECG WHEN COMPARED WITH ECG OF 29-APR-2018 22:48, CURRENT UNDETERMINED RHYTHM PRECLUDES RHYTHM COMPARISON, NEEDS REVIEW QUESTIONABLE CHANGE IN QRS DURATION QUESTIONABLE CHANGE IN INITIAL FORCES OF ANTEROLATERAL LEADS Confirmed by MD Doran Daniel ([id number]) on 03/29/2020 10:44:01 AM Referred By: Confirmed By:Parveen Doran MD
[2020-03-29] MEDS ORDERED: SODIUM CHLORIDE 1,000 ML IV SCH (12:32)
[2020-03-29] MEDS: FUROSEMIDE 20 MG TABLET (FP) PO SCH (17:07)
[2020-03-29] MEDS: INSULIN SLIDING SCALE (NOVOLOG) 1 VIAL SQ SCH (17:48)
[2020-03-29] MEDS ORDERED: WARFARIN NA 2.5 MG TABLET PO SCH (18:00)
[2020-03-29] MEDS ORDERED: PT OWN MED DRAWER 7, Y5N ONE (20:35)
[2020-03-29] MEDS: ATORVASTATIN CA 20 MG TABLET (FP) PO SCH (21:41)
[2020-03-29] MEDS: DOXAZOSIN MESYLATE 2 MG TABLET PO SCH (21:41)
[2020-03-30] MEDS: FUROSEMIDE 20 MG TABLET (FP) PO SCH ×2 (06:48→14:50)
[2020-03-30] MEDS: INSULIN SLIDING SCALE (NOVOLOG) 1 VIAL SQ SCH ×3 (06:57→21:56)
--- NOTE | 2020-03-30 07:15 | CONSULT ---
- Consultation REQUESTING PROVIDER: Abiodun ATHLETIC EQUIPMENT CUSTODIAN CONSULT REQUEST: We have been asked to surgically evaluate this patient for po ssible symptomatic gallbladder disease. PCP:Nena Rascon HISTORY OF PRESENT ILLNESS: NANDA who is an 84 y/o female who presents to the [facility] ED with NBNB vomiting, abdominal pain with generalized weakness x 1 week. 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 PMHx: Afib/HTN/HLDNIDDM/asthma/depression/pelvic hematoma s/p full and supratherapeutic INR 2017 PSHx: ? Home Medications Medication Instructions Recorded Digoxin [Lanoxin -] 0.125 mg PO DAILY 04/26/18 Diltiazem HCl [Cartia Xt] 180 mg PO DAILY 04/26/18 Doxazosin Mesylate 2 mg PO HS 04/26/18 Duloxetine HCl 30 mg PO DAILY 04/26/18 Furosemide 20 mg PO BID 04/26/18 Glucosamine/D3/Boswellia Amanda 1 each PO DAILY 04/26/18 [Glucosamine Complex Tablet] Metformin HCl [Glucophage] 500 mg PO DAILY 04/26/18 Multivitamin [Multiple Vitamins] 1 each PO DAILY 04/26/18 [place]ie-3/Dha/Epa/Fish Oil [Fish Oil 1 each PO DAILY 04/26/18 1,000 mg Softgel] Pitavastatin Calcium [Livalo] 1 mg PO DAILY 04/26/18 Warfarin Sodium [Coumadin] 2.5 mg PO ASDIR 04/26/18 Atorvastatin Ca [Lipitor] 20 mg PO HS 03/28/20 Allergies Allergy/AdvReac Type Severity Reaction Status Date / Time Sulfa (Sulfonamide Allergy Unknown Verified 03/28/20 18:13 Antibiotics) [Sulfa(Sulfonamide Antibiotics)] ciprofloxacin [From Cipro] Allergy Verified 03/28/20 18:13 ciprofloxacin HCl Allergy Verified 03/28/20 18:13 [From Cipro] levofloxacin [From Levaquin] AdvReac Unknown Verified 03/28/20 18:13 REVIEW OF SYSTEMS: CONSTITUTIONAL: Absent: fever, chills, diaphoresis, Present: generalized weakness, malaise, loss of appetite, weight change CARDIOVASCULAR: Present: chest pain, syncope, palpitations, irregular heart rate, lightheadedness, peripheral edema RESPIRATORY: Absent: cough, shortness of breath, dyspnea with exertion, wheezing, stridor, hemoptysis GASTROINTESTINAL: Present: abdominal pain, abdominal distension, nausea, vomiting, Absent:diarrhea, constipation, melena, hematochezia GENITOURINARY: Absent: dysuria, frequency, urgency, hesitancy, hematuria, flank pain, genital pain MUSCULOSKELETAL: Absent: myalgia, arthralgia, joint swelling, back pain, neck pain SKIN: Absent: rash, itching, pallor HEMATOLOGIC/IMMUNOLOGIC: Present: easy bleeding, easy bruising, lymphadenopathy NEUROLOGIC: Absent: headache, focal weakness, paresthesias, dizziness, unsteady gait, seizure, mental status changes, bladder or bowel incontinence PSYCHIATRIC: Absent: anxiety, depression, suicidal or homicidal ideation, hallucinations. PHYSICAL EXAM: GENERAL: Awake, alert, and fully oriented, in no acute distress. HEAD: Normal with no signs of trauma. EYES:, sclera anicteric, conjunctiva clear. NECK: Normal ROM, supple without lymphadenopathy, JVD, or masses. ABDOMEN: Soft, nontender, not distended, normoactive bowel sounds, no guarding, no rebound, no masses. No organomegaly. No hernias; absent Springer sign MUSCULOSKELETAL: Normal ROM at all joints. No bony deformities or tenderness. No CVA tenderness. UPPER EXTREMITIES: 2+ pulses, warm, well-perfused. No cyanosis. Cap refill <2 seconds. No peripheral edema. LOWER EXTREMITIES: 2+ pulses, warm, well-perfused. No calf tenderness. No peripheral edema. NEUROLOGICAL: Normal speech, gait not observed. PSYCH: Cooperative. Good eye contact. Appropriate mood and affect. SKIN: Warm, dry, normal turgor, no rashes or lesions noted. Vital Signs Temperature 98.5 F 03/30/20 04:00 Pulse Rate 68 03/30/20 04:00 Respiratory Rate 18 03/30/20 04:00 Blood Pressure 171/64 H 03/30/20 04:00 O2 Sat by Pulse Oximetry (%) 94 L 03/30/20 04:00 Lab Results WBC 9.1 K/mm3 (4.0-10.8) 03/29/20 07:09 RBC 4.98 M/mm3 (3.60-5.2) 03/29/20 07:09 Hgb 14.3 GM/dl (10.7-15.3) 03/29/20 07:09 Hct 41.8 % (32.4-45.2) 03/29/20 07:09 MCV 84.0 fl (80-96) 03/29/20 07:09 MCHC 34.2 g/dl (32.0-36.0) 03/29/20 07:09 RDW 13.8 % (11.6-15.6) 03/29/20 07:09 Plt Count 293 K/MM3 (134-434) 03/29/20 07:09 INR 1.93 (0.82-1.09) H 03/29/20 07:09 Sodium 137 mmol/L (136-145) 03/29/20 07:09 Potassium 3.8 mmol/L (3.5-5.1) 03/29/20 07:09 Chloride 99 mmol/L (98-107) 03/29/20 07:09 Carbon Dioxide 26 mmol/L (21-32) 03/29/20 07:09 Anion Gap 12 MMOL/L (8-16) 03/29/20 07:09 BUN 15.0 mg/dl (7-18) 03/29/20 07:09 Creatinine 0.9 mg/dl (0.55-1.3) 03/29/20 07:09 Random Glucose 103 mg/dl (74-106) 03/29/20 07:09 Calcium 9.6 mg/dl (8.5-10) 03/29/20 07:09 Imaging w/u reviwed; HIDA scan negative for cystic duct obstruction thereby precluding acute cholecystitis. IMP: ? biliary colic; cholelithiasis PLAN: NPO/IVF/analgesia as needed and advance diet as tolerated; no indication for operative intervention at this time in this patient who is anticoagulated and has # comorbid conditions; should this course of tx. not be effective consideration for a percutaneous cholecystostomy might be indicated. Pedro Thomas MD FACS
[2020-03-30 08:23] LABS: ALBUMIN 3.6 g/dl (3.4-5.0); BASO % 0.7 % (0-2.0); BILIRUBIN,TOTAL 0.6 mg/dl (0.2-1); CALCIUM 9.2 mg/dl (8.5-10); CREATININE 0.8 mg/dl (0.55-1.3); EOS % 1.3 % (0-4.5); HEMATOCRIT 42.8 % (32.4-45.2); HEMOGLOBIN 14.4 GM/dl (10.7-15.3); LYMPH % 19.2 % (8-40); MCH 28.4 pg (25.7-33.7); MCHC 33.7 g/dl (32.0-36.0); MEAN CELL VOLUME 84.2 fl (80-96); MEAN PLT VOLUME 9.4 fl (7.5-11.1); MONO % 5.7 % (3.8-10.2); NEUT % 73.1 % (42.8-82.8); PHOSPHOROUS 3.7 mg/dl (2.5-4.9); PLATELET COUNT 263 K/MM3 (134-434); POTASSIUM 3.5 mmol/L (3.5-5.1); RBC 5.08 M/mm3 (3.60-5.2); RDW 13.6 % (11.6-15.6); TOT PROT 6.5 g/dl (6.4-8.2); WHITE BLOOD COUNT 9.1 K/mm3 (4.0-10.8)
[2020-03-30 08:30] LABS: INR 2.77 (0.82-1.09); PROTHROMBIN TIME (PATIENT) 30.4 SEC (10.2-13.0)
[2020-03-30] MEDS ORDERED: cefTRIAXone SODIUM 1 GM VIAL ONE (09:08)
[2020-03-30] MEDS ORDERED: DEXTROSE 5%-WATER - 50 ML IVPB ONE (09:09)
[2020-03-30] MEDS: MULTIVITAMINS (DAILY MVI) TABLET (FP) PO SCH (09:13)
[2020-03-30] MEDS: DULoxetine HCL 30 MG CAPSULE.DR PO SCH (09:14)
[2020-03-30] MEDS: DIGOXIN 0.125 MG TABLET (FP) PO SCH (09:15)
[2020-03-30] MEDS: CEFTRIAXONE 1 GM in DEXTROSE 5%-WATER - 50 ML IVPB SCH (09:15)
--- NOTE | 2020-03-30 12:12 | PN ---
Physical Exam: SUBJECTIVE: Patient seen and examined. Very glad to have liquids this morning, tolerated well, no nausea or vomiting. Feels hungry. OBJECTIVE: Vital Signs Period Temp Pulse Resp BP Sys/Srivastava Pulse Ox Last 24 Hr 96 F-98.5 F 68-73 16-18 151-171/54-73 94-96 GENERAL: The patient is awake, alert, and fully oriented, in no acute distress. LUNGS: Breath sounds equal, clear to auscultation bilaterally, no wheezes, no crackles, no accessory muscle use. HEART: Irregular, S1, S2 ABDOMEN: +RUQ tenderness, soft, not distended EXTREMITIES: 2+ pulses, warm, well-perfused, no edema. NEUROLOGICAL: Cranial nerves II through XII grossly intact. Normal speech SKIN: Warm, dry, normal turgor Laboratory Results - last 24 hr 03/28/20 03/29/20 03/29/20 17:54 12:46 17:47 WBC RBC Hgb Hct MCV MCH MCHC RDW Plt Count MPV Absolute Neuts (auto) Neutrophils % Lymphocytes % Monocytes % Eosinophils % Basophils % PT with INR INR Sodium Potassium Chloride Carbon Dioxide Anion Gap BUN Creatinine Est GFR (CKD-EPI)AfAm Est GFR (CKD-EPI)NonAf POC Glucometer 77 83 Random Glucose Lactic Acid Calcium Phosphorus Total Bilirubin AST ALT Alkaline Phosphatase Total Protein Albumin COVID-19 ([facility]IO) Not detected 03/29/20 03/30/20 03/30/20 20:38 06:58 06:58 WBC 9.1 RBC 5.08 Hgb 14.4 Hct 42.8 MCV 84.2 MCH 28.4 MCHC 33.7 RDW 13.6 Plt Count 263 MPV 9.4 Absolute Neuts (auto) 6.6 Neutrophils % 73.1 Lymphocytes % 19.2 Monocytes % 5.7 Eosinophils % 1.3 Basophils % 0.7 PT with INR 30.4 H INR 2.77 H Sodium Potassium Chloride Carbon Dioxide Anion Gap BUN Creatinine Est GFR (CKD-EPI)AfAm Est GFR (CKD-EPI)NonAf POC Glucometer 74 Random Glucose Lactic Acid Calcium Phosphorus Total Bilirubin AST ALT Alkaline Phosphatase Total Protein Albumin COVID-19 ([facility]IO) 03/30/20 03/30/20 03/30/20 06:58 07:07 09:27 WBC RBC Hgb Hct MCV MCH MCHC RDW Plt Count MPV Absolute Neuts (auto) Neutrophils % Lymphocytes % Monocytes % Eosinophils % Basophils % PT with INR INR Sodium 138 Potassium 3.5 Chloride 100 Carbon Dioxide 21 Anion Gap 17 H BUN 15.0 Creatinine 0.8 Est GFR (CKD-EPI)AfAm 77.92 Est GFR (CKD-EPI)NonAf 67.23 POC Glucometer 70 Random Glucose 69 L Lactic Acid 1.0 Calcium 9.2 Phosphorus 3.7 Total Bilirubin 0.6 AST 15 ALT 14 Alkaline Phosphatase 72 Total Protein 6.5 Albumin 3.6 COVID-19 ([facility]IO) Active Medications Generic Name Dose Route Start Last Admin Trade Name Freq PRN Reason Stop Dose Admin Atorvastatin Calcium 20 mg 03/29/20 22:00 03/29/20 21:41 Lipitor - PO 20 mg HS VIDA Administration Digoxin 0.125 mg 03/29/20 10:00 03/30/20 09:15 Lanoxin - PO 0.125 mg DAILY [facility]IDA Administration Diltiazem HCl 180 mg 03/29/20 10:00 03/30/20 06:48 Cardizem Cd - PO 180 mg DAILY VIDA Administration Doxazosin Mesylate 2 mg 03/29/20 22:00 03/29/20 21:41 Cardura - PO 2 mg HS VIDA Administration Duloxetine HCl 30 mg 03/29/20 10:00 03/30/20 09:14 Cymbalta - PO 30 mg DAILY [facility]IDA Administration Furosemide 20 mg 03/29/20 14:00 03/30/20 06:48 Lasix - PO 20 mg BIDLASIX VIDA Administration Ceftriaxone Sodium 1 gm/ 50 mls @ 100 mls/hr 03/29/20 10:00 03/30/20 09:15 Dextrose IVPB 100 mls/hr DAILY [facility] Administration Protocol Sodium Chloride 1,000 mls @ 75 mls/hr 03/29/20 12:32 03/29/20 12:06 Normal Saline - IV 75 mls/hr ASDIR VIDA Administration Insulin Aspart 1 vial 03/29/20 16:30 03/29/20 17:48 Novolog Vial Sliding Scale - SQ Not Given ACHS VIDA Protocol Multivitamins/Minerals/Vitamin C 1 tab 03/29/20 10:00 03/30/20 09:13 Tab-A-Vit - PO 1 tab DAILY [facility] Administration Warfarin Sodium 2.5 mg 03/30/20 18:00 Coumadin - PO TUTH@1800 [facility] Warfarin Sodium 3.75 mg 03/29/20 18:00 03/29/20 17:56 Coumadin - PO 3.75 mg [email or web address]@1800 [facility] Administration PCP: Dr. Guerra Cardiology: Dr. Farmer ASSESSMENT/PLAN: 84 year-old female with a PMH significant for HTN, HLD, CAD, diastolic HF, afib on coumadin, aortic stenosis s/p tissue AVR 2004, Type II NIDDM, pelvic hematoma s/p fall 2018, right-sided hydronephrosis s/p ureteral stents x 6, recurrent UTIs, and chronic compression fractures. Admitted for hydrops of the gallbladder. Hydrops of the gallbladder Cholelithiasis --CT: hydrops gallbladder with multiple stones, no CT evidence of acute cholecystitis --HIDA scan: filling of the gallbladder excludes acute cystic duct obstruction --seen and evaluated by surgery Dr. Thomas: advance diet as tolerated, no indication for surgical intervention at this time, patient is anticoagulated and has comorbid conditions; if treatment not effective, consideration for a percutaneous cholecystosomy Diastolic heart failure, chronic --appears euvolemic --continue home dose lasix PO 20mg BID --monitor renal function --seen and evaluated by cardiology Atrial fibrillation --INR 2.77, continue current dosing of coumadin --rate is controlled, continue diltiazem, digoxin (dig level therapeutic) Coronary artery disease --continue statin; not on beta jarad or ASA therapy Aortic stenosis s/p tAVR --stable Type II NIDDM --Novolog sliding scale coverage --fingersticks q6h while NPO Hypertension --continue diltiazem Hyperlipidemia --continue statin Right hydronephrosis, chronic s/p ureteral stents --CT shows moderate to marked hydronephrosis, seen previously in 2018; possible right ureteropelvic junction stenosis --stents placed at [facility], patient cannot recall name of urologist, will obtain --renal function is stable, voiding freely Recurrent UTIs Pyuria --asymptomatic, no fever, no leukocytosis; observe off antibiotics for now Chronic compression fractures --uses walker at home Pelvic hematoma 2018 --fluid collection seen on CT, smaller than previously seen --h/h stable FEN Fluids: NS@75mL/hr Electrolytes: replete as indicated Nutrition: clears DVT prophylaxis: on coumadin Physical therapy Dispo: continues to require inpatient care. Visit type - Emergency Visit Emergency Visit: Yes ED Registration Date: 03/28/20 Care time: The patient presented to the Emergency Department on the above date and was hospitalized for further evaluation of their emergent condition. - New Patient This patient is new to me today: No - Critical Care Critical Care patient: No
[2020-03-30 14:16] VITALS: BMI 20.3
--- NOTE | 2020-03-30 17:07 | CON.CARD ---
Cardiology Consult (text) - Consultation Consultation Note: Chief Complaint: nausea History of Present Illness: 84 yo female, h/o cad, afib, bio AVR, HTN, HL, chronic diastolic HF, DM, ureteral stents, recurrent uti's, dementia with fall, L5 fx, here with nausea. Also some malaise. No cp sob palps dizzy loc pnd orthopnea le edema. Found to have likely cholecystitis, on abx. - Past Medical History 3D ARTIST: Yes: Peripheral Neuropathy Cardio/Vascular: Yes: AFIB, Aortic Stenosis, CAD, CHF, HTN, Hyperlipdemia, Other (peripheral vascular disease) Psych: Yes: Depression Musculoskeletal: Yes: Other (scoliosis) Rheumatology: Yes: Other (osteoporosis) Endocrine: Yes: Diabetes Mellitus, Other (vit d def) - Past Surgical History Past Surgical History: Yes: Appendectomy, CABG, Cataract Removal, Tonsillectomy, Valve Replacement (Aortic -Porcine) - Alcohol/Substance Use Hx Alcohol Use: Yes (social) - Smoking History Smoking history: Former smoker Have you smoked in the past 12 months: No Aproximately how many cigarettes per day: 0 If you are a former smoker, when did you quit?: 40 years ago - Social History 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[employer]) Home Medications - Allergies Allergies/Adverse Reactions: Allergies Allergy/AdvReac Type Severity Reaction Status Date / Time Sulfa (Sulfonamide Allergy Unknown Verified 03/28/20 18:13 Antibiotics) [Sulfa(Sulfonamide Antibiotics)] ciprofloxacin [From Cipro] Allergy Verified 03/28/20 18:13 ciprofloxacin HCl Allergy Verified 03/28/20 18:13 [From Cipro] levofloxacin [From Levaquin] AdvReac Unknown Verified 03/28/20 18:13 Home Medications Medication Instructions Recorded Digoxin [Lanoxin -] 0.125 mg PO DAILY 04/26/18 Diltiazem HCl [Cartia Xt] 180 mg PO DAILY 04/26/18 Doxazosin Mesylate 2 mg PO HS 04/26/18 Duloxetine HCl 30 mg PO DAILY 04/26/18 Furosemide 20 mg PO BID 04/26/18 Glucosamine/D3/Boswellia Amanda 1 each PO DAILY 04/26/18 [Glucosamine Complex Tablet] Metformin HCl [Glucophage] 500 mg PO DAILY 04/26/18 Multivitamin [Multiple Vitamins] 1 each PO DAILY 08/05/18 [place]-3/Dha/Epa/Fish Oil [Fish Oil 1 each PO DAILY 04/26/18 1,000 mg Softgel] Pitavastatin Calcium [Livalo] 1 mg PO DAILY 04/26/18 Warfarin Sodium [Coumadin] 2.5 mg PO ASDIR 04/26/18 Atorvastatin Ca [Lipitor] 20 mg PO HS 03/28/20 Family Disease History - Family Disease History Family Disease History: CA: Mother (Lung CA), Other: Father (AAA, COPD) Review of Systems per hpi; all others nl Vital Signs Period Temp Pulse Resp BP Sys/Srivastava Pulse Ox Last 24 Hr 97.9 F-98.5 F 68-76 16-20 151-171/54-65 94-96 Constitutional: Yes: Well Nourished, No Distress, Calm Eyes: Yes: Conjunctiva Clear, EOM Intact HENT: Yes: Atraumatic, Normocephalic Neck: Yes: Supple Respiratory: Yes: Regular, CTA Bilaterally Gastrointestinal: Yes: Normal Bowel Sounds, Soft, Tenderness (mild to palpation) Cardiovascular: Yes: irreg Edema: No Neurological: Yes: Alert, Oriented Psychiatric: Yes: Alert, Oriented no jaundice diaphoresis Laboratory Last Values WBC 9.1 K/mm3 (4.0-10.8) 03/30/20 06:58 RBC 5.08 M/mm3 (3.60-5.2) 03/30/20 06:58 Hgb 14.4 GM/dl (10.7-15.3) 03/30/20 06:58 Hct 42.8 % (32.4-45.2) 03/30/20 06:58 MCV 84.2 fl (80-96) 03/30/20 06:58 MCH 28.4 pg (25.7-33.7) 03/30/20 06:58 MCHC 33.7 g/dl (32.0-36.0) 03/30/20 06:58 RDW 13.6 % (11.6-15.6) 03/30/20 06:58 Plt Count 263 K/MM3 (134-434) 03/30/20 06:58 MPV 9.4 fl (7.5-11.1) 03/30/20 06:58 Absolute Neuts (auto) 6.6 K/mm3 03/30/20 06:58 Neutrophils % 73.1 % (42.8-82.8) 03/30/20 06:58 Lymphocytes % 19.2 % (8-40) 03/30/20 06:58 Monocytes % 5.7 % (3.8-10.2) 03/30/20 06:58 Eosinophils % 1.3 % (0-4.5) 03/30/20 06:58 Basophils % 0.7 % (0-2.0) 03/30/20 06:58 PT with INR 30.4 SEC (10.2-13.0) H 03/30/20 06:58 INR 2.77 (0.82-1.09) H 03/30/20 06:58 PTT (Actin FS) 31.9 SECONDS (25.2-36.5) 03/28/20 14:17 Sodium 138 mmol/L (136-145) 03/30/20 06:58 Potassium 3.5 mmol/L (3.5-5.1) 03/30/20 06:58 Chloride 100 mmol/L (98-107) 03/30/20 06:58 Carbon Dioxide 21 mmol/L (21-32) 03/30/20 06:58 Anion Gap 17 MMOL/L (8-16) H 03/30/20 06:58 BUN 15.0 mg/dl (7-18) 03/30/20 06:58 Creatinine 0.8 mg/dl (0.55-1.3) 03/30/20 06:58 Est GFR (CKD-EPI)AfAm 77.92 03/30/20 06:58 Est GFR (CKD-EPI)NonAf 67.23 03/30/20 06:58 POC Glucometer 108 UNITS (80-120) 03/30/20 16:37 Random Glucose 69 mg/dl (74-106) L 03/30/20 06:58 Lactic Acid 1.0 mmol/L (0.4-2.0) 03/30/20 09:27 Calcium 9.2 mg/dl (8.5-10) 03/30/20 06:58 Phosphorus 3.7 mg/dl (2.5-4.9) 03/30/20 06:58 Total Bilirubin 0.6 mg/dl (0.2-1) 03/30/20 06:58 AST 15 U/L (15-37) 03/30/20 06:58 ALT 14 U/L (13-61) 03/30/20 06:58 Alkaline Phosphatase 72 U/L (45-117) 03/30/20 06:58 Creatine Kinase 25 U/L (26-192) L 03/28/20 14:17 Troponin I < 0.03 ng/ml (0.00-0.05) 03/28/20 14:17 Total Protein 6.5 g/dl (6.4-8.2) 03/30/20 06:58 Albumin 3.6 g/dl (3.4-5.0) 03/30/20 06:58 Urine Color Yellow 03/28/20 14:10 Urine Appearance Clear 03/28/20 14:10 Urine pH 6.0 (4.5-8) 03/28/20 14:10 Urine Protein 2+ (NEGATIVE) H 03/28/20 14:10 Urine Glucose (UA) Negative (NEGATIVE) 03/28/20 14:10 Urine Ketones 1+ (NEGATIVE) H 03/28/20 14:10 Urine Blood Trace-intact (NEGATIVE) 03/28/20 14:10 Urine Nitrite Positive (NEGATIVE) H 03/28/20 14:10 Urine Bilirubin Negative (NEGATIVE) 03/28/20 14:10 Urine Urobilinogen 0.2 (0.2-1.0) 03/28/20 14:10 Ur Leukocyte Esterase 1+ (NEGATIVE) 03/28/20 14:10 Urine RBC 5-10 /hpf (0-4) 03/28/20 14:10 Urine WBC 40-60 (NEGATIVE) 03/28/20 14:10 Ur Transition Epith Cell Many /hpf 03/28/20 14:10 Urine Bacteria Many /hpf (NEGATIVE) 03/28/20 14:10 Urine Mucus 2+ 03/28/20 14:10 Digoxin 0.80 ng/ml (0.8-2.0) 03/28/20 14:17 COVID-19 ([facility]) Not detected (Not Detected) 03/28/20 17:54 ecg: afib, rate ok, rbbb cxr: clear lungs echo 03/28/17 nl lv/rv function, bio avr without sig stenosis, mild to mod MR, mod to sev pHTN, echo 04/2018 technically difficult, uninterpetable tele: afib, rate ok a/p: 84 yo female, h/o cad, afib, bio AVR, HTN, HL, chronic diastolic HF, DM, ureteral stents, recurrent uti's, dementia with fall, L5 fx, here with nausea. cholecystitis: -seen by surgery, plan for conservative tx first -No cardiac contraindications to surgery if needed for cholecystitis. Can hold coumadin temporarily if needed and bridge with heparin. afib - rate controlled on dilt and dig (level ok) - on coumadin per inr CAD, remote cabg (per charts) - stable, no signs acs - continue statin, ac bioAVR -stable htn -cont dilt diastolic heart failure - Cr stable, continue home lasix
[2020-03-30] MEDS ORDERED: WARFARIN NA 2.5 MG TABLET PO SCH (18:00)
[2020-03-30] MEDS: ATORVASTATIN CA 20 MG TABLET (FP) PO SCH (21:14)
[2020-03-30] MEDS: DOXAZOSIN MESYLATE 2 MG TABLET PO SCH (21:14)
[2020-03-31] MEDS ORDERED: LOCK ITEM NR ONE (04:34)
[2020-03-31] MEDS: FUROSEMIDE 20 MG TABLET (FP) PO SCH ×2 (06:56→13:35)
[2020-03-31] MEDS: INSULIN SLIDING SCALE (NOVOLOG) 1 VIAL SQ SCH ×4 (06:57→21:05)
[2020-03-31 08:21] LABS: INR 3.65 (0.82-1.09); PROTHROMBIN TIME (PATIENT) 39.8 SEC (10.2-13.0)
--- NOTE | 2020-03-31 08:28 | PN ---
Progress Note (short form) - Note Progress Note: Attending Surgeon No c/o; tolerating diet; no pain VSS AF abdo-soft and non tender WBC and LFT's nl IMP: doing well PLAN: PRN surgical f/u. Pedro Thomas MD FACS
[2020-03-31] MEDS ORDERED: cefTRIAXone SODIUM 1 GM VIAL ONE (09:13)
[2020-03-31] MEDS ORDERED: DEXTROSE 5%-WATER - 50 ML IVPB ONE (09:13)
[2020-03-31] MEDS: MULTIVITAMINS (DAILY MVI) TABLET (FP) PO SCH (09:19)
[2020-03-31] MEDS: DULoxetine HCL 30 MG CAPSULE.DR PO SCH (09:19)
[2020-03-31] MEDS: CEFTRIAXONE 1 GM in DEXTROSE 5%-WATER - 50 ML IVPB SCH (09:20)
[2020-03-31] MEDS: DIGOXIN 0.125 MG TABLET (FP) PO SCH (09:20)
--- NOTE | 2020-03-31 10:05 | PN ---
Progress Note, Physician Chief Complaint: No CP/SOB/dizziness TELE: Mariela PLAOMINO History of Present Illness: 84 yo female, h/o cad, afib, bio AVR, HTN, HL, chronic diastolic HF, DM, ureteral stents, recurrent uti's, dementia with fall, L5 fx, here with nausea. Also some malaise. No cp sob palps dizzy loc pnd orthopnea le edema. Found to have likely cholecystitis, on abx. - Current Medication List Current Medications: Active Medications Atorvastatin Calcium (Lipitor -) 20 mg PO HS [facility] Last Admin: 03/30/20 21:14 Dose: 20 mg Documented by: Digoxin (Lanoxin -) 0.125 mg PO DAILY [facility] Last Admin: 03/31/20 09:20 Dose: 0.125 mg Documented by: Diltiazem HCl (Cardizem Cd -) 180 mg PO DAILY [facility] Last Admin: 03/31/20 09:20 Dose: 180 mg Documented by: Doxazosin Mesylate (Cardura -) 2 mg PO [facility] Last Admin: 03/30/20 21:14 Dose: 2 mg Documented by: Duloxetine HCl (Cymbalta -) 30 mg PO DAILY [facility] Last Admin: 03/31/20 09:19 Dose: 30 mg Documented by: Furosemide (Lasix -) 20 mg PO BIDLASIX [facility] Last Admin: 03/31/20 06:56 Dose: 20 mg Documented by: Ceftriaxone Sodium 1 gm/ (Dextrose) 50 mls @ 100 mls/hr IVPB DAILY [facility]; Protocol Last Admin: 03/31/20 09:20 Dose: 100 mls/hr Documented by: Insulin Aspart (Novolog Vial Sliding Scale -) 1 vial SQ ACHS [facility]; Protocol Last Admin: 03/31/20 06:57 Dose: Not Given Documented by: Multivitamins/Minerals/Vitamin C (Tab-A-Vit -) 1 tab PO DAILY [facility] Last Admin: 03/31/20 09:19 Dose: 1 tab Documented by: Warfarin Sodium (Coumadin -) 2.5 mg PO TUTH@1800 [facility] Last Admin: 03/30/20 17:55 Dose: 2.5 mg Documented by: Warfarin Sodium (Coumadin -) 3.75 mg PO SuMoWeFrSa@1800 [facility] Last Admin: 03/29/20 17:56 Dose: 3.75 mg Documented by: - Objective Vital Signs: Vital Signs Temperature 98.7 F 03/31/20 09:01 Pulse Rate 62 03/31/20 09:20 Respiratory Rate 16 03/31/20 09:44 Blood Pressure 143/57 L 03/31/20 09:01 O2 Sat by Pulse Oximetry (%) 95 03/31/20 09:44 Constitutional: Yes: No Distress, Calm Eyes: Yes: Conjunctiva Clear, EOM Intact HENT: Yes: Atraumatic, Normocephalic Cardiovascular: Yes: Regular Rate and Rhythm Respiratory: Yes: CTA Bilaterally Gastrointestinal: Yes: Soft (NT) Edema: No Neurological: Yes: Alert, Oriented ...Motor Strength: WNL Labs: CBC, BMP 03/30/20 06:58 03/30/20 06:58 INR, PTT INR 3.65 (0.82-1.09) H 03/31/20 07:00 Laboratory Tests 03/31/20 07:00 INR 3.65 H - ....Imaging EKG: Image Reviewed Assessment/Plan cxr: clear lungs echo 03/28/17 nl lv/rv function, bio avr without sig stenosis, mild to mod MR, mod to sev pHTN, echo 04/2018 technically difficult, uninterpetable a/p: 84 yo female, h/o cad, afib, bio AVR, HTN, HL, chronic diastolic HF, DM, ureteral stents, recurrent uti's, dementia with fall, L5 fx, here with nausea. cholecystitis: -seen by surgery, plan for conservative tx -No cardiac contraindications to surgery if needed for cholecystitis. Can hold coumadin temporarily if needed and bridge with heparin. afib: - rate controlled on dilt and dig (level ok) - on coumadin per inr CAD, remote cabg (per charts): - stable, no signs acs - continue statin, ac bioAVR: -stable htn: -cont dilt diastolic heart failure: - Cr stable, continue home lasix
--- NOTE | 2020-03-31 11:53 | PN ---
Physical Exam: SUBJECTIVE: Patient seen and examined. Tolerating low fiber diet, no nausea, vomiting, or pain. Feels weak. Could only walk few feet to door with PT this morning requiring 2 person assist. OBJECTIVE: Vital Signs Period Temp Pulse Resp BP Sys/Srivastava Pulse Ox Last 24 Hr 97.9 F-98.7 F 62-76 16-20 143-165/55-63 95-97 GENERAL: The patient is awake, alert, and fully oriented, in no acute distress. LUNGS: Breath sounds equal, clear to auscultation bilaterally, no wheezes, no crackles, no accessory muscle use. HEART: Irregular, S1, S2 ABDOMEN: +RUQ tenderness, soft, not distended EXTREMITIES: 2+ pulses, warm, well-perfused, no edema. NEUROLOGICAL: Cranial nerves II through XII grossly intact. Normal speech SKIN: Warm, dry, normal turgor Laboratory Results - last 24 hr 03/30/20 03/30/20 03/30/20 09:27 16:37 21:44 PT with INR INR POC Glucometer 108 92 Lactic Acid 1.0 03/31/20 03/31/20 05:58 07:00 PT with INR 39.8 H INR 3.65 H POC Glucometer 82 Lactic Acid Active Medications Generic Name Dose Route Start Last Admin Trade Name Freq PRN Reason Stop Dose Admin Atorvastatin Calcium 20 mg 03/29/20 22:00 03/30/20 21:14 Lipitor - PO 20 mg HS [facility] Administration Digoxin 0.125 mg 03/29/20 10:00 03/31/20 09:20 Lanoxin - PO 0.125 mg DAILY [facility] Administration Diltiazem HCl 180 mg 03/29/20 10:00 03/31/20 09:20 Cardizem Cd - PO 180 mg DAILY [facility] Administration Doxazosin Mesylate 2 mg 03/29/20 22:00 03/30/20 21:14 Cardura - PO 2 mg HS [facility] Administration Duloxetine HCl 30 mg 03/29/20 10:03/31/20 09:19 Cymbalta - PO 30 mg DAILY [facility] Administration Furosemide 20 mg 03/29/20 14:00 03/31/20 06:56 Lasix - PO 20 mg BIDLASIX [facility] Administration Ceftriaxone Sodium 1 gm/ 50 mls @ 100 mls/hr 03/29/20 10:00 03/31/20 09:20 Dextrose IVPB 100 mls/hr DAILY [facility] Administration Protocol Insulin Aspart 1 vial 03/29/20 16:30 03/31/20 06:57 Novolog Vial Sliding Scale - SQ Not Given ACHS [facility] Protocol Multivitamins/Minerals/Vitamin C 1 tab 03/29/20 10:00 03/31/20 09:19 Tab-A-Vit - PO 1 tab DAILY [facility] Administration Warfarin Sodium 2.5 mg 03/30/20 18:00 03/30/20 17:55 Coumadin - PO 2.5 mg TUTH@1800 [facility] Administration Warfarin Sodium 3.75 mg 03/29/20 18:00 03/29/20 17:56 Coumadin - PO 3.75 mg SuMoWeFrSa@1800 [facility] Administration Microbiology 03/28/20 14:10 Urine - Urine Clean Catch Urine Culture - Final Serratia Marcescens ASSESSMENT/PLAN: PCP: Dr. Guerra Cardiology: Dr. Farmer ASSESSMENT/PLAN: 84 year-old female with a PMH significant for HTN, HLD, CAD, diastolic HF, afib on coumadin, aortic stenosis s/p tissue AVR 2004, Type II NIDDM, pelvic hematoma s/p fall 2018, right-sided hydronephrosis s/p ureteral stents x 6, recurrent UTIs, and chronic compression fractures. Admitted for hydrops of the gallbladder. Hydrops of the gallbladder Cholelithiasis --CT: hydrops gallbladder with multiple stones, no CT evidence of acute cholecystitis --HIDA scan: filling of the gallbladder excludes acute cystic duct obstruction --seen and evaluated by surgery Dr. Thomas: advance diet as tolerated, no indication for surgical intervention at this time, patient is anticoagulated and has comorbid conditions; if treatment not effective, consideration for a percutaneous cholecystosomy --clinically much improved, tolerating low fiber diet Diastolic heart failure, chronic --appears euvolemic --continue home dose lasix PO 20mg BID --renal function stable Atrial fibrillation --INR 3.65, hold today's dose coumadin --rate is controlled, continue diltiazem, digoxin (dig level therapeutic) Coronary artery disease --continue statin; not on beta jarad or ASA therapy Aortic stenosis s/p tAVR --stable Type II NIDDM --Novolog sliding scale coverage --fingersticks ACHS Hypertension --continue diltiazem Hyperlipidemia --continue statin Right hydronephrosis, chronic s/p ureteral stents --CT shows moderate to marked hydronephrosis, seen previously in 2018; possible right ureteropelvic junction stenosis --stents placed at [facility] --renal function is stable, voiding freely Serratia UTI --no fever, no leukocytosis, but continues to be fatigued, weak --has been on empiric ceftriaxone, but serratia is resistant --start meropenem --ID to consult Chronic compression fractures --uses walker at home Pelvic hematoma 2018 --fluid collection seen on CT, smaller than previously seen --h/h stable FEN Fluids: PO intake adequate Electrolytes: replete as indicated Nutrition: clears DVT prophylaxis: on coumadin Physical therapy Dispo: continues to require inpatient care. Visit type - Emergency Visit Emergency Visit: Yes ED Registration Date: 03/28/20 Care time: The patient presented to the Emergency Department on the above date and was hospitalized for further evaluation of their emergent condition. - New Patient This patient is new to me today: No - Critical Care Critical Care patient: No
[2020-03-31] MEDS ORDERED: MEROPENEM 1 GM in DEXTROSE 5%-WATER 100 ML IVPB SCH ×2 (12:00→13:30)
--- NOTE | 2020-03-31 14:05 | CON.ID ---
Consult Consult Specialty:: infectious diseases Referred by:: Reason for Consultation:: uti abd pain nausea and vomiting - History of Present Illness Chief Complaint: abd pain ,nausea and vomiting History of Present Illness: 84 y/o female with a PMHx of Afib, HTN, HLD, Diabetes Mellitus, Asthma, Depression. came with NBNB vomiting, abdominal pain with generalized weakness x 1 week. patient was admitted and worked up and found to have hydrops of h gb also was found to ahve uti surgery on board curently patient feels very weak,but says she is starting to feel better - History Source History Provided By: Patient Limitations to Obtaining History: No Limitations - Past Medical History SAFE AND [employer]ULT MECH[employer]IC: Yes: Peripheral Neuropathy Cardio/Vascular: Yes: AFIB, Aortic Stenosis, CAD, CHF, HTN, Hyperlipdemia, Other (peripheral vascular disease) ...LMP Comment: 84 YEARS OLD ...: No Psych: Yes: Depression Musculoskeletal: Yes: Other (scoliosis) Rheumatology: Yes: Other (osteoporosis) Endocrine: Yes: Diabetes Mellitus, Other (vit d def) - Past Surgical History Past Surgical History: Yes: Appendectomy, CABG, Cataract Removal, Tonsillectomy, Valve Replacement (Aortic -Porcine) - Alcohol/Substance Use Hx Alcohol Use: Yes (social) - Smoking History Smoking history: Former smoker Have you smoked in the past 12 months: No Aproximately how many cigarettes per day: 0 If you are a former smoker, when did you quit?: 40 years ago - Social History 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[employer]) Home Medications - Allergies Allergies/Adverse Reactions: Allergies Allergy/AdvReac Type Severity Reaction Status Date / Time Sulfa (Sulfonamide Allergy Unknown Verified 03/28/20 18:13 Antibiotics) [Sulfa(Sulfonamide Antibiotics)] ciprofloxacin [From Cipro] Allergy Verified 03/28/20 18:13 ciprofloxacin HCl Allergy Verified 03/28/20 18:13 [From Cipro] levofloxacin [From Levaquin] AdvReac Unknown Verified 03/28/20 18:13 - Home Medications Home Medications: Ambulatory Orders Digoxin [Lanoxin -] 0.125 mg PO DAILY 04/26/18 Diltiazem HCl [Cartia Xt] 180 mg PO DAILY 04/26/18 Doxazosin Mesylate 2 mg PO HS 04/26/18 Duloxetine HCl 30 mg PO DAILY 04/26/18 Furosemide 20 mg PO BID 04/26/18 Glucosamine/D3/Boswellia Amanda [Glucosamine Complex Tablet] 1 each PO DAILY Metformin HCl [Glucophage] 500 mg PO DAILY 04/26/18 Multivitamin [Multiple Vitamins] 1 each PO DAILY 04/26/18 [place]-3/Dha/Epa/Fish Oil [Fish Oil 1,000 mg Softgel] 1 each PO DAILY 04/26/18 Pitavastatin Calcium [Livalo] 1 mg PO DAILY 04/26/18 Warfarin Sodium [Coumadin] 2.5 mg PO ASDIR 04/26/18 Atorvastatin Ca [Lipitor] 20 mg PO HS 03/28/20 Review of Systems - Review of Systems Constitutional: reports: Weakness Eyes: reports: No Symptoms HENT: reports: No Symptoms Neck: reports: No Symptoms Cardiovascular: reports: No Symptoms Respiratory: reports: No Symptoms Gastrointestinal: reports: Abdominal Pain, Nausea, Vomiting Genitourinary: reports: Burning Musculoskeletal: reports: No Symptoms Integumentary: reports: No Symptoms Neurological: reports: No Symptoms Endocrine: reports: No Symptoms Hematology/Lymphatic: reports: No Symptoms Psychiatric: reports: No Symptoms Physical Exam Vital Signs: Vital Signs Temperature 98.7 F 03/31/20 09:01 Pulse Rate 62 03/31/20 09:20 Respiratory Rate 16 03/31/20 09:44 Blood Pressure 143/57 L 03/31/20 09:01 O2 Sat by Pulse Oximetry (%) 95 03/31/20 09:44 Constitutional: Yes: Calm, Mild Distress Eyes: Yes: Conjunctiva Clear HENT: Yes: Atraumatic, Normocephalic Cardiovascular: Yes: Pulse Irregular Respiratory: Yes: Regular, CTA Bilaterally Gastrointestinal: Yes: Normal Bowel Sounds, Soft Musculoskeletal: Yes: WNL Extremities: Yes: Erythema (b/l lowr legs), Other Integumentary: Yes: Erythema (legs) Neurological: Yes: Alert, Other (dementia) Psychiatric: Yes: Other Labs: CBC, BMP 03/30/20 06:58 03/30/20 06:58 Imaging - Results Chest X-ray: Report Reviewed, Image Reviewed Cat Scan: Report Reviewed, Image Reviewed Ultrasound: Report Reviewed, Image Reviewed Assessment/Plan Assessment/Plan 84 F Acute cholecystitis (conservative management) HTN HLD Afib on Coumadin AVR T2DM Recurrent falls Recurrent UTIs Nephrolithiasis Dementia plan will start patient on abx await for finalization nutrition rest as per the team
[2020-03-31] MEDS: ATORVASTATIN CA 20 MG TABLET (FP) PO SCH (21:07)
[2020-03-31] MEDS: DOXAZOSIN MESYLATE 2 MG TABLET PO SCH (21:07)
[2020-04-01] MEDS ORDERED: DEXTROSE 5%-WATER 100 ML IVPB ONE ×2 (00:09→14:48)
[2020-04-01] MEDS ORDERED: MEROPENEM 1 GM VIAL (RESTRICTED TO ID) IVPB ONE ×2 (00:10→14:49)
[2020-04-01] MEDS: MEROPENEM 1 GM in DEXTROSE 5%-WATER 100 ML IVPB SCH ×2 (01:36→15:05)
[2020-04-01] MEDS: INSULIN SLIDING SCALE (NOVOLOG) 1 VIAL SQ SCH ×3 (06:36→21:31)
[2020-04-01] MEDS: FUROSEMIDE 20 MG TABLET (FP) PO SCH ×2 (06:36→15:04)
[2020-04-01 08:29] LABS: BASO % 0.7 % (0-2.0); EOS % 1.6 % (0-4.5); HEMATOCRIT 42.5 % (32.4-45.2); HEMOGLOBIN 14.2 GM/dl (10.7-15.3); LYMPH % 16.1 % (8-40); MCH 28.4 pg (25.7-33.7); MCHC 33.4 g/dl (32.0-36.0); MEAN CELL VOLUME 85.1 fl (80-96); MEAN PLT VOLUME 8.4 fl (7.5-11.1); MONO % 7.8 % (3.8-10.2); NEUT % 73.8 % (42.8-82.8); PLATELET COUNT 277 K/MM3 (134-434); RDW 13.7 % (11.6-15.6); WHITE BLOOD COUNT 8.6 K/mm3 (4.0-10.8)
[2020-04-01 08:45] LABS: ALBUMIN 3.4 g/dl (3.4-5.0); BILIRUBIN,TOTAL 0.5 mg/dl (0.2-1); CALCIUM 9.1 mg/dl (8.5-10); CREATININE 0.8 mg/dl (0.55-1.3); POTASSIUM 3.3 mmol/L (3.5-5.1); TOT PROT 6.2 g/dl (6.4-8.2)
[2020-04-01 08:52] LABS: INR 2.68 (0.82-1.09); PROTHROMBIN TIME (PATIENT) 29.4 SEC (10.2-13.0)
[2020-04-01] MEDS ORDERED: POTASSIUM CHLORIDE TABS 20 MEQ TABLET.ER (FP) PO ONE (09:22)
[2020-04-01] MEDS: MULTIVITAMINS (DAILY MVI) TABLET (FP) PO SCH (10:50)
[2020-04-01] MEDS: DIGOXIN 0.125 MG TABLET (FP) PO SCH (10:50)
[2020-04-01] MEDS: DULoxetine HCL 30 MG CAPSULE.DR PO SCH (10:56)
--- NOTE | 2020-04-01 12:27 | PN ---
Progress Note (short form) - Note Progress Note: Chief Complaint: No CP/SOB/dizziness History of Present Illness: 84 yo female, h/o cad, afib, bio AVR, HTN, HL, chronic diastolic HF, DM, ur eteral stents, recurrent uti's, dementia with fall, L5 fx, here with nausea. Also some malaise. No cp sob palps dizzy loc pnd orthopnea le edema. Found to have likely cholecystitis, on abx. feeling well today, no cp sob palps dizzy Current Medications Generic Name Dose Route Start Last Admin Trade Name Freq PRN Reason Stop Dose Admin Atorvastatin Calcium 20 mg 03/29/20 22:00 03/31/20 21:07 Lipitor - PO 20 mg HS [facility] Administration Digoxin 0.125 mg 03/29/20 10:00 04/01/20 10:50 Lanoxin - PO 0.125 mg DAILY [facility] Administration Diltiazem HCl 180 mg 03/29/20 10:00 04/01/20 10:50 Cardizem Cd - PO 180 mg DAILY [facility] Administration Doxazosin Mesylate 2 mg 03/29/20 22:00 03/31/20 21:07 Cardura - PO 2 mg HS [facility] Administration Duloxetine HCl 30 mg 03/29/20 10:00 04/01/20 10:56 Cymbalta - PO 30 mg DAILY [facility] Administration Furosemide 20 mg 03/29/20 14:00 04/01/20 06:36 Lasix - PO 20 mg BIDLASIX [facility] Administration Meropenem 1 gm/ Dextrose 100 mls @ 200 mls/hr 04/01/20 02:00 04/01/20 01:36 IVPB 200 mls/hr Q12H [facility] Administration Insulin Aspart 1 vial 03/29/20 16:30 04/01/20 06:36 Novolog Vial Sliding Scale - SQ Not Given ACHS [facility] Protocol Multivitamins/Minerals/Vitamin C 1 tab 03/29/20 10:00 04/01/20 10:50 Tab-A-Vit - PO 1 tab DAILY [facility] Administration Warfarin Sodium 2.5 mg 03/30/20 18:00 03/30/20 17:55 Coumadin - PO 2.5 mg TUTH@1800 [facility] Administration Warfarin Sodium 3.75 mg 03/29/20 18:00 03/29/20 17:56 Coumadin - PO 3.75 mg SuMoWeFrSa@1800 [facility] Administration Vital Signs Period Temp Pulse Resp BP Sys/Srivastava Pulse Ox Last 24 Hr 97.4 F-98.4 F 60-73 17-18 130-159/54-68 95-98 Constitutional: Yes: No Distress, Calm Eyes: Yes: Conjunctiva Clear, EOM Intact HENT: Yes: Atraumatic, Normocephalic Cardiovascular: Yes: Regular Rate and Rhythm Respiratory: Yes: CTA Bilaterally Gastrointestinal: Yes: Soft (NT) Edema: No Neurological: Yes: Alert, Oriented no jaundice diaphoresis Labs: CBC, BMP 04/01/20 07:55 04/01/20 07:55 - ....Imaging EKG: Image Reviewed Assessment/Plan cxr: clear lungs echo 03/28/17 nl lv/rv function, bio avr without sig stenosis, mild to mod MR, mod to sev pHTN, echo 04/2018 technically difficult, uninterpetable tele: afib, rate ok a/p: 84 yo female, h/o cad, afib, bio AVR, HTN, HL, chronic diastolic HF, DM, ureteral stents, recurrent uti's, dementia with fall, L5 fx, here with nausea. cholecystitis: -seen by surgery, plan for conservative tx -No cardiac contraindications to surgery if needed for cholecystitis. Can hold coumadin temporarily if needed and bridge with heparin. afib: - rate controlled on dilt and dig (level ok) - on coumadin per inr CAD, remote cabg (per charts): - stable, no signs acs - continue statin, ac bioAVR: -stable htn: -cont dilt diastolic heart failure: - Cr stable, continue home lasix
[2020-04-01] MEDS ORDERED: MEROPENEM 1 GM in DEXTROSE 5%-WATER 100 ML IVPB SCH (13:30)
[2020-04-01] MEDS: ATORVASTATIN CA 20 MG TABLET (FP) PO SCH (21:31)
[2020-04-01] MEDS: DOXAZOSIN MESYLATE 2 MG TABLET PO SCH (21:31)
[2020-04-02] MEDS ORDERED: DEXTROSE 5%-WATER 100 ML IVPB ONE ×2 (01:41→13:56)
[2020-04-02] MEDS ORDERED: MEROPENEM 1 GM VIAL (RESTRICTED TO ID) IVPB ONE ×2 (01:42→13:57)
[2020-04-02] MEDS: MEROPENEM 1 GM in DEXTROSE 5%-WATER 100 ML IVPB SCH ×2 (01:52→14:15)
[2020-04-02] MEDS: FUROSEMIDE 20 MG TABLET (FP) PO SCH ×2 (06:45→14:20)
[2020-04-02] MEDS: INSULIN SLIDING SCALE (NOVOLOG) 1 VIAL SQ SCH ×2 (06:45→17:57)
--- NOTE | 2020-04-02 09:35 | PN ---
Physical Exam: SUBJECTIVE: Patient seen and examined at bedside, feels comfortable, endorses minimal RUQ pain, tolerating PO. VSS. OBJECTIVE: Vital Signs Period Temp Pulse Resp BP Sys/Srivastava Pulse Ox Last 24 Hr 97.8 F-98.8 F 60-76 16-19 139-155/45-72 95-97 GENERAL: AAox3, speaks in full sentences, no distress HEENT nC/AT, EOMI, neck supple, dry MM Chest CTAB, no crackles or wheezing CVS Irregularly irregular, normal rate Abd Soft, ND, RUQ TTP +, no guarding Ext no LE edema Laboratory Results - last 24 hr 04/01/20 04/01/20 04/01/20 10:54 17:03 21:25 POC Glucometer 105 127 93 04/02/20 06:41 POC Glucometer 129 Active Medications Generic Name Dose Route Start Last Admin Trade Name Freq PRN Reason Stop Dose Admin Atorvastatin Calcium 20 mg 03/29/20 22:00 04/01/20 21:31 Lipitor - PO 20 mg HS VIDA Administration Digoxin 0.125 mg 03/29/20 10:00 04/01/20 10:50 Lanoxin - PO 0.125 mg DAILY VIDA Administration Diltiazem HCl 180 mg 03/29/20 10:00 04/01/20 10:50 Cardizem Cd - PO 180 mg DAILY VIDA Administration Doxazosin Mesylate 2 mg 03/29/20 22:00 04/01/20 21:31 Cardura - PO 2 mg HS VIDA Administration Duloxetine HCl 30 mg 03/29/20 10:00 04/01/20 10:56 Cymbalta - PO 30 mg DAILY VIDA Administration Furosemide 20 mg 03/29/20 14:00 04/02/20 06:45 Lasix - PO 20 mg BIDLASIX VIDA Administration Meropenem 1 gm/ Dextrose 100 mls @ 200 mls/hr 04/01/20 02:00 04/02/20 01:52 IVPB 200 mls/hr Q12H VIDA Administration Insulin Aspart 1 vial 03/29/20 16:30 04/02/20 06:45 Novolog Vial Sliding Scale - SQ Not Given ACHS V[facility] Protocol Multivitamins/Minerals/Vitamin C 1 tab 03/29/20 10:00 04/01/20 10:50 Tab-A-Vit - PO 1 tab DAILY VIDA Administration Warfarin Sodium 2.5 mg 03/30/20 18:00 03/30/20 17:55 Coumadin - PO 2.5 mg TUTH@1800 VIDA Administration Warfarin Sodium 3.75 mg 03/29/20 18:00 03/29/20 17:56 Coumadin - PO 3.75 mg SuMoWeFrSa@1800 VIDA Administration ASSESSMENT/PLAN: 84 F Acute cholecystitis (conservative management) HTN HLD Afib on Coumadin AVR T2DM Recurrent falls Recurrent UTIs Nephrolithiasis Dementia Plan: Cont. Meropenem for cholecystitis, not surgical candidate per SUrgery Cont. Warfarin w/ goal INR 2-3 BID diuresis, monitor electrolytes, correct PRN Cardiology following ID following Surgery following DVT ppx: Coumadin Visit type - Emergency Visit Emergency Visit: Yes ED Registration Date: 03/28/20 Care time: The patient presented to the Emergency Department on the above date and was hospitalized for further evaluation of their emergent condition. - New Patient This patient is new to me today: Yes Date on this admission: 04/02/20 - Critical Care Critical Care patient: No - Discharge Referral Referred to [facility] Med P.C.: No
[2020-04-02] MEDS: MULTIVITAMINS (DAILY MVI) TABLET (FP) PO SCH (10:37)
[2020-04-02] MEDS: DIGOXIN 0.125 MG TABLET (FP) PO SCH (10:37)
[2020-04-02] MEDS: DULoxetine HCL 30 MG CAPSULE.DR PO SCH (10:37)
--- NOTE | 2020-04-02 11:34 | PN ---
Physical Exam: SUBJECTIVE: Patient seen and examined. No complaints. No BM since . OBJECTIVE: Vital Signs Period Temp Pulse Resp BP Sys/Srivastava Pulse Ox Last 24 Hr 97.8 F-98.8 F 60-76 16-19 139-155/45-72 95-97 GENERAL: The patient is awake, alert, and fully oriented, in no acute distress. HEAD: Normal with no signs of trauma. EYES: PERRL, extraocular movements intact, sclera anicteric, conjunctiva clear. No ptosis. ENT: Ears normal, nares patent, oropharynx clear without exudates, moist mucous membranes. NECK: Trachea midline, full range of motion, supple. LUNGS: Breath sounds equal, clear to auscultation bilaterally, no wheezes, no crackles, no accessory muscle use. HEART: Regular rate and rhythm, S1, S2 without murmur, rub or gallop. ABDOMEN: Soft, nontender, protuberant (patient states unchanged from baseline), normoactive bowel sounds, no guarding, no rebound, no hepatosplenomegaly, no masses. EXTREMITIES: 2+ pulses, warm, well-perfused, no edema. NEUROLOGICAL: Cranial nerves II through XII grossly intact. Normal speech, ambulatory with walker and minimal assistance. PSYCH: Normal mood, normal affect. SKIN: Warm, dry, normal turgor, no rashes or lesions noted Laboratory Results - last 24 hr 04/01/20 04/01/20 04/02/20 17:03 21:25 06:41 POC Glucometer 127 93 129 Active Medications Generic Name Dose Route Start Last Admin Trade Name Chrissq PRN Reason Stop Dose Admin Atorvastatin Calcium 20 mg 03/29/20 22:00 04/01/20 21:31 Lipitor - PO 20 mg HS VIDA Administration Digoxin 0.125 mg 03/29/20 10:00 04/02/20 10:37 Lanoxin - PO 0.125 mg DAILY VIDA Administration Diltiazem HCl 180 mg 03/29/20 10:04/02/20 10:37 Cardizem Cd - PO 180 mg DAILY VIDA Administration Doxazosin Mesylate 2 mg 03/29/20 22:00 04/01/20 21:31 Cardura - PO 2 mg HS VIDA Administration Duloxetine HCl 30 mg 03/29/20 10:00 04/02/20 10:37 Cymbalta - PO 30 mg DAILY VIDA Administration Furosemide 20 mg 03/29/20 14:00 04/02/20 06:45 Lasix - PO 20 mg BIDLASIX VIDA Administration Meropenem 1 gm/ Dextrose 100 mls @ 200 mls/hr 04/01/20 02:00 04/02/20 01:52 IVPB 200 mls/hr Q12H VIDA Administration Insulin Aspart 1 vial 03/29/20 16:30 04/02/20 06:45 Novolog Vial Sliding Scale - SQ Not Given ACHS [facility] Protocol Multivitamins/Minerals/Vitamin C 1 tab 03/29/20 10:00 04/02/20 10:37 Tab-A-Vit - PO 1 tab DAILY VIDA Administration Warfarin Sodium 2.5 mg 03/30/20 18:00 03/30/20 17:55 Coumadin - PO 2.5 mg TUTH@1800 VIDA Administration Warfarin Sodium 3.75 mg 03/29/20 18:00 03/29/20 17:56 Coumadin - PO 3.75 mg SuMoWeFrSa@1800 VIDA Administration ASSESSMENT/PLAN: 84-year-old female with a PMH significant for HTN, HLD, CAD, diastolic HF, afib on coumadin, aortic stenosis s/p tissue AVR 2004, Type II NIDDM, pelvic hematoma s/p fall 2018, right-sided hydronephrosis s/p ureteral stents x 6, recurrent UTIs, and chronic compression fractures. Admitted for hydrops of the gallbladder. Hydrops of the gallbladder Cholelithiasis --CT: hydrops gallbladder with multiple stones, no CT evidence of acute cholecystitis --HIDA scan: filling of the gallbladder excludes acute cystic duct obstruction --seen and evaluated by surgery Dr. Thomas: advance diet as tolerated, no indication for surgical intervention at this time, patient is anticoagulated and has comorbid conditions; if treatment not effective, consideration for a percutaneous cholecystosomy --clinically much improved, tolerating low fiber diet Serratia UTI --On day #2 Meropenem --Allergic or resistant to all oral antibiotic options --Discussed with Dr. Garcia - will continue Meropenem for one more day, then can dc Constipation --Normoactive bowel sounds --Start colace, senna, Miralax Diastolic heart failure, chronic --appears euvolemic --continue home dose lasix PO 20mg BID --renal function stable Atrial fibrillation --INR 3.65, hold today's dose coumadin --rate is controlled, continue diltiazem, digoxin (dig level therapeutic) Coronary artery disease --continue statin; not on beta jarad or ASA therapy Aortic stenosis s/p tAVR --stable Type II NIDDM --Novolog sliding scale coverage --fingersticks ACHS Hypertension --continue diltiazem Hyperlipidemia --continue statin Right hydronephrosis, chronic s/p ureteral stents --CT shows moderate to marked hydronephrosis, seen previously in 2018; possible right ureteropelvic junction stenosis --stents placed at [facility] --renal function is stable, voiding freely Chronic compression fractures --uses walker at home Pelvic hematoma 2018 --fluid collection seen on CT, smaller than previously seen --h/h stable FEN Fluids: PO intake adequate Electrolytes: replete as indicated Nutrition: clears DVT prophylaxis: Therapeutic on warfarin Physical therapy Dispo: continues to require inpatient care. Anticipate dc tomorrow (needs additional doses of Meropenem today as described above). FULL CODE Visit type - Emergency Visit Emergency Visit: Yes ED Registration Date: 03/28/20 Care time: The patient presented to the Emergency Department on the above date and was hospitalized for further evaluation of their emergent condition. - New Patient This patient is new to me today: Yes Date on this admission: 04/02/20 - Critical Care Critical Care patient: No - Discharge Referral Referred to [facility] Med P.C.: No
[2020-04-02] MEDS ORDERED: SENNOSIDES 8.6MG TABLET (FP) PO PRN (11:42)
[2020-04-02] MEDS: POLYETHYLENE GLYCOL 3350 119 GM BTL PO SCH ×2 (11:58→21:12)
--- NOTE | 2020-04-02 12:12 | PN ---
Progress Note (short form) - Note Progress Note: Chief Complaint: No CP/SOB/dizziness History of Present Illness: 84 yo female, h/o cad, afib, bio AVR, HTN, HL, chronic diastolic HF, DM, ur eteral stents, recurrent uti's, dementia with fall, L5 fx, here with nausea. Also some malaise. No cp sob palps dizzy loc pnd orthopnea le edema. Found to have likely cholecystitis, on abx. feeling well today, no cp sob palps dizzy Current Medications Generic Name Dose Route Start Last Admin Trade Name Freq PRN Reason Stop Dose Admin Atorvastatin Calcium 20 mg 03/29/20 22:00 04/01/20 21:31 Lipitor - PO 20 mg HS VIDA Administration Digoxin 0.125 mg 03/29/20 10:00 04/02/20 10:37 Lanoxin - PO 0.125 mg DAILY VIDA Administration Diltiazem HCl 180 mg 03/29/20 10:00 04/02/20 10:37 Cardizem Cd - PO 180 mg DAILY VIDA Administration Docusate Sodium 100 mg 04/02/20 14:00 Colace - PO TID VIDA Doxazosin Mesylate 2 mg 03/29/20 22:00 04/01/20 21:31 Cardura - PO 2 mg HS VIDA Administration Duloxetine HCl 30 mg 03/29/20 10:00 04/02/20 10:37 Cymbalta - PO 30 mg DAILY VIDA Administration Furosemide 20 mg 03/29/20 14:00 04/02/20 06:45 Lasix - PO 20 mg BIDLASIX VIDA Administration Meropenem 1 gm/ Dextrose 100 mls @ 200 mls/hr 04/01/20 02:00 04/02/20 01:52 IVPB 200 mls/hr Q12H VIDA Administration Insulin Aspart 1 vial 03/29/20 16:30 04/02/20 06:45 Novolog Vial Sliding Scale - SQ Not Given ACHS [facility] Protocol Multivitamins/Minerals/Vitamin C 1 tab 03/29/20 10:00 04/02/20 10:37 Tab-A-Vit - PO 1 tab DAILY VIDA Administration Polyethylene Glycol 17 gm 04/02/20 11:45 Miralax (For Daily Use) - PO BID VIDA Senna 2 tab 04/02/20 11:42 Senna - PO HS PRN CONSTIPATION Warfarin Sodium 2.5 mg 03/30/20 18:00 03/30/20 17:55 Coumadin - PO 2.5 mg TUTH@1800 VIDA Administration Warfarin Sodium 3.75 mg 03/29/20 18:00 03/29/20 17:56 Coumadin - PO 3.75 mg SuMoWeFrSa@1800 VIDA Administration Vital Signs Period Temp Pulse Resp BP Sys/Srivastava Pulse Ox Last 24 Hr 97.8 F-98.8 F 60-76 16-19 139-155/45-72 95-97 Constitutional: Yes: No Distress, Calm Eyes: Yes: Conjunctiva Clear, EOM Intact HENT: Yes: Atraumatic, Normocephalic Cardiovascular: Yes: Regular Rate and Rhythm Respiratory: Yes: CTA Bilaterally Gastrointestinal: Yes: Soft (NT) Edema: No Neurological: Yes: Alert, Oriented no jaundice diaphoresis Labs: CBC, BMP 04/01/20 07:55 04/01/20 07:55 - ....Imaging EKG: Image Reviewed Assessment/Plan cxr: clear lungs echo 03/28/17 nl lv/rv function, bio avr without sig stenosis, mild to mod MR, mod to sev pHTN, echo 04/2018 technically difficult, uninterpetable tele: afib, rate ok a/p: 84 yo female, h/o cad, afib, bio AVR, HTN, HL, chronic diastolic HF, DM, ureteral stents, recurrent uti's, dementia with fall, L5 fx, here with nausea. cholecystitis: -seen by surgery, plan for conservative tx -No cardiac contraindications to surgery if needed for cholecystitis. Can hold coumadin temporarily if needed and bridge with heparin. afib: - rate controlled on dilt and dig (level ok) - on coumadin per inr CAD, remote cabg (per charts): - stable, no signs acs - continue statin, ac bioAVR: -stable htn: -cont dilt diastolic heart failure: - Cr stable, continue home lasix
--- NOTE | 2020-04-02 13:02 | PN ---
Progress Note, Physician History of Present Illness: stable improving - Current Medication List Current Medications: Active Medications Atorvastatin Calcium (Lipitor -) 20 mg PO HS [facility] Last Admin: 04/01/20 21:31 Dose: 20 mg Documented by: Digoxin (Lanoxin -) 0.125 mg PO DAILY [facility] Last Admin: 04/02/20 10:37 Dose: 0.125 mg Documented by: Diltiazem HCl (Cardizem Cd -) 180 mg PO DAILY [facility] Last Admin: 04/02/20 10:37 Dose: 180 mg Documented by: Docusate Sodium (Colace -) 100 mg PO TID [facility] Doxazosin Mesylate (Cardura -) 2 mg PO HS [facility] Last Admin: 04/01/20 21:31 Dose: 2 mg Documented by: Duloxetine HCl (Cymbalta -) 30 mg PO DAILY [facility] Last Admin: 04/02/20 10:37 Dose: 30 mg Documented by: Furosemide (Lasix -) 20 mg PO BIDLASIX [facility] Last Admin: 04/02/20 06:45 Dose: 20 mg Documented by: Meropenem 1 gm/ Dextrose 100 mls @ 200 mls/hr IVPB Q12H [facility] Last Admin: 04/02/20 01:52 Dose: 200 mls/hr Documented by: Insulin Aspart (Novolog Vial Sliding Scale -) 1 vial SQ [facility]; Protocol Last Admin: 04/02/20 06:45 Dose: Not Given Documented by: Multivitamins/Minerals/Vitamin C (Tab-A-Vit -) 1 tab PO DAILY [facility] Last Admin: 04/02/20 10:37 Dose: 1 tab Documented by: Polyethylene Glycol (Miralax (For Daily Use) -) 17 gm PO BID [facility] Last Admin: 04/02/20 11:58 Dose: 17 gm Documented by: Senna (Senna -) 2 tab PO HS PRN PRN Reason: CONSTIPATION Warfarin Sodium (Coumadin -) 2.5 mg PO TUTH@1800 [facility] Last Admin: 03/30/20 17:55 Dose: 2.5 mg Documented by: Warfarin Sodium (Coumadin -) 3.75 mg PO SuMoWeFrSa@1800 [facility] Last Admin: 03/29/20 17:56 Dose: 3.75 mg Documented by: - Objective Vital Signs: Vital Signs Temperature 98.1 F 04/02/20 09:00 Pulse Rate 68 04/02/20 10:37 Respiratory Rate 18 04/02/20 09:00 Blood Pressure 140/45 L 04/02/20 09:00 O2 Sat by Pulse Oximetry (%) 95 04/02/20 09:00 Constitutional: Yes: No Distress, Calm Cardiovascular: Yes: S1, S2 Respiratory: Yes: Regular, CTA Bilaterally Gastrointestinal: Yes: Normal Bowel Sounds, Soft Musculoskeletal: Yes: WNL Extremities: Yes: WNL Neurological: Yes: Alert Psychiatric: Yes: Alert Labs: CBC, BMP 04/01/20 07:55 04/01/20 07:55 INR, PTT INR 2.68 (0.82-1.09) H 04/01/20 07:55 Assessment/Plan 84 F Acute cholecystitis (conservative management) HTN HLD Afib on Coumadin AVR T2DM Recurrent falls Recurrent UTIs Nephrolithiasis Dementia Plan: abx diuresis, Cardiology following rest as per the team physio \
--- NOTE | 2020-04-02 13:03 | PN ---
Progress Note, Physician History of Present Illness: stable no complaints says she feels weak - Current Medication List Current Medications: Active Medications Atorvastatin Calcium (Lipitor -) 20 mg PO HS [facility] Last Admin: 04/01/20 21:31 Dose: 20 mg Documented by: Digoxin (Lanoxin -) 0.125 mg PO DAILY [facility] Last Admin: 04/02/20 10:37 Dose: 0.125 mg Documented by: Diltiazem HCl (Cardizem Cd -) 180 mg PO DAILY [facility] Last Admin: 04/02/20 10:37 Dose: 180 mg Documented by: Docusate Sodium (Colace -) 100 mg PO TID [facility] Doxazosin Mesylate (Cardura -) 2 mg PO HS [facility] Last Admin: 04/01/20 21:31 Dose: 2 mg Documented by: Duloxetine HCl (Cymbalta -) 30 mg PO DAILY [facility] Last Admin: 04/02/20 10:37 Dose: 30 mg Documented by: Furosemide (Lasix -) 20 mg PO BIDLASIX [facility] Last Admin: 04/02/20 06:45 Dose: 20 mg Documented by: Meropenem 1 gm/ Dextrose 100 mls @ 200 mls/hr IVPB Q12H [facility] Last Admin: 04/02/20 01:52 Dose: 200 mls/hr Documented by: Insulin Aspart (Novolog Vial Sliding Scale -) 1 vial SQ [facility]; Protocol Last Admin: 04/02/20 06:45 Dose: Not Given Documented by: Multivitamins/Minerals/Vitamin C (Tab-A-Vit -) 1 tab PO DAILY [facility] Last Admin: 04/02/20 10:37 Dose: 1 tab Documented by: Polyethylene Glycol (Miralax (For Daily Use) -) 17 gm PO BID [facility] Last Admin: 04/02/20 11:58 Dose: 17 gm Documented by: Senna (Senna -) 2 tab PO HS PRN PRN Reason: CONSTIPATION Warfarin Sodium (Coumadin -) 2.5 mg PO TUTH@1800 [facility] Last Admin: 03/30/20 17:55 Dose: 2.5 mg Documented by: Warfarin Sodium (Coumadin -) 3.75 mg PO [id number]@1800 [facility] Last Admin: 03/29/20 17:56 Dose: 3.75 mg Documented by: - Objective Vital Signs: Vital Signs Temperature 98.1 F 04/02/20 09:00 Pulse Rate 68 04/02/20 10:37 Respiratory Rate 18 04/02/20 09:00 Blood Pressure 140/45 L 04/02/20 09:00 O2 Sat by Pulse Oximetry (%) 95 04/02/20 09:00 Constitutional: Yes: No Distress, Calm Cardiovascular: Yes: S1, S2 Respiratory: Yes: Regular, CTA Bilaterally Gastrointestinal: Yes: Normal Bowel Sounds, Soft Musculoskeletal: Yes: WNL Extremities: Yes: WNL Neurological: Yes: Alert, Oriented Psychiatric: Yes: Alert, Oriented Labs: CBC, BMP 04/01/20 07:55 04/01/20 07:55 INR, PTT INR 2.68 (0.82-1.09) H 04/01/20 07:55 Assessment/Plan Assessment/Plan 84 F Acute cholecystitis (conservative management) HTN HLD Afib on Coumadin AVR T2DM Recurrent falls Recurrent UTIs Nephrolithiasis Dementia plan abx physio
[2020-04-02 13:14] LABS: BASO % 1.1 % (0-2.0); EOS % 1.1 % (0-4.5); HEMATOCRIT 41.5 % (32.4-45.2); LYMPH % 17.7 % (8-40); MCH 28.5 pg (25.7-33.7); MCHC 33.6 g/dl (32.0-36.0); MEAN CELL VOLUME 84.9 fl (80-96); MEAN PLT VOLUME 8.8 fl (7.5-11.1); MONO % 3.9 % (3.8-10.2); NEUT % 76.2 % (42.8-82.8); PLATELET COUNT 266 K/MM3 (134-434); RDW 13.9 % (11.6-15.6); WHITE BLOOD COUNT 10.3 K/mm3 (4.0-10.8)
[2020-04-02 13:21] LABS: ALBUMIN 3.6 g/dl (3.4-5.0); BILIRUBIN,TOTAL 0.5 mg/dl (0.2-1); CALCIUM 9.4 mg/dl (8.5-10); CREATININE 0.8 mg/dl (0.55-1.3); POTASSIUM 3.9 mmol/L (3.5-5.1); TOT PROT 6.6 g/dl (6.4-8.2)
[2020-04-02 13:38] LABS: INR 2.17 (0.82-1.09); PROTHROMBIN TIME (PATIENT) 23.9 SEC (10.2-13.0)
[2020-04-02] MEDS: DOCUSATE SODIUM 100 MG CAPSULE (FP) PO SCH ×2 (14:15→21:12)
[2020-04-02] MEDS: DOXAZOSIN MESYLATE 2 MG TABLET PO SCH (21:11)
[2020-04-02] MEDS: ATORVASTATIN CA 20 MG TABLET (FP) PO SCH (21:12)
[2020-04-03] MEDS: MEROPENEM 1 GM in DEXTROSE 5%-WATER 100 ML IVPB SCH (02:00)
[2020-04-03] MEDS ORDERED: MEROPENEM 1 GM VIAL (RESTRICTED TO ID) IVPB ONE (03:08)
[2020-04-03] MEDS ORDERED: DEXTROSE 5%-WATER 100 ML IVPB ONE (03:08)
[2020-04-03] MEDS: FUROSEMIDE 20 MG TABLET (FP) PO SCH (05:04)
[2020-04-03] MEDS: DOCUSATE SODIUM 100 MG CAPSULE (FP) PO SCH (05:04)
[2020-04-03 07:58] LABS: BASO % 0.9 % (0-2.0); HEMATOCRIT 41.9 % (32.4-45.2); LYMPH % 17.2 % (8-40); MCH 28.5 pg (25.7-33.7); MCHC 33.5 g/dl (32.0-36.0); MEAN CELL VOLUME 85.2 fl (80-96); MEAN PLT VOLUME 9.3 fl (7.5-11.1); MONO % 7.1 % (3.8-10.2); NEUT % 72.8 % (42.8-82.8); PLATELET COUNT 266 K/MM3 (134-434); RBC 4.93 M/mm3 (3.60-5.2); RDW 14.2 % (11.6-15.6)
[2020-04-03 08:01] LABS: INR 1.83 (0.82-1.09); PROTHROMBIN TIME (PATIENT) 20.2 SEC (10.2-13.0)
[2020-04-03] MEDS: INSULIN SLIDING SCALE (NOVOLOG) 1 VIAL SQ SCH (08:22)
[2020-04-03 08:39] LABS: CALCIUM 9.1 mg/dl (8.5-10); CREATININE 0.8 mg/dl (0.55-1.3); POTASSIUM 3.8 mmol/L (3.5-5.1)
[2020-04-03 09:21] VITALS: BP 147/56; PULSE 71; TEMP 98
[2020-04-03] MEDS: DIGOXIN 0.125 MG TABLET (FP) PO SCH (09:35)
[2020-04-03] MEDS: MULTIVITAMINS (DAILY MVI) TABLET (FP) PO SCH (09:35)
[2020-04-03] MEDS: DULoxetine HCL 30 MG CAPSULE.DR PO SCH (09:35)
[2020-04-03] MEDS: POLYETHYLENE GLYCOL 3350 119 GM BTL PO SCH (09:38)
--- NOTE | 2020-04-03 10:01 | PN ---
Progress Note, Physician History of Present Illness: stable no complaints weakness improving - Current Medication List Current Medications: Active Medications Atorvastatin Calcium (Lipitor -) 20 mg PO HS [facility] Last Admin: 04/02/20 21:12 Dose: Not Given Documented by: Digoxin (Lanoxin -) 0.125 mg PO DAILY [facility] Last Admin: 04/03/20 09:35 Dose: 0.125 mg Documented by: Diltiazem HCl (Cardizem Cd -) 180 mg PO DAILY [facility] Last Admin: 04/03/20 09:35 Dose: 180 mg Documented by: Docusate Sodium (Colace -) 100 mg PO TID [facility] Last Admin: 04/03/20 05:04 Dose: 100 mg Documented by: Doxazosin Mesylate (Cardura -) 2 mg PO [facility] Last Admin: 04/02/20 21:11 Dose: 2 mg Documented by: Duloxetine HCl (Cymbalta -) 30 mg PO DAILY [facility] Last Admin: 04/03/20 09:35 Dose: 30 mg Documented by: Furosemide (Lasix -) 20 mg PO BIDLASIX [facility] Last Admin: 04/03/20 05:04 Dose: 20 mg Documented by: Meropenem 1 gm/ Dextrose 100 mls @ 200 mls/hr IVPB Q12H [facility] Last Admin: 04/03/20 02:00 Dose: 200 mls/hr Documented by: Insulin Aspart (Novolog Vial Sliding Scale -) 1 vial SQ [facility]; Protocol Last Admin: 04/03/20 08:22 Dose: Not Given Documented by: Multivitamins/Minerals/Vitamin C (Tab-A-Vit -) 1 tab PO DAILY [facility] Last Admin: 04/03/20 09:35 Dose: 1 tab Documented by: Polyethylene Glycol (Miralax (For Daily Use) -) 17 gm PO BID [facility] Last Admin: 04/03/20 09:38 Dose: 17 gm Documented by: Senna (Senna -) 2 tab PO HS PRN PRN Reason: CONSTIPATION Warfarin Sodium (Coumadin -) 2.5 mg PO TUTH@1800 [facility] Last Admin: 03/30/20 17:55 Dose: 2.5 mg Documented by: Warfarin Sodium (Coumadin -) 3.75 mg PO SuMoWeFrSa@1800 [facility] Last Admin: 03/29/20 17:56 Dose: 3.75 mg Documented by: - Objective Vital Signs: Vital Signs Temperature 98 F 07/13/20 09:19 Pulse Rate 71 04/03/20 09:35 Respiratory Rate 18 04/03/20 09:19 Blood Pressure 147/56 L 04/03/20 09:19 O2 Sat by Pulse Oximetry (%) 96 04/03/20 09:19 Constitutional: Yes: No Distress, Calm Cardiovascular: Yes: S1, S2 Respiratory: Yes: Regular, CTA Bilaterally Gastrointestinal: Yes: Normal Bowel Sounds, Soft Musculoskeletal: Yes: WNL Extremities: Yes: WNL Neurological: Yes: Alert, Oriented Psychiatric: Yes: Alert, Oriented Labs: CBC, BMP 04/03/20 06:00 04/03/20 06:00 INR, PTT INR 1.83 (0.82-1.09) H 04/03/20 06:00 Assessment/Plan Assessment/Plan 84 F Acute cholecystitis (conservative management) HTN HLD Afib on Coumadin AVR T2DM Recurrent falls Recurrent UTIs Nephrolithiasis Dementia plan abx physio will d/w the team
--- NOTE | 2020-04-03 11:06 | DS ---
Physical Exam: SUBJECTIVE: Patient seen and examined OBJECTIVE: Vital Signs Period Temp Pulse Resp BP Sys/Srivastava Pulse Ox Last 24 Hr 97.4 F-98 F 55-71 18-20 140-153/56-65 95-96 PHYSICAL EXAM GENERAL: The patient is awake, alert, and fully oriented, in no acute distress. LUNGS: Breath sounds equal, clear to auscultation bilaterally, no wheezes, no crackles, no accessory muscle use. HEART: Irregular, S1, S2 ABDOMEN: +RUQ tenderness, soft, not distended EXTREMITIES: 2+ pulses, warm, well-perfused, no edema. NEUROLOGICAL: Cranial nerves II through XII grossly intact. Normal speech SKIN: Warm, dry, normal turgor LABS Laboratory Results - last 24 hr 04/02/20 04/02/20 04/02/20 13:00 13:00 13:30 WBC 10.3 RBC 4.90 Hgb 14.0 Hct 41.5 MCV 84.9 MCH 28.5 MCHC 33.6 RDW 13.9 Plt Count 266 MPV 8.8 Absolute Neuts (auto) 7.9 Neutrophils % 76.2 Lymphocytes % 17.7 Monocytes % 3.9 Eosinophils % 1.1 Basophils % 1.1 PT with INR 23.9 H INR 2.17 H Sodium 136 Potassium 3.9 Chloride 97 L Carbon Dioxide 26 Anion Gap 13 BUN 12.0 Creatinine 0.8 Est GFR (CKD-EPI)AfAm 77.92 Est GFR (CKD-EPI)NonAf 67.23 POC Glucometer Random Glucose 120 H Calcium 9.4 Total Bilirubin 0.5 AST 21 ALT 14 Alkaline Phosphatase 70 Total Protein 6.6 Albumin 3.6 04/03/20 04/03/20 04/03/20 05:06 06:00 06:00 WBC 9.0 RBC 4.93 Hgb 14.0 Hct 41.9 MCV 85.2 MCH 28.5 MCHC 33.5 RDW 14.2 Plt Count 266 MPV 9.3 Absolute Neuts (auto) 6.6 Neutrophils % 72.8 Lymphocytes % 17.2 Monocytes % 7.1 Eosinophils % 2.0 Basophils % 0.9 PT with INR 20.2 H INR 1.83 H Sodium Potassium Chloride Carbon Dioxide Anion Gap BUN Creatinine Est GFR (CKD-EPI)AfAm Est GFR (CKD-EPI)NonAf POC Glucometer 91 Random Glucose Calcium Total Bilirubin AST ALT Alkaline Phosphatase Total Protein Albumin 04/03/20 06:00 WBC RBC Hgb Hct MCV MCH MCHC RDW Plt Count MPV Absolute Neuts (auto) Neutrophils % Lymphocytes % Monocytes % Eosinophils % Basophils % PT with INR INR Sodium 137 Potassium 3.8 Chloride 100 Carbon Dioxide 28 Anion Gap 9 BUN 11.0 Creatinine 0.8 Est GFR (CKD-EPI)AfAm 77.92 Est GFR (CKD-EPI)NonAf 67.23 POC Glucometer Random Glucose 98 Calcium 9.1 Total Bilirubin AST ALT Alkaline Phosphatase Total Protein Albumin HOSPITAL COURSE: Date of Admission:03/28/20 Date of Discharge: 04/03/20 84 year-old female with a PMH significant for HTN, HLD, CAD, diastolic HF, afib on coumadin, aortic stenosis s/p tissue AVR 2004, Type II NIDDM, pelvic hematoma s/p fall 2017, right-sided hydronephrosis s/p ureteral stents x 6, recurrent UTIs, and chronic compression fractures. Admitted for hydrops of the g allbladder. Hydrops of the gallbladder Cholelithiasis --CT: hydrops gallbladder with multiple stones, no CT evidence of acute cholecystitis --HIDA scan: filling of the gallbladder excluded acute cystic duct obstruction --seen and evaluated by surgery Dr. Thomas: no indication for surgical intervention at this time, patient is anticoagulated and has comorbid conditions; diet was advanced to low fiber which was tolerated well Diastolic heart failure, chronic --appeared euvolemic --continued home dose lasix PO 20mg BID --renal function remained stable Atrial fibrillation --coumadin was dosed to a target 2-3 --rate was controlled, continued diltiazem, digoxin (dig level therapeutic) Coronary artery disease --continued statin; not on beta jarad or ASA therapy Aortic stenosis s/p tAVR --stable Type II NIDDM --Novolog sliding scale coverage Hypertension --continued diltiazem Hyperlipidemia --continued statin Right hydronephrosis, chronic s/p ureteral stents --CT showed moderate to marked hydronephrosis, seen previously in 2018; possible right ureteropelvic junction stenosis --voided freely Serratia UTI --no fever, no leukocytosis, but continued to be fatigued, weak --was treated with empiric ceftriaxone but sensitivities came back resistant; received 3 days of meropenem; discharged off antibiotics Chronic compression fractures --uses walker at home Pelvic hematoma 2017 --fluid collection seen on CT, smaller than previously seen --h/h stable Minutes to complete discharge: 35 (5) Discharge Summary Problems reviewed: Yes Reason For Visit: N/V/D Current Active Problems Complicated UTI (urinary tract infection) (Acute) Subtherapeutic international normalized ratio (INR) (Acute) UTI (urinary tract infection) (Acute) Condition: Improved - Instructions Diet, Activity, Other Instructions: It is recommended you follow up with Dr. Guerra within 1-2 weeks of your discharge. You have completed a course of antibiotics for a urinary tract infection. You do not need any further antibiotics. Return to the emergency department for any new or worsening symptoms. Referrals: Sal Guerra MD [Primary Care Provider] - 2 Weeks Disposition: HOME - Home Medications Comprehensive Discharge Medication List: Ambulatory Orders Digoxin [Lanoxin -] 0.125 mg PO DAILY 04/26/18 Diltiazem HCl [Cartia Xt] 180 mg PO DAILY 04/26/18 Doxazosin Mesylate 2 mg PO HS 04/26/18 Duloxetine HCl 30 mg PO DAILY 04/26/18 Furosemide 20 mg PO BID 04/26/18 Glucosamine/D3/Boswellia Amanda [Glucosamine Complex Tablet] 1 each PO DAILY 04/26/18 Metformin HCl [Glucophage] 500 mg PO DAILY 04/26/18 Multivitamin [Multiple Vitamins] 1 each PO DAILY 04/26/18 [place]-3/Dha/Epa/Fish Oil [Fish Oil 1,000 mg Softgel] 1 each PO DAILY 04/26/18 Pitavastatin Calcium [Livalo] 1 mg PO DAILY 04/26/18 Warfarin Sodium [Coumadin] 2.5 mg PO ASDIR 04/26/18 Atorvastatin Ca [Lipitor] 20 mg PO HS 03/28/20 This patient is new to me today: No Emergency Visit: Yes ED Registration Date: 03/28/20 Care time: The patient presented to the Emergency Department on the above date and was hospitalized for further evaluation of their emergent condition. Critical Care patient: No - Discharge Referral Referred to [facility] No
== END 2020-04-03 13:05 | disposition home or self-care (01) | DRG 445 ==
LOC: FER 13:52 → FM/S 18:27
PROVIDERS: ADMIT Internal Medicine; ATTEND Nurse Practitioner Acute Care
DX: K82.1 Hydrops of gallbladder (principal); N13.6 Pyonephrosis; I50.32 Chronic diastolic (congestive) heart failure; E78.5 Hyperlipidemia, unspecified; E11.9 Type 2 diabetes mellitus without complications; I48.91 Unspecified atrial fibrillation; R79.1 Abnormal coagulation profile; K80.20 Calculus of gallbladder without cholecystitis without obstruction; E11.51 Type 2 diabetes mellitus with diabetic peripheral angiopathy without gangrene; F32.9 Major depressive disorder, single episode, unspecified; I11.0 Hypertensive heart disease with heart failure; J45.909 Unspecified asthma, uncomplicated; I25.10 Atherosclerotic heart disease of native coronary artery without angina pectoris; I35.0 Nonrheumatic aortic (valve) stenosis; M41.9 Scoliosis, unspecified; E53.8 Deficiency of other specified B group vitamins; F03.90 Unspecified dementia, unspecified severity, without behavioral disturbance, psychotic disturbance, mood disturbance, and anxiety; M81.0 Age-related osteoporosis without current pathological fracture; M48.56XD Collapsed vertebra, not elsewhere classified, lumbar region, subsequent encounter for fracture with routine healing; E11.42 Type 2 diabetes mellitus with diabetic polyneuropathy; S37 Injury of urinary and pelvic organs; Z95.2 Presence of prosthetic heart valve; Z79.01 Long term (current) use of anticoagulants
CPT/HCPCS: 36415; 71045-TC-FY; 74177-TC; 78226-TC; 80048; 80053; 80162; 81003; 81015; 82550; 82962; 83605; 83735; 84100; 84484; 85025; 85610; 85730; 87086; 87186; 93005; 97116-GP; 97161-GP; 99285-25; A9537; Q9967; U0003

== ENCOUNTER 2020-07-03 14:35 | Inpatient (IN) | payer OTHER, MEDICARE ==
--- OUTSIDE RECORDS SUMMARY | 2020-07-03 14:58 | XMS ---
:1935 Author Organization [facility] Support Name Relationship Address Phone RE Unavailable Unavailable Unavailable RE Unavailable Unavailable Unavailable ADARSH [address] [place] [address] ADARSH DAUGHTER [address] [address] ADARSH Child [address] [place] [address] Re-disclosure Warning The records that you are about to access may contain information from federally- assisted alcohol or drug abuse programs. If such information is present, then the following federally mandated warning applies: This information has been disclosed to you from records protected by federal confidentiality rules (42 CFR part 2). The federal rules prohibit you from making any further disclosure of this information unless further disclosure is expressly permitted by the written consent of the person to whom it pertains or as otherwise permitted by 42 CFR part 2. A general authorization for the release of medical or other information is NOT sufficient for this purpose. The Federal rules restrict any use of the information to criminally investigate or prosecute any alcohol or drug abuse patient.The records that you are about to access may contain highly sensitive health information, the redisclosure of which is protected by Article 27-F of the [facility] Public Health law. If you continue you may haveaccess to information: Regarding HIV / AIDS; Provided by facilities licensed or operated by the [facility] Office of Mental Health; or Provided by the [facility] Office for People With Developmental Disabilities. If such information is present, then the following [facility] mandated warning applies: This information has been disclosed to you from confidential records which are protected by state law. State law prohibits you from making any further disclosure of this information without the specific written consent of the person to whom it pertains, or as otherwise permitted by law. Any unauthorized further disclosure in violation of state law may result in a fine or nursing home sentence or both. A general authorization for the release of medical or other information is NOT sufficient authorization for further disclosure. Insurance Providers Payer name Policy type Policy ID Covered Covered green party's Policy P jimmy / Coverage green party ID relationship to Delatorre Inf ormation type delatorre MEDICARE [id number] [facility] [id number] [employer] MEDICARE [id number] SP [id number] A Results ID Date Data Source [id number] 03/28/2020 05:54:00 PM EDT [facility] Name Value Range Interpretation Description Data Sup porting Code Source(s) Document(s ) SARS [facility] coronavirus 2 RNA This lab was ordered by [facility] and reported by [facility]. Procedure
[2020-07-03 14:59] VITALS: BMI 17.2
--- NOTE | 2020-07-03 15:34 | PDOC ---
History of Present Illness - General Chief Complaint: Injury Stated Complaint: FALL Time Seen by Provider: 07/03/20 15:24 History Source: Patient, Family Exam Limitations: No Limitations - History of Present Illness Initial Comments: 07/03/20 16:06 84 y.o. PMHx of Afib (on coumadin), HTN, HLD, DM, Asthma, Depression presenting due to fall. Hx was taken from the patient and daughter who was at the home during the event. Yesterday at 6pm the patient had been walking out of the bathroom using her walked and she began to feel her legs give out on her. Patient reports no LOC, falling backwards landing on her buttocks and subsequently hitting her head. She states she has had a headache since the event and the daughter confirms that she was alert after the event. Patient reports no dizziness, sob, chest pain, N/V/D, incontinence or tongue biting. PCP: [facility] PMHx: Afib (on coumadin), HTN, HLD, DM, Asthma, Depression Meds: In Chart Allergies: sulfa, fluoroquinolones Is this a multiple visit Asthma Patient?: No Timing/Duration: unsure Severity: moderate Past History - Medical History Allergies/Adverse Reactions: Allergies Allergy/AdvReac Type Severity Reaction Status Date / Time Sulfa (Sulfonamide Allergy Unknown Verified 07/03/20 15:37 Antibiotics) [Sulfa(Sulfonamide Antibiotics)] ciprofloxacin [From Cipro] Allergy Verified 07/03/20 15:37 ciprofloxacin HCl Allergy Verified 07/03/20 15:37 [From Cipro] levofloxacin [From Levaquin] AdvReac Unknown Verified 07/03/20 15:37 Home Medications: Ambulatory Orders Digoxin [Lanoxin -] 0.125 mg PO DAILY 04/26/18 Diltiazem HCl [Cartia Xt] 180 mg PO DAILY 04/26/18 Doxazosin Mesylate 2 mg PO DAILY 04/26/18 Duloxetine HCl 30 mg PO DAILY 04/26/18 Furosemide 20 mg PO BID 04/26/18 Metformin HCl [Glucophage] 500 mg PO DAILY 04/26/18 Multivitamin [Multiple Vitamins] 1 each PO DAILY 04/26/18 [place]-3/Dha/Epa/Fish Oil [Fish Oil 1,000 mg Softgel] 1 each PO DAILY 04/26/18 Pitavastatin Calcium [Livalo] 1 mg PO DAILY 04/26/18 Warfarin Sodium [Coumadin] 2.5 mg PO ASDIR 04/26/18 Atorvastatin Ca [Lipitor] 40 mg PO HS 03/28/20 Ascorbate Calcium [Vitamin C] 1,000 mg PO DAILY 07/03/20 Cholecalciferol (Vitamin D3) [Vitamin D3] 25 mcg PO DAILY 07/03/20 Anemia: No Asthma: Yes Cancer: No Cardiac Disorders: Yes (A-FIB) COPD: No CHF: No Diabetes: Yes GI Disorders: No Disorders: Yes (chronic uti) HTN: Yes Hypercholesterolemia: Yes Kidney Stones: Yes Liver Disease: No Psychiatric Problems: Yes (DEPRESSION) Thyroid Disease: No - Surgical History Appendectomy: Yes Cardiac Surgery: Yes (AVR, CABG) - Psycho-Social/Smoking History Smoking Status: Yes Smoking History: Never smoked Have you smoked in the past 12 months: No Number of Cigarettes Smoked Daily: 0 If you are a former smoker, when did you quit?: 40 years ago Cigars Per Day: 0 - Substance Abuse Hx (Audit-C & DAST Scrn) How often the patient has a drink containing alcohol: Never Score: In Men: 4 or > Positive; In Women: 3 or > Positive: 0 Screen Result (Pos requires Nsg. Audit-10AR): Negative In the last yr the pt used illegal drug/Rx for NonMed reason: No Score: Yes response is considered Positive: 0 Screen Result (Positive result requires Nsg. DAST-10): Negative Review of Systems - Review of Systems Able to Perform ROS?: Yes Is the patient limited Greenlandic proficient: No Constitutional: No: Chills, Fever HEENTM: No: Eye Pain, Blurred Vision Respiratory: No: Cough, Shortness of Breath Cardiac (ROS): No: Chest Pain, Edema, Syncope ABD/GI: No: Constipated, Diarrhea, Nausea, Vomiting : No: Burning, Dysuria Musculoskeletal: No: Back Pain, Neck Pain Integumentary: Yes: Bruising (L side of head). No: Erythema, Flushing Neurological: Yes: Headache, Weakness. No: Numbness, Tingling, Tremors, Dizziness Hematologic/Lymphatic: No: Blood Clots, Easy Bruising *Physical Exam - Vital Signs Last Vital Signs Temp Pulse Resp BP Pulse Ox 98.5 F 64 19 171/61 H 98 07/03/20 14:54 07/03/20 14:54 07/03/20 14:54 07/03/20 14:54 07/03/20 14:54 - Physical Exam General Appearance: Yes: Nourished, Appropriately Dressed. No: Apparent Distress Respiratory/Chest: positive: Lungs Clear, Normal Breath Sounds. negative: Chest Tender, Respiratory Distress, Accessory Muscle Use, Crackles, Rales, Rhonchi, Stridor, Wheezing Cardiovascular: positive: Regular Rhythm, Regular Rate. negative: Edema, JVD, Murmur Gastrointestinal/Abdominal: positive: Normal Bowel Sounds, Flat, Soft. negative: Tender, Distended, Guarding, Rebound, Tenderness Musculoskeletal: positive: Normal Inspection. negative: CVA Tenderness Extremity: positive: Normal Inspection. negative: Tender, Coldness, Swelling, Calf Tenderness Integumentary: positive: Normal Color, Dry, Warm. negative: Swelling Neurologic: positive: Fully Oriented, Alert, Normal Mood/Affect, Normal Response ED Treatment Course - LABORATORY CBC & Chemistry Diagram: 07/04/20 06:27 07/04/20 06:27 Medical Decision Making - Medical Decision Making 07/03/20 16:23 84 y.o. PMHx of Afib (on coumadin), HTN, HLD, DM, Asthma, Depression presenting due to fall. DDx: mechanical fall (secondary to muscle weaknes vs. neuropathy) syncopal event (cardiogenic vs. vasovagal) Labs: WBC 11.6, Na 140, K 4.3, Trop<0.02, TSH 1.13 CT Head: No evidence of acute intracranial pathology CXR: Clear well aerated lungs, soft tissue and bones intact EKG: Irregular (A-fib), QTc 436ms, rate 55 UA: WNL Dispo: Pending Signed out to Dr. Barry 07/03/20 18:45 Discharge - Discharge Information Problems reviewed: Yes Clinical Impression/Diagnosis: RBBB, LAFB (left anterior fascicular block), Fall from ground level Syncope Qualifiers: Syncope type: unspecified Qualified Code(s): R55 - Syncope and collapse Compression fracture of L3 vertebra Qualifiers: Encounter type: initial encounter Qualified Code(s): S32.030A - Wedge comp ression fracture of third lumbar vertebra, initial encounter for closed fracture Condition: Guarded - Follow up/Referral - Patient Discharge Instructions - Post Discharge Activity
[2020-07-03] MEDS ORDERED: ACETAMINOPHEN 325 MG TABLET (FP) PO ONE (15:41)
[2020-07-03] MEDS ORDERED: ACETAMINOPHEN 325 MG TABLET (FP) ONE (16:13)
[2020-07-03 16:46] LABS: BASO % 0.3 % (0-2.0); EOS % 0.6 % (0-4.5); HEMATOCRIT 43.1 % (32.4-45.2); HEMOGLOBIN 14.5 GM/dL (10.7-15.3); LYMPH % 17.2 % (8-40); MCH 30.1 pg (25.7-33.7); MCHC 33.7 g/dl (32.0-36.0); MEAN CELL VOLUME 89.4 fl (80-96); MEAN PLT VOLUME 8.9 fl (7.5-11.1); NEUT % 74.9 % (42.8-82.8); PLATELET COUNT 279 K/MM3 (134-434); RBC 4.82 M/mm3 (3.60-5.2); RDW 14.4 % (11.6-15.6); WHITE BLOOD COUNT 11.6 K/mm3 (4.0-10.0)
[2020-07-03 17:13] LABS: INR 1.47 (0.83-1.09); PROTHROMBIN TIME (PATIENT) 17.1 SEC (9.7-13.0)
[2020-07-03 17:16] LABS: ACTIVATED PTT 34.4 SECONDS (25.2-36.5); ALBUMIN 3.7 g/dl (3.4-5.0); ALK PHOS 105 U/L (45-117); ANION GAP 7 MMOL/L (8-16); BILIRUBIN,TOTAL 0.7 mg/dL (0.2-1); BLOOD UREA NITROGEN 12.6 mg/dL (7-18); CALCIUM 9.7 mg/dL (8.5-10.1); CHLORIDE 102 mmol/L (98-107); CO2 31 mmol/L (21-32); CREATININE 0.7 mg/dL (0.55-1.3); GLUCOSE,RANDOM 80 mg/dL (74-106); POTASSIUM 4.3 mmol/L (3.5-5.1); SGOT/AST 23 U/L (15-37); SGPT/ALT 19 U/L (13-61); SODIUM 140 mmol/L (136-145); TOT PROT 7.8 g/dl (6.4-8.2)
[2020-07-03 18:45] LABS: PH,URINE 7.5 (5.0-8.0); URINE APPEARANCE CLEAR; URINE BILIRUBIN NEGATIVE (NEGATIVE); URINE COLOR YELLOW; URINE GLUCOSE (UA) NEGATIVE (NEGATIVE); URINE KETONE NEGATIVE (NEGATIVE); URINE LEUK ESTERASE NEGATIVE (NEGATIVE); URINE NITRITE NEGATIVE (NEGATIVE); URINE PROTEIN NEGATIVE (NEGATIVE); URINE UROBILINOGEN 0.2 mg/dL (0.2-1.0)
--- NOTE | 2020-07-03 19:10 | PDOC ---
*Physical Exam - Vital Signs Last Vital Signs Temp Pulse Resp BP Pulse Ox 98.5 F 64 18 161/64 97 07/03/20 14:54 07/03/20 18:32 07/03/20 18:32 07/03/20 18:32 07/03/20 18:32 ED Treatment Course - LABORATORY CBC & Chemistry Diagram: 07/03/20 16:00 07/03/20 16:00 - ADDITIONAL ORDERS Additional order review: Laboratory Results 07/03/20 07/03/20 07/03/20 18:30 16:00 16:00 PT with INR 17.10 H INR 1.47 H PTT (Actin FS) 34.4 Sodium 140 Potassium 4.3 Chloride 102 Carbon Dioxide 31 Anion Gap 7 L BUN 12.6 Creatinine 0.7 Est GFR (CKD-EPI)AfAm 91.57 Est GFR (CKD-EPI)NonAf 79.00 Random Glucose 80 Calcium 9.7 Total Bilirubin 0.7 AST 23 ALT 19 Alkaline Phosphatase 105 Troponin I < 0.02 Total Protein 7.8 Albumin 3.7 TSH 1.13 Urine Color Yellow Urine Appearance Clear Urine pH 7.5 Ur Specific [place] 1.013 Urine Protein Negative Urine Glucose (UA) Negative Urine Ketones Negative Urine Blood Negative Urine Nitrite Negative Urine Bilirubin Negative Urine Urobilinogen 0.2 Ur Leukocyte Esterase Negative 07/03/20 16:00 RBC 4.82 MCV 89.4 MCHC 33.7 RDW 14.4 MPV 8.9 Neutrophils % 74.9 Lymphocytes % 17.2 Monocytes % 7.0 Eosinophils % 0.6 Basophils % 0.3 - Medications Given in the ED: ED Medications Discontinued Medications Generic Name Dose Route Start Last Admin Trade Name Leonardo PRN Reason Stop Dose Admin Acetaminophen 975 mg 07/03/20 15:41 07/03/20 16:14 Tylenol - PO 07/03/20 15:42 975 mg ONCE ONE Administration Medical Decision Making - Medical Decision Making 84 YOF presents after fall/ syncopal event - patient signed out to me by day team - awaiting imaging>>admit to tele/obs - patient has L3 compression fracture on CT spine, imagining otherwise negative for acute changes - microblogged admitting team 07/03/20 19:55 07/03/20 20:22 Patient admitted to tele (Ifudu) Discharge - Discharge Information Clinical Impression/Diagnosis: RBBB, LAFB (left anterior fascicular block), Fall from ground level Syncope Qualifiers: Syncope type: unspecified Qualified Code(s): R55 - Syncope and collapse Compression fracture of L3 vertebra Qualifiers: Encounter type: initial encounter Qualified Code(s): S32.030A - Wedge compression fracture of third lumbar vertebra, initial encounter for closed fracture Condition: Guarded - Follow up/Referral Referrals: Sal Guerra MD [Primary Care Provider] - - Patient Discharge Instructions - Post Discharge Activity
--- NOTE | 2020-07-03 19:54 | PDOC ---
Documentation entered by Bri Hogan SCRIBE, acting as scribe for Merna Chavarria MD. Merna Chavarria MD: This documentation has been prepared by the Edison campos Xhesika, SCRIBE, under my direction and personally reviewed by me in its entirety. I confirm that the documentation accurately reflects all work, treatment, procedures, and medical decision making performed by me. Attending Attestation - Resident Resident Name: Ming Rosenbaum - ED Attending Attestation I have performed the following: I have examined & evaluated the patient, The case was reviewed & discussed with the resident, I agree w/resident's findings & plan, Exceptions are as noted - HPI HPI: 07/03/20 16:22 The patient is a 84y/o F with a pmh of Afib (on coumadin), HTN, HLD, DM, Asthma, Depression who presents to the ED with a headache s/p fall yesterday. Pt states she was walking out of the bathroom using her walker, her legs gave out on her, she fell backwards landing on her buttocks and subsequently hitting her head. Pt denies LOC. The patient denies chest pain, shortness of breath, headache and dizziness. Denies fever, chills, cough, nausea, vomiting, diarrhea and constipation. Denies dysuria, frequency, urgency and hematuria. Allergies: NKDA PCP:Eulalio Diana - Physicial Exam PE: GENERAL: elderly, nontoxic-appearing, no distress, confused, answers simple questions appropriately HEENT: PERRLA, EOMI, moist mucous membranes, there is a small left temporal ecchymosis and 1cm left frontal hematoma without cephalohematoma, no holliday sign, no raccoon eyes, no blood or fluid drainage from EAC or nares, no nasal septal hematoma, no lacerations NECK/BACK: mild diffuse ttp of c-spine including left, right, and midline; midline lumbar spine ttp at about the L2-L4 level without stepoff or deformity or outward e/o trauma, no other spinal stepoff or deformity, no hematoma, full ROM, neck supple CARDIOVASCULAR: regular rate/rhythm, not tachycardic, strong peripheral pulses, capillary refill <2 seconds, extremities wwp, no edema LUNGS/RESPIRATORY: no respiratory distress, CTAB GI/ABDOMEN: symmetric [id number], normoactive BS, soft, no ttp, no midline pulsatile masses : no CVA tenderness MSK/EXTREMITIES: no acute-appearing muscle atrophy, no acute deformity DERM/SKIN: warm and dry, no pallor, no jaundice, no rash, no pathologic- appearing bruising, no skin breakdown, no cuts, no lesions NEUROLOGICAL: GCS 15, CN II-XII grossly intact, 5/5 strength proximally and distally, no facial droop - Medical Decision Making 07/03/20 16:45 84YOF with GLF and subsequent GOMEZ, neck pain, lumbar midline pain/tenderness. Likely syncopal/presyncopal episode. Initial Vital Signs Temp Pulse Resp BP Pulse Ox 98.5 F 64 19 171/61 H 98 07/03/20 14:54 07/03/20 14:54 07/03/20 14:54 07/03/20 14:54 07/03/20 14:54 Possible syncopal episode versus presyncope, less likely seizure given lack of known postictal period, DDD, DJD, compression fxr, other vertebral or spinous process fxr. Provider Orders Category Date Time Status CERVICAL SPINE CT W/O CONTR [CT] Stat CT Scan 07/03/20 15:[address] WITHOUT CONTRAST [CT] Stat CT Scan 07/03/20 15:[address] W/O CONTRAST [CT] Stat CT Scan 07/03/20 15:[address] W/O CONTRAST [CT] Stat CT Scan 07/03/20 16:12 Completed EKG [ELECTROCARDIOGRAM] [CARD] Stat Cardiology 07/03/20 15:13 Completed EKG needed NOW Care 07/03/20 15:13 Completed Isolation Precautions As directed Care 07/03/20 15:39 Completed CBC WITH DIFFERENTIAL Stat Lab 07/03/20 16:00 Completed COMP METABOLIC PANEL Stat Lab 07/03/20 16:00 Completed COVID-19 Stat Lab 07/03/20 16:00 Completed PT/INR (PROTHROMBIN TIME) Stat Lab 07/03/20 16:00 Completed PTT [ACTIVATED PTT] Stat Lab 07/03/20 16:00 Completed THYROID STIMULATING HORMONE Stat Lab 07/03/20 16:00 Completed TROPONIN I ([facility]) Stat Lab 07/03/20 16:00 Completed UA ([facility]) ONLY Stat Lab 07/03/20 18:30 Completed Acetaminophen [Tylenol -] Medication 07/03/20 16:13 Discontinued 975 mg .ROUTE .STK-MED ONE Acetaminophen [Tylenol -] Medication 07/03/20 15:41 Discontinued 975 mg PO ONCE ONE URINE CULTURE Stat Micro 07/03/20 18:30 Completed IV Insert NOW Phy Order 07/03/20 15:38 Completed Saline Lock, Insert ONCE Phy Order 07/03/20 15:45 Ordered CHEST X-RAY PORTABLE* [RAD] Stat Radiology 07/03/20 15:40 Completed PELVIS [RAD] Stat Radiology 07/03/20 15:40 Completed Lab Results WBC 11.6 K/mm3 (4.0-10.0) H 07/03/20 16:00 RBC 4.82 M/mm3 (3.60-5.2) 07/03/20 16:00 Hgb 14.5 GM/dL (10.7-15.3) 07/03/20 16:00 Hct 43.1 % (32.4-45.2) 07/03/20 16:00 MCV 89.4 fl (80-96) 07/03/20 16:00 MCH 30.1 pg (25.7-33.7) 07/03/20 16:00 MCHC 33.7 g/dl (32.0-36.0) 07/03/20 16:00 RDW 14.4 % (11.6-15.6) 07/03/20 16:00 Plt Count 279 K/MM3 (134-434) 07/03/20 16:00 MPV 8.9 fl (7.5-11.1) 07/03/20 16:00 Absolute Neuts (auto) 8.6 K/mm3 (1.5-8.0) H 07/03/20 16:00 Neutrophils % 74.9 % (42.8-82.8) 07/03/20 16:00 Lymphocytes % 17.2 % (8-40) 07/03/20 16:00 Monocytes % 7.0 % (3.8-10.2) 07/03/20 16:00 Eosinophils % 0.6 % (0-4.5) 07/03/20 16:00 Basophils % 0.3 % (0-2.0) 07/03/20 16:00 Nucleated RBC % 0 % (0-0) 07/03/20 16:00 PT with INR 17.10 SEC (9.7-13.0) H 07/03/20 16:00 INR 1.47 (0.83-1.09) H 07/03/20 16:00 PTT (Actin FS) 34.4 SECONDS (25.2-36.5) 07/03/20 16:00 Sodium 140 mmol/L (136-145) 07/03/20 16:00 Potassium 4.3 mmol/L (3.5-5.1) 07/03/20 16:00 Chloride 102 mmol/L (98-107) 07/03/20 16:00 Carbon Dioxide 31 mmol/L (21-32) 07/03/20 16:00 Anion Gap 7 MMOL/L (8-16) L 07/03/20 16:00 BUN 12.6 mg/dL (7-18) 07/03/20 16:00 Creatinine 0.7 mg/dL (0.55-1.3) 07/03/20 16:00 Est GFR (CKD-EPI)AfAm 91.57 07/03/20 16:00 Est GFR (CKD-EPI)NonAf 79.00 07/03/20 16:00 Random Glucose 80 mg/dL (74-106) 07/03/20 16:00 Calcium 9.7 mg/dL (8.5-10.1) 07/03/20 16:00 Total Bilirubin 0.7 mg/dL (0.2-1) 07/03/20 16:00 AST 23 U/L (15-37) 07/03/20 16:00 ALT 19 U/L (13-61) 07/03/20 16:00 Alkaline Phosphatase 105 U/L (45-117) 07/03/20 16:00 Troponin I < 0.02 ng/ml (0.00-0.05) 07/03/20 16:00 Total Protein 7.8 g/dl (6.4-8.2) 07/03/20 16:00 Albumin 3.7 g/dl (3.4-5.0) 07/03/20 16:00 TSH 1.13 uIU/ml (0.358-3.74) 07/03/20 16:00 Urine Color Yellow 07/03/20 18:30 Urine Appearance Clear 07/03/20 18:30 Urine pH 7.5 (5.0-8.0) 07/03/20 18:30 Ur Specific [place] 1.013 (1.010-1.035) 07/03/20 18:30 Urine Protein Negative (NEGATIVE) 07/03/20 18:30 Urine Glucose (UA) Negative (NEGATIVE) 07/03/20 18:30 Urine Ketones Negative (NEGATIVE) 07/03/20 18: Urine Blood Negative (NEGATIVE) 07/03/20 18: Urine Nitrite Negative (NEGATIVE) 07/03/20 18:30 Urine Bilirubin Negative (NEGATIVE) 07/03/20 18: Urine Urobilinogen 0.2 mg/dL (0.2-1.0) 07/03/20 18:30 Ur Leukocyte Esterase Negative (NEGATIVE) 07/03/20 18:30 COVID-19 ([facility]) Not detected (Not Detected) 07/03/20 16:00 CT/HEAD CT WITHOUT CONTRAST Cranial CT without contrast Clinical information given: status post fall Multiplanar imaging was performed. Intravenous contrast was not administered. No CT evidence of intracranial injury or calvarial fracture. There is no extra-axial fluid collection. No obvious mass lesion infarct is noted. Moderate periventricular and subcortical microvascular ischemic gliosis is seen. At least moderate dilatation of the lateral ventricles is noted probably due to central atrophy. Impression: No CT evidence of acute intracranial pathology. At least moderate dilatation of the lateral ventricles is seen probably due to central atrophy and less likely normal pressure hydrocephalus. Correlate clinically. Moderate periventricular and subcortical chronic microvascular ischemic changes are noted. No definite interval change is identified in comparison to a prior CT exam of 05/05/2018. CT/CERVICAL SPINE CT W/O CONTR [id number] CT/LUMBAR SPINE CT W/O CONTRAST 1012- 0074 CT/THORACIC SPINE CT W/O CONTRAST CERVICAL SPINE CT without contrast THORACIC SPINE CT without contrast LUMBAR SPINE CT without contrast Clinical information: status post fall; back pain Multiplanar imaging of the cervical, thoracic and lumbar spine was performed. Evaluation of the lumbar spine demonstrates a mild acute L3 inferior endplate compression fracture with minimal bony retropulsion. A pre-existing chronic mild L3 superior endplate compression fracture is noted as on a previous CT exam of 03/28/2020. There is also a mo derate to marked chronic L5 vertebral body compression fracture with mild bony retropulsion as on the previous CT exam. Moder ate to marked multilevel bilateral lower lumbar degenerative facet arthropathy is visualized. Marked L3- L4 and moderate L4-L5 degenerative central canal stenosis is visualized. No obvious disc herniat ion is identified. The perivertebral soft tissues demonstrate no obvious pathology. The cervical spine demonstrates no evidence of fracture or posttraumatic malalignment. Marked C6-C7 and moderate to marked C5- C6 degenerative disc space narrowing is noted. The perivertebral soft tissues demonstrate no obvious pathology. The thoracic spine demonstrates no evidence of acute fracture or posttraumatic malalignment. A minimal to mild chronic T1 vertebral body compression fracture is seen without bony retropulsion. This finding appears unchanged in comparison to a prior CT exam of 04/26/2018. There is also a mild chronic T12 vertebral body compression fracture without bony retropulsion. This latter fracture appears unchanged in comparison to the 03/28/2020 CT exam. Diffuse osteoporosis. IMPRESSION: A mild acute L3 inferior endplate compression fracture is seen with minimal bony retropulsion. A mild pre-existing chronic L3 superior endplate compression fracture is noted. The remainder of the lumbar, thoracic and cervical spine demonstrate no CT evidence of acute fracture. Chronic minimal to mild T1, mild T12, and moderate to marked L5 vertebral body compression fractures are seen. Marked L3-L4 and moderate L4- L5 degenerative central canal stenosis is noted. RAD/CHEST X-RAY PORTABLE* Chest : Fall. Pain. Single view the chest reveals clear well-aerated lungs, slight blunting of the right angle, normal heart, unfolded aorta and normal yelena. There are sternal sutures, intact soft tissues are grossly intact bones. Since 03/29/2020 there is no change of an adverse nature. If symptoms persist, further imaging may be of help RAD/PELVIS Pelvis: Fall from standing position / pain. Single AP view of the pelvis has been submitted. There is no sign of a gross fracture or subluxation and no sign of blastic or lytic changes. The hips appear intact. The SI joints are patent. There are pelvic clips, retained stool intact lower LS spine. There is some reactive sclerosis by the left SI joint. If symptoms persist or there is decreased range of motion and further imaging may be of help. Please note the pelvis has a similar appearance to 03/28/2020. [facility]/p fall with likely syncope. Heart Score/ECG Review #1 Sinus rhythm, RBBB, LAFB, no P consistent P waves can be visualized Discharge - Discharge Information Problems reviewed: Yes Clinical Impression/Diagnosis: RBBB, LAFB (left anterior fascicular block), Fall from ground level Syncope Qualifiers: Syncope type: unspecified Qualified Code(s): R55 - Syncope and collapse Compression fracture of L3 vertebra Qualifiers: Encounter type: initial encounter Qualified Code(s): S32.030A - Wedge compression fracture of third lumbar vertebra, initial encounter for closed fracture Condition: Improved Disposition: VNS/HOME HEALTH CARE - Admission Yes - Follow up/Referral - Patient Discharge Instructions - Post Discharge Activity
--- NOTE | 2020-07-03 20:02 | PN ---
Teaching Attending Note Name of Resident: Juan Palomares ATTENDING PHYSICIAN STATEMENT I saw and evaluated the patient. I reviewed the resident's note and discussed the case with the resident. I agree with the resident's findings and plan as documented. SUBJECTIVE: Patient is an 84 year old woman with a PMH of Afib (on Coumadin), HTN, HLD, NIDDM, Asthma and Depression presenting after a fall. Her daughter reports that yesterday at 6pm the patient had been walking out of the bathroom using her walker and she began to feel her legs give out on her. Patient reports no LOC, falling backwards landing on her buttocks and subsequently hitting her head. She states she has had a headache since the event and the daughter confirms that she was alert after the event. Patient reports some dizziness but no SOB, chest pain, nausea, vomiting, diarrhea, incontinence or tongue biting. Patient denies abdominal pain, fever, chills, dysuria, frequency, urgency, melena, hematochezia or hematuria. Denies alcohol, tobacco or illicit drug use. No sick contacts or recent travels. Family history is unremarkable. OBJECTIVE: Alert Vital Signs Period Temp Pulse Resp BP Sys/Srivastava Pulse Ox Last 24 Hr 98.5 F 63-64 18-19 161-171/61-64 97-98 HEENT: No Jaundice, eye redness or discharge, PERRLA, EOMI. Normocephalic; ecchymosis left side of head. External ears are normal and hearing is grossly intact. No nasal discharge. Neck: Supple, nontender. No palpable adenopathy or thyromegaly. No JVD Chest: Good effort. Clear to auscultation and percussion. Heart: Regular. No S3, rub or murmur Abdomen: Not distended, soft, nontender and no HSM. No rebound or guarding. Normal bowel sounds. Ext: Peripheral pulses intact. No leg edema. Skin: Warm and dry. No petechiae, rash or ecchymosis. Neuro: Alert. Oriented x3. CN 2-12 grossly intact. Sensation grossly intact in all four extremities and DTR are symmetric. Psych: Appropriate mood and affect. Good insight. Home Medications Medication Instructions Recorded Digoxin [Lanoxin -] 0.125 mg PO DAILY 04/26/18 Diltiazem HCl [Cartia Xt] 180 mg PO DAILY 04/26/18 Doxazosin Mesylate 2 mg PO DAILY 04/26/18 Duloxetine HCl 30 mg PO DAILY 04/26/18 Furosemide 20 mg PO BID 04/26/18 Metformin HCl [Glucophage] 500 mg PO DAILY 04/26/18 Multivitamin [Multiple Vitamins] 1 each PO DAILY 04/26/18 [place]-3/Dha/Epa/Fish Oil [Fish Oil 1 each PO DAILY 04/26/18 1,000 mg Softgel] Pitavastatin Calcium [Livalo] 1 mg PO DAILY 04/26/18 Warfarin Sodium [Coumadin] 2.5 mg PO ASDIR 04/26/18 Atorvastatin Ca [Lipitor] 40 mg PO HS 03/28/20 Ascorbate Calcium [Vitamin C] 1,000 mg PO DAILY 07/03/20 Cholecalciferol (Vitamin D3) 25 mcg PO DAILY 07/03/20 [Vitamin D3] Abnormal Lab Results 07/03/20 07/03/20 07/03/20 16:00 16:00 16:00 WBC 11.6 H Absolute Neuts (auto) 8.6 H PT with INR 17.10 H INR 1.47 H Anion Gap 7 L Current Medications Generic Name Dose Route Start Last Admin Trade Name Freq PRN Reason Stop Dose Admin Enoxaparin Sodium 40 mg 07/04/20 10:00 Lovenox - SQ DAILY [facility] Insulin Aspart 1 vial 07/04/20 07:00 Novolog Vial Sliding Scale - SQ ACHS [facility] Protocol ASSESSMENT AND PLAN: 1. Syncope/?Cerebral concussion - Etiology of syncope unclear. Persistent headache and dizziness may signal cerebral consussion. CXR shows sternal sutures but no acute abnormality. No evidence of acute intracranial pathology on noncontrast head CT scan. Spine CT shows L3 compression fracture. EKG shows Afib at 55/minute and QTc 436 with no significant acute ischemic ST-T wave changes. Initial troponin is negative. Will admit to telemetry, get urinalysis stat, ECHO, carotid doppler, fasting lipids, brain MRI in 24 hours, do speech and swallow evaluation, neurochecks and implement fall/aspiration/seizure precautions. Consult Cardiology/PT/Neurology. Will continue comprehensive care for all of patients comorbid conditions. 2. DM For now, we will hold the home diabetes drugs and implement sliding scale insulin regimen. Provide comprehensive diabetes care with patient teaching and counseling about the importance of adherence to prescribed diabetes regimen, euglycemia, eye care and foot care. 3. Hypertension Will restart suitable outpatient antihypertensive drugs when clinically appropriate. Subsequently, will revise regimen to ensure [id number] excellent BP control. Patient counseled on the injurious effects of uncontrolled hypertension. Nonpharmacologic measures to control hypertension like weight loss, salt restriction and exercise stressed. Importance of adherence to treatment regimen and attainment of normotension emphasized. 4. DVT prophylaxis - On Coumadin 5. Advance directives - Full code
--- NOTE | 2020-07-03 20:20 | HP ---
CHIEF COMPLAINT: passing out PCP: Eulalio Cerna HISTORY OF PRESENT ILLNESS: Ms. Nevarez is an 84F h/o afib on coumadin, aortic valve replacement, htn, hld, dm, asthma, presenting to the ED for a fall. The daughter was present at the event noted yesterday at 6pm, the patient was ambulating with a walker to the bathroom, turned the corner, and had lost her balanced. She had fallen and struck the left parietal aspect of her head against the wall and had fallen to the floor. Headache since the event. The patient was alert and cognizant at the event. No post ictal state, tongue biting, or confusion. The patient endorses multiple episodes of falls in the past with the last dating back in March. She notes that she lives at home with her daughter, , and aunt and ambulates with a walker at baseline. Patient endorses mild headache and dizziness after the event. The patient denies Chest pain, sob, LE weakness, diarrhea, abdominal pain, dysuria, saddle anesthesia, or any focal neurological deficits. ER course was notable for: (1)lumbar spine ct showed L3 compression fraction. Recent Travel: denies PAST MEDICAL HISTORY: as above PAST SURGICAL HISTORY: as above Social History: Smoking: quit 50 years ago Alcohol: one beer a night Drugs: denies Allergies Sulfa (Sulfonamide Antibiotics) [Sulfa(Sulfonamide Antibiotics)] Allergy (Unknown, Verified 07/03/20 15:37) ciprofloxacin [From Cipro] Allergy (Verified 07/03/20 15:37) ciprofloxacin HCl [From Cipro] Allergy (Verified 07/03/20 15:37) levofloxacin [From Levaquin] Adverse Reaction (Unknown, Verified 07/03/20 15:37) HOME MEDICATIONS: Home Medications Medication Instructions Recorded Digoxin [Lanoxin -] 0.125 mg PO DAILY 04/26/18 Diltiazem HCl [Cartia Xt] 180 mg PO DAILY 04/26/18 Doxazosin Mesylate 2 mg PO DAILY 04/26/18 Duloxetine HCl 30 mg PO DAILY 04/26/18 Furosemide 20 mg PO BID 04/26/18 Metformin HCl [Glucophage] 500 mg PO DAILY 04/26/18 Multivitamin [Multiple Vitamins] 1 each PO DAILY 04/26/18 [place]-3/Dha/Epa/Fish Oil [Fish Oil 1 each PO DAILY 04/26/18 1,000 mg Softgel] Pitavastatin Calcium [Livalo] 1 mg PO DAILY 04/26/18 Warfarin Sodium [Coumadin] 2.5 mg PO ASDIR 04/26/18 Atorvastatin Ca [Lipitor] 40 mg PO HS 03/28/20 Ascorbate Calcium [Vitamin C] 1,000 mg PO DAILY 07/03/20 Cholecalciferol (Vitamin D3) 25 mcg PO DAILY 07/03/20 [Vitamin D3] REVIEW OF SYSTEMS as above PHYSICAL EXAMINATION Vital Signs - 24 hr 07/03/20 07/03/20 07/03/20 14:54 15:25 18:32 Temperature 98.5 F Pulse Rate 64 Pulse Rate [ 63 64 Right Radial] Respiratory 19 18 18 Rate Blood Pressure 171/61 H Blood Pressure 164/61 161/64 [Right Arm] O2 Sat by Pulse 98 97 97 Oximetry (%) GENERAL: Awake, alert, and fully oriented, in no acute distress. HEAD: ECHYMOSIS ON RIGHT LATERAL ASPECT OF TEMPORAL REGION LUNGS: Breath sounds equal, clear to auscultation bilaterally. No wheezes, and no crackles. No accessory muscle use. HEART: Regular rate and rhythm, normal S1 and S2 without murmur, rub or gallop. ABDOMEN: Soft, nontender, not distended, normoactive bowel sounds, no guarding, no rebound, no masses. No hepatomegaly or splenomegaly. LOWER EXTREMITIES: 2+ pulses, warm, well-perfused. No calf tenderness. No peripheral edema. NEUROLOGICAL: Cranial nerves II-XII intact. Normal speech PSYCHIATRIC: Cooperative. Good eye contact. Appropriate mood and affect. Laboratory Results - last 24 hr 07/03/20 07/03/20 07/03/20 16:00 16:00 16:00 WBC 11.6 H RBC 4.82 Hgb 14.5 Hct 43.1 MCV 89.4 MCH 30.1 MCHC 33.7 RDW 14.4 Plt Count 279 MPV 8.9 Absolute Neuts (auto) 8.6 H Neutrophils % 74.9 Lymphocytes % 17.2 Monocytes % 7.0 Eosinophils % 0.6 Basophils % 0.3 Nucleated RBC % 0 PT with INR 17.10 H INR 1.47 H PTT (Actin FS) 34.4 Sodium 140 Potassium 4.3 Chloride 102 Carbon Dioxide 31 Anion Gap 7 L BUN 12.6 Creatinine 0.7 Est GFR (CKD-EPI)AfAm 91.57 Est GFR (CKD-EPI)NonAf 79.00 Random Glucose 80 Calcium 9.7 Total Bilirubin 0.7 AST 23 ALT 19 Alkaline Phosphatase 105 Troponin I < 0.02 Total Protein 7.8 Albumin 3.7 TSH 1.13 Urine Color Urine Appearance Urine pH Ur Specific [place] Urine Protein Urine Glucose (UA) Urine Ketones Urine Blood Urine Nitrite Urine Bilirubin Urine Urobilinogen Ur Leukocyte Esterase 07/03/20 18:30 WBC RBC Hgb Hct MCV MCH MCHC RDW Plt Count MPV Absolute Neuts (auto) Neutrophils % Lymphocytes % Monocytes % Eosinophils % Basophils % Nucleated RBC % PT with INR INR PTT (Actin FS) Sodium Potassium Chloride Carbon Dioxide Anion Gap BUN Creatinine Est GFR (CKD-EPI)AfAm Est GFR (CKD-EPI)NonAf Random Glucose Calcium Total Bilirubin AST ALT Alkaline Phosphatase Troponin I Total Protein Albumin TSH Urine Color Yellow Urine Appearance Clear Urine pH 7.5 Ur Specific [place] 1.013 Urine Protein Negative Urine Glucose (UA) Negative Urine Ketones Negative Urine Blood Negative Urine Nitrite Negative Urine Bilirubin Negative Urine Urobilinogen 0.2 Ur Leukocyte Esterase Negative ASSESSMENT/PLAN: Ms. Nevarez is an 84F h/o afib on coumadin, htn, hld, dm, asthma, presenting to the ED for a fall. #syncope - CT head negative for acute intracranial pathology - admit to telemetry - consult cardiology - fall protocol - monitor cbc/cmp - BRAIN MRI - #afib - conitnue on home coumadin - SUBTHERAPUTIC #DM - ISS #DVT ppx - home coumadin #FEN - po intake - monitor lytes - diabetic diet #Disposition - telemetry #Advanced directive - full code ATTENDING PHYSICIAN STATEMENT I saw and evaluated the patient. I reviewed the resident's note and discussed the case with the resident. I agree with the resident's findings and plan as documented. SUBJECTIVE: OBJECTIVE: ASSESSMENT AND PLAN:
--- OUTSIDE RECORDS SUMMARY | 2020-07-03 20:33 | XMS ---
:1935 Author Organization [facility] Support Name Relationship Address Phone RE Unavailable Unavailable Unavailable RE Unavailable Unavailable Unavailable ADARSH [address] [place] [address] ADARSH DAUGHTER [address] [place] [address] ADARSH Child [address] [place] [address] Re-disclosure Warning The records that you are [...] is protected by Article 27-F of the [place] Public Health law. If you continue you may haveaccess to information: Regarding HIV / AIDS; Provided by facilities licensed or operated by the [place] Office of Mental Health; or Provided by the [place] Office for People With Developmental Disabilities. If such information is present, then the following [place] mandated warning applies: This information has been [...] law may result in a fine or mcc sentence or both. A general authorization for the release of medical or other information is NOT sufficient authorization for further disclosure. Insurance Providers Payer name Policy type Policy ID Covered Covered constitution party's Policy P jimmy / Coverage constitution party ID relationship to Delatorre Inf ormation type delatorre MEDICARE [id number] [facility] [id number] CARE [employer] MEDICARE [id number] SP [id number] A Results ID Date Data Source [id number] 03/28/2020 05:54:00 PM EDT [facility] Name Value Range Interpretation Description Data Sup porting Code Source(s) Document(s ) SARS [facility] coronavirus 2 RNA This lab was ordered by [facility] and reported by [facility]. Procedure
[2020-07-04 06:48] LABS: BASO % 0.8 % (0-2.0); EOS % 1.4 % (0-4.5); HEMATOCRIT 40.8 % (32.4-45.2); HEMOGLOBIN 13.2 GM/dL (10.7-15.3); MCH 29.1 pg (25.7-33.7); MCHC 32.4 g/dl (32.0-36.0); MEAN CELL VOLUME 89.6 fl (80-96); MEAN PLT VOLUME 8.7 fl (7.5-11.1); NEUT % 76.8 % (42.8-82.8); PLATELET COUNT 259 K/MM3 (134-434); RBC 4.55 M/mm3 (3.60-5.2); RDW 14.2 % (11.6-15.6); WHITE BLOOD COUNT 13.5 K/mm3 (4.0-10.0)
[2020-07-04 07:21] LABS: ALBUMIN 3.6 g/dl (3.4-5.0); BILIRUBIN,TOTAL 0.6 mg/dL (0.2-1); BLOOD UREA NITROGEN 14.7 mg/dL (7-18); CREATININE 0.8 mg/dL (0.55-1.3); MAGNESIUM 2.4 mg/dL (1.8-2.4); PHOSPHOROUS 3.7 mg/dL (2.5-4.9); TOT PROT 7.4 g/dl (6.4-8.2)
[2020-07-04] MEDS: INSULIN SLIDING SCALE (NOVOLOG) 1 VIAL SQ SCH ×4 (07:29→21:20)
[2020-07-04] MEDS ORDERED: ENOXAPARIN NA (PORCINE) 40 MG/0.4 ML DISP.SYRIN SQ SCH (10:00)
--- NOTE | 2020-07-04 10:05 | EKG ---
Test Reason : Blood Pressure : / mmHG Vent. Rate : 055 BPM Atrial Rate : 048 BPM P-R Int : 000 ms QRS Dur : 138 ms QT Int : 456 ms P-R-T Axes : 000 -57 056 degrees QTc Int : 436 ms ATRIAL FIBRILLATION RIGHT BUNDLE BRANCH BLOCK LEFT ANTERIOR FASCICULAR BLOCK BIFASCICULAR BLOCK ABNORMAL ECG WHEN COMPARED WITH ECG OF 28-MAR-2020 14:47, CURRENT UNDETERMINED RHYTHM PRECLUDES RHYTHM COMPARISON, NEEDS REVIEW RIGHT BUNDLE BRANCH BLOCK HAS REPLACED NON-SPECIFIC INTRA-VENTRICULAR CONDUCTION BLOCK Confirmed by MD Espinoza, Parveen ([id number]) on 07/04/2020 10:05:18 AM Referred By: Confirmed By:Parveen Doran MD
--- NOTE | 2020-07-04 11:49 | PN ---
Physical Exam: SUBJECTIVE: Patient seen and examined. Pt c/o lower back pain, posterior neck pain, and intermittent headaches and dizziness. Denies vision/hearing changes, chest pain, palpitations, lightheadedness. States she normally ambulates w/ walker. Lives with sister in law, , who are both 86 yr old and are taken care of by daughter who lives at home with them. States she has a [employer] 3d/week x4hr/day PCP: Dr Guerra Commercial Engineer: Dr Farmer OBJECTIVE: This is a 84 yr old female with a hx of Afib on coumadin, AVR, HTN, HLD, DM, asthma, rectal prolapse, who came to the ED s/p fall at home. Pt was walking to the bathroom with rolling waker when she fell and hit the left side of her head against the wall. Pt states she does not recall falling and does not remember what happened prior to falling but states she does remember feeling "faint." An L-Spine CT revealed an L3 compression fracture. Head CT was negative CTLS Spine CT: Acute L3 compression fracture, chronic T1, T12, L5 compression fractures, Marked L3-L4 and moderate L4-L5 central canal stenosis Vital Signs Period Temp Pulse Resp BP Sys/Srivastava Pulse Ox Last 24 Hr 97.7 F-98.6 F 63-71 16-19 150-172/61-77 93-98 GENERAL: The patient is awake, alert, and fully oriented, in no acute distress. HEAD: Normal, bruise to left temporal. EYES: PERRL, extraocular movements intact, sclera anicteric, conjunctiva clear. No ptosis. ENT: Ears normal, nares patent, oropharynx clear without exudates, moist mucous membranes. NECK: Tender posterior neck, trachea midline, full range of motion, supple. LUNGS: Breath sounds equal, clear to auscultation bilaterally, no wheezes, no crackles, no accessory muscle use. HEART: Regular rate and rhythm, S1, S2 without murmur, rub or gallop. ABDOMEN: Soft, nontender, nondistended, normoactive bowel sounds, no guarding, no rebound, no hepatosplenomegaly, no masses. RECTAL: No rectal prolapse noted EXTREMITIES: 2+ pulses, warm, well-perfused, no edema. NEUROLOGICAL: Cranial nerves II through XII grossly intact. Normal speech, gait not observed. BL Lower strength 1/5, BL upper strength 4/5, strong hand grasps BL, + remote memory loss PSYCH: Normal mood, normal affect. SKIN: Warm, dry, normal turgor, no rashes or lesions noted Laboratory Results - last 24 hr 07/03/20 07/03/20 07/03/20 16:00 16:00 16:00 WBC 11.6 H RBC 4.82 Hgb 14.5 Hct 43.1 MCV 89.4 MCH 30.1 MCHC 33.7 RDW 14.4 Plt Count 279 MPV 8.9 Absolute Neuts (auto) 8.6 H Neutrophils % 74.9 Lymphocytes % 17.2 Monocytes % 7.0 Eosinophils % 0.6 Basophils % 0.3 Nucleated RBC % 0 PT with INR 17.10 H INR 1.47 H PTT (Actin FS) 34.4 Sodium 140 Potassium 4.3 Chloride 102 Carbon Dioxide 31 Anion Gap 7 L BUN 12.6 Creatinine 0.7 Est GFR (CKD-EPI)AfAm 91.57 Est GFR (CKD-EPI)NonAf 79.00 POC Glucometer Random Glucose 80 Calcium 9.7 Phosphorus Magnesium Total Bilirubin 0.7 AST 23 ALT 19 Alkaline Phosphatase 105 Troponin I < 0.02 Total Protein 7.8 Albumin 3.7 TSH 1.13 Urine Color Urine Appearance Urine pH Ur Specific [place] Urine Protein Urine Glucose (UA) Urine Ketones Urine Blood Urine Nitrite Urine Bilirubin Urine Urobilinogen Ur Leukocyte Esterase 07/03/20 07/04/20 07/04/20 18:30 06:27 06:27 WBC 13.5 H RBC 4.55 Hgb 13.2 Hct 40.8 MCV 89.6 MCH 29.1 MCHC 32.4 RDW 14.2 Plt Count 259 MPV 8.7 Absolute Neuts (auto) 10.3 H Neutrophils % 76.8 Lymphocytes % 14.0 Monocytes % 7.0 Eosinophils % 1.4 D Basophils % 0.8 Nucleated RBC % 0 PT with INR INR PTT (Actin FS) Sodium 138 Potassium 4.0 Chloride 104 Carbon Dioxide 28 Anion Gap 6 L BUN 14.7 Creatinine 0.8 Est GFR (CKD-EPI)AfAm 77.92 Est GFR (CKD-EPI)NonAf 67.23 POC Glucometer Random Glucose 91 Calcium 9.0 Phosphorus 3.7 Magnesium 2.4 Total Bilirubin 0.6 AST 16 ALT 16 Alkaline Phosphatase 96 Troponin I Total Protein 7.4 Albumin 3.6 TSH Urine Color Yellow Urine Appearance Clear Urine pH 7.5 Ur Specific [place] 1.013 Urine Protein Negative Urine Glucose (UA) Negative Urine Ketones Negative Urine Blood Negative Urine Nitrite Negative Urine Bilirubin Negative Urine Urobilinogen 0.2 Ur Leukocyte Esterase Negative 07/04/20 11:06 WBC RBC Hgb Hct MCV MCH MCHC RDW Plt Count MPV Absolute Neuts (auto) Neutrophils % Lymphocytes % Monocytes % Eosinophils % Basophils % Nucleated RBC % PT with INR INR PTT (Actin FS) Sodium Potassium Chloride Carbon Dioxide Anion Gap BUN Creatinine Est GFR (CKD-EPI)AfAm Est GFR (CKD-EPI)NonAf POC Glucometer 108 Random Glucose Calcium Phosphorus Magnesium Total Bilirubin AST ALT Alkaline Phosphatase Troponin I Total Protein Albumin TSH Urine Color Urine Appearance Urine pH Ur Specific [place] Urine Protein Urine Glucose (UA) Urine Ketones Urine Blood Urine Nitrite Urine Bilirubin Urine Urobilinogen Ur Leukocyte Esterase Active Medications Generic Name Dose Route Start Last Admin Trade Name Freq PRN Reason Stop Dose Admin Insulin Aspart 1 vial 07/04/20 07:00 07/04/20 11:10 Novolog Vial Sliding Scale - SQ Not Given ACHS VIDA Protocol ASSESSMENT/PLAN: Problem List - Problems (1) Fall from ground level Assessment/Plan: mechanical vs cardiac PT ordered fall precautions Code(s): W18.30XA - FALL ON SAME LEVEL, UNSPECIFIED, INITIAL ENCOUNTER (2) Pre-syncope Assessment/Plan: pt states she felt "faint" prior to falling continue on monitor worker/tele cardiology consult ordered Brain MRI ordered Code(s): R55 - SYNCOPE AND COLLAPSE (3) Compression fracture of L3 vertebra Code(s): S32.030A - WEDGE COMPRESSION FRACTURE OF THIRD LUMBAR VERTEBRA, INIT Qualifiers: Encounter type: initial encounter Qualified Code(s): S32.030A - Wedge compression fracture of third lumbar vertebra, initial encounter for closed fracture (4) HTN (hypertension) Assessment/Plan: Resume home dose Diltiazem 180mg PO daily Code(s): I10 - ESSENTIAL (PRIMARY) HYPERTENSION (5) HLD (hyperlipidemia) Assessment/Plan: Resume home dose Lipitor 40mg PO daily Resume home dose Livalo 1mg PO Daily Check lipid panel Code(s): E78.5 - HYPERLIPIDEMIA, UNSPECIFIED (6) Asthma Assessment/Plan: currently not SOB, denies difficulty breathing monitor respiratory status monitor spo2, notify provider if spo2 <90% on room air Code(s): J45.909 - UNSPECIFIED ASTHMA, UNCOMPLICATED (7) Constipation Assessment/Plan: Resume pt's home dose colace 100mg PO daily Miralax 17gm PO daily PRN Code(s): K59.00 - CONSTIPATION, UNSPECIFIED (8) Headache Assessment/Plan: Start Tylenol 650mg PO q6h PRN for pain Code(s): R51.9 - HEADACHE, UNSPECIFIED (9) Back pain Assessment/Plan: Apply lidocaine patch 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 Assessment/Plan: Continue BGMs AC/HS Continue ISS Check hgb A1C Code(s): E11.319 - TYPE 2 DIABETES W UNSP DIABETIC RTNOP W/O MACULAR EDEMA (11) Leukocytosis Assessment/Plan: Urine culture pending chest x ray negative for pna currently afebrile f/u culture Code(s): D72.829 - ELEVATED WHITE BLOOD CELL COUNT, UNSPECIFIED (12) Afib Assessment/Plan: Resume home dose coumadin 2.5mg Sat, Sun, Tue, Thurs and 3.75mg Fri Resume digoxin 0.125 mg po daily Check digoxin level Code(s): I48.91 - UNSPECIFIED ATRIAL FIBRILLATION (13) Aortic valve replaced Assessment/Plan: sees Dr Farmer Code(s): Z95.2 - PRESENCE OF PROSTHETIC HEART VALVE (14) Prophylactic measure Assessment/Plan: FEN Diabetic Diet Monitor electrolytes and replete as needed VTE Prophylaxis: Pt on coumadin Code(s): Z29.9 - ENCOUNTER FOR PROPHYLACTIC MEASURES, UNSPECIFIED Visit type - Emergency Visit Emergency Visit: Yes ED Registration Date: 07/03/20 Care time: The patient presented to the Emergency Department on the above date and was hospitalized for further evaluation of their emergent condition. - New Patient This patient is new to me today: Yes Date on this admission: 07/04/20 - Critical Care Critical Care patient: No - Discharge Referral Referred to [facility] Med P.C.: No - Medication Review Med list reviewed for High Risk Meds patients 65 and older: Yes
[2020-07-04] MEDS ORDERED: ACETAMINOPHEN 325 MG TABLET (FP) PO PRN (12:22)
[2020-07-04] MEDS ORDERED: POLYETHYLENE GLYCOL 3350 119 GM BTL PO PRN (12:23)
[2020-07-04] MEDS ORDERED: CHOLECALCIFEROL (VIT D3) 400 UNIT (10 MCG) TABLET PO SCH (12:30)
--- NOTE | 2020-07-04 14:18 | CON.CARD ---
Cardiology Consult (text) - Consultation Consultation Note: Chief Complaint: fall History of Present Illness: 84 yo female, h/o cad, afib, bio AVR, HTN, HL, chronic diastolic HF, DM, ureteral stents, recurrent uti's, dementia with fall, L5 fx, here with fall. Sees Dr. Farmer for cardio. Patient says she lost her balance and fell, no syncope, dizziness, lightheadedness, chest pain, palps. Was witnessed by daughter as well, hit her head on the wall. Currently no cp sob palps dizzy loc pnd orthopnea le edema. - Past Medical History TRAFFIC ENGINEER: Yes: Peripheral Neuropathy Cardio/Vascular: Yes: AFIB, Aortic Stenosis, CAD, CHF, HTN, Hyperlipdemia, Other (peripheral vascular disease) Psych: Yes: Depression Musculoskeletal: Yes: Other (scoliosis) Rheumatology: Yes: Other (osteoporosis) Endocrine: Yes: Diabetes Mellitus, Other (vit d def) - Past Surgical History Past Surgical History: Yes: Appendectomy, CABG, Cataract Removal, Tonsillectomy, Valve Replacement (Aortic -Porcine) - Alcohol/Substance Use Hx Alcohol Use: Yes (social) - Smoking History Smoking history: Former smoker Have you smoked in the past 12 months: No Aproximately how many cigarettes per day: 0 If you are a former smoker, when did you quit?: 40 years ago - Social History 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[employer]) Home Medications - Allergies Allergies/Adverse Reactions: Allergies Allergy/AdvReac Type Severity Reaction Status Date / Time Sulfa (Sulfonamide Allergy Unknown Verified 07/03/20 15:37 Antibiotics) [Sulfa(Sulfonamide Antibiotics)] ciprofloxacin [From Cipro] Allergy Verified 07/03/20 15:37 ciprofloxacin HCl Allergy Verified 07/03/20 15:37 [From Cipro] levofloxacin [From Levaquin] AdvReac Unknown Verified 07/03/20 15:37 Home Medications Medication Instructions Recorded Digoxin [Lanoxin -] 0.125 mg PO DAILY 04/26/18 Diltiazem HCl [Cartia Xt] 180 mg PO DAILY 04/26/18 Doxazosin Mesylate 2 mg PO DAILY 04/26/18 Duloxetine HCl 30 mg PO DAILY 04/26/18 Furosemide 20 mg PO BID 04/26/18 Metformin HCl [Glucophage] 500 mg PO DAILY 04/26/18 Multivitamin [Multiple Vitamins] 1 each PO DAILY 04/26/18 [place]-3/Dha/Epa/Fish Oil [Fish Oil 1 each PO DAILY 04/26/18 1,000 mg Softgel] Pitavastatin Calcium [Livalo] 1 mg PO DAILY 04/26/18 Warfarin Sodium [Coumadin] 3.75 mg PO ASDIR 04/26/18 Atorvastatin Ca [Lipitor] 40 mg PO HS 03/28/20 Ascorbate Calcium [Vitamin C] 1,000 mg PO DAILY 07/03/20 Cholecalciferol (Vitamin D3) 25 mcg PO DAILY 07/03/20 [Vitamin D3] Family Disease History - Family Disease History Family Disease History: CA: Mother (Lung CA), Other: Father (AAA, COPD) Review of Systems per hpi; all others nl Vital Signs Period Temp Pulse Resp BP Sys/Srivastava Pulse Ox Last 24 Hr 97.7 F-98.6 F 63-71 16-19 150-172/61-77 93-98 Constitutional: Yes: Well Nourished, No Distress, Calm Eyes: Yes: Conjunctiva Clear, EOM Intact HENT: Yes: Atraumatic, Normocephalic Neck: Yes: Supple Respiratory: Yes: Regular, CTA Bilaterally Gastrointestinal: Yes: Normal Bowel Sounds, Soft, Tenderness (mild to palpation) Cardiovascular: Yes: irreg Edema: No Neurological: Yes: Alert, Oriented Psychiatric: Yes: Alert, Oriented no jaundice diaphoresis Laboratory Last Values WBC 13.5 K/mm3 (4.0-10.0) H 07/04/20 06:27 RBC 4.55 M/mm3 (3.60-5.2) 07/04/20 06:27 Hgb 13.2 GM/dL (10.7-15.3) 07/04/20 06:27 Hct 40.8 % (32.4-45.2) 07/04/20 06:27 MCV 89.6 fl (80-96) 07/04/20 06:27 MCH 29.1 pg (25.7-33.7) 07/04/20 06:27 MCHC 32.4 g/dl (32.0-36.0) 07/04/20 06:27 RDW 14.2 % (11.6-15.6) 07/04/20 06:27 Plt Count 259 K/MM3 (134-434) 07/04/20 06:27 MPV 8.7 fl (7.5-11.1) 07/04/20 06:27 Absolute Neuts (auto) 10.3 K/mm3 (1.5-8.0) H 07/04/20 06:27 Neutrophils % 76.8 % (42.8-82.8) 07/04/20 06:27 Lymphocytes % 14.0 % (8-40) 07/04/20 06:27 Monocytes % 7.0 % (3.8-10.2) 07/04/20 06:27 Eosinophils % 1.4 % (0-4.5) D 07/04/20 06:27 Basophils % 0.8 % (0-2.0) 07/04/20 06: Nucleated RBC % 0 % (0-0) 07/04/20 06:27 PT with INR 17.10 SEC (9.7-13.0) H 07/03/20 16:00 INR 1.47 (0.83-1.09) H 07/03/20 16:00 PTT (Actin FS) 34.4 SECONDS (25.2-36.5) 07/03/20 16:00 Sodium 138 mmol/L (136-145) 07/04/20 06:27 Potassium 4.0 mmol/L (3.5-5.1) 07/04/20 06:27 Chloride 104 mmol/L (98-107) 07/04/20 06:27 Carbon Dioxide 28 mmol/L (21-32) 07/04/20 06:27 Anion Gap 6 MMOL/L (8-16) L 07/04/20 06:27 BUN 14.7 mg/dL (7-18) 07/04/20 06:27 Creatinine 0.8 mg/dL (0.55-1.3) 07/04/20 06:27 Est GFR (CKD-EPI)AfAm 77.92 07/04/20 06:27 Est GFR (CKD-EPI)NonAf 67.23 07/04/20 06:27 POC Glucometer 108 UNITS (80-120) 07/04/20 11:06 Random Glucose 91 mg/dL (74-106) 07/04/20 06:27 Calcium 9.0 mg/dL (8.5-10.1) 07/04/20 06:27 Phosphorus 3.7 mg/dL (2.5-4.9) 07/04/20 06: Magnesium 2.4 mg/dL (1.8-2.4) 07/04/20 06: Total Bilirubin 0.6 mg/dL (0.2-1) 07/04/20 06:27 AST 16 U/L (15-37) 07/04/20: ALT 16 U/L (13-61) 07/04/20: Alkaline Phosphatase 96 U/L (45-117) 07/04/20 06: Troponin I < 0.02 ng/ml (0.00-0.05) 07/03/20 16:00 Total Protein 7.4 g/dl (6.4-8.2) 07/04/20: Albumin 3.6 g/dl (3.4-5.0) 07/04/20 06: TSH 1.13 uIU/ml (0.358-3.74) 07/03/20 16:00 Urine Color Yellow 07/03/20 18:30 Urine Appearance Clear 07/03/20 18:30 Urine pH 7.5 (5.0-8.0) 07/03/20 18:30 Ur Specific [place] 1.013 (1.010-1.035) 07/03/20 18:30 Urine Protein Negative (NEGATIVE) 07/03/20 18:30 Urine Glucose (UA) Negative (NEGATIVE) 07/03/20 18:30 Urine Ketones Negative (NEGATIVE) 07/03/20 18:30 Urine Blood Negative (NEGATIVE) 07/03/20 18:30 Urine Nitrite Negative (NEGATIVE) 07/03/20 18:30 Urine Bilirubin Negative (NEGATIVE) 07/03/20 18:30 Urine Urobilinogen 0.2 mg/dL (0.2-1.0) 07/03/20 18:30 Ur Leukocyte Esterase Negative (NEGATIVE) 07/03/20 18: COVID-19 (ROSARIO) Not detected (Not Detected) 07/03/20 16:00 ecg: afib, rate ok, rbbb, LAFB, bifascicular block cxr: no congestion echo 03/28/17 nl lv/rv function, bio avr without sig stenosis, mild to mod MR, mod to sev pHTN, echo 04/2018 technically difficult, uninterpetable a/p: 84 yo female, h/o cad, afib, bio AVR, HTN, HL, chronic diastolic HF, DM, ureteral stents, recurrent uti's, dementia with fall, L5 fx, here with fall fall - denies syncope, feels like she lost her balance - trop neg, EKG no ischemic changes less likely ACS - monitoring on tele afib - rate controlled on dilt and dig - dig level pending - on coumadin per inr CAD, remote cabg (per charts) - stable, no signs acs - continue statin, ac bioAVR -stable, outpatient monitoring htn -cont dilt chronic diastolic heart failure - Cr stable, continue home lasix DM - manage per primary
[2020-07-04] MEDS ORDERED: DOCUSATE SODIUM 100 MG CAPSULE (FP) PO ONE (15:00)
[2020-07-04] MEDS ORDERED: MULTIVITAMINS (DAILY MVI) TABLET (FP) ONE (15:00)
[2020-07-04] MEDS ORDERED: DIGOXIN 0.125 MG TABLET (FP) ONE (15:00)
[2020-07-04] MEDS ORDERED: FUROSEMIDE 40 MG TABLET (FP) ONE (15:00)
[2020-07-04] MEDS ORDERED: DULoxetine HCL 30 MG CAPSULE.DR PO ONE (15:00)
[2020-07-04] MEDS ORDERED: ASCORBIC ACID 500 MG TABLET (FP) ONE (15:00)
[2020-07-04] MEDS: DOCUSATE SODIUM 100 MG CAPSULE (FP) PO SCH (15:06)
[2020-07-04] MEDS: ASCORBIC ACID 500 MG TABLET (FP) PO SCH (15:06)
[2020-07-04] MEDS: DULoxetine HCL 30 MG CAPSULE.DR PO SCH (15:06)
[2020-07-04] MEDS: MULTIVITAMINS (DAILY MVI) TABLET (FP) PO SCH (15:06)
[2020-07-04] MEDS: DIGOXIN 0.125 MG TABLET (FP) PO SCH (15:06)
[2020-07-04] MEDS: FUROSEMIDE 20 MG TABLET (FP) PO SCH (15:06)
[2020-07-04] MEDS: DOXAZOSIN MESYLATE 2 MG TABLET PO SCH (15:30)
[2020-07-04] MEDS: CHOLECALCIFEROL (VIT D3) 1,000 UNIT (25 MCG) TABLET PO SCH (15:31)
[2020-07-04] MEDS ORDERED: LIDOCAINE 5% TOPICAL PATCH ONE (15:35)
[2020-07-04] MEDS: LIDOCAINE 5% TOPICAL PATCH TP SCH (15:38)
[2020-07-04] MEDS ORDERED: WARFARIN NA 5 MG TABLET PO ONE (18:00)
[2020-07-04] MEDS ORDERED: WARFARIN NA 2.5 MG TABLET PO SCH ×2 (18:00)
[2020-07-04] MEDS ORDERED: INSULIN (NOVOLOG) ASPART 100 UNITS/ML 10ML VIAL ONE (20:47)
[2020-07-04] MEDS: ATORVASTATIN CA 40 MG TABLET (FP) PO SCH (21:17)
[2020-07-04 21:58] LABS: INR 1.39 (0.83-1.09); PROTHROMBIN TIME (PATIENT) 16.3 SEC (9.7-13.0)
[2020-07-05] MEDS: LIDOCAINE PATCH REMOVAL MC SCH ×2 (03:36→22:00)
[2020-07-05] MEDS: INSULIN SLIDING SCALE (NOVOLOG) 1 VIAL SQ SCH ×4 (06:20→21:56)
[2020-07-05] MEDS: metFORMIN HCL 500 MG TABLET (FP) PO SCH (06:25)
[2020-07-05 07:36] LABS: BASO % 0.7 % (0-2.0); EOS % 2.3 % (0-4.5); HEMOGLOBIN 13.1 GM/dL (10.7-15.3); LYMPH % 18.4 % (8-40); MCHC 33.7 g/dl (32.0-36.0); MEAN CELL VOLUME 89.2 fl (80-96); MEAN PLT VOLUME 9.1 fl (7.5-11.1); MONO % 9.3 % (3.8-10.2); NEUT % 69.3 % (42.8-82.8); PLATELET COUNT 269 K/MM3 (134-434); RBC 4.37 M/mm3 (3.60-5.2); RDW 14.1 % (11.6-15.6); WHITE BLOOD COUNT 9.8 K/mm3 (4.0-10.0)
[2020-07-05 08:16] LABS: ALBUMIN 3.1 g/dl (3.4-5.0); BILIRUBIN,TOTAL 0.5 mg/dL (0.2-1); BLOOD UREA NITROGEN 13.5 mg/dL (7-18); CREATININE 0.6 mg/dL (0.55-1.3); MAGNESIUM 2.1 mg/dL (1.8-2.4); PHOSPHOROUS 3.6 mg/dL (2.5-4.9); POTASSIUM 3.5 mmol/L (3.5-5.1); TOT PROT 6.7 g/dl (6.4-8.2)
[2020-07-05] MEDS: DIGOXIN 0.125 MG TABLET (FP) PO SCH (09:09)
[2020-07-05] MEDS: DOCUSATE SODIUM 100 MG CAPSULE (FP) PO SCH (09:09)
[2020-07-05] MEDS: ASCORBIC ACID 500 MG TABLET (FP) PO SCH (09:11)
[2020-07-05] MEDS: DULoxetine HCL 30 MG CAPSULE.DR PO SCH (09:11)
[2020-07-05] MEDS: LIDOCAINE 5% TOPICAL PATCH TP SCH (09:11)
[2020-07-05] MEDS: CHOLECALCIFEROL (VIT D3) 1,000 UNIT (25 MCG) TABLET PO SCH (09:11)
[2020-07-05] MEDS: FUROSEMIDE 20 MG TABLET (FP) PO SCH (09:11)
[2020-07-05] MEDS: MULTIVITAMINS (DAILY MVI) TABLET (FP) PO SCH (09:11)
[2020-07-05] MEDS: DOXAZOSIN MESYLATE 2 MG TABLET PO SCH (09:58)
[2020-07-05 11:06] LABS: INR 1.48 (0.83-1.09); PROTHROMBIN TIME (PATIENT) 17.3 SEC (9.7-13.0)
--- NOTE | 2020-07-05 12:21 | PN ---
Progress Note (short form) - Note Progress Note: Chief Complaint: fall s: no cp sob palps dizzy loc pnd orthopnea le edema. Current Medications Generic Name Dose Route Start Last Admin Trade Name Freq PRN Reason Stop Dose Admin Acetaminophen 650 mg 07/04/20 12:22 Tylenol - PO Q6H PRN PAIN LEVEL 1-5 Ascorbic Acid 1,000 mg 07/04/20 12:30 07/05/20 09:11 Vitamin C - PO 1,000 mg DAILY VIDA Administration Atorvastatin Calcium 40 mg 07/04/20 22:00 07/04/20 21:17 Lipitor - PO 40 mg HS VIDA Administration Cholecalciferol 1,000 unit 07/04/20 13:30 07/05/20 09:11 Vitamin D3 - PO 1,000 unit DAILY VIDA Administration Digoxin 0.125 mg 07/04/20 12:30 07/05/20 09:09 Lanoxin - PO 0.125 mg DAILY VIDA Administration Diltiazem HCl 180 mg 07/04/20 12:30 07/05/20 09:11 Cardizem Cd - PO 180 mg DAILY VIDA Administration Docusate Sodium 100 mg 07/04/20 12:30 07/05/20 09:09 Colace - PO 100 mg DAILY VIDA Administration Doxazosin Mesylate 2 mg 07/04/20 12:30 07/05/20 09:58 Cardura - PO 2 mg DAILY VIDA Administration Duloxetine HCl 30 mg 07/04/20 12:30 07/05/20 09:11 Cymbalta - PO 30 mg DAILY VIDA Administration Furosemide 20 mg 07/04/20 12:30 07/05/20 09:11 Lasix - PO 20 mg DAILY VIDA Administration Insulin Aspart 1 vial 07/04/20 07:00 07/05/20 11:19 Novolog Vial Sliding Scale - SQ Not Given ACHS [facility] Protocol Lidocaine 1 patch 07/04/20 12:30 07/05/20 09:11 Lidoderm Patch - TP 1 patch DAILY VIDA Administration Metformin HCl 500 mg 07/05/20 07:00 07/05/20 06:25 Glucophage - PO 500 mg DAILY@0700 VIDA Administration Miscellaneous 1 each 07/04/20 22:00 07/05/20 03:36 Lidoderm Patch Removal MC 1 each DAILY@2200 VIDA Administration Multivitamins/Minerals/Vitamin C 1 tab 07/04/20 12:30 07/05/20 09:11 Tab-A-Vit - PO 1 tab DAILY VIDA Administration Polyethylene Glycol 17 gm 07/04/20 12:23 Miralax (For Daily Use) - PO DAILY PRN CONSTIPATION Warfarin Sodium 2.5 mg 07/06/20 18:00 Coumadin - PO SuTuThSa@1800 VIDA Warfarin Sodium 3.75 mg 07/05/20 18:00 Coumadin - PO MoWeFr@1800 VIDA Vital Signs Period Temp Pulse Resp BP Sys/Srivastava Pulse Ox Last 24 Hr 97.4 F-98 F 62-73 18-20 137-175/67-80 93-100 Constitutional: Yes: Well Nourished, No Distress, Calm Eyes: Yes: Conjunctiva Clear, EOM Intact HENT: Yes: Atraumatic, Normocephalic Neck: Yes: Supple Respiratory: Yes: Regular, CTA Bilaterally Gastrointestinal: Yes: Normal Bowel Sounds, Soft, Tenderness (mild to palpation) Cardiovascular: Yes: irreg Edema: No Neurological: Yes: Alert, Oriented Psychiatric: Yes: Alert, Oriented no jaundice diaphoresis Laboratory Last Values WBC 9.8 K/mm3 (4.0-10.0) 07/05/20 06:20 RBC 4.37 M/mm3 (3.60-5.2) 07/05/20 06:20 Hgb 13.1 GM/dL (10.7-15.3) 07/05/20 06:20 Hct 39.0 % (32.4-45.2) 07/05/20 06:20 MCV 89.2 fl (80-96) 07/05/20 06:20 MCH 30.0 pg (25.7-33.7) 07/05/20 06:20 MCHC 33.7 g/dl (32.0-36.0) 07/05/20 06:20 RDW 14.1 % (11.6-15.6) 07/05/20 06:20 Plt Count 269 K/MM3 (134-434) 07/05/20 06:20 MPV 9.1 fl (7.5-11.1) 07/05/20 06:20 Absolute Neuts (auto) 6.8 K/mm3 (1.5-8.0) 07/05/20 06:20 Neutrophils % 69.3 % (42.8-82.8) 07/05/20 06:20 Lymphocytes % 18.4 % (8-40) D 07/05/20 06:20 Monocytes % 9.3 % (3.8-10.2) 07/05/20 06:20 Eosinophils % 2.3 % (0-4.5) 07/05/20 06:20 Basophils % 0.7 % (0-2.0) 07/05/20 06:20 Nucleated RBC % 0 % (0-0) 07/05/20 06:20 PT with INR 17.30 SEC (9.7-13.0) H 07/05/20 06:20 INR 1.48 (0.83-1.09) H 07/05/20 06:20 PTT (Actin FS) 34.4 SECONDS (25.2-36.5) 07/03/20 16:00 Sodium 137 mmol/L (136-145) 07/05/20 06:20 Potassium 3.5 mmol/L (3.5-5.1) 07/05/20 06:20 Chloride 101 mmol/L (98-107) 07/05/20 06:20 Carbon Dioxide 30 mmol/L (21-32) 07/05/20 06:20 Anion Gap 7 MMOL/L (8-16) L 07/05/20 06:20 BUN 13.5 mg/dL (7-18) 07/05/20 06:20 Creatinine 0.6 mg/dL (0.55-1.3) 07/05/20 06:20 Est GFR (CKD-EPI)AfAm 96.33 07/05/20 06:20 Est GFR (CKD-EPI)NonAf 83.11 07/05/20 06:20 POC Glucometer 130 UNITS (80-120) 07/05/20 11:02 Random Glucose 86 mg/dL (74-106) 07/05/20 06:20 Hemoglobin A1c % 5.1 % (4.2-6.3) 07/05/20 06:20 Calcium 9.0 mg/dL (8.5-10.1) 07/05/20 06:20 Phosphorus 3.6 mg/dL (2.5-4.9) 07/05/20 06:20 Magnesium 2.1 mg/dL (1.8-2.4) 07/05/20 06:20 Total Bilirubin 0.5 mg/dL (0.2-1) 07/05/20 06:20 AST 12 U/L (15-37) L 07/05/20:20 ALT 12 U/L (13-61) L 07/05/20 06:20 Alkaline Phosphatase 86 U/L (45-117) 07/05/20 06:20 Troponin I < 0.02 ng/ml (0.00-0.05) 07/03/20 16:00 Total Protein 6.7 g/dl (6.4-8.2) 07/05/20 06:20 Albumin 3.1 g/dl (3.4-5.0) L 07/05/20 06:20 Triglycerides 155 mg/dL (0-150) H 07/05/20 06:20 Cholesterol 152 mg/dL (50-200) 07/05/20 06:20 Total LDL Cholesterol 76 mg/dL (5-100) 07/05/20 06:20 HDL Cholesterol 60 mg/dL (40-60) 07/05/20 06:20 TSH 1.13 uIU/ml (0.358-3.74) 07/03/20 16:00 Urine Color Yellow 07/03/20 18:30 Urine Appearance Clear 07/03/20 18:30 Urine pH 7.5 (5.0-8.0) 07/03/20 18:30 Ur Specific [place] 1.013 (1.010-1.035) 07/03/20 18:30 Urine Protein Negative (NEGATIVE) 07/03/20 18:30 Urine Glucose (UA) Negative (NEGATIVE) 07/03/20 18:30 Urine Ketones Negative (NEGATIVE) 07/03/20 18:30 Urine Blood Negative (NEGATIVE) 07/03/20 18:30 Urine Nitrite Negative (NEGATIVE) 07/03/20 18:30 Urine Bilirubin Negative (NEGATIVE) 07/03/20 18:30 Urine Urobilinogen 0.2 mg/dL (0.2-1.0) 07/03/20 18:30 Ur Leukocyte Esterase Negative (NEGATIVE) 07/03/20 18:30 Digoxin 1.12 ng/ml (0.8-2.0) 07/04/20 21:00 COVID-19 ([facility]IO) Not detected (Not Detected) 07/03/20 16:00 ecg: afib, rate ok, rbbb, LAFB, bifascicular block cxr: no congestion echo 03/28/17 nl lv/rv function, bio avr without sig stenosis, mild to mod MR, mod to sev pHTN, echo 04/2018 technically difficult, uninterpetable tele: sinus a/p: 84 yo female, h/o cad, afib, bio AVR, HTN, HL, chronic diastolic HF, DM, ureteral stents, recurrent uti's, dementia with fall, L5 fx, here with fall fall - denies syncope, feels like she lost her balance - trop neg, EKG no ischemic changes less likely ACS - monitoring on tele - benign so far afib - rate controlled on dilt and dig - dig level ok - on coumadin per inr CAD, remote cabg (per charts) - stable, no signs acs - continue statin, ac bioAVR -stable, outpatient monitoring htn -cont dilt chronic diastolic heart failure - Cr stable, continue home lasix DM - manage per primary
[2020-07-05] MEDS ORDERED: WARFARIN NA 2.5 MG TABLET PO SCH (18:00)
--- NOTE | 2020-07-05 18:16 | PN ---
Physical Exam: SUBJECTIVE: Patient seen and examined Patient seen and examined. Pt c/o lower back pain but improving with lidoderm patch. Denies vision/hearing changes, chest pain, palpitations, lightheadedness. States she normally ambulates w/ walker. Lives with sister in law, , who are both 86 yr old and are taken care of by daughter who lives at home with them. States she has a [employer] 3d/week x4hr/day OBJECTIVE: This is a 84 yr old female with a hx of Afib on coumadin, AVR, HTN, HLD, DM, asthma, rectal prolapse, who came to the ED s/p fall at home. Pt was walking to the bathroom with rolling waker when she fell and hit the left side of her head against the wall. Pt states she does not recall falling and does not remember what happened prior to falling but states she does remember feeling "faint." An L-Spine CT revealed an L3 compression fracture. Head CT was negative CTLS Spine CT: Acute L3 compression fracture, chronic T1, T12, L5 compression fractures, Marked L3-L4 and moderate L4-L5 central canal stenosis neurosurgery to see patient prior to discharge home. Vital Signs Period Temp Pulse Resp BP Sys/Srivastava Pulse Ox Last 24 Hr 97.4 F-98 F 61-73 18-20 137-158/64-80 93-95 GENERAL: The patient is awake, alert, and fully oriented, in no acute distress. HEAD: Normal, bruise to left temporal. EYES: PERRL, extraocular movements intact, sclera anicteric, conjunctiva clear. No ptosis. ENT: Ears normal, nares patent, oropharynx clear without exudates, moist mucous membranes. NECK: Tender posterior neck, trachea midline, full range of motion, supple. LUNGS: Breath sounds equal, clear to auscultation bilaterally, no wheezes, no crackles, no accessory muscle use. HEART: Regular rate and rhythm, S1, S2 without murmur, rub or gallop. ABDOMEN: Soft, nontender, nondistended, normoactive bowel sounds, no guarding, no rebound, no hepatosplenomegaly, no masses. RECTAL: No rectal prolapse noted EXTREMITIES: 2+ pulses, warm, well-perfused, no edema. NEUROLOGICAL: Cranial nerves II through XII grossly intact. Normal speech, gait not observed. BL Lower strength 1/5, BL upper strength 4/5, strong hand grasps BL, + remote memory loss PSYCH: Normal mood, normal affect. SKIN: Warm, dry, normal turgor, no rashes or lesions noted Laboratory Results - last 24 hr 07/04/20 07/04/20 07/04/20 18:18 21:00 21:00 WBC RBC Hgb Hct MCV MCH MCHC RDW Plt Count MPV Absolute Neuts (auto) Neutrophils % Lymphocytes % Monocytes % Eosinophils % Basophils % Nucleated RBC % PT with INR 16.30 H INR 1.39 H Sodium Potassium Chloride Carbon Dioxide Anion Gap BUN Creatinine Est GFR (CKD-EPI)AfAm Est GFR (CKD-EPI)NonAf POC Glucometer 85 Random Glucose Hemoglobin A1c % Calcium Phosphorus Magnesium Total Bilirubin AST ALT Alkaline Phosphatase Total Protein Albumin Triglycerides Cholesterol Total LDL Cholesterol HDL Cholesterol Digoxin 1.12 07/04/20 07/05/20 07/05/20 21:20 06:15 06:20 WBC 9.8 RBC 4.37 Hgb 13.1 Hct 39.0 MCV 89.2 MCH 30.0 MCHC 33.7 RDW 14.1 Plt Count 269 MPV 9.1 Absolute Neuts (auto) 6.8 Neutrophils % 69.3 Lymphocytes % 18.4 D Monocytes % 9.3 Eosinophils % 2.3 Basophils % 0.7 Nucleated RBC % 0 PT with INR INR Sodium Potassium Chloride Carbon Dioxide Anion Gap BUN Creatinine Est GFR (CKD-EPI)AfAm Est GFR (CKD-EPI)NonAf POC Glucometer 103 98 Random Glucose Hemoglobin A1c % Calcium Phosphorus Magnesium Total Bilirubin AST ALT Alkaline Phosphatase Total Protein Albumin Triglycerides Cholesterol Total LDL Cholesterol HDL Cholesterol Digoxin 07/05/20 07/05/20 07/05/20 06:20 06:20 06:20 WBC RBC Hgb Hct MCV MCH MCHC RDW Plt Count MPV Absolute Neuts (auto) Neutrophils % Lymphocytes % Monocytes % Eosinophils % Basophils % Nucleated RBC % PT with INR 17.30 H INR 1.48 H Sodium 137 Potassium 3.5 Chloride 101 Carbon Dioxide 30 Anion Gap 7 L BUN 13.5 Creatinine 0.6 Est GFR (CKD-EPI)AfAm 96.33 Est GFR (CKD-EPI)NonAf 83.11 POC Glucometer Random Glucose 86 Hemoglobin A1c % 5.1 Calcium 9.0 Phosphorus 3.6 Magnesium 2.1 Total Bilirubin 0.5 AST 12 L ALT 12 L Alkaline Phosphatase 86 Total Protein 6.7 Albumin 3.1 L Triglycerides 155 H Cholesterol 152 Total LDL Cholesterol 76 HDL Cholesterol 60 Digoxin 07/05/20 07/05/20 11:02 17:13 WBC RBC Hgb Hct MCV MCH MCHC RDW Plt Count MPV Absolute Neuts (auto) Neutrophils % Lymphocytes % Monocytes % Eosinophils % Basophils % Nucleated RBC % PT with INR INR Sodium Potassium Chloride Carbon Dioxide Anion Gap BUN Creatinine Est GFR (CKD-EPI)AfAm Est GFR (CKD-EPI)NonAf POC Glucometer 130 97 Random Glucose Hemoglobin A1c % Calcium Phosphorus Magnesium Total Bilirubin AST ALT Alkaline Phosphatase Total Protein Albumin Triglycerides Cholesterol Total LDL Cholesterol HDL Cholesterol Digoxin Active Medications Generic Name Dose Route Start Last Admin Trade Name Freq PRN Reason Stop Dose Admin Acetaminophen 650 mg 07/04/20 12:22 Tylenol - PO Q6H PRN PAIN LEVEL 1-5 Ascorbic Acid 1,000 mg 07/04/20 12:30 07/05/20 09:11 Vitamin C - PO 1,000 mg DAILY VIDA Administration Atorvastatin Calcium 40 mg 07/04/20 22:00 07/04/20 21:17 Lipitor - PO 40 mg HS VIDA Administration Cholecalciferol 1,000 unit 07/04/20 13:30 07/05/20 09:11 Vitamin D3 - PO 1,000 unit DAILY VIDA Administration Digoxin 0.125 mg 07/04/20 12:30 07/05/20 09:09 Lanoxin - PO 0.125 mg DAILY VIDA Administration Diltiazem HCl 180 mg 07/04/20 12:30 07/05/20 09:11 Cardizem Cd - PO 180 mg DAILY VIDA Administration Docusate Sodium 100 mg 07/04/20 12:30 07/05/20 09:09 Colace - PO 100 mg DAILY VIDA Administration Doxazosin Mesylate 2 mg 07/04/20 12:30 07/05/20 09:58 Cardura - PO 2 mg DAILY VIDA Administration Duloxetine HCl 30 mg 07/04/20 12:30 07/05/20 09:11 Cymbalta - PO 30 mg DAILY VIDA Administration Furosemide 20 mg 07/04/20 12:30 07/05/20 09:11 Lasix - PO 20 mg DAILY VIDA Administration Insulin Aspart 1 vial 07/04/20 07:00 07/05/20 17:39 Novolog Vial Sliding Scale - SQ Not Given ACHS [facility] Protocol Lidocaine 1 patch 07/04/20 12:30 07/05/20 09:11 Lidoderm Patch - TP 1 patch DAILY VIDA Administration Metformin HCl 500 mg 07/05/20 07:00 07/05/20 06:25 Glucophage - PO 500 mg DAILY@0700 [facility] Administration Miscellaneous 1 each 07/04/20 22:00 07/05/20 03:36 Lidoderm Patch Removal MC 1 each DAILY@2200 [facility] Administration Multivitamins/Minerals/Vitamin C 1 tab 07/04/20 12:30 07/05/20 09:11 Tab-A-Vit - PO 1 tab DAILY VIDA Administration Polyethylene Glycol 17 gm 07/04/20 12:23 Miralax (For Daily Use) - PO DAILY PRN CONSTIPATION Warfarin Sodium 2.5 mg 07/06/20 18:00 Coumadin - PO SuTuThSa@1800 [facility] Warfarin Sodium 3.75 mg 07/05/20 18:00 07/05/20 17:52 Coumadin - PO 3.75 mg MoWeFr@1800 [facility] Administration ASSESSMENT/PLAN: Problem List - Problems (1) Fall from ground level Assessment/Plan: mechanical vs cardiac PT ordered fall precautions Code(s): W18.30XA - FALL ON SAME LEVEL, UNSPECIFIED, INITIAL ENCOUNTER (2) Pre-syncope Assessment/Plan: pt states she felt "faint" prior to falling 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 Code(s): S32.030A - WEDGE COMPRESSION FRACTURE OF THIRD LUMBAR VERTEBRA, INIT Qualifiers: Encounter type: initial encounter Qualified Code(s): S32.030A - Wedge compression fracture of third lumbar vertebra, initial encounter for closed fracture (4) HTN (hypertension) Assessment/Plan: Resume home dose Diltiazem 180mg PO daily Code(s): I10 - ESSENTIAL (PRIMARY) HYPERTENSION (5) HLD (hyperlipidemia) Assessment/Plan: Resume home dose Lipitor 40mg PO daily Resume home dose Livalo 1mg PO Daily Code(s): E78.5 - HYPERLIPIDEMIA, UNSPECIFIED (6) Asthma Assessment/Plan: currently not SOB, denies difficulty breathing monitor respiratory status monitor spo2, notify provider if spo2 <90% on room air Code(s): J45.909 - UNSPECIFIED ASTHMA, UNCOMPLICATED (7) Constipation Assessment/Plan: Resume pt's home dose colace 100mg PO daily Miralax 17gm PO daily PRN Code(s): K59.00 - CONSTIPATION, UNSPECIFIED (8) Headache Assessment/Plan: Start Tylenol 650mg PO q6h PRN for pain Code(s): R51.9 - HEADACHE, UNSPECIFIED (9) Back pain Assessment/Plan: Apply lidocaine patch 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 Assessment/Plan: Continue BGMs AC/HS Continue ISS Check hgb A1C Code(s): E11.319 - TYPE 2 DIABETES W UNSP DIABETIC RTNOP W/O MACULAR EDEMA (11) Leukocytosis Assessment/Plan: resolved Urine culture negative chest x ray negative for pna currently afebrile Code(s): D72.829 - ELEVATED WHITE BLOOD CELL COUNT, UNSPECIFIED (12) Afib Assessment/Plan: Resume home dose coumadin 2.5mg Sat, Sun, Tue, Thurs and 3.75mg Fri Resume digoxin 0.125 mg po daily Check digoxin level Code(s): I48.91 - UNSPECIFIED ATRIAL FIBRILLATION (13) Aortic valve replaced Assessment/Plan: sees Dr Farmer Code(s): Z95.2 - PRESENCE OF PROSTHETIC HEART VALVE (14) Prophylactic measure Assessment/Plan: FEN Diabetic Diet Monitor electrolytes and replete as needed VTE Prophylaxis: Pt on coumadin Code(s): Z29.9 - ENCOUNTER FOR PROPHYLACTIC MEASURES, UNSPECIFIED Visit type - Emergency Visit Emergency Visit: Yes ED Registration Date: 07/03/20 Care time: The patient presented to the Emergency Department on the above date and was hospitalized for further evaluation of their emergent condition. - New Patient This patient is new to me today: No - Critical Care Critical Care patient: No - Discharge Referral Referred to [facility] Med P.C.: No - Medication Review Med list reviewed for High Risk Meds patients 65 and older: Yes
[2020-07-05] MEDS: ATORVASTATIN CA 40 MG TABLET (FP) PO SCH (21:55)
[2020-07-06] MEDS: INSULIN SLIDING SCALE (NOVOLOG) 1 VIAL SQ SCH ×2 (06:17→13:06)
[2020-07-06] MEDS: metFORMIN HCL 500 MG TABLET (FP) PO SCH (06:25)
[2020-07-06 08:49] LABS: BASO % 0.8 % (0-2.0); EOS % 1.6 % (0-4.5); HEMATOCRIT 38.2 % (32.4-45.2); HEMOGLOBIN 12.9 GM/dL (10.7-15.3); MCH 29.8 pg (25.7-33.7); MCHC 33.8 g/dl (32.0-36.0); MEAN PLT VOLUME 8.4 fl (7.5-11.1); MONO % 7.2 % (3.8-10.2); NEUT % 73.4 % (42.8-82.8); PLATELET COUNT 275 K/MM3 (134-434); RBC 4.34 M/mm3 (3.60-5.2); RDW 14.1 % (11.6-15.6); WHITE BLOOD COUNT 9.6 K/mm3 (4.0-10.0)
[2020-07-06 09:13] LABS: ALBUMIN 3.1 g/dl (3.4-5.0); BILIRUBIN,TOTAL 0.8 mg/dL (0.2-1); BLOOD UREA NITROGEN 15.5 mg/dL (7-18); CALCIUM 9.4 mg/dL (8.5-10.1); CREATININE 0.7 mg/dL (0.55-1.3); MAGNESIUM 2.2 mg/dL (1.8-2.4); POTASSIUM 3.7 mmol/L (3.5-5.1); TOT PROT 6.8 g/dl (6.4-8.2)
[2020-07-06 09:15] LABS: INR 1.74 (0.83-1.09); PROTHROMBIN TIME (PATIENT) 20.7 SEC (9.7-13.0)
[2020-07-06] MEDS: ASCORBIC ACID 500 MG TABLET (FP) PO SCH (10:00)
[2020-07-06] MEDS: DULoxetine HCL 30 MG CAPSULE.DR PO SCH (10:00)
[2020-07-06] MEDS: FUROSEMIDE 20 MG TABLET (FP) PO SCH (10:00)
[2020-07-06] MEDS: DIGOXIN 0.125 MG TABLET (FP) PO SCH (10:02)
[2020-07-06] MEDS: MULTIVITAMINS (DAILY MVI) TABLET (FP) PO SCH (10:02)
[2020-07-06] MEDS: DOCUSATE SODIUM 100 MG CAPSULE (FP) PO SCH (10:02)
[2020-07-06] MEDS: DOXAZOSIN MESYLATE 2 MG TABLET PO SCH (10:03)
[2020-07-06] MEDS: CHOLECALCIFEROL (VIT D3) 1,000 UNIT (25 MCG) TABLET PO SCH (10:04)
--- NOTE | 2020-07-06 10:06 | CONSULT ---
Consult - text type - Consultation Consultation Note: NEUROSURGERY CONSULTATION Patient is an 84 year old female with a history of Atrial Fibrillation who is maintained on coumadin, she is status post aortic valve replacement, HTN, DM, asthma, presenting to the [facility] ED after a fall. The daughter was present at the event noted the day prior to admission at 6pm, the patient was ambulating with a walker to the bathroom, turned the corner, and had lost her balance. She had fallen and struck the left parietal aspect of her head against the wall and had fallen to the floor. Headache since the event. The patient was alert and cognizant at the event. No post ictal state, tongue biting, or confusion. The patient endorses multiple episodes of falls in the past with the last dating back in March. She notes that she lives at home with her daughter, , and aunt and ambulates with a walker at baseline. Patient endorses mild headache and dizziness after the event. TLICS Score is 1 (1 Morphology; 0 Neurology; 0 Posterior element compromise) suggesting initial management in a brace would be appropriate. - TLSO brace when out of bed and for comfort - Physical Therapy - GI/DVT Prophylaxis - If patient cannot bear weight or has intractable radicular symptoms or progressive angulation, will discuss the potential role for further intervention.
[2020-07-06] MEDS ORDERED: oxyCODONE HCL 5 MG TABLET PO PRN (10:11)
[2020-07-06] MEDS: LIDOCAINE 5% TOPICAL PATCH TP SCH (10:14)
[2020-07-06] MEDS ORDERED: traMADol HCL 50 MG TABLET PO PRN (10:25)
--- NOTE | 2020-07-06 10:37 | DS ---
Physical Exam: SUBJECTIVE: Patient seen and examined at the bedside. She reports she feels well. Denies any other malaise. Spoke to patient's daughter and and both are refusing patient to attend STR. Informed them that she only ambulates 5 feet during her stay here. At home she ambulates about 10-15 feet with a walker. Patient seen by neurosurgery and a TSLO brace recommended. For pain management: tylenol prn, Lidocaine patches to lower back and Tramadol only if pain is severe. OBJECTIVE: recommendations per neurosurgery note: - TLSO brace when out of bed and for comfort - Physical Therapy - If patient cannot bear weight or has intractable radicular symptoms or progressive angulation, will discuss the potential role for further intervention. ---- This is a 84 yr old female with a hx of Afib on coumadin, AVR, HTN, HLD, DM, asthma, rectal prolapse, who came to the ED s/p fall at home. Pt was walking to the bathroom with rolling waker when she fell and hit the left side of her head against the wall. Pt states she does not recall falling and does not remember what happened prior to falling but states she does remember feeling "faint." An L-Spine CT revealed an L3 compression fracture. Head CT was negative CTLS Spine CT: Acute L3 compression fracture, chronic T1, T12, L5 compression fractures, Marked L3-L4 and moderate L4-L5 central canal stenosis Period Temp Pulse Resp BP Sys/Srivastava Pulse Ox Last 24 Hr 97.6 F-98.1 F 59-68 18-20 125-146/58-72 93-95 PHYSICAL EXAM GENERAL: The patient is awake, alert, and fully oriented, in no acute distress. HEAD: Normal, bruise to left temporal. EYES: PERRL, extraocular movements intact, sclera anicteric, conjunctiva clear. No ptosis. ENT: Ears normal, nares patent, oropharynx clear without exudates, moist mucous membranes. NECK: Tender posterior neck, trachea midline, full range of motion, supple. LUNGS: Breath sounds equal, clear to auscultation bilaterally, no wheezes, no crackles, no accessory muscle use. HEART: afib ABDOMEN: Soft, nontender, nondistended, normoactive bowel sounds, no guarding, no rebound, no hepatosplenomegaly, no masses. EXTREMITIES: no edema. NEUROLOGICAL: Normal speech, gait not observed. BL Lower strength 1/5, BL upper strength 4/5, strong hand grasps BL, + remote memory loss PSYCH: Normal mood, normal affect. SKIN: Warm, dry, normal turgor, no rashes or lesions noted LABS Laboratory Results - last 24 hr 07/05/20 07/05/20 07/05/20 06:20 11:02 17:13 WBC RBC Hgb Hct MCV MCH MCHC RDW Plt Count MPV Absolute Neuts (auto) Neutrophils % Lymphocytes % Monocytes % Eosinophils % Basophils % Nucleated RBC % PT with INR 17.30 H INR 1.48 H Sodium Potassium Chloride Carbon Dioxide Anion Gap BUN Creatinine Est GFR (CKD-EPI)AfAm Est GFR (CKD-EPI)NonAf POC Glucometer 130 97 Random Glucose Calcium Magnesium Total Bilirubin AST ALT Alkaline Phosphatase Total Protein Albumin 07/05/20 07/06/20 07/06/20 21:54 05:26 08:24 WBC 9.6 RBC 4.34 Hgb 12.9 Hct 38.2 MCV 88.0 MCH 29.8 MCHC 33.8 RDW 14.1 Plt Count 275 MPV 8.4 Absolute Neuts (auto) 7.1 Neutrophils % 73.4 Lymphocytes % 17.0 Monocytes % 7.2 Eosinophils % 1.6 Basophils % 0.8 Nucleated RBC % 0 PT with INR INR Sodium Potassium Chloride Carbon Dioxide Anion Gap BUN Creatinine Est GFR (CKD-EPI)AfAm Est GFR (CKD-EPI)NonAf POC Glucometer 163 107 Random Glucose Calcium Magnesium Total Bilirubin AST ALT Alkaline Phosphatase Total Protein Albumin 07/06/20 07/06/20 08:24 08:24 WBC RBC Hgb Hct MCV MCH MCHC RDW Plt Count MPV Absolute Neuts (auto) Neutrophils % Lymphocytes % Monocytes % Eosinophils % Basophils % Nucleated RBC % PT with INR 20.70 H INR 1.74 H Sodium 135 L Potassium 3.7 Chloride 100 Carbon Dioxide 28 Anion Gap 7 L BUN 15.5 Creatinine 0.7 Est GFR (CKD-EPI)AfAm 91.57 Est GFR (CKD-EPI)NonAf 79.00 POC Glucometer Random Glucose 118 H Calcium 9.4 Magnesium 2.2 Total Bilirubin 0.8 AST 10 L ALT 14 Alkaline Phosphatase 94 Total Protein 6.8 Albumin 3.1 L HOSPITAL COURSE: Date of Admission:07/03/20 Date of Discharge: 07/06/20 Minutes to complete discharge: 45 Discharge Summary Problems reviewed: Yes Reason For Visit: FALL Current Active Problems Asthma (Acute) Back pain (Acute) Compression fracture of L3 vertebra (Acute) Constipation (Acute) Diabetes mellitus type 2 with retinopathy (Acute) Fall from ground level (Acute) HLD (hyperlipidemia) (Acute) HTN (hypertension) (Acute) Headache (Acute) LAFB (left anterior fascicular block) (Acute) Leukocytosis (Acute) Pre-syncope (Acute) Prophylactic measure (Acute) RBBB (Acute) Syncope (Acute) Condition: Improved - Instructions Diet, Activity, Other Instructions: DISCHARGE YOUR VISIT You came to the hospital because you fell at home. We did back imaging that epifanio ws that your have an L3 fracture. You were seen by the neurosurgeon who advised that you wear a TSLO brace. We will be sending you home with the brace and have made arrangements for you to have physical therapy at home. You may have pain of your back when you walk. We have given you Tylenol and a Lidocaine Patch which has helped your pain. Please continue Tylenol as needed for back pain and Lidocaine patches can be purchased over the counter. They are called Salonpas Patches. For severe pain, we have ordered Tramadol 25mg every 6-8 hours NEEDED. If you take Tramadol, make sure you take a stool softner to avoid constipation. we also noted that you possibly have a POLYP on your left nostril. Please follow up with an ENT that accepts your insurance. MEDICATIONS Please continue to take your home medications as prescribed. DIET Continue your home diet ADDITIONAL CARE Please make an appointment to see your primary care provider, 1 week from today. ADDITIONAL INFORMATION Please call 911 or come directly to the emergency department if you experience unusual headache, vision change, shortness of breath, chest pain, numbness, tingling, loss of alertness/awareness, loss of function, unusual bleeding or any alarming symptoms. Thank you for allowing us to care for you. [facility] Referrals: Jericho Garces MD, FAANS [Staff Physician] - Sal Guerra MD [Primary Care Provider] - Disposition: VNS/HOME HEALTH CARE - Home Medications Comprehensive Discharge Medication List: Ambulatory Orders Digoxin [Lanoxin -] 0.125 mg PO DAILY 04/26/18 Diltiazem HCl [Cartia Xt] 180 mg PO DAILY 04/26/18 Doxazosin Mesylate 2 mg PO DAILY 04/26/18 Duloxetine HCl 30 mg PO DAILY 04/26/18 Furosemide 20 mg PO BID 04/26/18 Metformin HCl [Glucophage] 500 mg PO DAILY 04/26/18 Multivitamin [Multiple Vitamins] 1 each PO DAILY 04/26/18 [place]-3/Dha/Epa/Fish Oil [Fish Oil 1,000 mg Softgel] 1 each PO DAILY 04/26/18 Pitavastatin Calcium [Livalo] 1 mg PO DAILY 04/26/18 Warfarin Sodium [Coumadin] 3.75 mg PO ASDIR 04/26/18 Atorvastatin Ca [Lipitor] 40 mg PO HS 03/28/20 Ascorbate Calcium [Vitamin C] 1,000 mg PO DAILY 07/03/20 Cholecalciferol (Vitamin D3) [Vitamin D3] 25 mcg PO DAILY 07/03/20 Lidocaine 5% Patch [Lidoderm -] 1 patch TP DAILY patch 07/06/20 traMADol HCL [Ultram -] 25 mg PO Q8H PRN #20 tablet MDD 50 07/06/20 Problem List - Problems (1) Fall from ground level Assessment/Plan: sounds like a mechanical fall. Ruled out for ACS. patient with acute L3 fracture to be sent home with TSLO brace, physical therapy and pain management. Follow up with Dr. Castillo fall precautions Code(s): W18.30XA - FALL ON SAME LEVEL, UNSPECIFIED, INITIAL ENCOUNTER (2) Pre-syncope Assessment/Plan: cardiology consult notes reviewed and appreciated Brain MRI reviewed, no acute pathology noted Code(s): R55 - SYNCOPE AND COLLAPSE (3) Compression fracture of L3 vertebra Assessment/Plan: films reviewed by neurosurgery and per neurosx recommed the following: - TLSO brace when out of bed and for comfort - Physical Therapy - If patient cannot bear weight or has intractable radicular symptoms or progressive angulation, will discuss the potential role for further intervention. pain management with tamadol, tylenol and lidocaine patches. PT home services to start. Code(s): S32.030A - WEDGE COMPRESSION FRACTURE OF THIRD LUMBAR VERTEBRA, INIT Qualifiers: Encounter type: initial encounter Qualified Code(s): S32.030A - Wedge compression fracture of third lumbar vertebra, initial encounter for closed fracture (4) HTN (hypertension) Assessment/Plan: Resume home dose Diltiazem 180mg PO daily bp stable Code(s): I10 - ESSENTIAL (PRIMARY) HYPERTENSION (5) HLD (hyperlipidemia) Assessment/Plan: Resume home dose Lipitor 40mg PO daily Resume home dose Livalo 1mg PO Daily Code(s): E78.5 - HYPERLIPIDEMIA, UNSPECIFIED (6) Asthma Assessment/Plan: currently not SOB, denies difficulty breathing monitor respiratory status monitor spo2, notify provider if spo2 <90% on room air Code(s): J45.909 - UNSPECIFIED ASTHMA, UNCOMPLICATED (7) Constipation Assessment/Plan: Resume pt's home dose colace 100mg PO daily Miralax 17gm PO daily PRN Code(s): K59.00 - CONSTIPATION, UNSPECIFIED (8) Headache Assessment/Plan: Start Tylenol 650mg PO q6h PRN for pain, but denies headache at this time. Code(s): R51.9 - HEADACHE, UNSPECIFIED (9) Back pain Assessment/Plan: Apply lidocaine patch, tylenol and encourage ambulation. 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 Assessment/Plan: continue follow up with PCP Code(s): E11.319 - TYPE 2 DIABETES W UNSP DIABETIC RTNOP W/O MACULAR EDEMA (11) Leukocytosis Assessment/Plan: resolved Urine culture negative chest x ray negative for pna currently afebrile Code(s): D72.829 - ELEVATED WHITE BLOOD CELL COUNT, UNSPECIFIED (12) Afib Assessment/Plan: Resume home dose coumadin 2.5mg Sat, Sun, Tue, Thurs and 3.75mg Fri Resume digoxin 0.125 mg po daily Code(s): I48.91 - UNSPECIFIED ATRIAL FIBRILLATION (13) Aortic valve replaced Assessment/Plan: sees Dr Farmer, follow up outpatient Code(s): Z95.2 - PRESENCE OF PROSTHETIC HEART VALVE (14) Prophylactic measure Assessment/Plan: Code(s): Z29.9 - ENCOUNTER FOR PROPHYLACTIC MEASURES, UNSPECIFIED This patient is new to me today: No Emergency Visit: Yes ED Registration Date: 07/03/20 Care time: The patient presented to the Emergency Department on the above date and was hospitalized for further evaluation of their emergent condition. Critical Care patient: No - Discharge Referral Referred to [facility] Med P.C.: No
[2020-07-06 10:38] VITALS: TEMP 97.7
--- NOTE | 2020-07-06 11:16 | PN ---
Progress Note (short form) - Note Progress Note: Chief Complaint: fall s: no cp sob palps dizzy loc pnd orthopnea le edema. Current Medications Generic Name Dose Route Start Last Admin Trade Name Freq PRN Reason Stop Dose Admin Acetaminophen 650 mg 07/04/20 12:22 Tylenol - PO Q6H PRN PAIN LEVEL 1-5 Ascorbic Acid 1,000 mg 07/04/20 12:30 07/06/20 10:00 Vitamin C - PO 1,000 mg DAILY VIDA Administration Atorvastatin Calcium 40 mg 07/04/20 22:00 07/05/20 21:55 Lipitor - PO 40 mg HS VIDA Administration Cholecalciferol 1,000 unit 07/04/20 13:30 07/06/20 10:04 Vitamin D3 - PO 1,000 unit DAILY VIDA Administration Digoxin 0.125 mg 07/04/20 12:30 07/06/20 10:02 Lanoxin - PO 0.125 mg DAILY VIDA Administration Diltiazem HCl 180 mg 07/04/20 12:30 07/06/20 10:00 Cardizem Cd - PO 180 mg DAILY VIDA Administration Docusate Sodium 100 mg 07/04/20 12:30 07/06/20 10:02 Colace - PO 100 mg DAILY VIDA Administration Doxazosin Mesylate 2 mg 07/04/20 12:30 07/06/20 10:03 Cardura - PO 2 mg DAILY VIDA Administration Duloxetine HCl 30 mg 07/04/20 12:30 07/06/20 10:00 Cymbalta - PO 30 mg DAILY VIDA Administration Furosemide 20 mg 07/04/20 12:30 07/06/20 10:00 Lasix - PO 20 mg DAILY VIDA Administration Insulin Aspart 1 vial 07/04/20 07:00 07/06/20 06:17 Novolog Vial Sliding Scale - SQ Not Given ACHS VIDA Protocol Lidocaine 1 patch 07/04/20 12:30 07/06/20 10:14 Lidoderm Patch - TP 1 patch DAILY VIDA Administration Metformin HCl 500 mg 07/05/20 07:00 07/06/20 06:25 Glucophage - PO 500 mg DAILY@0700 VIDA Administration Miscellaneous 1 each 07/04/20 22:00 07/05/20 22:00 Lidoderm Patch Removal MC 1 each DAILY@2200 VIDA Administration Multivitamins/Minerals/Vitamin C 1 tab 07/04/20 12:30 07/06/20 10:02 Tab-A-Vit - PO 1 tab DAILY VIDA Administration Polyethylene Glycol 17 gm 07/04/20 12:23 Miralax (For Daily Use) - PO DAILY PRN CONSTIPATION Tramadol HCl 25 mg 07/06/20 10:25 Ultram - PO Q8H PRN PAIN LEVEL 7 - 10 Warfarin Sodium 2.5 mg 07/06/20 18:00 Coumadin - PO SuTuThSa@1800 VIDA Warfarin Sodium 3.75 mg 07/05/20 18:00 07/05/20 17:52 Coumadin - PO 3.75 mg MoWeFr@1800 VIDA Administration Vital Signs Period Temp Pulse Resp BP Sys/Srivastava Pulse Ox Last 24 Hr 97.6 F-98.1 F 59-68 18-22 125-146/58-72 93-96 Constitutional: Yes: Well Nourished, No Distress, Calm Eyes: Yes: Conjunctiva Clear, EOM Intact HENT: Yes: Atraumatic, Normocephalic Neck: Yes: Supple Respiratory: Yes: Regular, CTA Bilaterally Gastrointestinal: Yes: Normal Bowel Sounds, Soft Cardiovascular: Yes: irreg Edema: No Neurological: Yes: Alert, Oriented Psychiatric: Yes: Alert, Oriented no jaundice diaphoresis Laboratory Last Values WBC 9.6 K/mm3 (4.0-10.0) 07/06/20 08:24 RBC 4.34 M/mm3 (3.60-5.2) 07/06/20 08:24 Hgb 12.9 GM/dL (10.7-15.3) 07/06/20 08:24 Hct 38.2 % (32.4-45.2) 07/06/20 08:24 MCV 88.0 fl (80-96) 07/06/20 08:24 MCH 29.8 pg (25.7-33.7) 07/06/20 08:24 MCHC 33.8 g/dl (32.0-36.0) 07/06/20 08:24 RDW 14.1 % (11.6-15.6) 07/06/20 08:24 Plt Count 275 K/MM3 (134-434) 07/06/20 08:24 MPV 8.4 fl (7.5-11.1) 07/06/20 08:24 Absolute Neuts (auto) 7.1 K/mm3 (1.5-8.0) 07/06/20 08:24 Neutrophils % 73.4 % (42.8-82.8) 07/06/20 08:24 Lymphocytes % 17.0 % (8-40) 07/06/20 08:24 Monocytes % 7.2 % (3.8-10.2) 07/06/20 08:24 Eosinophils % 1.6 % (0-4.5) 07/06/20 08:24 Basophils % 0.8 % (0-2.0) 07/06/20 08:24 Nucleated RBC % 0 % (0-0) 07/06/20 08:24 PT with INR 20.70 SEC (9.7-13.0) H 07/06/20 08:24 INR 1.74 (0.83-1.09) H 07/06/20 08:24 PTT (Actin FS) 34.4 SECONDS (25.2-36.5) 07/03/20 16:00 Sodium 135 mmol/L (136-145) L 07/06/20 08:24 Potassium 3.7 mmol/L (3.5-5.1) 07/06/20 08:24 Chloride 100 mmol/L (98-107) 07/06/20 08:24 Carbon Dioxide 28 mmol/L (21-32) 07/06/20 08:24 Anion Gap 7 MMOL/L (8-16) L 07/06/20 08:24 BUN 15.5 mg/dL (7-18) 07/06/20 08:24 Creatinine 0.7 mg/dL (0.55-1.3) 07/06/20 08:24 Est GFR (CKD-EPI)AfAm 91.57 07/06/20 08:24 Est GFR (CKD-EPI)NonAf 79.00 07/06/20 08:24 POC Glucometer 107 UNITS (80-120) 07/06/20 05:26 Random Glucose 118 mg/dL (74-106) H 07/06/20 08:24 Hemoglobin A1c % 5.1 % (4.2-6.3) 07/05/20 06:20 Calcium 9.4 mg/dL (8.5-10.1) 07/06/20 08:24 Phosphorus 3.6 mg/dL (2.5-4.9) 07/05/20 06:20 Magnesium 2.2 mg/dL (1.8-2.4) 07/06/20 08:24 Total Bilirubin 0.8 mg/dL (0.2-1) 07/06/20 08:24 AST 10 U/L (15-37) L 07/06/20 08:24 ALT 14 U/L (13-61) 07/06/20 08:24 Alkaline Phosphatase 94 U/L (45-117) 07/06/20 08:24 Troponin I < 0.02 ng/ml (0.00-0.05) 07/03/20 16:00 Total Protein 6.8 g/dl (6.4-8.2) 07/06/20 08:24 Albumin 3.1 g/dl (3.4-5.0) L 07/06/20 08:24 Triglycerides 155 mg/dL (0-150) H 07/05/20 06:20 Cholesterol 152 mg/dL (50-200) 07/05/20 06:20 Total LDL Cholesterol 76 mg/dL (5-100) 07/05/20 06:20 HDL Cholesterol 60 mg/dL (40-60) 07/05/20 06:20 TSH 1.13 uIU/ml (0.358-3.74) 07/03/20 16:00 Urine Color Yellow 07/03/20 18:30 Urine Appearance Clear 07/03/20 18:30 Urine pH 7.5 (5.0-8.0) 07/03/20 18:30 Ur Specific [place] 1.013 (1.010-1.035) 07/03/20 18:30 Urine Protein Negative (NEGATIVE) 07/03/20 18:30 Urine Glucose (UA) Negative (NEGATIVE) 07/03/20 18:30 Urine Ketones Negative (NEGATIVE) 07/03/20 18:30 Urine Blood Negative (NEGATIVE) 07/03/20 18:30 Urine Nitrite Negative (NEGATIVE) 07/03/20 18:30 Urine Bilirubin Negative (NEGATIVE) 07/03/20 18:30 Urine Urobilinogen 0.2 mg/dL (0.2-1.0) 07/03/20 18:30 Ur Leukocyte Esterase Negative (NEGATIVE) 07/03/20 18: Digoxin 1.12 ng/ml (0.8-2.0) 07/04/20 21:00 COVID-19 ([facility]) Not detected (Not Detected) 07/03/20 16:00 ecg: afib, rate ok, rbbb, LAFB, bifascicular block cxr: no congestion echo 03/28/17 nl lv/rv function, bio avr without sig stenosis, mild to mod MR, mod to sev pHTN, echo 04/2018 technically difficult, uninterpetable tele: afib, rate ok a/p: 84 yo female, h/o cad, afib, bio AVR, HTN, HL, chronic diastolic HF, DM, ureteral stents, recurrent uti's, dementia with fall, L5 fx, here with fall fall - denies syncope, feels like she lost her balance - trop neg, EKG no ischemic changes less likely ACS - monitoring on tele - benign afib - rate controlled on dilt and dig - dig level ok - on coumadin per inr CAD, remote cabg (per charts) - stable, no signs acs - continue statin, ac bioAVR -stable, outpatient monitoring htn -cont dilt chronic diastolic heart failure - Cr stable, continue home lasix DM - manage per primary
[2020-07-06 13:59] VITALS: BP 150/65; PULSE 65
[2020-07-06] MEDS ORDERED: WARFARIN NA 2.5 MG TABLET PO SCH (18:00)
== END 2020-07-06 16:58 | disposition home health service (06) | DRG 552 ==
LOC: JER 14:35 → JERBED 20:20 → J4W 07-04 17:47
PROVIDERS: ADMIT Internal Medicine; ATTEND Nurse Practitioner Family
DX: S32.030A Wedge compression fracture of third lumbar vertebra, initial encounter for closed fracture (principal); I50.32 Chronic diastolic (congestive) heart failure; I45.2 Bifascicular block; I48.91 Unspecified atrial fibrillation; I10 Essential (primary) hypertension; E78.5 Hyperlipidemia, unspecified; J45.909 Unspecified asthma, uncomplicated; F32.9 Major depressive disorder, single episode, unspecified; I44.4 Left anterior fascicular block; I45.10 Unspecified right bundle-branch block; R55 Syncope and collapse; M48.061 Spinal stenosis, lumbar region without neurogenic claudication; K59.09 Other constipation; R51.9 Headache, unspecified; E11.319 Type 2 diabetes mellitus with unspecified diabetic retinopathy without macular edema; M54.9 Dorsalgia, unspecified; M41.9 Scoliosis, unspecified; M81.0 Age-related osteoporosis without current pathological fracture; E11.42 Type 2 diabetes mellitus with diabetic polyneuropathy; E55.9 Vitamin D deficiency, unspecified; D72.829 Elevated white blood cell count, unspecified; I11.0 Hypertensive heart disease with heart failure; F03.90 Unspecified dementia, unspecified severity, without behavioral disturbance, psychotic disturbance, mood disturbance, and anxiety; I25.10 Atherosclerotic heart disease of native coronary artery without angina pectoris; Z79.01 Long term (current) use of anticoagulants; Z95.2 Presence of prosthetic heart valve; W18.30XA Fall on same level, unspecified, initial encounter; Y92.098 Other place in other non-institutional residence as the place of occurrence of the external cause; Z95.1 Presence of aortocoronary bypass graft
CPT/HCPCS: 36415; 70450-TC; 70551-TC; 71045-TC-FY; 72125-TC; 72128-TC; 72131-TC; 72170-TC-FY; 80053; 80061; 80162; 81003; 82962; 83036; 83721; 83735; 84100; 84443; 84484; 85025; 85610; 85730; 87086; 93005; 93010; 97116-GP; 97162-GP; 99285-25; C9803; U0003